=== PATIENT | female | born 1980 | race Caucasian/White ===

== ENCOUNTER 2022-12-21 20:11 | Outpatient (OUT) | payer MEDICARE, MEDICAID, SELFPAY | END 2022-12-21 20:12 | PROVIDERS: PCP Family Medicine; Visit Provider Family Medicine | DX: G47.33 Obstructive sleep apnea (adult) (pediatric) (principal) | CPT/HCPCS: 95811 ==

== ENCOUNTER 2023-02-13 12:20 | Observation (INO) | payer MEDICARE, MEDICAID, SELFPAY ==
[2023-02-13] VITALS (10 sets, daily range): BP systolic 102–148; BP diastolic 69–93; PULSE 79–93; RESP 12–24; TEMP 36.5–36.7; O2SAT 94–98; BMI 48.0; BMI 55.3
--- NOTE | 2023-02-13 12:49 | ED_ITS ---
HPI - Extremity Problem General Chief complaint: Extremity Problem, Nontraumatic Stated complaint: BOTH LEGS SWOLLEN/SOMETIMES SEEPING Time Seen by Provider: 02/13/23 12:49 Source: patient Source comment: patient Mode of arrival: Wheelchair Limitations: no limitations History of Present Illness HPI Narrative: Patient persist emergency department complaining of bilateral lower extremity edema. She states she has a history of congestive heart failure since being on the vent from Covid-19 in August of this year. She has been hospitalized in different location the last 2 months with lower extremity edema. She is taking [id number] , metolazone 2.5 mg 3 times a week and [id number]. She states in the last week he doesn't feel like this medication is working that edema has worsened is in her a lot of tightness, burning when she walks and inability for her to wear her compression stockings. He denies any chest pain, or shortness of breath. Denies any fever, chills, or cough. She denies any nausea, vomiting, diarrhea. denies trauma. Related Data Home Medications Medication Instructions Recorded Confirmed amitriptyline 150 mg tablet 300 mg PO BEDTIME 02/13/23 02/13/23 atorvastatin 40 mg tablet mg 02/13/23 dicyclomine 20 mg tablet mg 02/13/23 fluticasone 250 mcg-salmeterol 50 inhalation 02/13/23 mcg/dose blistr powdr for inhalation furosemide 40 mg tablet (Lasix) 40 mg PO DAILY 02/13/23 02/13/23 insulin regular hum U-500 conc 500 unit 02/13/23 unit/mL subcutaneous soln (Humulin R U-500 (Concentrated) Insulin) ondansetron 8 mg disintegrating mg 02/13/23 tablet oxycodone-acetaminophen 5 mg-325 tab 02/13/23 mg tablet pioglitazone 45 mg tablet mg 02/13/23 propranolol 80 mg capsule,24 mg PO 02/13/23 hr,extended release sertraline 50 mg tablet 50 mg PO DAILY 02/13/23 02/13/23 sertraline 50 mg tablet mg 02/13/23 Allergies Allergy/AdvReac Type Severity Reaction Status Date / Time hydromorphone [From Dilaudid] Allergy Intermediate Verified 02/13/23 13:18 Sulfa (Sulfonamide Allergy Intermediate Verified 02/13/23 13:18 Antibiotics) Review of Systems ROS Status of ROS 10 or more systems reviewed and unremarkable except as noted in history and below [facility] Social History Smoking status: Never smoker Exam Narrative Exam Narrative: Nurses notes and vital signs reviewed and patient is not hypoxic. General: Nontoxic, Well-appearing and in no apparent distress. Skin: Warm, dry, no pallor noted. No Rash Head: Normocephalic, atraumatic. Neck: Supple, non-tender. Eye: Pupils are equal, round and EOMI. No scleral icterus. Ears, Nose, Mouth, and Throat: TM clear, no posterior oropharynx erythema or nasal mucosal hypertrophy, uvula is mid-line Oral mucosa is moist Cardiovascular: Regular Rate and Rhythm without murmur, gallop or rub. Respiratory: No accessory muscle use or respiratory distress. Lungs are clear to auscultation, no wheezing, rales or rhonchi Chest Wall: no tenderness Back: No midline thoracic or lumbar vertebral tenderness. No CVA tenderness Musculoskeletal: normal ROM, no calf or popliteal tenderness, bilateral lower extremity lymphedema with+4 lower extremity edema/swelling, No asymmetry, negative Homans sign, no Erythema, or ecchymosis. DP pulse +2. GI: Obese,Abdomen is soft, non-distended. Normal bowel sounds. No masses appreciated. No tenderness to palpation. No rebound, guarding, or rigidity noted. Neurological: A&O x4. No cranial nerve dysfunction observed. No truncal ataxia. Moves all extremities. Sensation intact. Psychiatric: Cooperative and interactive. Normal mood and affect. Constitutional Vital Signs, click to edit/add: Last Vital Signs Temp 98.1 F 02/13/23 12:30 Pulse 90 02/13/23 15:50 Resp 13 02/13/23 15:50 BP 122/73 02/13/23 15:40 Pulse Ox 98 02/13/23 14:38 O2 Del Method Room Air 02/13/23 12:30 Course Vital Signs Vital signs: Vital Signs Temperature 98.1 F 02/13/23 12:30 Pulse Rate 79 02/13/23 12:30 Respiratory Rate 24 02/13/23 12:30 Blood Pressure 124/93 H 02/13/23 12:30 Pulse Oximetry 97 02/13/23 12:30 Oxygen Delivery Method Room Air 02/13/23 12:30 Temperature 98.1 F 02/13/23 12:30 Pulse Rate 90 02/13/23 15:50 Respiratory Rate 13 02/13/23 15:50 Blood Pressure 122/73 02/13/23 15:40 Pulse Oximetry 98 02/13/23 14:38 Oxygen Delivery Method Room Air 02/13/23 12:30 MDM - Extremity (Nontraumatic) MDM Narrative Medical decision making narrative: Patient had an IV established laboratory studies were done. Patient was given 1 mg of Bumex IV. Lab studies and chest x-rays results discussed with patient. Patient was discussed with Dr. Bonilla for observation for IV diuresis. Medical Records Attestation: I reviewed the patient's medical records. Lab Data Attestation: I reviewed the patient's lab results. Labs: Lab Results 02/13/23 Range/Units 13:05 WBC 3.8 L (4.0-11.0) 10^3/uL RBC 4.40 (4.20-5.40) 10^6/uL Hgb 13.7 (12.0-16.0) g/dL Hct 40.8 (36.0-48.0) % MCV 92.7 (81.0-99.0) fL MCH 31.1 (26.7-34.0) pg MCHC 33.6 (29.9-35.2) g/dL RDW 14.8 (11.0-15.0) % Plt Count 88 L (150-450) 10^3/uL MPV 10.9 (9.5-13.5) fL Neut % (Auto) 56.9 (43.0-75.0) % Lymph % (Auto) 32.1 (20.5-60.0) % [place] % (Auto) 7.2 (1.7-12.0) % Eos % (Auto) 2.4 (0.9-7.0) % Baso % (Auto) 1.1 (0.2-2.0) % Neut # (Auto) 2.2 (1.4-6.5) 10^3/uL Lymph # (Auto) 1.2 (1.2-3.8) 10^3/uL [place] # (Auto) 0.3 (0.3-0.8) 10^3/uL Eos # (Auto) 0.1 (0.0-0.7) 10^3/uL Baso # (Auto) 0.0 (0.0-0.1) 10^3/uL Abs Immat Gran (auto) 0.01 (0.00-0.03) 10^3/uL Imm/Tot Granulo (auto) 0.3 (0.0-0.5) % Sodium 137 (136-145) mmol/L Potassium 3.8 (3.5-5.1) mmol/L Chloride 102 (98-107) mmol/L Carbon Dioxide 28.9 (21.0-32.0) mmol/L Anion Gap 9.9 BUN 7.0 (7.0-18.0) mg/dL Creatinine 0.57 (0.55-1.02) mg/dL Est GFR ( Amer) >60 (>=60) Est GFR (Non-Af Amer) >60 (>=60) BUN/Creatinine Ratio 12.3 Glucose 292 H (74-106) mg/dL Calcium 8.5 (8.5-10.1) mg/dL Total Bilirubin 0.9 (0.2-1.0) mg/dL AST 70 H (15-37) U/L ALT 51 (14-59) U/L Alkaline Phosphatase 215 H (46-116) U/L Troponin I High Sens 4.2 (4.0-51.3) pg/mL NT-Pro-B Natriuret Pep 5.0 (<=450.0) pg/mL Total Protein 7.1 (6.4-8.2) g/dL Albumin 2.9 L (3.4-5.0) g/dL Globulin 4.2 g/dL Albumin/Globulin Ratio 0.7 ECG Data Attestation ECG: I personally reviewed and interpreted this ECG as follows: Discharge Plan Discharge Chief Complaint: Extremity Problem, Nontraumatic Clinical Impression: Congestive heart failure, Lower extremity edema Patient Disposition: Admitted as Observation Time of Disposition Decision: 15:00 Condition: Good Prescriptions / Home Meds: No Action amitriptyline 150 mg tablet 300 mg PO BEDTIME sertraline 50 mg tablet 50 mg PO DAILY furosemide [Lasix] 40 mg tablet 40 mg PO DAILY atorvastatin 40 mg tablet fluticasone propion-salmeterol 250-50 mcg/dose blister with device INHALATION pioglitazone 45 mg tablet Humulin R U-500 (Conc) Insulin 500 unit/mL solution ondansetron 8 mg tablet,disintegrating oxycodone-acetaminophen 5-325 mg tablet dicyclomine 20 mg tablet propranolol 80 mg capsule,extended release 24 hr PO sertraline 50 mg tablet
--- NOTE | 2023-02-13 12:56 | XR_ITS ---
The [address] [address] Patient Name: BOBBY BRINK MRN: [id number] date: 1980 Sex: F Assigned Patient Location: ER Current Patient Location: ER Accession/Order Number: [id number] Exam Date: 02/13/2023 13:12 Report Date: 02/13/2023 13:36 At the request of: KAITLIN RAMOS Procedure: XR chest 1V PROCEDURE: XR chest 1V DATE: 02/13/2023 12:12 PM CDT COMPARISONS: None. CLINICAL INDICATION: 42 years Female le edema FINDINGS: This appears to be a less than optimal inspiratory radiograph. Its also portable radiograph. Even taking this into account, the heart appears somewhat prominent. The pulmonary vasculature may be slightly congested based on this exam. No evidence of consolidating infiltrates of the lungs. There is no evidence of pleural effusion or pneumothorax. XR/XR chest 1V IMPRESSION: Somewhat limited exam as discussed above. Probable cardiomegaly. Probable slight interstitial fluid due to congestion or volume overload. Electronically authenticated by: RONNIE PIKE Date: 02/13/2023 13:36
[2023-02-13 13:15] LABS: Basophils Percent Auto 1.1 % (0.2-2.0); Eosinophils Absolute Auto 0.1 10^3/uL (0.0-0.7); Eosinophils Percent Auto 2.4 % (0.9-7.0); Hematocrit 40.8 % (36.0-48.0); Hemoglobin 13.7 g/dL (12.0-16.0); Immature Granulocytes Abs Auto 0.01 10^3/uL (0.00-0.03); Immature Granulocytes Pct Auto 0.3 % (0.0-0.5); Lymphocytes Absolute Auto 1.2 10^3/uL (1.2-3.8); Lymphocytes Percent Auto 32.1 % (20.5-60.0); Mean Corpuscular HGB Conc 33.6 g/dL (29.9-35.2); Mean Corpuscular Hemoglobin 31.1 pg (26.7-34.0); Mean Corpuscular Volume 92.7 fL (81.0-99.0); Mean Platelet Volume 10.9 fL (9.5-13.5); Monocytes Absolute Auto 0.3 10^3/uL (0.3-0.8); Monocytes Percent Auto 7.2 % (1.7-12.0); Neutrophils Absolute Auto 2.2 10^3/uL (1.4-6.5); Neutrophils Percent Auto 56.9 % (43.0-75.0); Platelet Count 88 10^3/uL (150-450); Red Cell Distribution Width 14.8 % (11.0-15.0); White Blood Count 3.8 10^3/uL (4.0-11.0)
[2023-02-13] MEDS: BUMETANIDE 1 MG/4 ML VIAL IVP (13:18)
[2023-02-13 13:24] LABS: Alanine Aminotransferase 51 U/L (14-59); Albumin Globulin Ratio 0.7; Albumin Level 2.9 g/dL (3.4-5.0); Alkaline Phosphatase 215 U/L (46-116); Anion Gap 9.9; Aspartate Amino Transferase 70 U/L (15-37); BUN Creatinine Ratio 12.3; Bilirubin Total 0.9 mg/dL (0.2-1.0); Calcium 8.5 mg/dL (8.5-10.1); Carbon Dioxide 28.9 mmol/L (21.0-32.0); Chloride 102 mmol/L (98-107); Estimated GFR (African America >60 (>=60); Estimated GFR (Non-African Ame >60 (>=60); Globulin 4.2 g/dL; Glucose 292 mg/dL (74-106); Potassium 3.8 mmol/L (3.5-5.1); Sodium 137 mmol/L (136-145); Total Protein 7.1 g/dL (6.4-8.2)
[2023-02-13 14:59] LABS: Troponin I High Sensitivity 4.2 pg/mL (4.0-51.3)
[2023-02-13] MEDS: BUMETANIDE 10 MG in 0.9 % SODIUM CHLORIDE 160 ML 20 MG IV (18:27)
[2023-02-13] MEDS: OMEPRAZOLE 40 MG CAPSULE.DR PO (20:24)
[2023-02-13] MEDS: METFORMIN HCL 500 MG TABLET 1000 MG PO (20:24)
[2023-02-13] MEDS: ENOXAPARIN SODIUM 40 MG/0.4 ML SYRINGE SUBQ (20:30)
[2023-02-13] MEDS: DICYCLOMINE HCL 10 MG CAPSULE 20 MG PO (21:35)
[2023-02-13] MEDS: AMITRIPTYLINE HCL 50 MG TABLET 300 MG PO (21:35)
[2023-02-13] MEDS: BUDESONIDE 0.5 MG/2 ML AMPULE NEB IH (21:54)
[2023-02-13] MEDS: ALBUTEROL SULFATE 2.5 MG/3 ML VIAL NEB IH (21:54)
[2023-02-13] MEDS: ATORVASTATIN CALCIUM 40 MG TABLET PO (23:31)
[2023-02-14 04:53] VITALS: PULSE 107; RESP 20; O2SAT 93
[2023-02-14] MEDS: ALBUTEROL SULFATE 2.5 MG/3 ML VIAL NEB IH ×2 (04:53→11:22)
[2023-02-14 04:55] VITALS: O2SAT 93
[2023-02-14 05:07] LABS: Anion Gap 11.8; BUN Creatinine Ratio 9.6; Calcium 8.2 mg/dL (8.5-10.1); Chloride 96 mmol/L (98-107); Estimated GFR (African America >60 (>=60); Estimated GFR (Non-African Ame >60 (>=60); Glucose 287 mg/dL (74-106); Sodium 138 mmol/L (136-145)
[2023-02-14 05:10] VITALS: BP 117/73; PULSE 111; RESP 18; TEMP 36.7; O2SAT 90
[2023-02-14] MEDS: DICYCLOMINE HCL 10 MG CAPSULE 20 MG PO ×2 (05:11→11:11)
[2023-02-14 05:12] LABS: Potassium 2.8 mmol/L (3.5-5.1)
--- NOTE | 2023-02-14 05:37 | ECG_ITS ---
The [facility] Test Date: 2023-02-13 Pat Name: BOBBY BRINK Department: Room: [facility] Gender: Female [employer]: : 1980 Requested By: [id number] Order Number: [id number] Reading MD: PEDRO FROST Measurements Intervals [place] Rate: 88 P: 55 RI: 192 QRS: 56 QRSD: 86 T: 49 QT: 372 QTc: 417 Interpretive Statements 1100 Sinus rhythm 3433 Septal myocardial infarction, probably old 8102 Low QRS voltage in chest leads 9150 abnormal ECG No previous ECG available for comparison Electronically Signed On 02-14-2023 18:23:45 EDT by PEDRO FROST
--- NOTE | 2023-02-14 06:00 | XR_ITS ---
[address] [address] Patient Name: BOBBY BRINK MRN: [id number] date: 1980 Sex: F Assigned Patient Location: [place] Current Patient Location: [place] Accession/Order Number: [id number] Exam Date: 02/14/2023 05:45 Report Date: 02/14/2023 07:58 At the request of: EDIL OGLESBY Procedure: XR chest 1V Exam: Radiographs: XR chest 1V Reason for exam: CHF Comparison: Chest x-ray dated 07/28/2021 XR/XR chest 1V IMPRESSION: Pulmonary venous hypertension. Chest is otherwise unremarkable. Electronically authenticated by: ROCHELLE PARKER Date: 02/14/2023 07:58
[2023-02-14] MEDS: POTASSIUM CHLORIDE 10 MEQ ER TABLET 40 MEQ PO ×2 (06:15→08:50)
[2023-02-14] MEDS: PIOGLITAZONE 15 MG TABLET 45 MG PO (08:44)
[2023-02-14] MEDS: OMEPRAZOLE 40 MG CAPSULE.DR PO (08:45)
[2023-02-14] MEDS: SPIRONOLACTONE 25 MG TABLET 50 MG PO (08:45)
[2023-02-14] MEDS: SERTRALINE HCL 50 MG TABLET PO (08:46)
[2023-02-14] MEDS: PROPRANOLOL HCL 80 MG CAP.24H PO (08:46)
[2023-02-14] MEDS: FUROSEMIDE 40 MG TABLET PO (08:46)
[2023-02-14] MEDS: METFORMIN HCL 500 MG TABLET 1000 MG PO (08:46)
[2023-02-14] MEDS: ACETAMINOPHEN 500 MG TABLET 1000 MG PO (08:50)
[2023-02-14] MEDS: INSULIN ASPART 300 UNIT/3 ML PEN SUBQ (11:05)
[2023-02-14] MEDS: BUDESONIDE 0.5 MG/2 ML AMPULE NEB IH (11:21)
[2023-02-14 11:22] VITALS: PULSE 101; O2SAT 96
[2023-02-14 11:24] VITALS: PULSE 101; O2SAT 96
--- NOTE | 2023-02-14 12:29 | P.HP_ITS ---
H&P: HPI History of Present Illness Chief complaint: Leg edema Narrative: 42 y/o female to ER with worsening LE edema. History of CHF with normal EF. C/o increased edema over the past few weeks. Swelling in bilateral legs and feet. Increased pain in feet and legs tight. Not able to wear compression due to swelling. Difficulty ambulating due to edema and pain. Taking lasix and metolazone but not helping. To ER and labs normal including CBC and renal function. BNP normal. Chest x-ray suggestive fluid overload and admitted. Given IV bumex in ER and started bumex drip. Resumed home medication. Improved this am and less edema but legs remain swollen. Ambulating well and no SOB. Review of Systems ROS Constitutional Denies: fever, chills or night sweats Cardiovascular Reports: edema; Denies: chest pain, palpitations or lightheadedness Respiratory Denies: shortness of breath, cough or wheezing Gastrointestinal Denies: abdominal pain, nausea, vomiting or diarrhea Genitourinary Denies: painful urination [facility] Medical History (Updated 02/14/23 @ 12:35 by Juan Bonilla MD) Surgical History (Updated 02/13/23 @ 16:54 by Elana Dumont) Social History Smoking status: Never smoker Meds Home Medications and Allergies Home Medications Medication Instructions Recorded Confirmed Type amitriptyline 150 mg tablet 300 mg PO BEDTIME 02/13/23 02/13/23 History atorvastatin 40 mg tablet 40 mg PO BEDTIME 02/13/23 02/13/23 History dicyclomine 20 mg tablet 20 mg PO QID 02/13/23 02/13/23 History fluticasone 250 mcg-salmeterol 50 1 inh inhalation Q12H 02/13/23 02/13/23 History mcg/dose blistr powdr for inhalation furosemide 40 mg tablet (Lasix) 40 mg PO DAILY 02/13/23 02/13/23 History insulin regular hum U-500 conc 500 500 unit subcut ACHS 02/13/23 02/13/23 Histor y unit/mL subcutaneous soln (Humulin R U-500 (Concentrated) Insulin) metformin 500 mg tablet 500 mg PO BID 02/13/23 02/13/23 History omeprazole 40 mg capsule,delayed 40 mg PO BID 02/13/23 02/13/23 History release ondansetron 8 mg disintegrating 8 mg PO Q8H PRN nausea 02/13/23 02/13/23 History tablet oxycodone-acetaminophen 5 mg-325 1 tab PO QID PRN pain 02/13/23 02/13/23 History mg tablet pioglitazone 45 mg tablet 45 mg PO QDAY 02/13/23 02/13/23 History propranolol 80 mg capsule,24 80 mg PO Q24H 02/13/23 02/13/23 History hr,extended release sertraline 50 mg tablet 50 mg PO DAILY 02/13/23 02/13/23 History spironolactone 50 mg tablet 50 mg PO QDAY 02/13/23 02/13/23 History Allergies Allergy/AdvReac Type Severity Reaction Status Date / Time hydromorphone [From Dilaudid] Allergy Intermediate Verified 02/13/23 13:18 Sulfa (Sulfonamide Allergy Intermediate Verified 02/13/23 13:18 Antibiotics) Exam Constitutional Vital Signs, click to edit/add: Last Vital Signs Temp 98.1 F 02/14/23 05:10 Pulse 101 H 02/14/23 11:24 Resp 18 02/14/23 05:10 BP 117/73 02/14/23 05:10 Pulse Ox 96 02/14/23 11:24 O2 Del Method Room Air 02/14/23 11:24 Documenting provider has reviewed patient's vital signs: yes Common normals: no apparent distress, oriented x3 and alert HENMT Common normals: normocephalic Eye Common normals: PERRL and EOMs intact bilaterally Respiratory Common normals: normal respiratory effort and clear to auscultation bilaterally Cardio Common normals: regular rate, regular rhythm, no gallops, no murmurs and no rub GI Common normals: Normal to inspection, nondistended, normoactive bowel sounds present and non-tender Extremity General: edema (2+ nonpitting bilateral edema) Results Labs Labs: Short CBC 02/13/23 Range/Units 13:05 WBC 3.8 L (4.0-11.0) 10^3/uL Hgb 13.7 (12.0-16.0) g/dL Hct 40.8 (36.0-48.0) % Plt Count 88 L (150-450) 10^3/uL BMP 02/13/23 02/14/23 13:05 04:25 Sodium 137 138 Potassium 3.8 2.8 L* Chloride 102 96 L Carbon Dioxide 28.9 33.0 H BUN 7.0 7.0 Creatinine 0.57 0.73 Glucose 292 H 287 H Calcium 8.5 8.2 L Liver Function 02/13/23 Range/Units 13:05 Total Bilirubin 0.9 (0.2-1.0) mg/dL AST 70 H (15-37) U/L ALT 51 (14-59) U/L Alkaline Phosphatase 215 H (46-116) U/L Albumin 2.9 L (3.4-5.0) g/dL Imaging Chest x-ray: Attestation: I have reviewed the pertinent imaging results. Assessment and Plan Assessment and Plan (1) Acute on chronic heart failure with preserved ejection fraction: (2) Lymph edema: (3) Type 2 diabetes mellitus with hyperglycemia: (4) Benign essential hypertension: (5) Diabetic gastroparesis associated with type 2 diabetes mellitus: (6) Morbid obesity: Plan Treated with bumex drip and edema improved but still present. Patient appears to have chronic lymphedema and likely will not respond well to diuretics. Discharge home. Will refer to lymphedema clinic as outpatient. Stop lasix and start bumex. Resume other home medication as directed. F/u in office in 2-4 weeks.
--- NOTE | 2023-02-16 12:18 | CM.DCFOLLOWU ---
Person spoke with: Fela How are you feeling? recent loss of family member--awaiting details. How is your ok pain? Did you understand your discharge instructions? yes Do you have any questions about your discharge instructions? no Were you given any prescriptions at discharge? Yes, medications were adjusted. Were you able to get your prescriptions filled? yes Do you understand how to take your medications as ordered? yes Do you have any questions about your follow up appointment and do you plan to keep your follow up appointment? Not yet, awaiting to hear arrangements regarding family loss Is there anything else that you would like to discuss? no Questions/Comments/Concerns/Other: Encouraged her to make the follow up appointment with Dr. Bonilla
== END 2023-02-14 13:55 | disposition home health service (06) ==
LOC: ER 15:27 → MS 16:08
PROVIDERS: Admitting Provider Family Medicine; Emergency Provider Emergency Medicine; PCP Family Medicine
DX: I11.0 Hypertensive heart disease with heart failure (principal); I50.33 Acute on chronic diastolic (congestive) heart failure; E11.65 Type 2 diabetes mellitus with hyperglycemia; E11.43 Type 2 diabetes mellitus with diabetic autonomic (poly)neuropathy; K31.84 Gastroparesis; E66.01 Morbid (severe) obesity due to excess calories; Z68.43 Body mass index [BMI] 50.0-59.9, adult; I89.0 Lymphedema, not elsewhere classified; Z79.899 Other long term (current) drug therapy; Z79.4 Long term (current) use of insulin
CPT/HCPCS: 36415; 71045; 80048; 80053; 82948; 83880; 84484; 85025; 93005; 94640; 96365; 96366; 96372; 96375; 96376; 99285; G0378

== ENCOUNTER 2023-07-09 18:32 | Emergency (ER) | payer MEDICARE, MEDICAID, SELFPAY ==
[2023-07-09 18:38] VITALS: BP 103/68; PULSE 99; RESP 18; TEMP 36.7; O2SAT 96; BMI 53.9
--- NOTE | 2023-07-09 19:11 | US_ITS ---
The [address] [address] Patient Name: BOBBY BRINK MRN: [id number] date: 1980 Sex: F Assigned Patient Location: ER Current Patient Location: ER Accession/Order Number: [id number] Exam Date: 07/09/2023 20:18 Report Date: 07/09/2023 21:23 At the request of: SILVIA STEPHENSON Procedure: US venous doppler LE LT EXAMINATION: US venous doppler LE LT HISTORY: pain and swelling COMPARISON: No relevant comparison available. FINDINGS: REGION: Left lower extremity THROMBI: None. COMPRESSIBILITY: Normal compressibility. FLOW: Normal waveform and antegrade flow between 5 and 20 cm/s. OTHER: Subcutaneous edema. US/US venous doppler LE LT IMPRESSION: 1. No deep vein thrombus within the left lower extremity. 2. Slightly limited evaluation of the calf veins due to patient body habitus and subcutaneous edema. Electronically authenticated by: WILL ZACARIAS Date: 07/09/2023 21:23
--- NOTE | 2023-07-09 19:13 | ED.GENADUL1 ---
HPI - General Adult General Chief complaint: Skin/Abscess/Foreign Body Stated complaint: SWOLLEN, HARD, HOT LEG Time Seen by Provider: 07/09/23 18:45 Source: patient Mode of arrival: walk-in Limitations: no limitations History of Present Illness HPI narrative: 42-year-old female presents for pain and redness and swelling to her left lower calf area. It started four days ago and she was seen at another hospital emergency department yesterday. She states they did blood tests and they told her she has shingles and they gave her medicine for it. At home care nurse said that she needs to go back to the Emergency Room and get this checked out for the concern of a blood clot. The patient has never had one previously. She does have chronic lymphedema in both legs. No chest pain fever or complaints of shortness of breath. Related Data Home Medications Medication Instructions Recorded Confirmed amitriptyline 150 mg tablet 300 mg PO BEDTIME 02/13/23 02/13/23 atorvastatin 40 mg tablet 40 mg PO BEDTIME 02/13/23 02/13/23 dicyclomine 20 mg tablet 20 mg PO QID 02/13/23 02/13/23 fluticasone 250 mcg-salmeterol 50 1 inh inhalation Q12H 02/13/23 02/13/23 mcg/dose blistr powdr for inhalation insulin regular hum U-500 conc 500 500 unit subcut ACHS 02/13/23 02/13/23 unit/mL subcutaneous soln (Humulin R U-500 (Concentrated) Insulin) metformin 500 mg tablet 500 mg PO BID 02/13/23 02/13/23 omeprazole 40 mg capsule,delayed 40 mg PO BID 02/13/23 02/13/23 release ondansetron 8 mg disintegrating 8 mg PO Q8H PRN nausea 02/13/23 02/13/23 tablet oxycodone-acetaminophen 5 mg-325 1 tab PO QID PRN pain 02/13/23 02/13/23 mg tablet pioglitazone 45 mg tablet 45 mg PO QDAY 02/13/23 02/13/23 propranolol 80 mg capsule,24 80 mg PO Q24H 02/13/23 02/13/23 hr,extended release sertraline 50 mg tablet 50 mg PO DAILY 02/13/23 02/13/23 spironolactone 50 mg tablet 50 mg PO QDAY 02/13/23 02/13/23 Previous Rx's Medication Instructions Recorded bumetanide 2 mg tablet 2 mg PO DAILY #30 tabs 02/14/23 amoxicillin 875 mg-potassium 1 tab PO BID #20 tabs 07/09/23 clavulanate 125 mg tablet Allergies Allergy/AdvReac Type Severity Reaction Status Date / Time hydromorphone [From Dilaudid] Allergy Intermediate Verified 07/09/23 18:38 Sulfa (Sulfonamide Allergy Intermediate Verified 07/09/23 18:38 Antibiotics) Review of Systems ROS Narrative A ten point review of systems is negative except as noted above. [facility] Medical History (Updated 07/09/23 @ 21:58 by Wing Santiago MD) Nonalcoholic fatty liver disease ?K76.0 - Fatty (change of) liver, not elsewhere classified (ICD-10) Morbid obesity ?E66.01 - Morbid (severe) obesity due to excess calories (ICD-10) Diabetic gastroparesis associated with type 2 diabetes mellitus ?E11.43 - Type 2 diabetes mellitus with diabetic autonomic (poly)neuropathy (ICD-10) ?K31.84 - Gastroparesis (ICD-10) Type 2 diabetes mellitus with hyperglycemia ?E11.65 - Type 2 diabetes mellitus with hyperglycemia (ICD-10) Chronic heart failure with preserved ejection fraction (HFpEF) ?I50.32 - Chronic diastolic (congestive) heart failure (ICD-10) Acute on chronic heart failure with preserved ejection fraction ?I50.33 - Acute on chronic diastolic (congestive) heart failure (ICD-10) Cervical spondylosis ?M47.812 - Spondylosis without myelopathy or radiculopathy, cervical region (ICD-10) Benign essential hypertension ?I10 - Essential (primary) hypertension (ICD-10) Gastroparesis ?K31.84 - Gastroparesis (ICD-10) Oral yeast infection ?B37.0 - Candidal stomatitis (ICD-10) Lymph edema ?I89.0 - Lymphedema, not elsewhere classified (ICD-10) Asthma ?J45.909 - Unspecified asthma, uncomplicated (ICD-10) TIA (transient ischemic attack) ?G45.9 - Transient cerebral ischemic attack, unspecified (ICD-10) COVID ?U07.1 - COVID-19 (ICD-10) Lower extremity edema ?R60.0 - Localized edema (ICD-10) Surgical History (Updated 02/13/23 @ 16:54 by Elana Dumont) History of back surgery ?Z98.890 - Other specified postprocedural states (ICD-10) Hx of cholecystectomy ?Z90.49 - Acquired absence of other specified parts of digestive tract (ICD-10) History of hysterectomy ?Z90.710 - Acquired absence of both cervix and uterus (ICD-10) Social History Smoking status: Never smoker Exam Narrative Exam Narrative: Nurses note and vital signs reviewed and patient is not hypoxic. General: The patient appears well and in no apparent distress. Patient is resting comfortably on cart. Skin: Warm, dry, no pallor noted. There is no rash noted. Head: Normocephalic, atraumatic Eye: Normal conjunctiva, no drainage Ears, Nose, Mouth, and Throat: oral mucosa is moist. Nares patent. Cardiovascular: Regular Rate and Rhythm Respiratory: Patient is in no distress, no accessory muscle use, lungs are clear to auscultation, no wheezing, rales or rhonchi Back: non-tender GI: obese and nontender Musculoskeletal: the left lower leg is examined. There is erythema in the calf area along with numerous erythematous round skin lesions. They're not in a dermatomal distribution. Right calf is not swollen or erythematous. Neurological: A&O, normal speech Psychiatric: Cooperative Constitutional Vital Signs, click to edit/add: Last Vital Signs Temp 98.1 F 07/09/23 18:38 Pulse 99 H 07/09/23 18:38 Resp 18 07/09/23 18:38 BP 103/68 07/09/23 18:38 Pulse Ox 96 07/09/23 18:38 O2 Del Method Room Air 07/09/23 18:38 Course Vital Signs Vital signs: Vital Signs Temperature 98.1 F 07/09/23 18:38 Pulse Rate 99 H 07/09/23 18:38 Respiratory Rate 18 07/09/23 18:38 Blood Pressure 103/68 07/09/23 18:38 Pulse Oximetry 96 07/09/23 18:38 Oxygen Delivery Method Room Air 07/09/23 18:38 Temperature 98.1 F 07/09/23 18:38 Pulse Rate 99 H 07/09/23 18:38 Respiratory Rate 18 07/09/23 18:38 Blood Pressure 103/68 07/09/23 18:38 Pulse Oximetry 96 07/09/23 18:38 Oxygen Delivery Method Room Air 07/09/23 18:38 Medical Decision Making MDM Narrative Medical decision making narrative: Doppler is negative. WBC is normal. She was given IV Ancef and prescribed Augmentin and she'll follow-up with her family doctor, returning here if symptoms worsen. Treatment diagnosis and follow-up were discussed with the patient. Differential Diagnosis Differential Diagnosis: cellulitis, deep vein thrombosis Lab Data Lab results reviewed: Yes I reviewed the patient's lab results Labs: Lab Results 07/09/23 Range/Units 19:22 WBC 6.0 (4.0-11.0) 10^3/uL RBC 4.03 L (4.20-5.40) 10^6/uL Hgb 12.4 (12.0-16.0) g/dL Hct 38.7 (36.0-48.0) % MCV 96.0 (81.0-99.0) fL MCH 30.8 (26.7-34.0) pg MCHC 32.0 (29.9-35.2) g/dL RDW 15.4 H (11.0-15.0) % Plt Count 120 L (150-450) 10^3/uL MPV 10.4 (9.5-13.5) fL Neut % (Auto) 64.4 (43.0-75.0) % Lymph % (Auto) 24.0 (20.5-60.0) % [place] % (Auto) 8.4 (1.7-12.0) % Eos % (Auto) 2.2 (0.9-7.0) % Baso % (Auto) 0.7 (0.2-2.0) % Neut # (Auto) 3.8 (1.4-6.5) 10^3/uL Lymph # (Auto) 1.4 (1.2-3.8) 10^3/uL [place] # (Auto) 0.5 (0.3-0.8) 10^3/uL Eos # (Auto) 0.1 (0.0-0.7) 10^3/uL Baso # (Auto) 0.0 (0.0-0.1) 10^3/uL Abs Immat Gran (auto) 0.02 (0.00-0.03) 10^3/uL Imm/Tot Granulo (auto) 0.3 (0.0-0.5) % Sodium 143 (136-145) mmol/L Potassium 3.7 (3.5-5.1) mmol/L Chloride 106 (98-107) mmol/L Carbon Dioxide 30.1 (21.0-32.0) mmol/L Anion Gap 10.6 BUN 6.0 L (7.0-18.0) mg/dL Creatinine 0.55 (0.55-1.02) mg/dL Est GFR ( Amer) >60 (>=60) Est GFR (Non-Af Amer) >60 (>=60) BUN/Creatinine Ratio 10.9 Glucose 146 H (74-106) mg/dL Calcium 9.2 (8.5-10.1) mg/dL Imaging Data venous Doppler: Radiologist's impression: Procedure: US venous doppler LE LT EXAMINATION: US venous doppler LE LT HISTORY: pain and swelling COMPARISON: No relevant comparison available. FINDINGS: REGION: Left lower extremity THROMBI: None. COMPRESSIBILITY: Normal compressibility. FLOW: Normal waveform and antegrade flow between 5 and 20 cm/s. OTHER: Subcutaneous edema. IMPRESSION: 1. No deep vein thrombus within the left lower extremity. 2. Slightly limited evaluation of the calf veins due to patient body habitus and subcutaneous edema. Electronically authenticated by: WILL ZACARIAS Date: 07/09/2023 21:23 Discharge Plan Discharge Chief Complaint: Skin/Abscess/Foreign Body Clinical Impression: Cellulitis Patient Disposition: Home, Self-Care Time of Disposition Decision: 21:58 Condition: Good Mode of Transportation: Private Vehicle Prescriptions / Home Meds: New amoxicillin-pot clavulanate 875-125 mg tablet 1 tab PO BID Qty: 20 0RF No Action amitriptyline 150 mg tablet 300 mg PO BEDTIME sertraline 50 mg tablet 50 mg PO DAILY atorvastatin 40 mg tablet 40 mg PO BEDTIME fluticasone propion-salmeterol 250-50 mcg/dose blister with device 1 inh INHALATION Q12H pioglitazone 45 mg tablet 45 mg PO QDAY Humulin R U-500 (Conc) Insulin 500 unit/mL solution 500 unit subcut ACHS ondansetron 8 mg tablet,disintegrating 8 mg PO Q8H PRN (Reason: nausea) oxycodone-acetaminophen 5-325 mg tablet 1 tab PO QID PRN (Reason: pain) dicyclomine 20 mg tablet 20 mg PO QID propranolol 80 mg capsule,extended release 24 hr 80 mg PO Q24H omeprazole 40 mg capsule,delayed release(DR/EC) 40 mg PO BID spironolactone 50 mg tablet 50 mg PO QDAY metformin 500 mg tablet 500 mg PO BID bumetanide 2 mg tablet 2 mg PO DAILY Qty: 30 3RF Instructions: Cellulitis (ED) Additional Instructions: see your doctor in one week. Return for worsening symptoms. Stand Alone Forms: Portal Instructions Referrals: Juan Bonilla MD [Primary Care Provider] - 1 week
[2023-07-09 19:31] LABS: Basophils Percent Auto 0.7 % (0.2-2.0); Eosinophils Absolute Auto 0.1 10^3/uL (0.0-0.7); Eosinophils Percent Auto 2.2 % (0.9-7.0); Hematocrit 38.7 % (36.0-48.0); Hemoglobin 12.4 g/dL (12.0-16.0); Immature Granulocytes Abs Auto 0.02 10^3/uL (0.00-0.03); Immature Granulocytes Pct Auto 0.3 % (0.0-0.5); Lymphocytes Absolute Auto 1.4 10^3/uL (1.2-3.8); Mean Corpuscular Hemoglobin 30.8 pg (26.7-34.0); Mean Platelet Volume 10.4 fL (9.5-13.5); Monocytes Absolute Auto 0.5 10^3/uL (0.3-0.8); Monocytes Percent Auto 8.4 % (1.7-12.0); Neutrophils Absolute Auto 3.8 10^3/uL (1.4-6.5); Neutrophils Percent Auto 64.4 % (43.0-75.0); Platelet Count 120 10^3/uL (150-450); Red Blood Count 4.03 10^6/uL (4.20-5.40); Red Cell Distribution Width 15.4 % (11.0-15.0)
[2023-07-09 19:42] LABS: Anion Gap 10.6; BUN Creatinine Ratio 10.9; Calcium 9.2 mg/dL (8.5-10.1); Carbon Dioxide 30.1 mmol/L (21.0-32.0); Chloride 106 mmol/L (98-107); Estimated GFR (African America >60 (>=60); Estimated GFR (Non-African Ame >60 (>=60); Glucose 146 mg/dL (74-106); Potassium 3.7 mmol/L (3.5-5.1); Sodium 143 mmol/L (136-145)
[2023-07-09] MEDS: CEFAZOLIN SODIUM/DEXTROSE,ISO 1 GM/50 ML IV.SOLN IV (21:58)
[2023-07-09 22:02] VITALS: BP 104/81
== END 2023-07-09 22:40 | disposition home or self-care (01) ==
PROVIDERS: Emergency Provider Emergency Medicine; PCP Family Medicine
DX: L03.116 Cellulitis of left lower limb (principal); I89.0 Lymphedema, not elsewhere classified; Z79.899 Other long term (current) drug therapy; Z79.84 Long term (current) use of oral hypoglycemic drugs; Z79.4 Long term (current) use of insulin; K76.0 Fatty (change of) liver, not elsewhere classified; E66.01 Morbid (severe) obesity due to excess calories; E11.43 Type 2 diabetes mellitus with diabetic autonomic (poly)neuropathy; I50.32 Chronic diastolic (congestive) heart failure; M47.812 Spondylosis without myelopathy or radiculopathy, cervical region; I11.0 Hypertensive heart disease with heart failure; J45.909 Unspecified asthma, uncomplicated; Z86.73 Personal history of transient ischemic attack (TIA), and cerebral infarction without residual deficits; Z86.16 Personal history of COVID-19; Z90.49 Acquired absence of other specified parts of digestive tract; Z90.710 Acquired absence of both cervix and uterus; Z68.43 Body mass index [BMI] 50.0-59.9, adult
CPT/HCPCS: 36415; 80048; 85025; 93971; 96365; 99285

== ENCOUNTER 2024-07-18 13:54 | Day surgery (SDC) | payer MEDICARE, MEDICAID, SELFPAY ==
--- NOTE | 2024-07-18 14:10 | US_ITS ---
[address] [address] Patient Name: BOBBY BRIKN MRN: [id number] date: 1980 Sex: F Assigned Patient Location: US Current Patient Location: US Accession/Order Number: [id number] Exam Date: 07/18/2024 14:40 Report Date: 07/18/2024 16:49 At the request of: PAGE BOBO Procedure: US biopsy FNA EXAMINATION: US biopsy FNA HISTORY: NECK LUMP COMPARISON: CT neck soft tissue 07/17/2024 TECHNIQUE: After obtaining informed consent, an ultrasound-guided biopsy was performed in the usual sterile manner. FINDINGS: IMAGING: Ultrasound guidance BIOPSY NEEDLE: 25-gauge, 4 separate passes. 19-gauge one pass. SPECIMEN TYPE, #, LOCATION: Fine-needle aspiration. Posterior upper left neck hypoechoic mass versus lymph node, 1.1 x 0.7 x 0.5 cm MEDICATION: 1% buffered lidocaine for local anesthesia COMPLICATIONS: None. LABORATORY: Pending OTHER: Negative. US/US biopsy FNA IMPRESSION: Uneventful ultrasound guided biopsy. The patient was instructed to obtain follow up care and biopsy results from the referring physician. Electronically authenticated by: WILL ZACARIAS Date: 07/18/2024 16:49
[2024-07-18 14:15] VITALS: BP 109/62; PULSE 82; O2SAT 96
[2024-07-18 14:50] VITALS: BMI 53.2
[2024-07-18] MEDS: LIDOCAINE HCL 10 ML, SODIUM BICARBONATE 1 MEQ INJ (15:10)
[2024-07-18 15:25] VITALS: BP 125/71; PULSE 73; O2SAT 98
--- NOTE | 2024-07-18 15:36 | PC.NURSE ---
Pt tolerated procedure well, denies any complaints. Ambulated to lobby, gait steady
== END 2024-07-18 15:36 ==
LOC: US 13:56
PROVIDERS: Radiology Diagnostic Radiology; PCP Family Medicine; Visit Provider Otolaryngology
DX: R22.1 Localized swelling, mass and lump, neck (principal)
CPT/HCPCS: 10005

== ENCOUNTER 2024-08-07 11:31 | Emergency (ER) | payer MEDICARE, MEDICAID, SELFPAY ==
[2024-08-07 11:38] VITALS: BP 136/87; PULSE 85; TEMP 36.9; O2SAT 99; BMI 51.7
--- NOTE | 2024-08-07 11:43 | XR_ITS ---
The [address] [address] Patient Name: BOBBY BRINK MRN: [id number] date: 1980 Sex: F Assigned Patient Location: ER Current Patient Location: ER Accession/Order Number: [id number] Exam Date: 08/07/2024 11:49 Report Date: 08/07/2024 12:08 At the request of: SILVIA STEPHENSON Procedure: XR chest 2V EXAMINATION: XR chest 2V HISTORY: chest congestion COMPARISON: XR chest 02/14/2023 FINDINGS: LUNGS: Underexpanded lungs without appreciable infiltrates. Slight wall thickening of a few central bronchi. VASCULATURE: No increased pulmonary vasculature. PLEURA: No pneumothorax, effusion, or pleural thickening. CARDIAC: No cardiomegaly or cardiac silhouette abnormality. MEDIASTINUM: No visible mass or adenopathy. BONES: No fracture or visible bone lesion. OTHER: Negative. XR/XR chest 2V IMPRESSION: 1. Possible mild bronchiolitis. 2. No peripheral infiltrates to suggest pneumonia. Electronically authenticated by: WILL ZACARIAS Date: 08/07/2024 12:08
--- OUTSIDE RECORDS SUMMARY | 2024-08-07 11:59 | XMS_ITS | CCD ---
Author Organization [facility] CliniSyid Care Team Providers Care Bag Printer Name Role Phone Lizzeth Jackson Unavailable Unava ilable Lizzeth Jackson Unavailable Unava ilable *SELF, REFERRED Unavailable Unavailable Juan Oglesby Unavailable UnavailJUAN Menchaca Primary Care Unavailable SELF, REFERRED Referring Unavailable MICHA CANAS Attending Unavailable MICHA CANAS Admitting Unavailable Brenda Kent Unavailable MD Juan Oglesby Primary Care Provider MD Festus Matamoros Attending Provider [phone] Festus Matamoros Unavailable MARCIAL DE ANDA Attending Unavailable Juan Oglesby Primary Care Provider [phone] CAMILLA GALLARDO Attending Unavailable JUAN OGLESBY Primary Care Unavailable TY, DR PJ Knott Admitting Unavailable RENY, DR JUAN Gil Primary Care Unavailable TY, DR PJ Knott Consulting Unavailable TY, DR PJ Knott Attending Unavailable TY, DR PJ Knott Consulting Unavailable RENY, DR JUAN Gil Primary Care Unavailable TY, DR PJ Knott Attending Unavailable TY, DR PJ Knott Admitting Unavailable DEANN, DR WILL Boyce Consulting Unavailable TY, DR PJ Knott Consulting Unavailable RENY, DR JUAN Gil Primary Care Unavailable TY, DR PJ Knott Admitting Unavailable TY, DR PJ Knott Attending Unavailable DEANN, DR WILL Boyce Consulting Unavailable TY, DR PJ Knott Consulting Unavailable RENY, DR JUAN Gil Primary Care Unavailable TY, DR PJ Knott Admitting Unavailable TY, DR PJ Knott Attending Unavailable SILVIA STEPHENSON Admitting Unavailable RENY, DR JUAN Gil Primary Care Unavailable SILVIA STEPHENSON Attending Unavailable ELIZABETH ., MR CHILDRESS Consulting Unavailable VIKI VICTOR Consulting Unavailable NADERER, DR JUAN Gil Admitting Unavailable NADERER, DR JUAN Gil Attending Unavailable NADERER, DR JUAN Gil Primary Care Unavailable WEST, DR PJ Knott Consulting Unavailable WEST, DR PJ Knott Attending Unavailable NADERER, DR JUAN Gil Primary Care Unavailable WEST, DR PJ Knott Admitting Unavailable WEST, DR PJ Knott Admitting Unavailable NADERER, DR JUAN Gil Primary Care Unavailable WEST, DR PJ Knott Attending Unavailable WEST, DR PJ Knott Consulting Unavailable WEST, DR PJ Knott Attending Unavailable WEST, DR PJ Knott Admitting Unavailable NADERER, DR JUAN Gil Primary Care Unavailable ZIEBER, DR WILL Boyce Consulting Unavailable WEST, DR PJ Knott Consulting Unavailable WEST, DR PJ Knott Admitting Unavailable NADERER, DR JUAN Gil Primary Care Unavailable WEST, DR PJ Knott Attending Unavailable ZIEBER, DR WILL Boyce Consulting Unavailable NADERER, DR JUAN Gil Admitting Unavailable NADERER, DR JUAN Gil Attending Unavailable NADERER, DR JUAN Gil Primary Care Unavailable NADERER, DR JUAN Gil Consulting Unavailable WEST, DR PJ Knott Consulting Unavailable WEST, DR PJ Knott Admitting Unavailable NADERER, DR JUAN Gil Primary Care Unavailable WEST, DR PJ Knott Attending Unavailable WEST, DR PJ Knott Consulting Unavailable NADERER, DR JUAN Gil Primary Care Unavailable WEST, DR PJ Knott Admphillip Unavailable WEST, DR PJ Knott Attending Unavailable NADERER, DR JUAN Gil Primary Care Unavailable WEST, DR PJ Knott Consulting Unavailable WEST, DR PJ Knott Admphillip Unavailable WEST, DR PJ Knott Attending Unavailable ZIEBER, DR WILL Boyce Consulting Unavailable NADERER, DR JUAN Gil Primary Care Unavailable WEST, DR PJ Knott Admphillip Unavailable WEST, DR PJ Knott Consulting Unavailable WEST, DR PJ Knott Attending Unavailable ZIEBER, DR WILL Boyce Consulting Unavailable WEST, DR PJ Knott Consulting Unavailable WEST, DR PJ Knott Attending Unavailable NADERER, DR JUAN Gil Primary Care Unavailable WEST, DR PJ Knott Admitting Unavailable RACHEL ., KAITLIN Attending Unavailable RACHEL ., KAITLIN Admitting Unavailable NADERER, DR JUAN Gil Primary Care Unavailable RACHEL ., KAITLIN Consulting Unavailable WEST, DR PJ Knott Consulting Unavailable NADERER, DR JUAN Gil Primary Care Unavailable WEST, DR PJ Knott Admitting Unavailable WEST, DR PJ Knott Attending Unavailable ZIEBER, DR WILL Boyce Consulting Unavailable Rod, Elizabeth Unavailable Reny LAWSON, Juan Primary Care Provider Reny LAWSON, Juan Primary Care Provider MD Juan Oglesby Primary Care Provider HARRISON Kent Attending Provider Reny LAWSON, Juan Primary Care Provider Reny LAWSON, Juan Primary Care Provider [phone] MD Juan Oglesby Primary Care Provider DO Estefania Solorzano Attending Provider NADERER, JUAN Primary Care Unavailable MADISON, AHMAD Attending Unavailable ASHLYN LOPEZ Attending Unavailabl e JESSICAASHLYN RIVERA Referring Unavailabl e NADERER, JUAN Primary Care Unavailable NADERER, JUAN Primary Care Unavailable COLTEN MYERS Attending Unavailable LEXI SAN Attending Unavailable LEXI SAN Referring Unavailable NADERER, JUAN Primary Care Unavailable LIZY SABA Attending Unavailable NADERER, JUAN Referring Unavailable NADERER, JUAN Primary Care Unavailable COOK, MAXI E Attending Unavailable COOK, MAXI E Referring Unavailable NADERER, JUAN Primary Care Unavailable COOK, MAXI E Admitting Unavailable COOK, MAXI E Attending Unavailable NADERER, JUAN Referring Unavailable NADERER, JUAN Primary Care Unavailable ELIZABETH RICKS Attending Unavailable NADERER, JUAN Primary Care Unavailable NADERER, JUAN Primary Care Unavailable MADISON, NUBIAD Attending Unavailable MADISONMAIRA Attending Unavailable MADISON, AHMAD Referring Unavailable NADERER, JUAN Primary Care Unavailable LATASHA CARRANZA Attending Unavailable NADERER, JUAN Referring Unavailable NADERER, JUAN Primary Care Unavailable GILES, MELECIO L Referring Unavailable NADERER, UJAN Primary Care Unavailable GILES, MELECIO L Referring Unavailable NADERER, JUAN Primary Care Unavailable NADERER, JUAN Primary Care Unavailable PJ MCKINNEY Attending Unavailable ASHLYN LOPEZ Attending Unavailabl e JESSICAASHLYN RIVERA Referring Unavailabl e NADERER, JUAN Primary Care Unavailable ASHLYN LOPEZ Attending Unavailabl e JESSICA, ASHLYN MAREK Referring Unavailabl e NADERER, JUAN Primary Care Unavailable NADERER, JUAN Primary Care Unavailable ROCHELLE KAYE Attending Unavailable LAURA BRITO Admitting Unavailable ROCHELLE KAYE Attending Unavailable ROCHELLE KAYE Referring Unavailable NADERER, JUAN Primary Care Unavailable BRITO, LAURA U Attending Unavailable DARYL, LAURA U Referring Unavailable NADERER, JUAN Primary Care Unavailable MAXI COOK E Admitting Unavailable COOK, MAXI E Attending Unavailable NADERER, JUAN Referring Unavailable NADERER, JUAN Primary Care Unavailable COOK, MAXI E Attending Unavailable COOK, MAXI E Referring Unavailable NADERER, JUAN Primary Care Unavailable ROOTELIZABETH E Attending Unavailable NADERER, JUAN Primary Care Unavailable NADERER, JUAN Primary Care Unavailable NEVERAUSKAS, CHI P Attending Unavailab ashley BRITO, LAURA U Admitting Unavailable NEVERAUSKAS, CHI P Attending Unavailab le NEVERAUSKAS, CHI P Referring Unavailab le NADERER, JUAN Primary Care Unavailable NADERER, JUAN Primary Care Unavailable NADERER, JUAN Referring Unavailable NADERER, JUAN Primary Care Unavailable NADERER, JUAN Primary Care Unavailable RYAN PURVIS Attending Unavailable Page Bobo MD Attending Provider UnavailEstefania Weston Admitting Unavailable Naderer, Juan Primary Care Unavailable Ly, Estefania L Attending Unavailable Timmis Jr, Page H Attending Unavailable Timmis Jr, Page H Admitting Unavailable Naderer, Juan Primary Care Unavailable Yoli, Brenda Attending Unavailable Yoli, Brenda Admitting Unavailable TIMMIS, PAGE H Attending Unavailable NADERER, JUAN Referring Unavailable NADERER, JUAN Attending Unavailable NADERER, JUAN Attending Unavailable FAWWADSHAIKH Attending Unavailable NADERER, JUAN Attending Unavailable NADERER, JUAN Attending Unavailable PETZNLANETTE JEREZ Attending Unavailable NADERER, JUAN Referring Unavailable NADERER, JUAN Attending Unavailable NADERER, JUAN Attending Unavailable NADERER, JUAN Attending Unavailable PETZNICK, LANETTE Rodas Attending Unavailable TIMMIS, PAGE H Attending Unavailable NADERER, JUAN Referring Unavailable TIMMIS, PAGE H Attending Unavailable TIMMIS, PAGE H Referring Unavailable Allergies Allergy Classification Reported Allergen(s) Allergy Type Date of Onset Reaction(s) Facility Opioid Agonists (1 source) HYDROmorphone Drug Allergy 12-26-[address] [facility] Repository Sulfonamides (antibiotic) (1 source) Sulfonamides (Antibiotic) Drug Allergy 12-26-[address] [facility] Rep[facility] (20 sources) HYDROmorphone; Translations: [HYDROMORPHONE] Drug Allergy 12-18-19 17 Rash, Unknown [facility] (12 sources) Sulfacetamide Drug Allergy 10-03-19 24 hives [facility] (8 sources) Sulfonamides (Antibiotic); Translations: [Sulfa (Sulfonamide Antibiotics)] Allergy to substance 09-02-19 23 Rash [facility] (20 sources) Phenytoin; Translations: [PHENYTOIN SODIUM EXTENDED] Drug Allergy 04-19-20 19 Other (See Comments) [facility] (20 sources) Sulfamethoxazole; Translations: [SULFAMETHOXAZOLE] Drug Allergy 05-18-20 19 Other (See Comments) [facility] (20 sources) Sulfamethoxazole / Trimethoprim; Translations: [SULFAMETHOXAZOLE-TR IMETHOPRIM] Drug Allergy 05-06-[address] [facility] Repository (1 source) HYDROmorphone Drug Allergy 02-29-20 16 [facility] Repository (1 source) Sulfonamides (Antibiotic) Drug allergy (disorder) 10-20-19 21 [facility] Repository (20 sources) Sulfonamides (Antibiotic) Drug Allergy 07-11-20 23 Unknown [facility] (1 source) HYDROmorphone Drug Allergy 01-03-20 24 [facility] Repository (1 source) Sulfacetamide Drug Allergy 01-03-20 24 [facility] Repository Medications Current Medications Medication Drug Class(es) Dates Sig (Normalized) Sig (Original) acetaminophen 325 mg / oxyCODONE hydrochloride 5 mg oral tablet (20 sources) Opioid Agonist Start: 08-01-2024 End: 08-16-2024 take 1 tablet by mouth four times daily as needed for pain oxyCODONE-acetamin ophen (Percocet) 5-325 MG tablet Indications: Cervical spondylosis without myelopathy Take 1 tablet by mouth 4 (four) times a day as needed for moderate pain or severe pain for up to 15 days 60 tablet 08/01/2024 08/16/2024 Active Start: 06-13-2024 End: 06-28-2024 take 1 tablet by mouth four times daily as needed for pain oxyCODONE-acetaminophen (Percocet) 5-325 MG tablet Indications: Cervical spondylosis without myelopathy Take 1 tablet by mouth 4 (four) times a day as needed for moderate pain or severe pain for up to 15 days 60 tablet 06/13/2024 06/28/2024 Active Start: 04-18-2024 End: 05-03-2024 take 1 tablet by mouth four times daily as needed for pain oxyCODONE-acetaminophen (Percocet) 5-325 MG tablet Indications: Cervical spondylosis without myelopathy Take 1 tablet by mouth 4 (four) times a day as needed for moderate pain or severe pain for up to 15 days 60 tablet 04/18/2024 05/03/2024 Active Start: 01-03-2024 take 1 tablet by clay th every eight hours as needed for pain Oxycodone-Acetaminophen 5-325 mg tablet Active 1 TAB PO Every 8 hours as needed for pain January 02, 2024 11:00pm Start: 07-25-2019 End: 01-25-2024 Oxycodone-Acetaminophen 5-32 5 mg tablet Discontinued 1 TAB PO As Directed as needed for Pain July 25, 2019 12:00am January 25, 2024 10:11am Start: 03-15-2019 take 1 tablet by clay th every six hours as needed for pain oxyCODONE-acetaminophen (PERCOCET) 5-325 mg per tablet Take 1 tablet by mouth every 6 (six) hours as needed for pain (for gastroparesis and lymphodema in legs). 0 03/15/2019 Active Start: 03-15-2019 End: 08-26-2023 take 1 tablet by mouth four times daily as needed oxyCODONE-acetaminophen (PERCOCET) 5-325 mg per tablet TAKE 1 TABLET BY MOUTH 4 TIMES A DAY NEEDED 0 03/15/2019 Active oxyCODONE-Acetam inophen Active acyclovir 400 mg oral tablet (3 sources) Herpesvirus Nucleoside Analog DNA Polymerase Inhibitor, Herpes Simplex Virus Nucleoside Analog DNA Polymerase Inhibitor, Herpes Zoster Virus Nucleoside Analog DNA Polymerase Inhibitor Start: 07-08-2023 acyclovir (ZOVIRAX) 400 mg tablet Take 1 tablet (400 mg total) by mouth in the morning and 1 tablet (400 mg total) at noon and 1 tablet (400 mg total) in the evening and 1 tablet (400 mg total) before bedtime. 50 tablet 0 07/08/2023 Active albuterol 0.83 mg/ml inhalation solution (20 sources) beta2-Adrenergic Agonist Start: 03-14-2024 albuterol (2.5 MG/3M L) 0.083% nebulizer solution Indications: Mild intermittent asthma without complication (CMS/HCC) Take 3 mL (2.5 mg) by nebulization every 4 (four) hours if needed for shortness of breath or wheezing 75 mL 2 03/14/2024 Active Start: 03-03-2023 albuterol (PRO VENTIL,VENTOLIN) nebulizer solution 2.5 mg Start: 12-10-2022 End: 03-14-2024 take 2 puff(s) by inhalation in the morning, then take 2 puff(s) by inhalation in the evening, then take 2 puff(s) by inhalation at bedtime albuterol HFA 90 mcg/act inhaler Indications: Mild intermittent asthma without complication (CMS/HCC) Inhale 2 puffs in the morning and 2 puffs in the evening and 2 puffs before bedtime. 18 g 3 03/14/2024 Active Start: 12-10-2022 take 2 puff(s) by in halation every six hours as needed for wheezing albuterol (PROVENTIL HFA;VENTOLIN HFA) 90 mcg/actuation inhaler Indications: Asthma, unspecified asthma severity, unspecified whether complicated, unspecified whether persistent Inhale 2 puffs every 6 (six) hours as needed for wheezing. 18 g 11 12/10/2022 Active Start: 09-05-2019 End: 03-14-2024 albuterol (2.5 MG/3ML) 0.083 % nebulizer solution Take 2.5 mg by nebulization every 6 (six) hours if needed 10/01/2022 03/14/2024 Discontinued (Reorder) amitriptyline hydrochloride 150 mg oral tablet (20 sources) Tricyclic Antidepressant Start: 07-25-2019 amitriptyline (Elavil) 150 MG tablet Indications: MIROSLAVA (generalized anxiety disorder) (CMS/HCC) TAKE 2 TABLETS AT BEDTIME 180 tablet 3 11/04/2023 Active Start: 07-25-2019 take 300 mg by mouth once daily at bedtime Amitriptyline Active 300 MG PO Daily at bedtime July 25, 2019 1:00am Start: 10-03-2013 take 1 tablet by clay th at bedtime amitriptyline (Elavil) 150 MG tablet Take 150 mg by mouth at bedtime 0 07/28/2022 Active amoxicillin 875 mg / clavulanate 125 mg oral tablet (12 sources) Penicillin-class Antibacterial Start: 06-06-2024 End: 07-06-2024 take 1 tablet by mouth in the morning amoxicillin-clavulanate (Augmentin) 875-125 MG tablet Indications: Cervical lymphadenopathy Take 1 tablet (875 mg) by mouth in the morning and 1 tablet (875 mg) before bedtime. 60 tablet 06/06/2024 07/06/2024 Active Start: 01-17-2020 take 1 tablet by clay th every twelve hours Amoxicillin-Pot Clavulanate 875-125 MG 1 tablet Orally every 12 hrs for 10 day(s) Jan, Not-Taking atorvastatin 40 mg oral tablet (20 sources) HMG-CoA Reductase Inhibitor Start: 06-12-2024 atorvastatin (Lipito r) 40 MG tablet Indications: Other hyperlipidemia (CMS/HCC) TAKE 1 TABLET AT BEDTIME 90 tablet 3 06/12/2024 Active Start: 07-25-2019 End: 08-23-2023 atorvastatin (Lipitor) 40 MG tablet Indications: Other hyperlipidemia (CMS/HCC) TAKE 1 TABLET AT BEDTIME 90 tablet 3 06/12/2024 Active Atorvastatin Tamika cium Active Atorvastatin Tamika cium Not-Taking cholecalciferol 0.125 mg oral capsule (20 sources) Vitamin D Start: 01-03-2024 take 1 capsule by mouth once daily Cholecalciferol (Vitamin D3) 125 mcg (5,000 unit) capsule Active 125 MCG PO Daily January 02, 2024 11:00pm Start: 12-23-2023 take 1 tablet by clay th once daily cholecalciferol (Vitamin D-3) 50 MCG (2000 UT) tablet Indications: Vitamin D deficiency Take 1 tablet (50 mcg) by mouth Daily 30 tablet 5 12/23/2023 Active Start: 07-25-2019 End: 09-02-2022 take 1 tablet by mouth once daily Cholecalciferol (Vitamin D3) 125 mcg (5,000 unit) tablet Discontinued 5000 UNIT PO Daily July 25, 2019 12:00am September 02, 2022 10:46am clindamycin 300 mg oral capsule (7 sources) Lincosamide Antibacterial Start: 08-01-2024 End: 08-22-2024 clindamycin (Cleocin) 300 MG capsule Indications: LAD (lymphadenopathy) of left cervical region Take 1 capsule (300 mg) by mouth in the morning and 1 capsule (300 mg) at noon and 1 capsule (300 mg) in the evening and 1 capsule (300 mg) before bedtime. Do all this for 21 days. 84 capsule 08/01/2024 08/22/2024 Active Start: 07-08-2023 clindamycin (C LINDAGEL) 1 % gel Apply 1 Application topically in the morning and 1 Application before bedtime. 60 g 0 07/08/2023 Active Continuous Glucose Sensor (Dexcom G7 Sensor) misc (20 sources) Continuous Gluco se Sensor (Dexcom G7 Sensor) misc Active dextromethorphan hydrobromide 1.5 mg/ml / pyrilamine maleate 1.5 mg/ml oral solution (1 source) Uncompetitive E-qphyuh-S-aspartate Receptor Antagonist, Sigma-1 Agonist Start: 023 take 10 mL by mouth every eight hours Weldon DM 7.5-7.5 MG/5ML 10 mL Orally every 8 hours for 5 days Apr, Active dicyclomine hydrochloride 20 mg oral tablet (16 sources) Anticholinergic Start: 023 take 1 tablet by mouth four times daily Dicyclomine 20 mg tablet Active 20 MG PO Four times daily September 02, 2022 12:00am Start: 07-18-2019 take 1 tablet by clay th every twelve hours Dicyclomine HCl 20 MG 1 tablet Orally bid for 30 days Jul, Not-Taking take 1 tablet by clay th every six hours dicyclomine (BENTYL) 20 mg tablet Take 1 tablet (20 mg total) by mouth every 6 (six) hours. Active doxycycline hyclate 100 mg oral tablet (5 sources) Tetracycline-class Drug Start: 05-29-2024 End: 06-12-2024 doxycycline (Vibra-Tabs) 100 MG tablet Indications: Cellulitis of left lower extremity Take 1 tablet (100 mg) by mouth in the morning and 1 tablet (100 mg) before bedtime. Do all this for 14 days. Take with a full glass of water and do not lie down for at least 30 minutes after.. 28 tablet 05/29/2024 06/12/2024 Active Start: 04-16-2024 End: 04-26-2024 take 1 capsule by mouth in the morning doxycycline (Vibramycin) 100 MG capsule Take 100 mg by mouth in the morning and 100 mg in the evening. 04/16/2024 04/26/2024 Active escitalopram 20 mg oral tablet (20 sources) Serotonin Reuptake Inhibitor Start: 03-14-2024 End: 03-14-2024 take 1 tablet by mouth once daily escitalopram (Lexapro) 20 MG tablet Indications: Moderate recurrent major depression (CMS/HCC) Take 1 tablet (20 mg) by mouth Daily 30 tablet 5 03/14/2024 Active Start: 07-25-2019 End: 09-02-2022 Escitalopram Oxalate 20 mg t ablet Discontinued 50 MG PO Daily July 25, 2019 12:00am September 02, 2022 10:46am Start: 07-25-2019 End: 09-02-2022 take 50 mg by mouth once daily Escitalopram Oxalate Di scontinued 50 MG PO Daily July 25, 2019 1:00am September 02, 2022 11:46am Escitalopram Oxa late Not-Taking fluticasone propionate 0.05 mg/actuat metered dose nasal spray (9 sources) Corticosteroid Start: 01-03-2024 take 1 spray(s) nasal route once daily Fluticasone Propionate 50 mcg/actuation spray,suspension Active 1 SPRAY INTRANASAL Daily January 02, 2024 11:00pm [employer] spray in each nostril Nasally Once a day; Note: Source Status: Not-TakingundefinedPRN ; Qty: 1 Bottle; Provider: Aaron Sprague Start: 01-17-2020 take 1 spray(s) nasa l route once daily Fluticasone Propionate 50 MCG/ACT 1 spray in each nostril Nasally Once a day for 30 day(s) Jan, Not-Taking 60 actuat fluticasone propionate 0.25 mg/actuat / salmeterol 0.05 mg/actuat dry powder inhaler (20 sources) Corticosteroid, beta2-Adrenergic Agonist Start: 03-31-2024 End: 03-31-2025 take 1 puff(s) by inhalation in the morning Fluticasone-Salmeterol 250-50 MCG/ACT aerosol powder Indications: Mild intermittent asthma without complication (CMS/HCC) Inhale 1 puff in the morning and 1 puff before bedtime. 60 each 3 03/31/2024 03/31/2025 Active Start: 01-17-2024 End: 01-16-2025 take 1 puff(s) by inhalation twice daily Fluticasone-Salmeterol 250-50 MCG/ACT aerosol powder Indications: Mild intermittent asthma without complication (CMS/HCC) INHALE 1 PUFF TWICE DAILY 60 each 3 01/17/2024 01/16/2025 Active Start: 08-23-2023 take 1 puff(s) by in halation twice daily Fluticasone-Salmeterol 250-50 MCG/ACT aerosol powder Indications: Mild intermittent asthma without complication (CMS/HCC) INHALE 1 PUFF TWICE DAILY 1 each 3 08/23/2023 Active take 1 puff(s) by in halation in the morning fluticasone propion-salmeteroL (ADVAIR) 250-50 mcg/dose DISKUS Inhale 1 puff in the morning and 1 puff before bedtime. Active End: 08-23-2023 take 1 puff(s) by inhalation in the morning Fluticasone-Salmeterol 250-50 MCG/ACT aerosol powder Inhale 1 puff in the morning and 1 puff in the evening. 0 08/23/2023 Discontinued take 1 puff(s) by in halation in the morning fluticasone propion-salmeteroL (ADVAIR) 250-50 mcg/dose DISKUS Inhale 1 puff in the morning and 1 puff before bedtime. 0 Active furosemide 40 mg oral tablet (20 sources) Loop Diuretic Start: 08-04-2022 furosemide (La six) 40 MG tablet Take 40 mg by mouth 08/04/2022 Active Furosemide Activ e gabapentin 300 mg oral capsule (20 sources) Anti-epileptic Agent Start: 01-03-2024 take 1 capsule by mouth three times daily Gabapentin 300 mg capsule Active 300 MG PO Three times daily January 02, 2024 11:00pm Start: 12-23-2023 take 1 capsule by [facility] once at bedtime gabapentin (Neurontin) 300 MG capsule Indications: Diabetic polyneuropathy associated with type 2 diabetes mellitus (CMS/HCC) 1 PO at bedtime on day #1, then 1 PO BID on day #2, then 1 PO TID 90 capsule 2 12/23/2023 Active Start: 07-08-2023 End: 07-11-2023 take 1 capsule by mouth three times daily gabapentin (NEURONTIN) 300 mg capsule Indications: Herpes zoster without complication Take 1 capsule (300 mg total) by mouth 3 (three) times a day for 3 days. 9 capsule 0 07/08/2023 07/11/2023 Active Start: 07-25-2019 End: 09-02-2022 take 1 capsule by mouth three times daily Gabapentin 300 mg capsule Discontinued 300 MG PO Three times daily July 25, 2019 12:00am September 02, 2022 10:46am Gabapentin Not-T aking sodium hypochlorite 2.5 mg/m l topical solution (3 sources) Start: 05-21-2023 sodium hypochl orite (DAKIN'S SOLUTION) 0.25 % external solution Indications: Non-healing surgical wound, subsequent encounter , Wound infection Apply to affected area daily 473 mL 0 05/21/2023 Active Insulin Infusion Pump (T:sli m X2 Control-IQ Pump) device (20 sources) Start: 05-23-2024 Insulin Infusi on Pump (T:slim X2 Control-IQ Pump) device 1 Device See administration instructions Basal: 12A 1.6, ICR: 12A 2, ISF: 50, Target: 150 1 each 05/23/2024 Active Start: 02-25-2024 End: 05-23-2024 Insulin Infusion Pump (T:sli m X2 Control-IQ Pump) device 1 Device See administration instructions Basal: 12A 1.2, 11A 1.4, ICR: 12A 3, ISF: 70, Target: 150 1 each 02/25/2024 05/23/2024 Discontinued (Dose adjustment) Start: 02-25-2024 Insulin Infusi on Pump (T:slim X2 Control-IQ Pump) device 1 Device See administration instructions Basal: 12A 1.2, 11A 1.4, ICR: 12A 3, ISF: 70, Target: 150 1 each 02/25/2024 Active insulin, regular, human 500 unt/ml injectable solution (20 sources) Insulin Start: 05-23-2024 insulin regula r (HumuLIN R U-500) 500 UNIT/ML CONCENTRATED injection Indications: Type 2 diabetes mellitus with hyperglycemia, with long-term current use of insulin (CMS/HCC) Per pump (max daily 600 units) 40 mL 3 05/23/2024 Active Start: 03-16-2024 insulin regula r human U-500 concentrated (HumuLIN R U-500, Conc, Insulin) 500 unit/mL injection PATIENT TO SELF-MANAGE PUMP ACCORDING TO THE FOLLOWING PARAMETERS: USES UP TO 250 UNITS PER DAY 20 mL 03/16/2024 Active Start: 02-24-2023 insulin regula r human U-500 concentrated (HumuLIN R U-500 concentrated ) 500 unit/mL injection Patient to self-manage pump according to the following parameters: uses up to 250 u per day 60 mL 3 02/24/2023 Active Start: 09-28-2022 End: 05-23-2024 insulin regular (HumuLIN R U -500) 500 UNIT/ML CONCENTRATED injection Inject under the skin Per pump setting 09/28/2022 05/23/2024 Discontinued (Reorder) Start: 09-02-2022 Insulin Regula r Hum U-500 Conc (Humulin R U-500 (Conc) Insulin) 500 unit/mL solution Active 0 UNIT CNTSUBQINF As Directed September 02, 2022 12:00am insulin pump Please contact the information source for Protocol details. lamoTRIgine 25 mg oral tablet (20 sources) Mood Stabilizer, Anti-epileptic Agent Start: 03-14-2024 take 1 tablet by mouth once daily at bedtime, then take 2 tablets by mouth once daily at bedtime lamoTRIgine (LaMICtal) 25 MG tablet Indications: Moderate recurrent major depression (CMS/HCC) 1 PO QHS x 2 weeks then 2 PO QHS 60 tablet 2 03/14/2024 Active 24 hr metFORMIN hydrochloride 500 mg extended release oral tablet (20 sources) Biguanide Start: 06-12-2024 metFORMIN XR (GLUCOPHAGE XR) 500 mg 24 hr tablet TAKE 2 TABLETS IN THE MORNING AND TAKE 2 TABLETS BEFORE BEDTIME. 360 tablet 3 06/12/2024 Active Start: 06-09-2023 metFORMIN XR ( GLUCOPHAGE XR) 500 mg 24 hr tablet TAKE 2 TABLETS IN THE MORNING AND TAKE 2 TABLETS BEFORE BEDTIME. 360 tablet 3 08/23/2023 Active Start: 11-03-2022 End: 06-12-2024 take 2 tablets by mouth every twenty-four hours at mealtime metFORMIN XR (Glucophage-XR) 500 MG 24 hr tablet Indications: Type 2 diabetes mellitus with hyperglycemia, with long-term current use of insulin (CMS/HCC) Take 2 tablets (1,000 mg) by mouth in the evening. Take with meals 180 tablet 3 02/25/2024 Active Start: 07-25-2019 Metformin 500 mg tablet extended release 24 hr Active 1000 MG PO Twice daily July 25, 2019 12:00am Start: 07-25-2019 take 1000 mg by mout h twice daily Metformin Active 1000 MG PO Twice daily July 25, 2019 1:00am metFORMIN HCl Ac tive metOLazone 2.5 mg oral tablet (1 source) Thiazide-like Diuretic Start: 11-20-2022 take 1 tablet by mouth in the morning metOLazone (Zaroxolyn) 2.5 MG tablet Take 2.5 mg by mouth in the morning. 0 11/20/2022 Active miconazole nitrate 0.02 mg/mg topical powder (3 sources) Azole Antifungal Start: 05-14-2023 miconazole (MICOTIN) 2 % powder Apply 1 Application topically in the morning and 1 Application before bedtime. 70 g 0 05/14/2023 Active Mounjaro 5 MG/0.5ML solution pen-injector (1 source) Start: 06-11-2023 Mounjaro 5 MG/0.5ML solution pen-injector nystatin 100 unt/mg topical powder (1 source) Polyene Antifungal Start: 11-10-2022 Nyamyc 1000 00 UNIT/GM powder omeprazole 40 mg delayed release oral capsule (20 sources) Proton Pump Inhibitor Start: 07-25-2019 take 1 capsule by mouth once daily Omeprazole 40 mg capsule,delayed release(DR/EC) Active 40 MG PO Daily July 25, 2019 12:00am Omeprazole Activ e ondansetron 8 mg disintegrating oral tablet (20 sources) Serotonin-3 Receptor Antagonist Start: 07-25-2019 End: 03-14-2024 take 1 tablet by mouth every six hours for nausea ondansetron ODT (Zofran-ODT) 8 MG disintegrating tablet Indications: GERD without esophagitis Take 1 tablet (8 mg) by mouth every 6 (six) hours if needed for nausea or vomiting 30 tablet 2 03/14/2024 Active take 1 tablet by clay th every eight hours as needed for nausea and vomiting ondansetron ODT (ZOFRAN ODT) 8 mg disintegrating tablet Dissolve 1 tablet (8 mg total) on tongue every 8 (eight) hours as needed for nausea or vomiting. Active Zofran ODT Activ e pioglitazone 45 mg oral tablet (18 sources) Peroxisome Proliferator Receptor alpha Agonist, Peroxisome Proliferator Receptor gamma Agonist, Thiazolidinedione Start: 07-25-2019 End: 08-23-2023 take 1 tablet by mouth once daily Pioglitazone 45 mg tablet Active 45 MG PO Daily July 25, 2019 12:00am Pioglitazone HCl Not-Taking Pioglitazone HCl Active Post-Op Shoe (4 sources) Start: 10-20-2023 Post-Op Shoe A ctive 0 .Route 1 October 20, 2023 12:00am As directed Post-Op Shoe unit (1 source) Start: 10-20-2023 Post-Op Shoe u nit Active 0 .Route 1 October 19, 2023 11:00pm As directed microencapsulated potassium chloride 20 meq extended release oral tablet (20 sources) Start: 09-29-2022 End: 05-29-2024 take 1 tablet by mouth twice daily potassium chloride CR (KLOR-CON) 20 MEQ ER tablet Indications: Cellulitis of left lower extremity TAKE 1 TABLET BY MOUTH TWICE A DAY 120 tablet 3 05/29/2024 Active Start: 09-29-2022 Potassium Chlo ride (Klor-Con M20) 20 mEq tablet,ER particles/crystals Active 20 MEQ PO Daily January 02, 2024 11:00pm 24 hr propranolol hydrochloride 80 mg extended release oral capsule (20 sources) beta-Adrenergic Zhao Start: 09-02-2022 propra nolol LA (Inderal LA) 80 MG 24 hr capsule Indications: Migraine without aura and without status migrainosus, not intractable (CMS/HCC) TAKE 1 CAPSULE EVERY DAY 90 capsule 3 06/12/2024 Active Start: 08-23-2022 End: 08-23-2023 take 1 capsule by mouth every twenty-four hours in the morning propranolol LA (Inderal LA) 80 MG 24 hr capsule Take 80 mg by mouth in the morning. 0 06/09/2023 08/23/2023 Discontinued sertraline 50 mg oral tablet (20 sources) Serotonin Reuptake Inhibitor Start: 09-02-2022 End: 03-14-2024 take 1 tablet by mouth once daily Sertraline 50 mg tablet Active 50 MG PO Daily September 02, 2022 12:00am Sertraline HCl N ot-Taking Sertraline HCl A ctive spironolactone 50 mg oral tablet (20 sources) Aldosterone Antagonist Start: 01-03-2024 take 1 tablet by mouth once daily Spironolactone 50 mg tablet Active 50 MG PO Daily January 02, 2024 11:00pm tirzepatide (MOUNJARO) 5 mg/0.5 mL pen injector (3 sources) Start: 05-17-2023 tirzepatide (MOUNJARO) 5 mg/0.5 mL pen injector Inject 5 mg under the skin every 7 days. 2 mL 5 05/17/2023 Active traMADol hydrochloride 50 mg oral tablet (2 sources) Opioid Agonist Start: 03-14-2024 End: 03-21-2024 take 1 tablet by mouth four times daily as needed for pain traMADol (Ultram) 50 MG tablet Indications: Cervical spondylosis without myelopathy Take 1 tablet (50 mg) by mouth 4 (four) times a day as needed for severe pain for up to 7 days 28 tablet 03/14/2024 03/21/2024 Active vitamin a 94615 unt oral tablet (20 sources) Vitamin A Start: 12-23-2023 take 1 tablet by mouth once daily Vitamin A (beta carotene) 3 MG (49460 UT) tablet Indications: Vitamin A deficiency Take 3 mg by mouth Daily 30 tablet 5 12/23/2023 Active Completed/Discontinued Medications Medication Drug Class(es) Dates Sig (Normalized) Sig (Original) busPIRone hydrochloride 5 mg oral tablet (7 sources) Start: 07-25-2019 End: 01-03-2024 take 1 tablet by mouth once daily Buspirone 5 mg Tablet Discontinued 1 TAB PO Daily July 25, 2019 12:00am January 03, 2024 12:07pm hydrocortisone acetate 25 mg rectal suppository (6 sources) Corticosteroid Start: 07-18-2019 Anusol-HC 25 MG 1 suppository Rectal AT BEDTIME for 14 day(s) Jul, Not-Taking hydrOXYzine hydrochloride 10 mg oral tablet (7 sources) Antihistamine Start: 07-25-2019 End: 09-02-2022 take 1 tablet by mouth once daily Hydroxyzine Hcl 10 mg Tablet Discontinued 10 MG PO Daily July 25, 2019 12:00am September 02, 2022 10:45am Insulin Aspart U-100 100 unit/mL (3 mL) insulin pen (1 source) Start: 07-25-2019 End: 09-02-2022 Insulin Aspart U-100 100 unit/mL (3 mL) insulin pen Discontinued SUBCUT Three times daily July 25, 2019 12:00am September 02, 2022 10:43am insulin aspart, human (6 sources) Insulin Analog Start: 07-25-2019 End: 09-02-2022 Insulin Aspart U-100 Discontinued SUBCUT Three times daily July 25, 2019 1:00am September 02, 2022 11:43am Start: 07-25-2019 End: 09-02-2022 Insulin Aspart U-100 Discont inued SUBCUT Three times daily July 25, 2019 12:00am September 02, 2022 10:43am 3 ml insulin glargine 100 unt/ml pen injector (13 sources) Insulin Analog Start: 07-25-2019 End: 09-02-2022 inject 60 [IU] by subcutaneous injection twice daily Insulin Glargine 100 unit/mL (3 mL) insulin pen Discontinued 60 UNITS SUBCUT Twice daily July 25, 2019 12:00am September 02, 2022 10:43am Lantus Not-Conner g Insulin Lispro (5 sources) Insulin Analog HumaLOG Not-Alexis ng HumaLOG Active Insulin Lispro (Humalog U-100 Insulin) 100 unit/mL solution (3 sources) Start: 01-03-2024 End: 01-25-2024 inject 5 [IU] by subcutaneous injection three times daily Insulin Lispro (Humalog U-100 Insulin) 100 unit/mL solution Discontinued 5 UNIT SUBCUT Three times daily January 02, 2024 11:00pm January 25, 2024 10:10am Start: 01-03-2024 End: 01-25-2024 inject 5 [IU] by subcutaneous injection three times daily Insulin Lispro (Humalog U-100 Insulin) 100 unit/mL solution Discontinued 5 UNIT SUBCUT Three times daily January 03, 2024 12:00am January 25, 2024 11:10am Start: 01-03-2024 inject 5 [IU] by sub cutaneous injection three times daily Insulin Lispro (Humalog U-100 Insulin) 100 unit/mL solution Active 5 UNIT SUBCUT Three times daily January 03, 2024 12:00am levoFLOXacin 750 mg oral tablet (6 sources) Quinolone Antimicrobial Start: 05-15-2024 End: 05-23-2024 take 1 tablet by mouth once daily levoFLOXacin (Levaquin) 750 MG tablet Indications: Acute bronchitis, unspecified organism Take 1 tablet (750 mg) by mouth Daily for 7 days 7 tablet 05/15/2024 05/23/2024 Discontinued Start: 03-14-2024 End: 03-21-2024 take 1 tablet by mouth once daily levoFLOXacin (Levaquin) 750 MG tablet Indications: Acute non-recurrent pansinusitis Take 1 tablet (750 mg) by mouth Daily for 7 days 7 tablet 03/14/2024 03/21/2024 Active lisinopril 20 mg oral tablet (13 sources) Angiotensin Converting Enzyme Inhibitor Start: 07-25-2019 End: 09-02-2022 take 1 tablet by mouth once daily Lisinopril 20 mg tablet Discontinued 20 MG PO Daily July 25, 2019 12:00am September 02, 2022 10:45am Lisinopril Not-T aking NovoLOG FlexPen (6 sources) NovoLOG FlexPen Not-Taking polyethylene glycol 3350 600041 mg / potassium chloride 2970 mg / sodium bicarbonate 6740 mg / sodium chloride 5860 mg / sodium sulfate 74550 mg powder for oral solution (2 sources) Osmotic Laxative Start: 4 End: 4 Peg 3350-Electrolytes (Golytely) 236-22.74-6.74 -5.86 gram recon soln Discontinued 240 ML PO Q10M 4000 1 January 02, 2024 11:00pm January 25, 2024 10:11am until fecal effluent is clear prazosin 1 mg oral capsule (7 sources) alpha-Adrenergic Zhao Start: 0 End: 3 take 1 capsule by mouth once daily Prazosin 1 mg Capsule Discontinued 1 TAB PO Daily July 25, 2019 12:00am September 02, 2022 10:46am predniSONE 50 mg oral tablet (5 sources) Start: 4 End: 4 take 1 tablet by mouth once daily predniSONE (Deltasone) 50 MG tablet Indications: Acute bronchitis, unspecified organism Take 1 tablet (50 mg) by mouth Daily for 6 days 6 tablet 05/15/2024 05/23/2024 Discontinued Start: 04-27-2023 take 1 tablet by clay th every twelve hours prednisone 20 MG 1 tablet Orally BID for 5 17 Apr, 2023 Active terbinafine (5 sources) Allylamine Antifungal Terbinafin e HCl 1 % 1 application Externally Once a day for 7 day(s) Not-Taking Terbinafine HCl 1 % 1 application Externally Once a day for 7 day(s) Not-Taking topiramate (6 sources) Topamax Not-Taki ng Vitamin D3 (6 sources) Vitamin D3 Not-T aking Problems Active Problems Problem Classification Problem Date Documented Da te Episodic/Chronic Abdominal pain (15 sources) Left sided abdominal pain; Translations: [Unspecified abdominal pain] 07-25-2019 Episodic Acute bronchitis (20 sources) Acute bronchitis due to other specified organisms; Translations: [Acute bronchitis] Onset: 4 Episodic Anxiety disorders (20 sources) Generalized anxiety disorder; Translations: [Anxiety] Onset: 4 05-31-2023 Chronic Asthma (20 sources) Mild intermittent asthma; Translations: [Mild intermittent asthma, uncomplicated] Onset: 4 08-23-2023 Chronic Chronic ulcer of skin (2 sources) Chronic non-pressure ulcer of calf extending to fat level; Translations: [Non-pressure chronic ulcer of right calf with fat layer exposed] Onset: 4 01-07-2024 Chronic Coagulation and hemorrhagic disorders (6 sources) Thrombocytopenia, unspecified; Translations: [Thrombocytopenic disorder] Onset: 3 04-09-2023 Chronic Congestive heart failure; nonhypertensive (20 sources) Acute exacerbation of chronic congestive heart failure; Translations: [Heart failure, unspecified] Onset: 3 11-16-2022 Chronic Diabetes mellitus with complications (20 sources) Type 2 diabetes mellitus with diabetic autonomic (poly)neuropathy; Translations: [Type 2 diabetes mellitus with diabetic neuropathy, unspecified] Onset: 7 05-31-2023 Chronic Disorders of lipid metabolism (20 sources) Hyperlipidemia; Translations: [Other hyperlipidemia] Onset: 9 05-12-2023 Chronic Esophageal disorders (20 sources) Gastroesophageal reflux disease without esophagitis; Translations: [Gastro-esophageal reflux disease without esophagitis] Onset: 4 07-28-2023 Chronic Essential hypertension (20 sources) Essential hypertension; Translations: [Essential (primary) hypertension] Onset: 9 05-31-2023 Chronic Gastrointestinal hemorrhage (13 sources) Hematochezia; Translations: [Melena] 07-25-2019 Episodic Genitourinary symptoms and ill-defined conditions (3 sources) Dysuria; Translations: [Dysuria] 10-03-2023 Episodic Headache; including migraine (20 sources) Chronic migraine without aura, not intractable, without status migrainosus; Translations: [Migraine without aura, not refractory ] Onset: 3 08-23-2023 Chronic Headache; including migraine (3 sources) Headache; including migraine; Translations: [Headache, unspecified] Onset: 4 Heart valve disorders (2 sources) Heart murmur; Translations: [Cardiac murmur, unspecified] 06-06-2024 Episodic Hepatitis (1 source) Nonalcoholic steatohepatitis (KAMARA); Translations: [NONALCOHOLIC STEATOHEPATITIS] Onset: 3 Chronic Immunity disorders (4 sources) Secondary immune deficiency disorder; Translations: [Immunodeficiency due to conditions classified elsewhere (CMS/[facility])] 05-23-2024 Chronic Mood disorders (20 sources) Recurrent major depressive episodes, mild ; Translations: [Major depressive disorder, recurrent, mild] Onset: 4 07-28-2023 Chronic Nausea and vomiting (20 sources) Nausea; Translations: [Nausea] Onset: 3 05-31-2023 Episodic Nutritional deficiencies (20 sources) Vitamin D deficiency; Translations: [Vitamin D deficiency, unspecified] Onset: 4 12-23-2023 Chronic Other and unspecified benign neoplasm (4 sources) History of polyp of colon; Translations: [Personal history of colonic polyps] Episodic Other diseases of veins and lymphatics (1 source) Lymphedema, not elsewhere classified; Translations: [LYMPHEDEMA NOT ELSEWHERE CLASSIFIED] Onset: 2 Chronic Other diseases of veins and lymphatics (20 sources) Lymphedema; Translations: [Lymphedema, not elsewhere classified] Onset: 4 07-28-2023 Chronic Other disorders of stomach and duodenum (10 sources) Gastroparesis syndrome; Translations: [Gastroparesis] Episodic Other endocrine disorders (2 sources) Disorder of parathyroid gland; Translations: [Disorder of parathyroid gland, unspecified] 08-01-2024 Chronic Other gastrointestinal disorders (6 sources) Irritable bowel syndrome with diarrhea; Translations: [Irritable bowel syndrome with diarrhea] Chronic Other gastrointestinal disorders (6 sources) Dysphagia; Translations: [Dysphagia, unspecified] Episodic Other gastrointestinal disorders (6 sources) Constipation; Translations: [Constipation, unspecified] Episodic Other liver diseases (4 sources) Cirrhosis of liver; Translations: [Other cirrhosis of liver] Onset: 3 05-12-2023 Chronic Other liver diseases (20 sources) Non-alcoholic fatty liver; Translations: [Fatty (change of) liver, not elsewhere classified] Onset: 4 07-28-2023 Chronic Other liver diseases (1 source) Other cirrhosis of liver; Translations: [Other cirrhosis of liver] Onset: 3 Chronic Other nutritional; endocrine; and metabolic disorders (6 sources) Body mass index 40+ - severely obese; Translations: [Body mass index (BMI) 50.0-59.9, adult] Chronic Other nutritional; endocrine; and metabolic disorders (2 sources) Morbid (severe) obesity due to excess calories; Translations: [MORBID SEVERE OBES D/T EXCESS TAMIKA] Onset: 3 Chronic Other nutritional; endocrine; and metabolic disorders (2 sources) Body mass index (BMI) 50.0-59.9, adult; Translations: [BODY MASS INDEX BMI 50.0-59.9 ADULT] Onset: 3 Chronic Other nutritional; endocrine; and metabolic disorders (2 sources) Obesity, unspecified; Translations: [OBESITY UNSPECIFIED] Onset: 2 Chronic Other nutritional; endocrine; and metabolic disorders (9 sources) Morbid obesity; Translations: [Morbid (severe) obesity due to excess calories] Onset: 4 Resolved: 3 05-31-2023 Chronic Other nutritional; endocrine; and metabolic disorders (4 sources) Hypomagnesemia; Translations: [Hypomagnesemia] Onset: 3 05-31-2023 Chronic Other nutritional; endocrine; and metabolic disorders (20 sources) Severe obesity; Translations: [Class 3 severe obesity due to excess calories with serious comorbidity and body mass index (BMI) of 50.0 to 59.9 in adult] Onset: 4 02-25-2024 Chronic Other upper respiratory disease (20 sources) Allergic rhinitis due to pollen; Translations: [Allergic rhinitis due to pollen] Onset: 4 07-28-2023 Chronic Pneumonia (except that caused by tuberculosis or sexually transmitted disease) (2 sources) Pneumonia (except that caused by tuberculosis or sexually transmitted disease); Translations: [Pneumonia due to coronavirus disease 2018] Onset: 3 Residual codes; unclassified (20 sources) Obstructive sleep apnea syndrome; Translations: [Obstructive sleep apnea (adult) (pediatric)] Onset: 3 05-12-2023 Chronic Respiratory failure; insufficiency; arrest (adult) (2 sources) Ventilator finding; Translations: [Dependence on respirator [ventilator] status] Onset: 4 01-07-2024 Chronic Spondylosis; intervertebral disc disorders; other back problems (20 sources) Spondylosis without myelopathy or radiculopathy, cervical region; Translations: [Cervical spondylosis without myelopathy] Onset: 9 12-18-2020 Chronic Sprains and strains (1 source) Unspecified sprain of right foot, initial encounter Episodic Superficial injury; contusion (3 sources) Contusion of right foot, initial encounter; Translations: [Contusion of foot] 10-20-2023 Episodic Thyroid disorders (2 sources) Non-toxic multinodular goiter; Translations: [Nontoxic multinodular goiter] 08-01-2024 Chronic Unclassified (1 source) Other specified abnormal findings of blood chemistry / R79.89(ICD-10) Onset: 7 Unclassified (1 source) Gastroparesis / K31.84(ICD-10) Onset: 7 Unclassified (1 source) Unspecified abdominal pain / R10.9(ICD-10) Onset: 7 Unclassified (1 source) Vomiting, unspecified / R11.10(ICD-10) Onset: 7 Unclassified (1 source) High Blood Sugar - No Symptoms Onset: 4 Unclassified (1 source) Elevation of levels of liver transaminase levels; Translations: [Elevation of levels of liver transaminase levels] Onset: 3 Viral infection (2 sources) COVID-19; Translations: [COVID-19] Onset: 3 Past or Other Problems Problem Classification Problem Date Documented Da te Episodic/Chronic Bacterial infection; unspecified site (20 sources) Bacteremia; Translations: [Methicillin resistant Staphylococcus aureus infection as the cause of diseases classified elsewhere] Onset: 3 Resolved: 4 Episodic Complications of surgical procedures or medical care (4 sources) Non-healing surgical wound; Translations: [Other complications of procedures, not elsewhere classified, initial encounter] Onset: 3 05-21-2023 Episodic Diabetes mellitus without complication (1 source) Hyperglycemia, unspecified; Translations: [Hyperglycemia, unspecified] Onset: 4 Episodic Fluid and electrolyte disorders (20 sources) Hypokalemia; Translations: [Hypokalemia] Onset: 3 Resolved: 4 05-31-2023 Episodic Headache; including migraine (1 source) Headache Onset: 4 Episodic Influenza (20 sources) Influenza due to Influenza A virus; Translations: [Influenza due to other identified influenza virus with other respiratory manifestations] Onset: 4 Resolved: 4 07-28-2023 Episodic Intestinal infection (8 sources) Clostridium difficile colitis; Translations: [Enterocolitis due to Clostridium difficile, not specified as recurrent] Onset: 3 06-02-2023 Episodic Lymphadenitis (20 sources) Cervical lymphadenopathy; Translations: [Localized enlarged lymph nodes] Onset: 4 04-18-2024 Episodic Mood disorders (4 sources) Mood disorders Onset: 3 10-24-2022 Mycoses (1 source) Dermatophytosis, unspecified Onset: 2 Resolved: 2 Episodic Nonspecific chest pain (20 sources) Chest pain; Translations: [Chest pain, unspecified] Onset: 7 Resolved: 4 04-23-2017 Episodic Nutritional deficiencies (20 sources) Vitamin A deficiency; Translations: [Vitamin A deficiency, unspecified] Onset: 4 12-23-2023 Episodic Other aftercare (4 sources) Encounter for surgical aftercare following surgery on the circulatory system; Translations: [ENC SURG [facility] FLW SURG CIRC SYS] Onset: 3 Episodic Other aftercare (1 source) Other [facility] (current) drug therapy; Translations: [OTH [facility] CURRENT DRUG THERAPY] Onset: 3 Episodic Other aftercare (1 source) exterminator (current) use of oral hypoglycemic drugs; Translations: [[facility]I USE ORAL HYPOGLYCEMIC DX] Onset: 3 Episodic Other aftercare (1 source) skilled nursing (current) use of insulin; Translations: [ENVIRONMENTAL SUSTAINABILITY MANAGER CURRENT USE OF INSULIN] Onset: 3 Episodic Other connective tissue disease (4 sources) Other specified soft tissue disorders; Translations: [OTHER SPEC SOFT TISSUE DISORDERS] Onset: 3 Episodic Other connective tissue disease (2 sources) Pain in right foot; Translations: [Pain in right foot] Onset: 4 Episodic Other connective tissue disease (20 sources) Other symptoms and signs involving the musculoskeletal system; Translations: [Other musculoskeletal symptoms referable to limbs] Onset: 4 12-23-2023 Episodic Other connective tissue disease (1 source) Leg swelling symptom Onset: 4 Episodic Other disorders of stomach and duodenum (2 sources) Gastroparesis; Translations: [Gastroparesis] 01-03-2024 Episodic Other liver diseases (4 sources) Enzyme level - finding; Translations: [Transaminitis] Onset: 3 05-31-2023 Episodic Other liver diseases (1 source) Abnormal levels of other serum enzymes; Translations: [Abnormal levels of other serum enzymes] Onset: 4 Episodic Other lower respiratory disease (4 sources) H/O: respiratory disease; Translations: [Personal history of other diseases of the respiratory system] Onset: 3 12-10-2022 Episodic Other lower respiratory disease (20 sources) Dyspnea; Translations: [Shortness of breath] Onset: 3 Resolved: 4 12-10-2022 Episodic Other lower respiratory disease (1 source) Shortness of breath; Translations: [Shortness of breath] Onset: 4 Episodic Other lower respiratory disease (1 source) Shortness of breath Onset: 4 Episodic Other screening for suspected conditions (not mental disorders or infectious disease) (20 sources) Electrocardiogram abnormal; Translations: [Abnormal electrocardiogram [ECG] [EKG]] Onset: 3 Resolved: 4 04-21-2017 Episodic Other upper respiratory infections (20 sources) Acute upper respiratory infection, unspecified; Translations: [Acute pansinusitis] Onset: 2 Resolved: 4 Episodic Phlebitis; thrombophlebitis and thromboembolism (9 sources) Phlebitis and thrombophlebitis of superficial vessels of left lower extremity; Translations: [Phlebitis and thrombophlebitis of superficial vessels of right lower extremity] Onset: 2 Episodic Pneumonia (except that caused by tuberculosis or sexually transmitted disease) (20 sources) Infective pneumonia; Translations: [Pneumonia, unspecified organism] Onset: 4 Resolved: 4 07-24-2023 Episodic Regional enteritis and ulcerative colitis (20 sources) Acute ulcerative gastroenteritis complicating pneumonia; Translations: [Ulcerative colitis, unspecified with unspecified complications] Onset: 3 Resolved: 4 09-26-2022 Chronic Residual codes; unclassified (4 sources) Localized edema; Translations: [LOCALIZED EDEMA] Onset: 2 Episodic Respiratory failure; insufficiency; arrest (adult) (20 sources) Acute respiratory failure with hypoxia; Translations: [Acute hypoxemic respiratory failure] Onset: 3 Resolved: 4 Episodic Screening and history of mental health and substance abuse codes (1 source) Personal history of nicotine dependence; Translations: [PERSONAL HISTORY OF NICOTINE DEPEND] Onset: 2 Episodic Skin and subcutaneous tissue infections (20 sources) Cellulitis; Translations: [Cellulitis, unspecified] Onset: 3 Resolved: 4 05-08-2023 Episodic Spondylosis; intervertebral disc disorders; other back problems (1 source) Neck pain Onset: 4 Episodic Unclassified (1 source) Exposure to COVID-19 virus Z20.822 Onset: 2 Resolved: 2 Urinary tract infections (1 source) Urinary tract infection, site not specified; Translations: [UTI SITE NOT SPECIFIED] Onset: 3 Episodic Varicose veins of lower extremity (5 sources) Varicose veins of bilateral lower extremities with pain; Translations: [VARICOSE VNS JORGE LOW EXTREM W/PAIN] Onset: 3 Episodic Viral infection (20 sources) COVID-19; Translations: [Pneumonia due to other virus not elsewhere classified] Onset: 3 Resolved: 4 12-10-2022 Episodic Results Test Name Value Interpretation Reference Range Facility [facility] 07-18-2024 L - -------- Specimen: [id number] Received: 07/19/24 Status: REESE Lazar Num: [id number] Spec Type: Cytology Subm Dr: PAGE BOBO MD Tissues: A FNA SLIDES NOPATH (LT POST NECK FNA) Procedures: HE/2, Cyto Int and Re, PAPSTN/7 -------- Age/ Patient Sex Location Account Attending Physician -------- [place]Bobby J 43/F LABELL [id number] PAGE BOBO MD -------- SPEC NUM: [id number] RECD: 07/19/24115 STATUS: REESE LAZAR NUM: [id number] ARIN: 07/18/24-4322 [facility] DR: PAGE BOBO MD ENTERED: 07/19/24-[address]: Vero,[facility] Will Zacarias MD SPEC TYPE: Cytology DEPT: NICOLE VALDOVINOS ENTERED BY: [id number] RECV BY: [id number] ORDERED: HE/2, Cyto Int and Re, PAPSTN/7 ORDERED: HE/2, Cyto Int and Re, PAPSTN/7 Supplemental Report Addendum 1 Entered: 07/25/241222 Supplemental for findings of flow cytometry report from [facility]: -Test cancellation report -Cancellation reason - The test is canceled due to insufficient cells for analysis per Dr. Sherman Addendum Signed (signature on file) Jose Alejandro-Huseyin Gonzalez MD 07/25/24 228 -------- Pathological Diagnosis Left posterior neck mass, FNA cytology: -No obvious atypical cell or malignant cell -Consistent with sampling of the degenerated cystic lesion of unclear nature, including possibility of degenerated seroma, displaying patchy degenerated amorphous or degenerated cellular debris, scattered small clusters of heme like pigments or degenerated red blood cells, occasional histiocytes, rare tiny stromal clusters, occasional tiny clusters of pale polyclonal cells of possibly histiocytes or some kind of stromal cell, and occasional small -------- Specimen: [id number] Received: 07/19/24 Status: REESE Lazar Num: [id number] Spec Type: Cytology Subm Dr: PAGE BOBO MD Tissues: A FNA SLIDES NOPATH (LT POST NECK FNA) Procedures: HE/2, Cyto Int and Martha PAPJEFFREY/Ynes -------- Patient: Bobby Brink [id number] (Continued) -------- Specimen: [id number]- Received: 07/19/24 (Continued) Pathological Diagnosis (Continued) Signed (signature on file) Katherin Gonzalez MD 07/20/24 1645 -------- Specimen: [id number] Received: 07/19/24 Status: REESE Lazar Num: [id number] Spec Type: Cytology Subm Dr: PAGE BOBO MD Tissues: A FNA SLIDES NOPATH (LT POST NECK FNA) Procedures: HE/2, Cyto Int and Re, PAPSTN/7 -------- Patient: Bobby Brink [id number] (Continued) -------- Specimen: [id number] Received: 07/19/24 (Continued) Pathological Diagnosis (Continued) degenerated lymphoid cells or leukocytes -The ThinPrep smear also showing similar finding -The cell block section showing only minimal material and is not contributory for any further study -Clinical correlations are suggested Clinical Information Left Neck Mass Gross Description Received fixed in Cytolyt is 30 ml colorless slightly hazy fixed fluid for cytology said to have been obtained as Left posterior neck. ThinPrep and cell block preparations are prepared for microscopic examination. Also received are 6 spray fixed smeared slides for microscopic examination. (CC/in) Microscopic Description Microscopic examinations are performed supporting the above interpretation CPT Codes 23494 73963 -------- -------- Specimen: [id number] Received: 07/19/24 Status: REESE Lazar Num: [id number] Spec Type: Cytology Subm Dr: PAGE BOBO MD Tissues: A FNA SLIDES NOPATH (LT POST NECK FNA) Procedures: HE/2, Cyto Int and Re, PAPSTN/7 -------- Patient: Bobby Brink [id number] (Continued) -------- Signed (signature o (more content not included)... Normal [facility] CT SOFT TISSUE NECK W IV CON TRASTon 07-17-2024 CT SOFT TISSUE NECK W IV CONTRAST ADDENDUM TO CT SOFT TISSUE NECK W IV CONTRAST: This is compared to the ultrasound study performed May 17, 2024. The hypoechoic lesion in the posterior left neck is seen on CT as a subcutaneous central fat density nodule of roughly the same size (image 47, series 2). This therefore likely represents an area of fat necrosis with inflammation. Dictated and transcribed 07/18/2023/roberto This report has been electronically signed and approved by the interpreting radiologist. CT SOFT TISSUE NECK W IV CONTRAST REASON FOR STUDY: Lymphadenopathy left side TECHNIQUE: The study consists of helical images obtained through the neck with the aid of 100 mL Isovue 300 nonionic contrast administered intravenously. Coronal and sagittal reformations were reconstructed. . COMPARISON: None FINDINGS: Mucosa/Submucosa (Pharyngeal mucosal space): The nasopharyngeal and oropharyngeal mucosa appears normal. There is some prominence of the lingual tonsils. Hypopharynx: piriform sinus, posterior pharyngeal wall, and post-cricoid region appear normal and intact. Larynx: Supraglottis- False cords, aryepiglottic folds, and epiglottis appear intact. Glottis- True cords appear symmetric Subglottis- clear Parapharyngeal Space: Symmetric and fat preserved. Donor Recruiter Space: No swelling or masses. Retropharyngeal Space: No soft tissue swelling. Lymph Nodes: There are a few mildly prominent submandibular space lymph nodes and several mildly prominent jugular chain lymph nodes. The largest is seen on the left at level 2A, measuring 2.4 cm in long axis. There is a mildly prominent right level 6 lymph node measuring 14 mm in diameter. Salivary Glands: The parotid glands are prominent in size bilaterally but there is no visible inflammation. The submandibular glands are symmetric in appearance. Thyroid: The thyroid gland is mildly bulky in appearance, especially caudally on the right extending into the isthmus. There is a round nodule that appears to be separate from the thyroid gland but lies immediately posterior to the gland measuring 11 mm. Neck Muscles.: Symmetric and normal Vessels: Carotid arteries and jugular veins appear patent and normal as seen. Cervical Spine: cervical vertebra are unremarkable as seen. Skull Base: Grossly intact as seen. Visible portions of the mastoids and paranasal sinuses are clear. There is very poor dentition noted with multiple cavities in several of the teeth and several broken off teeth as well as mild periodontal disease. Upper chest: Visible lung apices and superior mediastinum are not remarkable. IMPRESSION: 1. Mildly prominent lymph nodes, nonspecific but potentially reactive. 2. Poor dentition with cavities and periodontal disease, which could be a source of infection or inflammation. 3. Nodule posterior to the right thyroid lobe, possibly a parathyroid gland or parathyroid adenoma. There is also enlargement of the thyroid gland on the right inferiorly. Dedicated thyroid ultrasound recommended to further assess. Dictated on: 07/18/2024 8:13 AM This report has been electronically signed and approved by the interpreting Radiologist. Normal Not Available Comment on above: Order Comment: CT S/ T Neck W at [facility]. Please call patient to schedule. CT BRAIN WO CONTon CT BRAIN WO CONT CT BRAIN WO CONT HISTORY: A 43-year-old female with the history of the left-sided headaches and vomiting. EXAM/TECHNIQUE: Multidetector spiral CT scan of brain is performed. Multiplanar reconstruction images are reformatted. All CT scans at this facility use dose modulation, iterative reconstruction, and/or weight based dosing when appropriate to reduce radiation dose to as low as reasonably achievable. COMPARISON: Comparison is made with prior CT scan of the brain of 12/03/2023. FINDINGS: The ventricular system is normal in size and configuration. There is normal differentiation of talbot and white matters. There is no evidence of intracranial hemorrhage or acute pathology. The cerebellum and brainstem are unremarkable. No mass effect, midline shift of the structures or extra-axial fluid collections are noted. The calvarium is intact. The visualized paranasal sinuses and mastoid air cells are clear. IMPRESSION: * No evidence of intracranial hemorrhage or acute pathology. * Interval resolution of the paranasal sinusitis. Finalized by Scott Menendez MD on 07/07/2024 10:08 PM Normal [facility] SARS/FLU A+B/RSV by NAAT/Mol ecularon 07-07-2024 SARS/FLU A+B/RSV by NAAT/Molecular FLU A PCR Negative (qualifier value) FLU B PCR Negative (qualifier value) RSV by PCR Negative (qualifier value) SARS CoV 2 Not detected (qualifier value) NOTE The Xpert Xpress SARS-CoV-2/Flu/RSV Plus test is a rapid, multiplexed real-time RT-PCR test intended for the simultaneous qualitative detection and differentiation of SARS-CoV-2, influenza A, influenza B and respiratory syncytial virus (RSV) viral RNA from individuals suspected of respiratory viral infection consistent with COVID-19 by their healthcare provider. This test has not been validated in asymptomatic patients. The Xpert Xpress SARS-CoV-2 test is intended for use by qualified and trained operators who are performing tests using either [employer] or [employer] systems and is limited to laboratories that meet the CLIA requirements to perform high and moderate complexity tests. The Xpert Xpress SARS-CoV-2/Flu/RSV Plus is only for use under the Food and Drug Administration's Emergency Use Authorization. Results are for the simultaneous detection and differentiation of SARS-CoV-2, influenza A, influenza B and RSV nucleic acids in clinical specimens. SARS-CoV-2, influenza A, influenza B and RSV RNA identified by this test are generally detectable in upper respiratory samples during the acute phase of infection. Positive results are indicative of the presence of the identified virus, but do not rule out bacterial infection or co-infection with other pathogens not detected by this test. Clinical correlation with patient history and other diagnostic information is necessary to determine patient infection status. The agent detected may not be the definite cause of disease. Negative results do not preclude SARS-CoV-2, influenza A, influenza B and RSV infection and should not be used as the sole basis for treatment or other patient management decisions. Negative results must be combined with clinical observations, patient history and epidemiological information. An Invalid result may occur with specimen-associated inhibition unable to be resolved with specimen repeat. Fact Sheet for Healthcare Providers: https://www.fda.gov/m edia/834779/download Fact Sheet for Patients: https://www.fda.gov/m edia/958829/download Normal [facility] Comment on above: Performed By: #### C HARMONY, BENI, 25126-4, 86783-2, 28503-6 #### [facility] ([id number]) [address] [place] [address] HbA1c (Bld) [Mass fraction]o n 05-23-2024 Interpretation and review of laboratory results Abnormal [facility] - Hematology and Cell countson 05-23-2024 HbA1c (Bld) [Mass fraction] 9.7 % [facility] US SOFT TISS HEAD NECKon US SOFT TISS HEAD NECK US SOFT TISS HEAD NECK HISTORY: A 43-year-old female with the history of the left posterior neck mass for 2 months. Complaining of tenderness. TECHNIQUE: Targeted ultrasound examination of the soft tissue neck is performed. Multiple real-time images are obtained. Color Doppler study is performed. COMPARISON: No relevant prior studies are available for comparison. FINDINGS: Multiple real-time images reveal and hypoechoic abnormality in the region of the uterus. It measures 1.3 x 1.0 x 0.9 cm. There is no evidence of increased color Doppler flow. Appearance is nonspecific. No focal fluid collection is identified. IMPRESSION: * There is a 1.3 x 1.0 x 0.9 cm hypoechoic lesion in the superficial soft tissues of the left posterior neck. Appearance is nonspecific. This could be a lymph node, focal soft tissue mass or even scarring. A clinical correlation is suggested. Finalized by Scott Menendez MD on 05/18/2024 8:43 AM Normal [facility] CBC AND AUTO DIFFon 01-30-20 24 ABSOLUTE BASOPHIL 0.0 X10E9/L Normal 0.0-0.2 [facility] Comment on above: Performed By: #### C HARMONY CMP, 64660-0, 12438-9, 34406-6 #### [facility] ([id number]) [address] [place] [address] ABSOLUTE NEUTROPHIL 2.7 X10E9/L Normal 1.5-6.6 [facility] Comment on above: Performed By: #### C HARMONY CMP, 73520-6, 79610-3, 09249-0 #### [facility] ([id number]) [address] [place] [address] Basophils/100 WBC (Bld) 0.5 % Normal [facility] Comment on above: Performed By: #### C BCA, CMP, 28994-6, 03061-2, 03400-0 #### [facility] ([id number]) [address] [place] [address] Eosinophils (Bld) [#/Vol] 0.2 10*3/uL Normal 0.0-0.4 [facility] Comment on above: Performed By: #### C BCA, CMP, 70974-1, 86664-0, 19033-2 #### [facility] ([id number]) [address] [place], [place] [address] Eosinophils/100 WBC (Bld) 3.6 % Normal [facility] Comment on above: Performed By: #### C BCA, CMP, 27829-7, 50049-9, 99072-8 #### [facility] ([id number]) [address] [place] [address] 65666 Erythrocyte distribution width (RBC) [Ratio] 14.8 % Normal 11.5-15.0 [facility] Comment on above: Performed By: #### C BCA, CMP, 85932-5, 93001-4, 08662-9 #### [facility] ([id number]) [address] [place], [place] [address] Hematocrit (Bld) [Volume fraction] 37.3 % Normal 35-47 [facility] Comment on above: Performed By: #### C BCA, CMP, 28106-9, 95162-3, 05738-7 #### [facility] ([id number]) [address] [place], [place] [address] Hemoglobin (Bld) [Mass/Vol] 12.6 g/dL Normal 11.7-15.5 [facility] Comment on above: Performed By: #### C BCA, CMP, 23941-7, 21795-0, 14205-5 #### [facility] ([id number]) [address] [place] [address] 62050 Lymphocytes (Bld) [#/Vol] 1.4 10*3/uL Normal 1.0-3.5 [facility] Comment on above: Performed By: #### C BCA, CMP, 95648-9, 53199-4, 82782-7 #### [facility] ([id number]) [address] [place] [address] 59100 Lymphocytes/100 WBC (Bld) 29.0 % Normal [facility] Comment on above: Performed By: #### C BCA, CMP, 78344-3, 09593-4, 06193-7 #### [facility] ([id number]) [address] [place] [address] 54026 MCH (RBC) [Entitic mass] 31.5 pg Normal 27-34 [facility] Comment on above: Performed By: #### Christian BCA, CMP, 66830-6, 20779-9, 18770-3 #### [facility] ([id number]) [address] [place] [address] 61920 MCHC (RBC) [Mass/Vol] 33.8 g/dL Normal 32-36 [facility] Comment on above: Performed By: #### Christian BCA, CMP, 87955-8, 54173-3, 54005-0 #### [facility] ([id number]) [address] [place] [address] 13755 MCV (RBC) [Entitic vol] 93 fL Normal 80-100 [facility] Comment on above: Performed By: #### C BCA, CMP, 79267-7, 79948-4, 09930-2 #### [facility] ([id number]) [address] [place] [address] 76701 Monocytes (Bld) [#/Vol] 0.4 10*3/uL Normal 0-0.9 [facility] Comment on above: Performed By: #### C BCA, CMP, 80134-1, 04392-8, 84312-1 #### [facility] ([id number]) [address] [place] [address] 53994 Monocytes/100 WBC (Bld) 8.7 % Normal [facility] Comment on above: Performed By: #### C BCA, CMP, 78539-8, 97077-4, 45435-6 #### [facility] ([id number]) [address] [place] [address] 35381 Neutrophils/100 WBC (Bld) 58.2 % Normal [facility] Comment on above: Performed By: #### C BCA, CMP, 48288-0, 31093-2, 11879-9 #### [facility] ([id number]) [address] [place] [address] 49884 Platelet mean volume (Bld) [Entitic vol] 8.8 fL Normal 7-12 [facility] Comment on above: Performed By: #### C BCA, CMP, 76593-9, 29031-7, 72287-6 #### [facility] ([id number]) [address] [place] [address] 44907 Platelets (Bld) [#/Vol] 111 10*3/uL Low 150-450 [facility] Comment on above: Performed By: #### C BCA, CMP, 88151-5, 92565-9, 71477-1 #### [facility] ([id number]) [address] [place] [address] 12227 RBC COUNT 4.00 X10E12/L Normal 3.80-5.20 [facility] Comment on above: Performed By: #### C BCA, CMP, 88673-6, 04957-6, 37337-0 #### [facility] ([id number]) [address] [place] [address] 81609 WBC (Bld) [#/Vol] 4.7 10*3/uL Normal 4.0-11.0 [facility] Comment on above: Performed By: #### C BCA, CMP, 26367-8, 95814-3, 40818-1 #### [facility] ([id number]) [address] [place] [address] 11812 COMPREHENSIVE METABOLIC PANE Americo 01-30-2024 Albumin [Mass/Vol] 3.0 g/dL Low 3.2-5.3 [facility] Comment on above: Performed By: #### C BCA, CMP, 83561-8, 30017-3, 91102-9 #### [facility] ([id number]) [address] [place] [address] 79667 ALP [Catalytic activity/Vol] 163 U/L High 39-130 [facility] Comment on above: Performed By: #### C BCA, CMP, 89658-9, 98105-7, 92633-2 #### [facility] ([id number]) [address] [place] [address] 60052 ALT [Catalytic activity/Vol] 28 U/L Normal 0-31 [facility] Comment on above: Performed By: #### C BCA, CMP, 39099-2, 26950-1, 17666-9 #### [facility] ([id number]) [address] [place] [address] 41815 Anion gap [Moles/Vol] 7 mmol/L Normal 5-15 [facility] Comment on above: Performed By: #### C BCA, CMP, 43914-1, 47570-4, 27447-9 #### [facility] ([id number]) [address] [place] [address] 68486 AST [Catalytic activity/Vol] 36 U/L Normal 0-41 [facility] Comment on above: Performed By: #### C BCA, CMP, 12126-8, 09577-5, 30735-3 #### [facility] ([id number]) [address] [place] [address] 45645 Bilirubin [Mass/Vol] 0.9 mg/dL Normal 0.3-1.2 [facility] Comment on above: Performed By: #### C BCA, CMP, 27710-6, 51543-0, 12247-5 #### [facility] ([id number]) [address] [place] [address] 59286 Calcium [Mass/Vol] 8.4 mg/dL Low 8.5-10.5 [facility] Comment on above: Performed By: #### C BCA, CMP, 38765-1, 58105-9, 67734-2 #### [facility] ([id number]) [address] [place] [address] 92021 Chloride [Moles/Vol] 107 mmol/L Normal 98-109 [facility] Comment on above: Performed By: #### C BCA, CMP, 44996-4, 08727-3, 53682-8 #### [facility] ([id number]) [address] [place] [address] 11579 CO2 [Moles/Vol] 26 mmol/L Normal 22-32 [facility] Comment on above: Performed By: #### C BCA, CMP, 98460-3, 47853-0, 14666-1 #### [facility] ([id number]) [address] [place] [address] 10110 Creatinine [Mass/Vol] 0.40 mg/dL Normal 0.40-1.00 [facility] Comment on above: Result Comment: METH OD TRACEABLE TO IDMS STANDARD Performed By: #### C BCA, CMP, 41193-5, 42061-6, 50897-3 #### [facility] ([id number]) [address] [place] [address] 49988 eGFR (CKD-EPI) NON-RACE DEPENDENT >90 Normal >59 [facility] Comment on above: Result Comment: Reported eGFR is based on the CKD-EPI 2020 equation that does not use a race coefficient. Performed By: #### C BCA, CMP, 21178-3, 96541-7, 99728-7 #### [facility] ([id number]) [address] [place] [address] 06649 Glucose [Mass/Vol] 92 mg/dL Normal 65-99 [facility] Comment on above: Performed By: #### C BCA, CMP, 64889-6, 20973-0, 53388-7 #### [facility] ([id number]) [address] [place] [address] 54850 Potassium [Moles/Vol] 3.6 mmol/L Normal 3.5-5.0 [facility] Comment on above: Performed By: #### C BCA, CMP, 13780-3, 43708-7, 33851-0 #### [facility] ([id number]) [address] [place] [address] 71944 Protein [Mass/Vol] 6.7 g/dL Normal 6.0-8.0 [facility] Comment on above: Performed By: #### C BCA, CMP, 02736-0, 03249-3, 03560-3 #### [facility] ([id number]) [address] [place] [address] 40928 Sodium [Moles/Vol] 140 mmol/L Normal 134-146 [facility] Comment on above: Performed By: #### C BCA, CMP, 07853-3, 17794-3, 96012-2 #### [facility] ([id number]) [address] [place] [address] 73046 Urea nitrogen [Mass/Vol] 7 mg/dL Normal 5-23 [facility] Comment on above: Performed By: #### C BCA, CMP, 02949-2, 98583-8, 16902-4 #### [facility] ([id number]) [address] [place] [address] 81254 GLUCOSEon 01-30-2024 Glucose [Mass/Vol] 189 mg/dL High 65-99 [facility] Comment on above: Performed By: #### C HARMONY, BENI, 42759-6, 04828-5, 21318-6 #### [facility] ([id number]) [address] [place] [address] 54363 MAGNESIUMon 01-30-2024 Magnesium [Mass/Vol] 1.6 mg/dL Low 1.8-2.6 [facility] Comment on above: Performed By: #### C HARMONY [facility], 61131-4, 35900-0, 62608-6 #### [facility] ([id number]) [address] [place] [address] 97833 CBC AND AUTO DIFFon 01-29-20 24 ABSOLUTE BASOPHIL 0.0 X10E9/L Normal 0.0-0.2 [facility] Comment on above: Performed By: #### C OVFLR #### [facility] ([id number]) [address] [place] [address] 09539 ABSOLUTE NEUTROPHIL 3.3 X10E9/L Normal 1.5-6.6 [facility] Comment on above: Performed By: #### C OVFLR #### [facility] ([id number]) [address] [place] [address] 27783 Basophils/100 WBC (Bld) 0.7 % Normal [facility] Comment on above: Performed By: #### C OVFLR #### [facility] ([id number]) [address] [place] [address] 34590 Eosinophils (Bld) [#/Vol] 0.1 10*3/uL Normal 0.0-0.4 [facility] Comment on above: Performed By: #### C OVFLR #### [facility] ([id number]) [address] [place] [address] 48550 Eosinophils/100 WBC (Bld) 2.1 % Normal [facility] Comment on above: Performed By: #### C OVFLR #### [facility] ([id number]) [address] [place] [address] 81737 Erythrocyte distribution width (RBC) [Ratio] 14.8 % Normal 11.5-15.0 [facility] Comment on above: Performed By: #### C OVFLR #### [facility] ([id number]) [address] [place] [address] 41163 Hematocrit (Bld) [Volume fraction] 36.4 % Normal 35-47 [facility] Comment on above: Performed By: #### C OVFLR #### [facility] ([id number]) [address] [place] [address] 55307 Hemoglobin (Bld) [Mass/Vol] 12.4 g/dL Normal 11.7-15.5 [facility] Comment on above: Performed By: #### C OVFLR #### [facility] ([id number]) [address] [place] [address] 56217 Lymphocytes (Bld) [#/Vol] 1.0 10*3/uL Normal 1.0-3.5 [facility] Comment on above: Performed By: #### C OVFLR #### [facility] [facility] ([id number]) [address] [place] [address] 54994 Lymphocytes/100 WBC (Bld) 20.0 % Normal [facility] Comment on above: Performed By: #### C OVFLR #### [facility] ([id number]) [address] [place] [address] 50822 MCH (RBC) [Entitic mass] 31.4 pg Normal 27-34 [facility] Comment on above: Performed By: #### C OVFLR #### [facility] ([id number]) [address] [place] [address] [place] [address] MCHC (RBC) [Mass/Vol] 33.9 g/dL Normal 32-36 [facility] Comment on above: Performed By: #### C OVFLR #### [facility] ([id number]) [address] [place] [address] 94642 MCV (RBC) [Entitic vol] 93 fL Normal 80-100 [facility] Comment on above: Performed By: #### C OVFLR #### [facility] ([id number]) [address] [place] [address] 27187 Monocytes (Bld) [#/Vol] 0.5 10*3/uL Normal 0-0.9 [facility] Comment on above: Performed By: #### C OVFLR #### [facility] ([id number]) [address] [place] [address] 33810 Monocytes/100 WBC (Bld) 9.8 % Normal [facility] Comment on above: Performed By: #### C OVFLR #### [facility] ([id number]) [address] [place] [address] 95993 Neutrophils/100 WBC (Bld) 67.4 % Normal [facility] Comment on above: Performed By: #### C OVFLR #### [facility] ([id number]) [address] [place] [address] [place] [address] Platelet mean volume (Bld) [Entitic vol] 9.0 fL Normal 7-12 [facility] Comment on above: Performed By: #### C OVFLR #### [facility] ([id number]) [address] [place] [address] 07894 Platelets (Bld) [#/Vol] 95 10*3/uL Low 150-450 [facility] Comment on above: Performed By: #### C OVFLR #### [facility] ([id number]) [address] [place] [address] 93388 RBC COUNT 3.93 X10E12/L Normal 3.80-5.20 [facility] Comment on above: Performed By: #### C OVFLR #### [facility] ([id number]) [address] [place] [address] 88383 WBC (Bld) [#/Vol] 4.9 10*3/uL Normal 4.0-11.0 [facility] Comment on above: Performed By: #### C OVFLR #### [facility] ([id number]) [address] [place] [address] 25634 COMPREHENSIVE METABOLIC PANE Americo 01-29-2024 Albumin [Mass/Vol] 3.0 g/dL Low 3.2-5.3 [facility] Comment on above: Performed By: #### C OVFLR #### [facility] ([id number]) [address] [place] [address] 62259 ALP [Catalytic activity/Vol] 151 U/L High 39-130 [facility] Comment on above: Performed By: #### C OVFLR #### [facility] ([id number]) [address] [place] [address] 36003 ALT [Catalytic activity/Vol] 28 U/L Normal 0-31 [facility] Comment on above: Performed By: #### C OVFLR #### [facility] ([id number]) [address] [place] [address] 28644 Anion gap [Moles/Vol] 6 mmol/L Normal 5-15 [facility] Comment on above: Performed By: #### C OVFLR #### [facility] ([id number]) [address] [place] [address] 97365 AST [Catalytic activity/Vol] 35 U/L Normal 0-41 [facility] Comment on above: Performed By: #### C OVFLR #### [facility] ([id number]) [address] [place] [address] 75179 Bilirubin [Mass/Vol] 1.0 mg/dL Normal 0.3-1.2 [facility] Comment on above: Performed By: #### C OVFLR #### [facility] ([id number]) [address] [place] [address] 13422 Calcium [Mass/Vol] 8.1 mg/dL Low 8.5-10.5 [facility] Comment on above: Performed By: #### C OVFLR #### [facility] ([id number]) [address] [place] [address] 33131 Chloride [Moles/Vol] 106 mmol/L Normal 98-109 [facility] Comment on above: Performed By: #### C OVFLR #### [facility] ([id number]) [address] [place] [address] 01393 CO2 [Moles/Vol] 27 mmol/L Normal 22-32 [facility] Comment on above: Performed By: #### C OVFLR #### [facility] ([id number]) [address] [place] [address] 35374 Creatinine [Mass/Vol] 0.46 mg/dL Normal 0.40-1.00 [facility] Comment on above: Result Comment: METH OD TRACEABLE TO IDMS STANDARD Performed By: #### C OVFLR #### [facility] ([id number]) [address] [place] [address] 86133 eGFR (CKD-EPI) NON-RACE DEPENDENT >90 Normal >59 [facility] Comment on above: Result Comment: Reported eGFR is based on the CKD-EPI 2020 equation that does not use a race coefficient. Performed By: #### C OVFLR #### [facility] ([id number]) [address] [place] [address] 51702 Glucose [Mass/Vol] 116 mg/dL High 65-99 [facility] Comment on above: Performed By: #### C OVFLR #### [facility] ([id number]) [address] [place] [address] 58905 Potassium [Moles/Vol] 3.5 mmol/L Normal 3.5-5.0 [facility] Comment on above: Performed By: #### C OVFLR #### [facility] ([id number]) [address] [place] [address] 52763 Protein [Mass/Vol] 6.6 g/dL Normal 6.0-8.0 [facility] Comment on above: Performed By: #### C OVFLR #### [facility] ([id number]) [address] [place] [address] 97361 Sodium [Moles/Vol] 139 mmol/L Normal 134-146 [facility] Comment on above: Performed By: #### C OVFLR #### [facility] ([id number]) [address] [place] [address] 72447 Urea nitrogen [Mass/Vol] 6 mg/dL Normal 5-23 [facility] Comment on above: Performed By: #### C OVFLR #### [facility] ([id number]) [address] [place] [address] [place] [address] GLUCOSEon 01-29-2024 Glucose [Mass/Vol] 187 mg/dL High 65-99 [facility] Comment on above: Performed By: #### C BCA, CMP, 54486-0, 97424-0, 23629-4 #### [facility] ([id number]) [address] [place] [address] [place] [address] Glucose [Mass/Vol] 144 mg/dL High 65-99 [facility] Comment on above: Performed By: #### C OVFLR #### [facility] ([id number]) [address] [place] [address] 91785 Glucose [Mass/Vol] 154 mg/dL High 65-99 [facility] Comment on above: Performed By: #### C OVFLR #### [facility] ([id number]) [address] [place] [address] 60766 MAGNESIUMon 01-29-2024 Magnesium [Mass/Vol] 2.0 mg/dL Normal 1.8-2.6 [facility] Comment on above: Performed By: #### C BENI ANTUNEZ, 10551-9, 12221-1, 19687-0 #### [facility] ([id number]) [address] [place] [address] 18699 Magnesium [Mass/Vol] 1.5 mg/dL Low 1.8-2.6 [facility] Comment on above: Performed By: #### C OVFLR #### [facility] ([id number]) [address] [place] [address] 03406 POTASSIUMon 01-29-2024 Potassium [Moles/Vol] 3.7 mmol/L Normal 3.5-5.0 [facility] Comment on above: Performed By: #### C BENI ANTUNEZ, 57139-6, 77235-0, 32613-5 #### [facility] ([id number]) [address] [place] [address] 93224 COMPLETE BLOOD COUNTon 01-27 Erythrocyte distribution width (RBC) [Ratio] 15.0 % Normal 11.5-15.0 [facility] Comment on above: Performed By: #### C OVFLR #### [facility] ([id number]) [address] [place] [address] 25640 Hematocrit (Bld) [Volume fraction] 40.1 % Normal 35-47 [facility] Comment on above: Performed By: #### C OVFLR #### [facility] ([id number]) [address] [place] [address] 27922 Hemoglobin (Bld) [Mass/Vol] 13.5 g/dL Normal 11.7-15.5 [facility] Comment on above: Performed By: #### C OVFLR #### [facility] ([id number]) [address] [place] [address] 83801 MCH (RBC) [Entitic mass] 31.2 pg Normal 27-34 [facility] Comment on above: Performed By: #### C OVFLR #### [facility] ([id number]) [address] [place] [address] 49664 MCHC (RBC) [Mass/Vol] 33.8 g/dL Normal 32-36 [facility] Comment on above: Performed By: #### C OVFLR #### [facility] ([id number]) [address] [place] [address] 57421 MCV (RBC) [Entitic vol] 93 fL Normal 80-100 [facility] Comment on above: Performed By: #### C OVFLR #### [facility] ([id number]) [address] [place] [address] 39292 Platelet mean volume (Bld) [Entitic vol] 9.2 fL Normal 7-12 [facility] Comment on above: Performed By: #### C OVFLR #### [facility] ([id number]) [address] [place] [address] 30315 Platelets (Bld) [#/Vol] 94 10*3/uL Low 150-450 [facility] Comment on above: Performed By: #### C OVFLR #### [facility] ([id number]) [address] [place] [address] [place] [address] RBC COUNT 4.33 X10E12/L Normal 3.80-5.20 [facility] Comment on above: Performed By: #### C OVFLR #### [facility] ([id number]) [address] [place] [address] 11648 WBC (Bld) [#/Vol] 5.3 10*3/uL Normal 4.0-11.0 [facility] Comment on above: Performed By: #### C OVFLR #### [facility] ([id number]) [address] [place] [address] 45988 COMPREHENSIVE METABOLIC PANE Americo 01-28-2024 Albumin [Mass/Vol] 3.3 g/dL Normal 3.2-5.3 [facility] Comment on above: Performed By: #### C OVFLR #### [facility] ([id number]) [address] [place] [address] 67553 ALP [Catalytic activity/Vol] 179 U/L High 39-130 [facility] Comment on above: Performed By: #### C OVFLR #### [facility] ([id number]) [address] [place] [address] 52735 ALT [Catalytic activity/Vol] 35 U/L High 0-31 [facility] Comment on above: Performed By: #### C OVFLR #### [facility] ([id number]) [address] [place] [address] 36131 Anion gap [Moles/Vol] 10 mmol/L Normal 5-15 [facility] Comment on above: Performed By: #### C OVFLR #### [facility] ([id number]) [address] [place] [address] 12251 AST [Catalytic activity/Vol] 35 U/L Normal 0-41 [facility] Comment on above: Performed By: #### C OVFLR #### [facility] ([id number]) [address] [place] [address] 25348 Bilirubin [Mass/Vol] 1.3 mg/dL High 0.3-1.2 [facility] Comment on above: Performed By: #### C OVFLR #### [facility] ([id number]) [address] [place] [address] 37959 Calcium [Mass/Vol] 8.6 mg/dL Normal 8.5-10.5 [facility] Comment on above: Performed By: #### C OVFLR #### [facility] ([id number]) [address] [place] [address] 11494 Chloride [Moles/Vol] 100 mmol/L Normal 98-109 [facility] Comment on above: Performed By: #### C OVFLR #### [facility] ([id number]) [address] [place] [address] 45039 CO2 [Moles/Vol] 26 mmol/L Normal 22-32 [facility] Comment on above: Performed By: #### C OVFLR #### [facility] ([id number]) [address] [place] [address] 71678 Creatinine [Mass/Vol] 0.54 mg/dL Normal 0.40-1.00 [facility] Comment on above: Result Comment: METH OD TRACEABLE TO IDMS STANDARD Performed By: #### C OVFLR #### [facility] ([id number]) [address] [place] [address] 28213 eGFR (CKD-EPI) NON-RACE DEPENDENT >90 Normal >59 [facility] Comment on above: Result Comment: Reported eGFR is based on the CKD-EPI 2020 equation that does not use a race coefficient. Performed By: #### C OVFLR #### [facility] ([id number]) [address] [place] [address] Glucose [Mass/Vol] 283 mg/dL High 65-99 [facility] Comment on above: Performed By: #### C OVFLR #### [facility] ([id number]) [address] [place] [address] 96795 Potassium [Moles/Vol] 3.6 mmol/L Normal 3.5-5.0 [facility] Comment on above: Performed By: #### C OVFLR #### [facility] ([id number]) [address] [place] [address] [place] [address] Protein [Mass/Vol] 7.6 g/dL Normal 6.0-8.0 [facility] Comment on above: Performed By: #### C OVFLR #### [facility] ([id number]) [address] [place] [address] 43289 Sodium [Moles/Vol] 136 mmol/L Normal 134-146 [facility] Comment on above: Performed By: #### C OVFLR #### [facility] ([id number]) [address] [place] [address] 80317 Urea nitrogen [Mass/Vol] 7 mg/dL Normal 5-23 [facility] Comment on above: Performed By: #### C OVFLR #### [facility] ([id number]) [address] [place] [address] [place] [address] CRP [Mass/Vol]on 01-28-2024 C REACTIVE PROTEIN 9.0 mg/dL High 0.000-0.744 [facility] Comment on above: Performed By: #### C OVFLR #### [facility] ([id number]) [address] [place] [address] [place] [address] GLUCOSEon 01-28-2024 Glucose [Mass/Vol] 218 mg/dL High 65-99 [facility] Comment on above: Performed By: #### C OVFLR #### [facility] ([id number]) [address] [facility] [place] [address] POTASSIUMon 01-28-2024 Potassium [Moles/Vol] 3.2 mmol/L Low 3.5-5.0 [facility] Comment on above: Performed By: #### C OVFLR #### [facility] ([id number]) [address] [place] [address], [place] [address] Capillary blood glucose deann urement by glucometer (mass/volume)Ordered By: Estefania Solorzano on 01-25-2024 Glucose [Mass/Vol] 115 mg/dL Normal [facility] Comment on above: Random Glucose Refer ence Range is dependent on time and content of last meal. Glucose of more than 200 mg/dL in a nonstressed, ambulatory subject supports the diagnosis of Diabetes Mellitus. Result Comment: [place] Glucose Reference Range is dependent on time and content of last meal. Glucose of more than 200 mg/dL in a nonstressed, ambulatory subject supports the diagnosis of Diabetes Mellitus. Performed By: #### G LULS #### Point of Care testing , Glucose Poct Glucometerson 0 01-25-2024 Commemt1 Glu2: Cleaned Meter Normal [facility] Comment on above: Result Comment: PERF ORMED BY: [facility] [address] [place] [address] PATHOLOGIST HOME AND [employer] VISITOR ОЛЬГА BARRETT M.D. Performed By: #### G LULS #### Point of Care testing , No Panel InformationOrdered By: Estefania Solorzano on 01-25-2024 Bedside Glucose Comment Glu2: cleaned meter [facility] Glucose Glucometer (BldC) [M ass/Vol]on 01-07-2024 Glucose [Mass/Vol] 118 mg/dL High 65-99 [facility] DRUG SCREEN, URINEon 024 AMPHETAMINE/METHAMP Negative Normal NEG [facility] Comment on above: Result Comment: AMPH /METH screening cut off = 1000 ng/mL Performed By: #### D DAVALOS ####[facility] ([id number])[address], [address], [place] [address] BARBITURATES Negative Normal NEG [facility] Comment on above: Result Comment: Shavonne iturates screening cut off value = 200 ng/mL Performed By: #### D DAVALOS ####[facility] ([id number])[address], [address] [place] [address], [place] [address] BENZODIAZEPINES Negative Normal NEG [facility] Comment on above: Result Comment: Eric odiazepines screening cut off value = 200 ng/mL Performed By: #### D DAVALOS ####[facility] ([id number])[address], [address] [place] [address] 96757 CANNABINOIDS Negative Normal NEG [facility] Comment on above: Result Comment: Jackie abinoids/THC screening cut off value = 50 ng/mL Performed By: #### D DAVALOS ####[facility] ([id number])[address], [address] [place] [address] 52358 COCAINE METABOLITE Negative Normal NEG [facility] Comment on above: Result Comment: Coca ine screening cut off value = 300 ng/mL Performed By: #### D DAVALOS ####[facility] ([id number])[address] [address] [place] [address] 08477 ECSTASY Negative Normal NEG [facility] Comment on above: Result Comment: Ecst asy screening cut off value = 500 ng/mL This report is intended for use in clinical monitoring or management of patients. Performed By: #### D DAVALOS ####[facility] ([id number])[address], [address] [place] [address], [place] [address] METHADONE Negative Normal NEG [facility] Comment on above: Result Comment: Meth adone screening cut off value = 300 ng/mL. Performed By: #### D DAVALOS ####[facility] ([id number])[address], [address] [place] [address], [place] [address] OPIATES Negative Normal NEG [facility] Comment on above: Result Comment: Opia boby screening cut off value = 300 ng/mL NOTE: This test is used for the detection of codeine, hydrocodone (>1000 ng/mL), morphine and hydromorphone (>900 ng/mL) in urine. Performed By: #### D DAVALOS ####[facility] ([id number])[address], [address] [place] [address] 97512 OXYCODONE Positive Abnormal NEG [facility] Comment on above: Result Comment: Conf irmation available upon request. Oxycodone screening cut off value = 300 ng/mL NOTE: This test is used for the detection of oxycodone and oxymorphone in urine. Performed By: #### D DAVALOS ####[facility] ([id number])[address] [facility], [address] [place] [address] 21018 PHENCYCLIDINE Negative Normal NEG [facility] Comment on above: Result Comment: Phen cyclidine screening cut off value = 25 ng/mL Performed By: #### D DAVALOS ####[facility] ([id number])[address] [facility], [address] [place] [address] 81444 CBC AND AUTO DIFFon 12-14-19 24 ABSOLUTE BASOPHIL 0.0 X10E9/L Normal 0.0-0.2 [facility] Comment on above: Performed By: #### 4 8066-5, CMP, 87765-1, 58292-7, CBCA, 24268-0 #### [facility] ([id number]) [address] [place] [address] 67616 ABSOLUTE NEUTROPHIL 2.7 X10E9/L Normal 1.5-6.6 [facility] Comment on above: Performed By: #### 4 8066-5, CMP, 57335-4, 98760-5, CBCA, 26806-6 #### [facility] ([id number]) [address] [place] [address] 66805 Basophils/100 WBC (Bld) 0.9 % Normal [facility] Comment on above: Performed By: #### 4 8066-5, CMP, 80160-4, 37863-5, CBCA, 14930-4 #### [facility] ([id number]) [address] [place] [address] 72875 Eosinophils (Bld) [#/Vol] 0.1 10*3/uL Normal 0.0-0.4 [facility] Comment on above: Performed By: #### 4 8066-5, CMP, 43503-1, 91483-1, CBCA, 04601-9 #### [facility] ([id number]) [address] [place] [address] 05039 Eosinophils/100 WBC (Bld) 1.7 % Normal [facility] Comment on above: Performed By: #### 4 8066-5, CMP, 69507-4, 21602-8, CBCA, 97093-3 #### [facility] ([id number]) [address] [place] [address] 05866 Erythrocyte distribution width (RBC) [Ratio] 16.5 % High 11.5-15.0 [facility] Comment on above: Performed By: #### 4 8066-5, CMP, 02970-0, 63810-2, CBCA, 52697-7 #### [facility] ([id number]) [address] [place] [address] 47671 Hematocrit (Bld) [Volume fraction] 40.2 % Normal 35-47 [facility] Comment on above: Performed By: #### 4 8066-5, CMP, 77946-7, 80301-4, CBCA, 93390-8 #### [facility] ([id number]) [address] [place] [address] 50681 Hemoglobin (Bld) [Mass/Vol] 13.9 g/dL Normal 11.7-15.5 [facility] Comment on above: Performed By: #### 4 8066-5, CMP, 81721-7, 13572-5, CBCA, 43057-7 #### [facility] ([id number]) [address] [place] [address] 57822 Lymphocytes (Bld) [#/Vol] 1.0 10*3/uL Normal 1.0-3.5 [facility] Comment on above: Performed By: #### 4 8066-5, CMP, 39908-9, 89020-4, CBCA, 50060-0 #### [facility] ([id number]) [address] [place] [address] 57079 Lymphocytes/100 WBC (Bld) 25.3 % Normal [facility] Comment on above: Performed By: #### 4 8066-5, CMP, 62617-9, 22244-7, CBCA, 04539-7 #### [facility] ([id number]) [address] [place] [address] 95553 MCH (RBC) [Entitic mass] 31.2 pg Normal 27-34 [facility] Comment on above: Performed By: #### 4 8066-5, CMP, 88895-5, 20582-2, CBCA, 30477-2 #### [facility] ([id number]) [address] [place] [address] 26070 MCHC (RBC) [Mass/Vol] 34.6 g/dL Normal 32-36 [facility] Comment on above: Performed By: #### 4 8066-5, CMP, 02445-0, 98495-3, CBCA, 38381-7 #### [facility] ([id number]) [address] [place] [address] 46515 MCV (RBC) [Entitic vol] 90 fL Normal 80-100 [facility] Comment on above: Performed By: #### 4 8066-5, CMP, 87985-2, 90425-5, CBCA, 83070-7 #### [facility] ([id number]) [address] [place] [address] 15405 Monocytes (Bld) [#/Vol] 0.2 10*3/uL Normal 0-0.9 [facility] Comment on above: Performed By: #### 4 8066-5, CMP, 60147-9, 21896-1, CBCA, 60879-0 #### [facility] ([id number]) [address] [place] [address] 83356 Monocytes/100 WBC (Bld) 5.4 % Normal [facility] Comment on above: Performed By: #### 4 8066-5, CMP, 91564-1, 72077-3, CBCA, 46299-4 #### [facility] ([id number]) [address] [place] [address] 69303 Neutrophils/100 WBC (Bld) 66.7 % Normal [facility] Comment on above: Performed By: #### 4 8066-5, CMP, 96120-4, 32101-3, CBCA, 45860-4 #### [facility] ([id number]) [address] [place] [address] 26190 Platelet mean volume (Bld) [Entitic vol] 8.9 fL Normal 7-12 [facility] Comment on above: Performed By: #### 4 8066-5, CMP, 33844-5, 00334-9, CBCA, 67601-8 #### [facility] ([id number]) [address] [place] [address] 01092 Platelets (Bld) [#/Vol] 102 10*3/uL Low 150-450 [facility] Comment on above: Performed By: #### 4 8066-5, CMP, 22580-2, 37039-6, CBCA, 02874-6 #### [facility] ([id number]) [address] [place] [address] 44378 RBC COUNT 4.47 X10E12/L Normal 3.80-5.20 [facility] Comment on above: Performed By: #### 4 8066-5, CMP, 81826-8, 55407-0, CBCA, 47380-8 #### [facility] ([id number]) [address] [place] [address] 13463 WBC (Bld) [#/Vol] 4.1 10*3/uL Normal 4.0-11.0 [facility] Comment on above: Performed By: #### 4 8066-5, CMP, 32502-8, 52237-8, CBCA, 41772-1 #### [facility] ([id number]) [address] [place] [address] 45146 COMPREHENSIVE METABOLIC PANE [facility] 12-14-2023 Albumin [Mass/Vol] 3.6 g/dL Normal 3.2-5.3 [facility] Comment on above: Performed By: #### 4 8066-5, CMP, 36036-7, 10172-6, CBCA, 82255-6 #### [facility] ([id number]) [address] [place] [address] 51671 ALP [Catalytic activity/Vol] 201 U/L High 39-130 [facility] Comment on above: Performed By: #### 4 8066-5, CMP, 82440-0, 80632-2, CBCA, 70315-3 #### [facility] ([id number]) [address] [place] [address] 04881 ALT [Catalytic activity/Vol] 39 U/L High 0-31 [facility] Comment on above: Performed By: #### 4 8066-5, CMP, 95483-9, 64867-7, CBCA, 14586-5 #### [facility] ([id number]) [address] [place] [address] 45614 Anion gap [Moles/Vol] 10 mmol/L Normal 5-15 [facility] Comment on above: Performed By: #### 4 8066-5, CMP, 55826-1, 35527-2, CBCA, 34626-4 #### [facility] ([id number]) [address] [place] [address] 82501 AST [Catalytic activity/Vol] 50 U/L High 0-41 [facility] Comment on above: Performed By: #### 4 8066-5, CMP, 06961-7, 90304-0, CBCA, 89563-6 #### [facility] ([id number]) [address] [place] [address] 03997 Bilirubin [Mass/Vol] 0.9 mg/dL Normal 0.3-1.2 [facility] Comment on above: Performed By: #### 4 8066-5, CMP, 11611-2, 40950-9, CBCA, 33091-6 #### [facility] ([id number]) [address] [place] [address] 46757 Calcium [Mass/Vol] 9.4 mg/dL Normal 8.5-10.5 [facility] Comment on above: Performed By: #### 4 8066-5, CMP, 88474-1, 99170-2, CBCA, 00500-0 #### [facility] ([id number]) [address] [place] [address] 03100 Chloride [Moles/Vol] 103 mmol/L Normal 98-109 [facility] Comment on above: Performed By: #### 4 8066-5, CMP, 50581-7, 54392-0, CBCA, 12554-4 #### [facility] ([id number]) [address] [place] [address] 74177 CO2 [Moles/Vol] 29 mmol/L Normal 22-32 [facility] Comment on above: Performed By: #### 4 8066-5, CMP, 87390-9, 07348-0, CBCA, 04261-8 #### [facility] ([id number]) [address] [place] [address] 34611 Creatinine [Mass/Vol] 0.42 mg/dL Normal 0.40-1.00 [facility] Comment on above: Result Comment: METH OD TRACEABLE TO IDMS STANDARD Performed By: #### 4 8066-5, CMP, 83421-3, 16520-5, CBCA, 71308-0 #### [facility] ([id number]) [address] [place] [address] 58292 eGFR (CKD-EPI) NON-RACE DEPENDENT >90 Normal >59 [facility] Comment on above: Result Comment: Reported eGFR is based on the CKD-EPI 2020 equation that does not use a race coefficient. Performed By: #### 4 8066-5, CMP, 59776-3, 10297-8, CBCA, 21581-8 #### [facility] ([id number]) [address] [place] [address] 16153 Glucose [Mass/Vol] 92 mg/dL Normal 65-99 [facility] Comment on above: Performed By: #### 4 8066-5, CMP, 31621-0, 89848-2, CBCA, 92274-4 #### [facility] ([id number]) [address] [place] [address] 87846 Potassium [Moles/Vol] 3.5 mmol/L Normal 3.5-5.0 [facility] Comment on above: Performed By: #### 4 8066-5, CMP, 00264-4, 11269-9, CBCA, 21373-1 #### [facility] ([id number]) [address] [place] [address] 16826 Protein [Mass/Vol] 7.3 g/dL Normal 6.0-8.0 [facility] Comment on above: Performed By: #### 4 8066-5, CMP, 47091-3, 35036-7, CBCA, 06878-8 #### [facility] ([id number]) [address] [place] [address] 91875 Sodium [Moles/Vol] 142 mmol/L Normal 134-146 [facility] Comment on above: Performed By: #### 4 8066-5, CMP, 95721-3, 06711-0, CBCA, 55185-9 #### [facility] ([id number]) [address] [place] [address] 34192 Urea nitrogen [Mass/Vol] 8 mg/dL Normal 5-23 [facility] Comment on above: Performed By: #### 4 8066-5, CMP, 67382-1, 82864-7, CBCA, 93819-5 #### [facility] ([id number]) [address] [place] [address] 07577 FERRITINon 12-14-2023 Ferritin [Mass/Vol] 30 ng/mL Normal 11-307 [facility] Comment on above: Performed By: #### 4 8066-5, CMP, 84127-8, 47224-1, CBCA, 13141-1 #### [facility] ([id number]) [address] [place] [address] 20503 Folate [Mass/Vol]on 12-14-19 24 FOLIC ACID 12.9 ng/mL Normal >5.8 [facility] Comment on above: Result Comment: NEW REFERENCE RANGE Performed By: #### H A1C, CBCA, TSHR, 2276-4, 2731-8, CMP, FEPR, 94977-2, 50028-6, 2284-8, 2132-9 ####[facility] ([id number])[address] [place] [address], [address], [place] [address]#### NICTM, 2998-3, VITASP ####[facility] ([id number])[address] [place] [address] 08778 HGB A1C (GLYCO-HGB)on 2023 Glucose [Mass/Vol] 235 mg/dL Normal [facility] Comment on above: Performed By: #### 4 8066-5, CMP, 40762-9, 00842-1, CBCA, 88533-7 #### [facility] ([id number]) [address] [place] [address] 68547 HbA1c (Bld) [Mass fraction] 9.8 % High 4.4-5.6 [facility] Comment on above: Result Comment: NOTE ADA Guidelines Result HgbA1c Normal : less than 5.7 % Prediabetes : 5.7 % to 6.4 % Diabetes : > 6.4 % Use with caution in patients with abnormal hemoglobin variants as the half-life of red blood cells and in vivo glycation rates are affected. Performed By: #### 4 8066-5, CMP, 02627-5, 30986-5, CBCA, 31176-7 #### [facility] ([id number]) [address] [place] [address] 16504 IRON PROFILEon 12-14-2023 Iron [Mass/Vol] 62 ug/dL Normal 50-170 [facility] Comment on above: Performed By: #### H A1C, CBCA, TSHR, 2276-4, 2731-8, CMP, FEPR, 71454-8, 82469-9, 2284-8, 2131-9 ####[facility] ([id number])[address] [place] [address], [address] [place] [address] 64844#### NICTM, 2998-3, VITASP ####[facility] ([id number])[address] [place] [address] 31908 IRON BINDING 435 ug/dL High 250-425 [facility] Comment on above: Performed By: #### H A1C, CBCA, TSHR, 2276-4, 2731-8, CMP, FEPR, 16921-7, 13341-8, 2284-8, 2-9 ####[facility] ([id number])[address], [address] [place] [address] 25335#### FENG, 2998-3, VITASP ####[facility] ([id number])[address] [place] [address] 85481 IRON SATURATION 14 % SATURATION Low 15-50 [facility] Comment on above: Performed By: #### H A1C, CBCA, TSHR, 2276-4, 2731-8, CMP, FEPR, 70469-7, 66511-4, 2284-8, 2131-9 ####[facility] ([id number])[address], [address] [place] [address] 18970#### FENG, 2998-3, VITASP ####[facility] ([id number])[address] [place] [address] 54227 Lipid 1996 panelon 4 Cholesterol [Mass/Vol] 173 mg/dL Normal 150-200 [facility] Comment on above: Performed By: #### H A1C, CBCA, TSHR, 2276-4, 2731-8, CMP, FEPR, 08347-3, 83842-9, 2284-8, 2-9 ####[facility] ([id number])[address], [address] [place] [address] 87783#### FENG, 2998-3, VITASP ####[facility] ([id number])[address] [place] [address] 96800 Cholesterol in HDL [Mass/Vol] 56 mg/dL Normal >39 [facility] Comment on above: Result Comment: HDL <40 mg/dL - High Risk HDL > or = 40mg/dL- Desirable HDL >60 mg/dL - Negative Risk Performed By: #### H A1C, CBCA, TSHR, 2276-4, 2731-8, CMP, FEPR, 04879-8, 32718-8, 2284-8, 2132-9 ####[facility] ([id number])[address], [address] [place] [address] 13641#### FENG, 2998-3, VITASP ####[facility] ([id number])[address] [place] [address] 02850 Cholesterol in LDL [Mass/Vol] 98 mg/dL Normal <130 [facility] Comment on above: Result Comment: LDL <100 mg/dL - Desirable LDL >160 mg/dL - High Risk Performed By: #### H A1C, CBCA, TSHR, 2276-4, 2731-8, CMP, FEPR, 63611-4, 04840-6, 2284-8, 2132-9 ####[facility] ([id number])[address], [address] [place] [address] 76754#### FENG, 2998-3, VITASP ####[facility] ([id number])[address] [place] [address] 00349 Cholesterol in VLDL [Mass/Vol] 19 mg/dL Normal 0-30 [facility] Comment on above: Performed By: #### H A1C, CBCA, TSHR, 2276-4, 2731-8, CMP, FEPR, 87586-8, 98932-9, 2284-8, 2132-9 ####[facility] ([id number])[address], [address] [address]#### NICTM, 2998-3, VITASP ####[facility] ([id number])[address] [place] [address] 72688 CHOLESTEROL:HDL 3.1 Normal 1.0-5.0 [facility] Comment on above: Performed By: #### H A1C, CBCA, TSHR, 2276-4, 2731-8, CMP, FEPR, 48904-1, 75635-0, 2284-8, 2132-9 ####[facility] ([id number])[address] [place] [address], [address] [place] [address] 06637#### NICTM, 2998-3, VITASP ####[facility] ([id number])[address] [place] [address] 27246 Triglyceride [Mass/Vol] 97 mg/dL Normal 27-150 [facility] Comment on above: Performed By: #### H A1C, CBCA, TSHR, 2276-4, 2731-8, CMP, FEPR, 93095-6, 87011-6, 2284-8, 2132-9 ####[facility] ([id number])[address] [place] [address], [address] [place] [address] 40118#### NICTM, 2998-3, VITASP ####[facility] ([id number])[address] [place] [address] 80962 NICOTINE METABOLITESon 12-13 COTININE <3.0 Normal <3.0 [facility] Comment on above: Result Comment: NOTE ADDITIONAL INFORMATION This test was developed and its performance characteristics determined by [facility] in a manner consistent with CLIA requirements. This test has not been cleared or approved by the U.S. Food and Drug Administration. Test Performed by: [facility] - [address] [address] Workforce Staffing Advisor: Maxi Kingsley M.D. Ph.D.; CLIA# [id number] Performed By: #### H A1C, CBCA, TSHR, 2276-4, 2731-8, CMP, FEPR, 02419-2, 73804-8, 2284-8, 9 ####[facility] ([id number])[address], [address] [place] [address] 21306#### NICTM, 2998-3, VITASP ####[facility] ([id number])[address] [place] [address] 03144 NICOTINE <3.0 Normal <3.0 [facility] Comment on above: Performed By: #### H A1C, CBCA, TSHR, 2276-4, 2731-8, CMP, FEPR, 32050-1, 19274-6, 4-8, 2132-03 ####[facility] ([id number])[address], [address] [place] [address] 32274#### NICTM, 2998-3, VITASP ####[facility] ([id number])[address] [place] [address] 91383 Parathyrin.intact [Mass/Vol] on 12-14-2023 PTH INTACT 28 pg/mL Normal 12-88 [facility] Comment on above: Performed By: #### 4 8066-5, CMP, 47515-5, 33746-6, CBCA, 61741-4 #### [facility] ([id number]) [address] [place] [address] 92451 TSH WITH REFLEXon 12-14-2023 TSH 0.91 uIU/mL Normal 0.49-4.67 [facility] Comment on above: Performed By: #### 4 8066-5, CMP, 73534-9, 13607-9, CBCA, 72064-9 #### [facility] ([id number]) [address] [place] [address] 04877 Thiamine (Bld) [Mass/Vol]on 12-14-2023 THIAMIN VITAMIN B1 See Below [facility] Comment on above: Result Comment: NOTE TEST RESULT FLAG UNIT REF.RANGE ------- Vitamin B1 (TDP), Whole Blood 167.6 nmol/L 84.3-213.3 This assay measures the concentration of thiamine diphosphate (TDP), the primary active form of vitamin B1. Approximately 90 percent of vitamin B1 present in whole blood is TDP. Thiamine and thiamine monophosphate, which comprise the remaining 10 percent, are not measured. This test was developed and its performance characteristics determined by [facility] [place] ([facility]). It has not been cleared or approved by the FDA. [facility] is regulated under CLIA as qualified to perform high-complexity testing. This test is used for clinical purposes. It should not be regarded as investigational or for research. Test Performed By: [facility] [address] [place] [address] Home Office Claim Specialist: Phillip Jaramillo III, M.D. CLIA #[id number] Performed By: #### H A1C, CBCA, TSHR, 2276-4, 2731-8, CMP, FEPR, 73106-2, 31531-8, 2284-8, 2132-9 ####[facility] ([id number])[address] [place] [address], [address] [place] [address] 23998#### NICTM, 2998-3, VITASP ####[facility] ([id number])[address] [place] [address] VITAMIN A(RETINOL)on 024 RETINYL PALMITATE 0.02 mg/L Normal 0.00-0.10 [facility] Comment on above: Performed By: #### H A1C, CBCA, TSHR, 2276-4, 2731-8, CMP, FEPR, 25647-7, 06263-1, 2284-8, 2132-9 ####[facility] ([id number])[address], [address] [place] [address] 62[address]#### NICTM, 2998-3, VITASP ####[facility] ([id number])[address] [place] [address] VIT A,SER/PL INTERP SEE NOTE Normal [facility] Comment on above: Result Comment: NOTE Retinol greater than 0.3 mg/L is typically associated with adequate liver stores in adults, and is within normal limits for children. Retinol less than 0.10 mg/L may indicate depleted liver stores and severe deficiency. This test was developed and its performance characteristics determined by [facility]. It has not been cleared or approved by the US Food and Drug Administration. This test was performed in a CLIA certified laboratory and is intended for clinical purposes. Performed By: [facility] [address] [place] [address] Home Office Claim Specialist: Cy Byrne MD, PhD CLIA Number: [id number] Performed By: #### H A1C, CBCA, TSHR, 2276-4, 2731-8, CMP, FEPR, 91694-5, 07618-9, 2284-8, 9 ####[facility] ([id number])[address], [address] [place] [address] 75247#### NICTM, 2998-3, VITASP ####[facility] ([id number])[address] [place] [address] VITAMIN A(RETINOL) 0.19 mg/L Low 0.30-1.20 [facility] Comment on above: Performed By: #### H A1C, CBCA, TSHR, 2276-4, 2731-8, CMP, FEPR, 79226-2, 01905-8, 2284-8, 2-9 ####[facility] ([id number])[address], [address] [place] [address] 35782#### NICTM, 2998-3, VITASP ####[facility] ([id number])[address] [place] [address] 75758 VITAMIN B12on 12-14-2023 Cobalamin (Vitamin B12) [Mass/Vol] 376 pg/mL Normal 180-914 [facility] Comment on above: Performed By: #### H A1C, CBCA, TSHR, 2276-4, 2731-8, CMP, FEPR, 86267-1, 93091-1, 2284-8, 2131-9 ####[facility] ([id number])[address], [address] [place] [address] 39264#### NICTM, 2998-3, VITASP ####[facility] ([id number])[address] [place] [address] 12771 Vitamin D+Metabolites [Mass/ Vol]on 12-14-2023 VITAMIN D 25 HYD TOT 17.1 ng/mL Low 30-100 [facility] Comment on above: Result Comment: Vitamin D status 25 [place] Vitamin D Deficiency <20 ng/mL Insufficiency 20-29 ng/mL Sufficiency 30-100 ng/mL Toxicity >100 ng/mL NOTE: A pediatric reference range has not been established by the order packer or packager of this kit. The [place] [employer] recommends a Vitamin D level of = or >20ng/mL in infants and children. Performed By: #### H A1C, CBCA, TSHR, 2276-4, 2731-8, CMP, FEPR, 83822-2, 60412-5, 2284-8, 2131-9 ####[facility] ([id number])[address], [address] [place] [address], [place] [address]#### NICTM, 2998-3, VITASP ####[facility] ([id number])[address] [place] [address] [address]RAIN WO CONT[address] BRAIN WO CONT CT BRAIN WO CONT Exam: CT brain without contrast. CLINICAL HISTORY: Headache TECHNIQUE: CT brain without intravenous contrast. COMPARISON: CT 09/26/2023 FINDINGS: There is no evidence of acute intracranial bleeding, mass effect, or CT evidence of acute ischemia/infarct. The midline structures are intact, no midline shift. The ventricles and basal cisterns are within normal limits. The brainstem and cerebellum are unremarkable. The visualized intraorbital contents are unremarkable. Mucosal thickening of bilateral maxillary sinuses, ethmoid air cells and frontal sinuses. No acute osseous abnormality in the visualized skull base and calvarium. IMPRESSION: No acute intracranial pathology. Findings suggestive of acute sinusitis. All CT scans at this facility use dose modulation, iterative reconstruction, and/or weight based dosing when appropriate to reduce radiation dose to as low as reasonably achievable. Finalized by Michael Del Cid on 12/03/2023 12:38 PM Normal [facility] Glucose Glucometer (BldC) [M ass/Vol]on 10-29-2023 Glucose [Mass/Vol] 174 mg/dL High 65-99 [facility] XR foot RT min 3V*on 024 XR foot RT min 3V* [facility] Main [place] [address] [place] [address]29 XRay Report Signed Patient: Bobby Brink MR#: [id number] : 1980 Acct:[id number] Age/Sex: 42 / F ADM Date: 10/20/23 Loc: XDUCLY Room: Type: [facility] Attending Dr: Brenda TERRY Copies to: HARRISON Tirado Ordering Provider: HARRISON Tirado Date of Service: 10/20/23 XR/XR foot RT min 3V*: RIGHT FOOT INJURY XR foot RT min 3V* 10/20/2023 12:38 PM SIGNS AND SYMPTOMS: Pain, bruising, and swelling to lateral aspect of right foot PROTOCOL: Frontal, lateral, and oblique radiographs of the right foot COMPARISON: 04/11/2023 FINDINGS: There is narrowing of the distal interphalangeal joint of the second digit similar to the prior exam. The joint spaces are otherwise preserved. There is no fracture or dislocation. There is plantar and Achilles surface calcaneal spurring. There is diffuse soft tissue swelling, greatest over the dorsum of the foot. This is similar to the prior study. XR/XR foot RT min 3V* IMPRESSION: No fracture or dislocation. Diffuse soft tissue swelling is redemonstrated, greatest along the dorsum of the foot. Impression dictated by: El Ruggiero M.D.10/20/2023 12:40 PM Dictation Location: [place] [address] Transcribed By: CAROLA 10/20/23 1240 Dictated By: El Ruggiero II, MD 10/20/23 1237 Signed By: 10/20/23 1240 Normal [facility] Beta hydroxybutyrate [Moles/ Vol]on 10-03-2023 BetaHydroxybutyrate 0.10 mmol/L Normal 0.02-0.27 [facility] Comment on above: Performed By: #### 4 8066-5, CMP, 39544-3, 48702-1, CBCA, 39157-5 #### [facility] ([id number]) [address] [place] [address] 01520 CBC AND AUTO DIFFon 10-03-19 ABSOLUTE BASOPHIL 0.0 X10E9/L Normal 0.0-0.2 [facility] Comment on above: Performed By: #### 4 8066-5, CMP, 21961-3, 41423-0, CBCA, 29753-2 #### [facility] ([id number]) [address] [place] [address] 89336 ABSOLUTE NEUTROPHIL 2.5 X10E9/L Normal 1.5-6.6 [facility] Comment on above: Performed By: #### 4 8066-5, CMP, 79599-5, 01481-6, CBCA, 47040-2 #### [facility] ([id number]) [address] [place] [address] 79776 Basophils/100 WBC (Bld) 0.6 % Normal [facility] Comment on above: Performed By: #### 4 8066-5, CMP, 49704-7, 40357-3, CBCA, 18048-2 #### [facility] ([id number]) [address] [place] [address] 13194 Eosinophils (Bld) [#/Vol] 0.1 10*3/uL Normal 0.0-0.4 [facility] Comment on above: Performed By: #### 4 8066-5, CMP, 81210-2, 55745-9, CBCA, 00737-9 #### [facility] ([id number]) [address] [place] [address] 89239 Eosinophils/100 WBC (Bld) 2.4 % Normal [facility] Comment on above: Performed By: #### 4 8066-5, CMP, 54927-3, 10092-4, CBCA, 05431-9 #### [facility] ([id number]) [address] [place] [address] 89631 Erythrocyte distribution width (RBC) [Ratio] 15.5 % High 11.5-15.0 [facility] Comment on above: Performed By: #### 4 8066-5, CMP, 83612-3, 93156-1, CBCA, 07662-0 #### [facility] ([id number]) [address] [place] [address] 97868 Hematocrit (Bld) [Volume fraction] 38.3 % Normal 35-47 [facility] Comment on above: Performed By: #### 4 8066-5, CMP, 49932-2, 56503-2, CBCA, 62009-5 #### [facility] ([id number]) [address] [place] [address] 39160 Hemoglobin (Bld) [Mass/Vol] 12.8 g/dL Normal 11.7-15.5 [facility] Comment on above: Performed By: #### 4 8066-5, CMP, 59470-4, 23846-7, CBCA, 48134-8 #### [facility] ([id number]) [address] [place] [address] 10644 Lymphocytes (Bld) [#/Vol] 1.3 10*3/uL Normal 1.0-3.5 [facility] Comment on above: Performed By: #### 4 8066-5, CMP, 63557-6, 78449-4, CBCA, 02209-8 #### [facility] ([id number]) [address] [place] [address] 60737 Lymphocytes/100 WBC (Bld) 30.4 % Normal [facility] Comment on above: Performed By: #### 4 8066-5, CMP, 80227-2, 46617-6, CBCA, 81864-6 #### [facility] ([id number]) [address] [place] [address] 49913 MCH (RBC) [Entitic mass] 30.4 pg Normal 27-34 [facility] Comment on above: Performed By: #### 4 8066-5, CMP, 58984-3, 02476-8, CBCA, 81134-0 #### [facility] ([id number]) [address] [place] [address] 39845 MCHC (RBC) [Mass/Vol] 33.3 g/dL Normal 32-36 [facility] Comment on above: Performed By: #### 4 8066-5, CMP, 65508-1, 27550-2, CBCA, 27320-6 #### [facility] ([id number]) [address] [place] [address] 04533 MCV (RBC) [Entitic vol] 91 fL Normal 80-100 [facility] Comment on above: Performed By: #### 4 8066-5, CMP, 45866-9, 66462-7, CBCA, 79951-8 #### [facility] ([id number]) [address] [place] [address] 44447 Monocytes (Bld) [#/Vol] 0.3 10*3/uL Normal 0-0.9 [facility] Comment on above: Performed By: #### 4 8066-5, CMP, 86428-5, 69261-5, CBCA, 79304-8 #### [facility] ([id number]) [address] [place] [address] 84795 Monocytes/100 WBC (Bld) 7.3 % Normal [facility] Comment on above: Performed By: #### 4 8066-5, CMP, 04967-8, 17924-7, CBCA, 60834-5 #### [facility] [facility] ([id number]) [address] [place] [address] 66190 Neutrophils/100 WBC (Bld) 59.3 % Normal [facility] Comment on above: Performed By: #### 4 8066-5, CMP, 83612-1, 94062-4, CBCA, 31089-7 #### [facility] ([id number]) [address] [place] [address] 51535 Platelet mean volume (Bld) [Entitic vol] 9.2 fL Normal 7-12 [facility] Comment on above: Performed By: #### 4 8066-5, CMP, 98337-7, 78045-2, CBCA, 52011-9 #### [facility] ([id number]) [address] [place] [address] 01314 Platelets (Bld) [#/Vol] 108 10*3/uL Low 150-450 [facility] Comment on above: Performed By: #### 4 8066-5, CMP, 38683-5, 40061-0, CBCA, 68898-1 #### [facility] ([id number]) [address] [place] [address] 26164 RBC COUNT 4.21 X10E12/L Normal 3.80-5.20 [facility] Comment on above: Performed By: #### 4 8066-5, CMP, 58851-1, 96885-7, CBCA, 18281-3 #### [facility] ([id number]) [address] [place] [address] 22324 WBC (Bld) [#/Vol] 4.1 10*3/uL Normal 4.0-11.0 [facility] Comment on above: Performed By: #### 4 8066-5, CMP, 98094-5, 25281-3, CBCA, 71303-0 #### [facility] ([id number]) [address] [place] [address] 36188 COMPREHENSIVE METABOLIC PANE Americo 10-03-2023 Albumin [Mass/Vol] 3.1 g/dL Low 3.2-5.3 [facility] Comment on above: Performed By: #### 4 8066-5, CMP, 64153-5, 32346-8, CBCA, 15839-2 #### [facility] ([id number]) [address] [place] [address] 04803 ALP [Catalytic activity/Vol] 194 U/L High 39-130 [facility] Comment on above: Performed By: #### 4 8066-5, CMP, 42326-1, 62511-2, CBCA, 31083-7 #### [facility] ([id number]) [address] [place] [address] 84259 ALT [Catalytic activity/Vol] 42 U/L High 0-31 [facility] Comment on above: Performed By: #### 4 8066-5, CMP, 41969-5, 05016-4, CBCA, 36379-3 #### [facility] ([id number]) [address] [place] [address] [place] [address] Anion gap [Moles/Vol] 4 mmol/L Low 5-15 [facility] Comment on above: Performed By: #### 4 8066-5, CMP, 55207-2, 71647-6, CBCA, 03072-2 #### [facility] ([id number]) [address] [place] [address] 29824 AST [Catalytic activity/Vol] 81 U/L High 0-41 [facility] Comment on above: Performed By: #### 4 8066-5, CMP, 12397-6, 92861-8, CBCA, 17002-1 #### [facility] ([id number]) [address] [place] [address] 92091 Bilirubin [Mass/Vol] 1.1 mg/dL Normal 0.3-1.2 [facility] Comment on above: Performed By: #### 4 8066-5, CMP, 78859-3, 25218-1, CBCA, 01025-1 #### [facility] ([id number]) [address] [place] [address] 10024 Calcium [Mass/Vol] 8.6 mg/dL Normal 8.5-10.5 [facility] Comment on above: Performed By: #### 4 8066-5, CMP, 24812-1, 31489-8, CBCA, 24136-1 #### [facility] ([id number]) [address] [place] [address] 48528 Chloride [Moles/Vol] 102 mmol/L Normal 98-109 [facility] Comment on above: Performed By: #### 4 8066-5, CMP, 71522-1, 11715-0, CBCA, 44679-9 #### [facility] ([id number]) [address] [place] [address] 39784 CO2 [Moles/Vol] 26 mmol/L Normal 22-32 [facility] Comment on above: Performed By: #### 4 8066-5, CMP, 35870-0, 07976-2, CBCA, 23151-5 #### [facility] ([id number]) [address] [place] [address] 53573 Creatinine [Mass/Vol] 0.54 mg/dL Normal 0.40-1.00 [facility] Comment on above: Result Comment: METH OD TRACEABLE TO IDMS STANDARD Performed By: #### 4 8066-5, CMP, 17116-1, 92646-0, CBCA, 24576-6 #### [facility] ([id number]) [address] [place] [address] 10958 eGFR (CKD-EPI) NON-RACE DEPENDENT >90 Normal >59 [facility] Comment on above: Result Comment: Reported eGFR is based on the CKD-EPI 2020 equation that does not use a race coefficient. Performed By: #### 4 8066-5, CMP, 51090-9, 42052-5, CBCA, 47696-5 #### [facility] ([id number]) [address] [place] [address] 26099 Glucose [Mass/Vol] 380 mg/dL High 65-99 [facility] Comment on above: Performed By: #### 4 8066-5, CMP, 25106-6, 55619-2, CBCA, 06367-2 #### [facility] ([id number]) [address] [place] [address] 60174 Potassium [Moles/Vol] 3.3 mmol/L Low 3.5-5.0 [facility] Comment on above: Performed By: #### 4 8066-5, CMP, 41672-2, 17720-5, CBCA, 23771-3 #### [facility] ([id number]) [address] [place] [address] 19329 Protein [Mass/Vol] 7.0 g/dL Normal 6.0-8.0 [facility] Comment on above: Performed By: #### 4 8066-5, CMP, 90401-4, 81424-5, CBCA, 16003-4 #### [facility] ([id number]) [address] [place] [address] 44534 Sodium [Moles/Vol] 132 mmol/L Low 134-146 [facility] Comment on above: Performed By: #### 4 8066-5, CMP, 05736-1, 64603-1, CBCA, 76131-4 #### [facility] ([id number]) [address] [place] [address] 65089 Urea nitrogen [Mass/Vol] 7 mg/dL Normal 5-23 [facility] Comment on above: Performed By: #### 4 8066-5, CMP, 74658-9, 05798-6, CBCA, 91462-6 #### [facility] ([id number]) [address] [place] [address] ABDOMEN AND PELVIS WO CON Ton 10-03-2023 CT ABDOMEN AND PELVIS WO CONT CT ABDOMEN AND PELVIS WO CONT CLINICAL INFORMATION: Acute left flank pain, dysuria COMPARISON: CT abdomen pelvis 05/30/2023 TECHNIQUE: CT of the abdomen and pelvis without intravenous contrast. All CT scans at this facility use dose modulation, iterative reconstruction, and/or weight based dosing when appropriate to reduce radiation dose to as low as reasonably achievable. FINDINGS: LOWER CHEST: Visualized lung bases are clear. LIVER AND BILIARY: Hepatomegaly with nodular contour. Cholecystectomy. PANCREAS: Unremarkable. SPLEEN: Enlarged measuring 20 cm. ADRENALS: Symmetric. KIDNEYS, URETERS, AND BLADDER: No renal collecting system dilatation or obstructing renal calculi. The urinary bladder appears unremarkable. GI TRACT AND PERITONEUM: The bowel is nondistended. Appendix and terminal ileum appear unremarkable. VASCULATURE: Atherosclerotic calcifications of the abdominal aorta. Dilated vessel collateral vessel in the left abdomen extending from the splenic vein to the anterior abdominal wall, likely portosystemic shunt. LYMPH NODES: No lymphadenopathy in the abdomen or pelvis by size or morphologic criteria. REPRODUCTIVE ORGANS: Hysterectomy. MUSCULOSKELETAL: Diffuse idiopathic skeletal hyperostosis. Chronic appearing scarring and nodularity in the midline of the abdomen. Anterior fusion at L5-S1. No aggressive or suspicious appearing osseous lesions. IMPRESSION: * No acute abnormality in the abdomen or pelvis. No nephrolithiasis or collecting system dilatation. 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 Approved by Resident: Manuel Osborne DO on 10/03/2023 3:54 PM I, Salomon Peñaloza MD have personally reviewed the image(s) and agree with and/or edited the report Finalized by Salomon Peñaloza MD on 10/03/2023 4:35 PM Normal [facility] Glucose Glucometer (BldC) [M ass/Vol]on 10-03-2023 Glucose [Mass/Vol] 198 mg/dL High 65-99 [facility] Glucose [Mass/Vol] 390 mg/dL High 65-99 [facility] HCG ( test) Ql (U)o n 10-03-2023 Beta HCG ( test) Ql (U) Negative Normal NEG [facility] Comment on above: Performed By: #### 4 8066-5, CMP, 29849-9, 95302-1, CBCA, 98617-7 #### [facility] ([id number]) [address] [place] [address] [place] [address] Laboratory - Chemistry and C hemistry - challengeon 10-03-2023 Bilirubin Ql (U) Negative [facility] Glucose (U) [Mass/Vol] 500 mg[facility] Ketones Ql (U) Negative [facility] pH (U) 5.5 [pH] [facility] Specific gravity (U) [Rel density] 1.025 [facility] Urobilinogen (U) [Mass/Vol] 0.2 mg/dL [facility] Laboratory - Specimen inform ationon 10-03-2023 Appearance (U) clear [facility] Color (U) darkyellow [facility] Laboratory - Urinalysison Leukocyte esterase Test strip Ql (U) Negative [facility] Nitrite Ql (U) Negative [facility] Protein Ql (U) Negative [facility] No Panel Informationon 10-02 Bedside Glucose 375 [facility] Urine Occult Blood Negative [facility] URINE CULTUREon 10-03-2023 Bacteria identified Cx Nom (U) CULTURE RESULTS 10-50,000 ORGANISMS/mL NORMAL UROGENITAL CRISTHIAN Normal [facility] Comment on above: Performed By: #### 4 8066-5, CMP, 93220-3, 02242-9, CBCA, 71372-0 #### [facility] ([id number]) [address] [place] [address] 15831 URN MACROSCOPIC NURon 2023 BILIRUBIN JONNATHAN Negative Normal NEG [facility] Comment on above: Performed By: #### 4 8066-5, CMP, 03870-8, 53871-7, CBCA, 15073-9 #### [facility] ([id number]) [address] [place] [address] 40113 BLOOD/HGB JONNATHAN Negative Normal NEG [facility] Comment on above: Performed By: #### 4 8066-5, CMP, 64938-7, 03733-8, CBCA, 86584-2 #### [facility] ([id number]) [address] [place] [address] 37979 GLUCOSE JONNATHAN >=1000 Abnormal NEG [facility] Comment on above: Performed By: #### 4 8066-5, CMP, 36265-2, 25013-6, CBCA, 34425-0 #### [facility] ([id number]) [address] [place] [address] 53929 KETONES JONNATHAN Negative Normal NEG [facility] Comment on above: Performed By: #### 4 8066-5, CMP, 85106-9, 54845-7, CBCA, 41367-4 #### [facility] ([id number]) [address] [place] [address] 09541 LEUKOCYTE ESTERASE JONNATHAN Negative Normal NEG [facility] Comment on above: Performed By: #### 4 8066-5, CMP, 65718-5, 65093-5, CBCA, 93004-3 #### [facility] ([id number]) [address] [place] [address] 34647 NITRITE JONNATHAN Negative Normal NEG [facility] Comment on above: Performed By: #### 4 8066-5, CMP, 98047-5, 49526-0, CBCA, 92512-1 #### [facility] ([id number]) [address] [place] [address] 71603 PH JONNATHAN 5.5 Normal 5.0-8.5 [facility] Comment on above: Performed By: #### 4 8066-5, CMP, 87642-4, 18485-4, CBCA, 29299-3 #### [facility] ([id number]) [address] [place] [address] 66565 PROTEIN JONNATHAN Negative Normal NEG [facility] Comment on above: Performed By: #### 4 8066-5, CMP, 99709-3, 07652-4, CBCA, 64874-1 #### [facility] ([id number]) [address] [place] [address] 93704 SPECIFIC GRAVITY JONNATHAN 1.020 Normal 1.003-1.035 [facility] Comment on above: Performed By: #### 4 8066-5, CMP, 52067-4, 98685-4, CBCA, 15978-3 #### [facility] ([id number]) [address] [place] [address] 60535 UROBILINOGEN JONNATHAN 0.2 eu/dL Normal <1.1 [facility] Comment on above: Performed By: #### 4 8066-5, CMP, 95825-2, 44889-2, CBCA, 69439-5 #### [facility] ([id number]) [address] [place] [address] 38840 VENOUS BLOOD GASon 4 STEPHANE'S TEST Normal [facility] Comment on above: Performed By: #### 4 8066-5, CMP, 66885-9, 22654-3, CBCA, 56688-5 #### [facility] ([id number]) [address] [place] [address] 41447 Base excess Calc (Bld) [Moles/Vol] 1.0 mmol/L Normal 0.0-2.0 [facility] Comment on above: Performed By: #### 4 8066-5, CMP, 73183-7, 85849-8, CBCA, 05423-9 #### [facility] ([id number]) [address] [place] [address] 92772 Body temperature 98.6 [degF] Normal 37.0 [facility] Comment on above: Performed By: #### 4 8066-5, CMP, 53725-8, 71720-3, CBCA, 69485-8 #### [facility] ([id number]) [address] [place] [address] 33934 HCO3 (Bld) [Moles/Vol] 25.8 mmol/L High 20.0-24.0 [facility] Comment on above: Performed By: #### 4 8066-5, CMP, 21859-8, 92454-2, CBCA, 69768-8 #### [facility] ([id number]) [address] [place] [address] 77484 Oxygen saturation in Blood 86.0 % Normal >80.0 [facility] Comment on above: Performed By: #### 4 8066-5, CMP, 90804-9, 74663-9, CBCA, 79324-8 #### [facility] ([id number]) [address] [place] [address] 04849 OXYGEN SOURCE RoomAir Normal [facility] Comment on above: Performed By: #### 4 8066-5, CMP, 63960-0, 35436-5, CBCA, 45957-8 #### [facility] ([id number]) [address] [place] [address] 57536 PCO2, VENOUS 41.9 MMHG Normal 35-50 [facility] Comment on above: Performed By: #### 4 8066-5, CMP, 45842-4, 94511-4, CBCA, 76118-7 #### [facility] ([id number]) [address] [place] [address] 85766 PH, VENOUS 7.396 Normal 7.320-7.420 [facility] Comment on above: Performed By: #### 4 8066-5, CMP, 26284-1, 24026-4, CBCA, 74711-9 #### [facility] ([id number]) [address] [place] [address] 42035 PO2, VENOUS 52 MMHG High 30-50 [facility] Comment on above: Performed By: #### 4 8066-5, CMP, 58697-3, 62102-9, CBCA, 39486-1 #### [facility] ([id number]) [address] [place] [address] 87337 SAMPLE SITE N/A Normal [facility] Comment on above: Performed By: #### 4 8066-5, CMP, 33547-8, 33190-0, CBCA, 52163-4 #### [facility] ([id number]) [address] [place] [address] 74616 SAMPLE TYPE VENOUS Normal [facility] Comment on above: Performed By: #### 4 8066-5, CMP, 75457-5, 61978-8, CBCA, 68141-2 #### [facility] ([id number]) [address] [place] [address] 66635 CBC AND AUTO DIFFon 09-26-19 24 ABSOLUTE BASOPHIL 0.0 X10E9/L Normal 0.0-0.2 [facility] Comment on above: Performed By: #### 4 8066-5, CMP, 41461-1, 36926-5, CBCA, 74237-6 #### [facility] ([id number]) [address] [place] [address] 19317 ABSOLUTE NEUTROPHIL 2.1 X10E9/L Normal 1.5-6.6 [facility] Comment on above: Performed By: #### 4 8066-5, CMP, 23737-7, 58411-2, CBCA, 03007-2 #### [facility] ([id number]) [address] [place] [address] 53893 Basophils/100 WBC (Bld) 0.7 % Normal [facility] Comment on above: Performed By: #### 4 8066-5, CMP, 94498-7, 43195-1, CBCA, 66543-6 #### [facility] ([id number]) [address] [place] [address] 08227 Eosinophils (Bld) [#/Vol] 0.1 10*3/uL Normal 0.0-0.4 [facility] Comment on above: Performed By: #### 4 8066-5, CMP, 31063-0, 38511-7, CBCA, 45210-6 #### [facility] ([id number]) [address] [place] [address] 57774 Eosinophils/100 WBC (Bld) 3.3 % Normal [facility] Comment on above: Performed By: #### 4 8066-5, CMP, 82875-4, 82578-9, CBCA, 81976-8 #### [facility] ([id number]) [address] [place] [address] 84833 Erythrocyte distribution width (RBC) [Ratio] 15.3 % High 11.5-15.0 [facility] Comment on above: Performed By: #### 4 8066-5, CMP, 92180-6, 11778-5, CBCA, 41889-3 #### [facility] ([id number]) [address] [place] [address] 47531 Hematocrit (Bld) [Volume fraction] 36.5 % Normal 35-47 [facility] Comment on above: Performed By: #### 4 8066-5, CMP, 80149-9, 79952-7, CBCA, 29772-2 #### [facility] ([id number]) [address] [place] [address] 06353 Hemoglobin (Bld) [Mass/Vol] 12.3 g/dL Normal 11.7-15.5 [facility] Comment on above: Performed By: #### 4 8066-5, CMP, 36850-2, 55086-5, CBCA, 16636-7 #### [facility] ([id number]) [address] [place] [address] 32463 Lymphocytes (Bld) [#/Vol] 1.3 10*3/uL Normal 1.0-3.5 [facility] Comment on above: Performed By: #### 4 8066-5, CMP, 86288-9, 48445-9, CBCA, 47263-7 #### [facility] ([id number]) [address] [place] [address] 38948 Lymphocytes/100 WBC (Bld) 33.2 % Normal [facility] Comment on above: Performed By: #### 4 8066-5, CMP, 08234-3, 42635-4, CBCA, 10606-3 #### [facility] ([id number]) [address] [place] [address] 57714 MCH (RBC) [Entitic mass] 30.4 pg Normal 27-34 [facility] Comment on above: Performed By: #### 4 8066-5, CMP, 73649-0, 61902-6, CBCA, 22495-4 #### [facility] ([id number]) [address] [place] [address] 90232 MCHC (RBC) [Mass/Vol] 33.7 g/dL Normal 32-36 [facility] Comment on above: Performed By: #### 4 8066-5, CMP, 93690-5, 22710-5, CBCA, 17583-3 #### [facility] ([id number]) [address] [place] [address] 18884 MCV (RBC) [Entitic vol] 90 fL Normal 80-100 [facility] Comment on above: Performed By: #### 4 8066-5, CMP, 28261-3, 37206-0, CBCA, 51946-1 #### [facility] ([id number]) [address] [place] [address] 16719 Monocytes (Bld) [#/Vol] 0.3 10*3/uL Normal 0-0.9 [facility] Comment on above: Performed By: #### 4 8066-5, CMP, 42667-4, 02225-8, CBCA, 03176-2 #### [facility] ([id number]) [address] [place] [address] 91218 Monocytes/100 WBC (Bld) 8.9 % Normal [facility] Comment on above: Performed By: #### 4 8066-5, CMP, 06355-3, 10460-6, CBCA, 52619-2 #### [facility] ([id number]) [address] [place] [address] 19650 Neutrophils/100 WBC (Bld) 53.9 % Normal [facility] Comment on above: Performed By: #### 4 8066-5, CMP, 98636-6, 80188-3, CBCA, 65341-2 #### [facility] ([id number]) [address] [place] [address] 39592 Platelet mean volume (Bld) [Entitic vol] 8.8 fL Normal 7-12 [facility] Comment on above: Performed By: #### 4 8066-5, CMP, 08957-7, 98137-1, CBCA, 28338-8 #### [facility] ([id number]) [address] [place] [address] 89993 Platelets (Bld) [#/Vol] 95 10*3/uL Low 150-450 [facility] Comment on above: Performed By: #### 4 8066-5, CMP, 62430-6, 64432-6, CBCA, 18634-9 #### [facility] ([id number]) [address] [place] [address] 28007 RBC COUNT 4.03 X10E12/L Normal 3.80-5.20 [facility] Comment on above: Performed By: #### 4 8066-5, CMP, 33255-9, 79516-2, CBCA, 81960-1 #### [facility] ([id number]) [address] [place] [address] 04034 WBC (Bld) [#/Vol] 3.9 10*3/uL Low 4.0-11.0 [facility] Comment on above: Performed By: #### 4 8066-5, CMP, 52092-2, 00894-3, CBCA, 72230-7 #### [facility] ([id number]) [address] [place] [address] 78913 COMPREHENSIVE METABOLIC PANE Americo 09-26-2023 Albumin [Mass/Vol] 2.8 g/dL Low 3.2-5.3 [facility] Comment on above: Performed By: #### 4 8066-5, CMP, 34339-5, 75899-2, CBCA, 63879-7 #### [facility] ([id number]) [address] [place] [address] 70088 ALP [Catalytic activity/Vol] 224 U/L High 39-130 [facility] Comment on above: Performed By: #### 4 8066-5, CMP, 31992-8, 68860-9, CBCA, 01684-4 #### [facility] ([id number]) [address] [place] [address] 44443 ALT [Catalytic activity/Vol] 40 U/L High 0-31 [facility] Comment on above: Performed By: #### 4 8066-5, CMP, 95007-3, 23600-6, CBCA, 63098-1 #### [facility] ([id number]) [address] [place] [address] 15733 Anion gap [Moles/Vol] 4 mmol/L Low 5-15 [facility] Comment on above: Performed By: #### 4 8066-5, CMP, 90014-4, 55471-2, CBCA, 62735-1 #### [facility] ([id number]) [address] [place] [address] 79251 AST [Catalytic activity/Vol] 61 U/L High 0-41 [facility] Comment on above: Performed By: #### 4 8066-5, CMP, 69459-4, 57378-1, CBCA, 52384-5 #### [facility] ([id number]) [address] [place] [address] 22143 Bilirubin [Mass/Vol] 0.9 mg/dL Normal 0.3-1.2 [facility] Comment on above: Performed By: #### 4 8066-5, CMP, 98452-7, 30700-4, CBCA, 69362-0 #### [facility] ([id number]) [address] [place] [address] 25885 Calcium [Mass/Vol] 7.9 mg/dL Low 8.5-10.5 [facility] Comment on above: Performed By: #### 4 8066-5, CMP, 41246-1, 67484-5, CBCA, 20499-7 #### [facility] ([id number]) [address] [place] [address] 96356 Chloride [Moles/Vol] 102 mmol/L Normal 98-109 [facility] Comment on above: Performed By: #### 4 8066-5, CMP, 72327-7, 23336-6, CBCA, 91291-6 #### [facility] ([id number]) [address] [place] [address] 88618 CO2 [Moles/Vol] 25 mmol/L Normal 22-32 [facility] Comment on above: Performed By: #### 4 8066-5, CMP, 48225-7, 94484-0, CBCA, 50705-6 #### [facility] ([id number]) [address] [place] [address] 92542 Creatinine [Mass/Vol] 0.45 mg/dL Normal 0.40-1.00 [facility] Comment on above: Result Comment: METH OD TRACEABLE TO IDMS STANDARD Performed By: #### 4 8066-5, CMP, 37794-9, 51303-7, CBCA, 20066-2 #### [facility] ([id number]) [address] [place] [address] 95666 eGFR (CKD-EPI) NON-RACE DEPENDENT >90 Normal >59 [facility] Comment on above: Result Comment: Reported eGFR is based on the CKD-EPI 2021 equation that does not use a race coefficient. Performed By: #### 4 8066-5, CMP, 51086-9, 87150-5, CBCA, 54135-4 #### [facility] ([id number]) [address] [place] [address] 27375 Glucose [Mass/Vol] 270 mg/dL High 65-99 [facility] Comment on above: Performed By: #### 4 8066-5, CMP, 64326-1, 18300-1, CBCA, 96753-3 #### [facility] ([id number]) [address] [place] [address] 10293 Potassium [Moles/Vol] 3.5 mmol/L Normal 3.5-5.0 [facility] Comment on above: Performed By: #### 4 8066-5, CMP, 17637-1, 41508-4, CBCA, 62149-8 #### [facility] ([id number]) [address] [place] [address] 08067 Protein [Mass/Vol] 6.7 g/dL Normal 6.0-8.0 [facility] Comment on above: Performed By: #### 4 8066-5, CMP, 07819-8, 75294-5, CBCA, 65487-5 #### [facility] ([id number]) [address] [place] [address] 88911 Sodium [Moles/Vol] 131 mmol/L Low 134-146 [facility] Comment on above: Performed By: #### 4 8066-5, CMP, 90073-2, 26162-5, CBCA, 81611-6 #### [facility] ([id number]) [address] [place] [address] 51955 Urea nitrogen [Mass/Vol] 8 mg/dL Normal 5-23 [facility] Comment on above: Performed By: #### 4 8066-5, CMP, 29581-3, 13474-0, CBCA, 06710-2 #### [facility] ([id number]) [address] [place] [address] BRAIN WO CONTon CT BRAIN WO CONT CT BRAIN WO CONT CT HEAD WITHOUT CONTRAST HISTORY: Headache COMPARISON: 10/30/2021 TECHNIQUE: Routine noncontrast CT head. All CT scans at this facility use dose modulation, iterative reconstruction, and/or weight based dosing when appropriate to reduce radiation dose to as low as reasonably achievable. FINDINGS: There is no acute intracranial hemorrhage, mass, mass-effect, or shift of midline structures. There are no abnormal extra-axial fluid collections. Normal talbot matter-white matter differentiation. The brain volume and ventricular size are appropriate for the patient's age and there is no evidence of ventricular outflow obstruction. The basal cisterns are patent. No depressed calvarial fractures. The visualized paranasal sinuses and temporal bone structures are clear. IMPRESSION: No acute intracranial process. Finalized by Bandar Donald MD on 09/26/2023 3:34 PM Normal [facility] MAGNESIUMon 09-26-2023 Magnesium [Mass/Vol] 1.5 mg/dL Low 1.8-2.6 [facility] Comment on above: Performed By: #### 4 8066-5, CMP, 93361-3, 31894-5, CBCA, 88164-6 #### [facility] ([id number]) [address] [place] [address] 45129 TROPONIN Ion 09-26-2023 Troponin I.cardiac [Mass/Vol] ng/mL Normal 0.00-0.04 [facility] Comment on above: Performed By: #### 4 8066-5, CMP, 63997-2, 70800-2, CBCA, 61213-2 #### [facility] ([id number]) [address] [place] [address] 70944 CBC AND AUTO DIFFon 07-24-19 24 ABSOLUTE BASOPHIL 0.0 X10E9/L Normal 0.0-0.2 [facility] Comment on above: Performed By: #### 4 8066-5, CMP, 32384-7, 11453-3, CBCA, 93158-8 #### [facility] ([id number]) [address] [place] [address] 95826 ABSOLUTE NEUTROPHIL 4.0 X10E9/L Normal 1.5-6.6 [facility] Comment on above: Performed By: #### 4 8066-5, CMP, 50532-0, 46935-3, CBCA, 85016-0 #### [facility] ([id number]) [address] [place] [address] 16112 Basophils/100 WBC (Bld) 0.1 % Normal [facility] Comment on above: Performed By: #### 4 8066-5, CMP, 72524-1, 32213-4, CBCA, 74957-9 #### [facility] ([id number]) [address] [place] [address] 16939 Eosinophils (Bld) [#/Vol] 0.0 10*3/uL Normal 0.0-0.4 [facility] Comment on above: Performed By: #### 4 8066-5, CMP, 45850-0, 87756-3, CBCA, 33440-1 #### [facility] ([id number]) [address] [place] [address] 93105 Eosinophils/100 WBC (Bld) 0.0 % Normal [facility] Comment on above: Performed By: #### 4 8066-5, CMP, 74911-0, 01374-3, CBCA, 62460-6 #### [facility] ([id number]) [address] [place] [address] 37433 Erythrocyte distribution width (RBC) [Ratio] 16.3 % High 11.5-15.0 [facility] Comment on above: Performed By: #### 4 8066-5, CMP, 89599-7, 26018-2, CBCA, 48842-9 #### [facility] ([id number]) [address] [place] [address] 73307 Hematocrit (Bld) [Volume fraction] 33.6 % Low 35-47 [facility] Comment on above: Performed By: #### 4 8066-5, CMP, 29509-0, 66461-3, CBCA, 70726-1 #### [facility] ([id number]) [address] [place] [address] 50260 Hemoglobin (Bld) [Mass/Vol] 11.5 g/dL Low 11.7-15.5 [facility] Comment on above: Performed By: #### 4 8066-5, CMP, 74999-0, 92470-7, CBCA, 59881-5 #### [facility] ([id number]) [address] [place] [address] 89980 Lymphocytes (Bld) [#/Vol] 1.0 10*3/uL Normal 1.0-3.5 [facility] Comment on above: Performed By: #### 4 8066-5, CMP, 35188-4, 42474-1, CBCA, 96512-7 #### [facility] ([id number]) [address] [place] [address] 17600 Lymphocytes/100 WBC (Bld) 19.0 % Normal [facility] Comment on above: Performed By: #### 4 8066-5, CMP, 85894-1, 20449-7, CBCA, 44137-7 #### [facility] ([id number]) [address] [place] [address] 86837 MCH (RBC) [Entitic mass] 31.1 pg Normal 27-34 [facility] Comment on above: Performed By: #### 4 8066-5, CMP, 06685-9, 04611-9, CBCA, 05401-4 #### [facility] ([id number]) [address] [place] [address] 28036 MCHC (RBC) [Mass/Vol] 34.1 g/dL Normal 32-36 [facility] Comment on above: Performed By: #### 4 8066-5, CMP, 39006-1, 39697-8, CBCA, 14999-1 #### [facility] ([id number]) [address] [place] [address] 89485 MCV (RBC) [Entitic vol] 91 fL Normal 80-100 [facility] Comment on above: Performed By: #### 4 8066-5, CMP, 51485-1, 49830-9, CBCA, 86664-0 #### [facility] ([id number]) [address] [place] [address] 62791 Monocytes (Bld) [#/Vol] 0.3 10*3/uL Normal 0-0.9 [facility] Comment on above: Performed By: #### 4 8066-5, CMP, 96590-0, 36806-6, CBCA, 05403-1 #### [facility] ([id number]) [address] [place] [address] 60108 Monocytes/100 WBC (Bld) 4.9 % Normal [facility] Comment on above: Performed By: #### 4 8066-5, CMP, 62850-8, 43475-7, CBCA, 34690-6 #### [facility] ([id number]) [address] [place] [address] 12685 Neutrophils/100 WBC (Bld) 76.0 % Normal [facility] Comment on above: Performed By: #### 4 8066-5, CMP, 44042-1, 07653-4, CBCA, 75656-7 #### [facility] ([id number]) [address] [place] [address] 08439 Platelet mean volume (Bld) [Entitic vol] 8.3 fL Normal 7-12 [facility] Comment on above: Performed By: #### 4 8066-5, CMP, 70154-4, 35581-1, CBCA, 95069-8 #### [facility] ([id number]) [address] [place] [address] 41690 Platelets (Bld) [#/Vol] 113 10*3/uL Low 150-450 [facility] Comment on above: Performed By: #### 4 8066-5, CMP, 92727-4, 89312-8, CBCA, 30521-4 #### [facility] ([id number]) [address] [place] [address] 28024 RBC COUNT 3.68 X10E12/L Low 3.80-5.20 [facility] Comment on above: Performed By: #### 4 8066-5, CMP, 16041-3, 09090-4, CBCA, 78527-9 #### [facility] ([id number]) [address] [place] [address] 23891 WBC (Bld) [#/Vol] 5.3 10*3/uL Normal 4.0-11.0 [facility] Comment on above: Performed By: #### 4 8066-5, CMP, 75874-2, 01580-4, CBCA, 69624-4 #### [facility] ([id number]) [address] [place] [address] 79297 COMPREHENSIVE METABOLIC PANE Americo 07-24-2023 Albumin [Mass/Vol] 2.7 g/dL Low 3.2-5.3 [facility] Comment on above: Performed By: #### 4 8066-5, CMP, 22960-5, 34783-9, CBCA, 14831-1 #### [facility] ([id number]) [address] [place] [address] 76953 ALP [Catalytic activity/Vol] 126 U/L Normal 39-130 [facility] Comment on above: Performed By: #### 4 8066-5, CMP, 30079-3, 04640-4, CBCA, 68167-1 #### [facility] ([id number]) [address] [place] [address] 09308 ALT [Catalytic activity/Vol] 29 U/L Normal 0-31 [facility] Comment on above: Performed By: #### 4 8066-5, CMP, 09059-1, 49592-7, CBCA, 62852-6 #### [facility] ([id number]) [address] [place] [address] 85964 Anion gap [Moles/Vol] 8 mmol/L Normal 5-15 [facility] Comment on above: Performed By: #### 4 8066-5, CMP, 79345-5, 31855-3, CBCA, 50556-5 #### [facility] ([id number]) [address] [place] [address] 98638 AST [Catalytic activity/Vol] 22 U/L Normal 0-41 [facility] Comment on above: Performed By: #### 4 8066-5, CMP, 45668-1, 35403-4, CBCA, 84267-7 #### [facility] ([id number]) [address] [place] [address] 51934 Bilirubin [Mass/Vol] 0.9 mg/dL Normal 0.3-1.2 [facility] Comment on above: Performed By: #### 4 8066-5, CMP, 15786-2, 71680-4, CBCA, 82091-9 #### [facility] ([id number]) [address] [place] [address] 56771 Calcium [Mass/Vol] 8.4 mg/dL Low 8.5-10.5 [facility] Comment on above: Performed By: #### 4 8066-5, CMP, 56922-9, 45092-9, CBCA, 17342-5 #### [facility] ([id number]) [address] [place] [address] 04754 Chloride [Moles/Vol] 97 mmol/L Low 98-109 [facility] Comment on above: Performed By: #### 4 8066-5, CMP, 00958-6, 07480-5, CBCA, 02041-8 #### [facility] ([id number]) [address] [place] [address] 86610 CO2 [Moles/Vol] 29 mmol/L Normal 22-32 [facility] Comment on above: Performed By: #### 4 8066-5, CMP, 28785-4, 25866-6, CBCA, 22391-8 #### [facility] ([id number]) [address] [place] [address] 75036 Creatinine [Mass/Vol] 0.57 mg/dL Normal 0.40-1.00 [facility] Comment on above: Result Comment: METH OD TRACEABLE TO IDMS STANDARD Performed By: #### 4 8066-5, CMP, 09791-4, 75833-3, CBCA, 25042-7 #### [facility] ([id number]) [address] [place] [address] 88078 eGFR (CKD-EPI) NON-RACE DEPENDENT >90 Normal >59 [facility] Comment on above: Result Comment: Reported eGFR is based on the CKD-EPI 2020 equation that does not use a race coefficient. Performed By: #### 4 8066-5, CMP, 67660-0, 40496-1, CBCA, 85768-4 #### [facility] ([id number]) [address] [place] [address] 90508 Glucose [Mass/Vol] 322 mg/dL High 65-99 [facility] Comment on above: Performed By: #### 4 8066-5, CMP, 15600-6, 11323-3, CBCA, 01430-4 #### [facility] ([id number]) [address] [place] [address] 26817 Potassium [Moles/Vol] 3.9 mmol/L Normal 3.5-5.0 [facility] Comment on above: Performed By: #### 4 8066-5, CMP, 65588-6, 03611-5, CBCA, 43705-7 #### [facility] ([id number]) [address] [place] [address] 08508 Protein [Mass/Vol] 7.0 g/dL Normal 6.0-8.0 [facility] Comment on above: Performed By: #### 4 8066-5, CMP, 16877-1, 74271-3, CBCA, 83963-2 #### [facility] ([id number]) [address] [place] [address] 39085 Sodium [Moles/Vol] 134 mmol/L Normal 134-146 [facility] Comment on above: Performed By: #### 4 8066-5, CMP, 01369-8, 61057-1, CBCA, 00105-7 #### [facility] ([id number]) [address] [place] [address] 95332 Urea nitrogen [Mass/Vol] 18 mg/dL Normal 5-23 [facility] Comment on above: Performed By: #### 4 8066-5, CMP, 34289-8, 63233-2, CBCA, 37565-8 #### [facility] ([id number]) [address] [place] [address] 83496 Glucose Glucometer (dC) [M ass/Vol]on 07-24-2023 Glucose [Mass/Vol] 255 mg/dL High 65-99 [facility] MAGNESIUMon 07-24-2023 Magnesium [Mass/Vol] 1.6 mg/dL Low 1.8-2.6 [facility] Comment on above: Performed By: #### 4 8066-5, CMP, 77104-9, 11151-4, CBCA, 34339-9 #### [facility] ([id number]) [address] [place] [address] 52315 CBC AND AUTO DIFFon 07-23-19 24 ABSOLUTE BASOPHIL 0.0 X10E9/L Normal 0.0-0.2 [facility] Comment on above: Performed By: #### 4 8066-5, CMP, 76065-3, 15159-3, CBCA, 38983-8 #### [facility] ([id number]) [address] [place] [address] 21223 ABSOLUTE NEUTROPHIL 5.7 X10E9/L Normal 1.5-6.6 [facility] Comment on above: Performed By: #### 4 8066-5, CMP, 03509-9, 07923-9, CBCA, 31093-9 #### [facility] ([id number]) [address] [place] [address] 69487 Basophils/100 WBC (Bld) 0.1 % Normal [facility] Comment on above: Performed By: #### 4 8066-5, CMP, 75310-9, 94283-9, CBCA, 36228-5 #### [facility] ([id number]) [address] [place] [address] 04123 Eosinophils (Bld) [#/Vol] 0.0 10*3/uL Normal 0.0-0.4 [facility] Comment on above: Performed By: #### 4 8066-5, CMP, 42597-2, 00489-4, CBCA, 06619-4 #### [facility] ([id number]) [address] [place] [address] 17819 Eosinophils/100 WBC (Bld) 0.0 % Normal [facility] Comment on above: Performed By: #### 4 8066-5, CMP, 52135-8, 19820-6, CBCA, 46245-5 #### [facility] ([id number]) [address] [place] [address] 43762 Erythrocyte distribution width (RBC) [Ratio] 16.8 % High 11.5-15.0 [facility] Comment on above: Performed By: #### 4 8066-5, CMP, 84302-3, 01676-0, CBCA, 70680-1 #### [facility] ([id number]) [address] [place] [address] 60268 Hematocrit (Bld) [Volume fraction] 34.0 % Low 35-47 [facility] Comment on above: Performed By: #### 4 8066-5, CMP, 80318-8, 13192-5, CBCA, 44033-4 #### [facility] ([id number]) [address] [place] [address] 15394 Hemoglobin (Bld) [Mass/Vol] 11.7 g/dL Normal 11.7-15.5 [facility] Comment on above: Performed By: #### 4 8066-5, CMP, 74574-4, 51454-5, CBCA, 22451-0 #### [facility] ([id number]) [address] [place] [address] 34954 Lymphocytes (Bld) [#/Vol] 0.9 10*3/uL Low 1.0-3.5 [facility] Comment on above: Performed By: #### 4 8066-5, CMP, 02765-6, 01090-4, CBCA, 82515-9 #### [facility] ([id number]) [address] [place] [address] 21179 Lymphocytes/100 WBC (Bld) 12.4 % Normal [facility] Comment on above: Performed By: #### 4 8066-5, CMP, 57847-2, 25961-6, CBCA, 87717-1 #### [facility] ([id number]) [address] [place] [address] 39313 MCH (RBC) [Entitic mass] 31.4 pg Normal 27-34 [facility] Comment on above: Performed By: #### 4 8066-5, CMP, 41419-5, 28263-1, CBCA, 49698-7 #### [facility] ([id number]) [address] [place] [address] 91535 MCHC (RBC) [Mass/Vol] 34.2 g/dL Normal 32-36 [facility] Comment on above: Performed By: #### 4 8066-5, CMP, 97830-5, 47517-9, CBCA, 20216-6 #### [facility] ([id number]) [address] [place] [address] 36239 MCV (RBC) [Entitic vol] 92 fL Normal 80-100 [facility] Comment on above: Performed By: #### 4 8066-5, CMP, 98985-2, 17603-8, CBCA, 88805-4 #### [facility] ([id number]) [address] [place] [address] 74809 Monocytes (Bld) [#/Vol] 0.3 10*3/uL Normal 0-0.9 [facility] Comment on above: Performed By: #### 4 8066-5, CMP, 22260-9, 24461-2, CBCA, 11332-7 #### [facility] ([id number]) [address] [place] [address] 46423 Monocytes/100 WBC (Bld) 4.4 % Normal [facility] Comment on above: Performed By: #### 4 8066-5, CMP, 77318-8, 13628-4, CBCA, 59835-5 #### [facility] ([id number]) [address] [place] [address] 41852 Neutrophils/100 WBC (Bld) 83.1 % Normal [facility] Comment on above: Performed By: #### 4 8066-5, CMP, 71798-8, 18979-1, CBCA, 39690-7 #### [facility] ([id number]) [address] [place] [address] 40240 Platelet mean volume (Bld) [Entitic vol] 8.8 fL Normal 7-12 [facility] Comment on above: Performed By: #### 4 8066-5, CMP, 64372-6, 67680-8, CBCA, 38529-9 #### [facility] ([id number]) [address] [place] [address] 63857 Platelets (Bld) [#/Vol] 115 10*3/uL Low 150-450 [facility] Comment on above: Performed By: #### 4 8066-5, CMP, 20149-8, 11891-6, CBCA, 55753-1 #### [facility] ([id number]) [address] [place] [address] 96028 RBC COUNT 3.71 X10E12/L Low 3.80-5.20 [facility] Comment on above: Performed By: #### 4 8066-5, CMP, 20092-4, 86130-1, CBCA, 35780-8 #### [facility] ([id number]) [address] [place] [address] 80987 WBC (Bld) [#/Vol] 6.9 10*3/uL Normal 4.0-11.0 [facility] Comment on above: Performed By: #### 4 8066-5, CMP, 96550-5, 90323-7, CBCA, 01061-4 #### [facility] ([id number]) [address] [place] [address] 29592 COMPREHENSIVE METABOLIC PANE Americo 07-23-2023 Albumin [Mass/Vol] 2.8 g/dL Low 3.2-5.3 [facility] Comment on above: Performed By: #### 4 8066-5, CMP, 16187-1, 90591-2, CBCA, 59518-6 #### [facility] ([id number]) [address] [place] [address] 20258 ALP [Catalytic activity/Vol] 131 U/L High 39-130 [facility] Comment on above: Performed By: #### 4 8066-5, CMP, 30157-6, 93611-5, CBCA, 04145-8 #### [facility] ([id number]) [address] [place] [address] 51026 ALT [Catalytic activity/Vol] 34 U/L High 0-31 [facility] Comment on above: Performed By: #### 4 8066-5, CMP, 22487-5, 78580-3, CBCA, 98394-7 #### [facility] ([id number]) [address] [place] [address] 07773 Anion gap [Moles/Vol] 8 mmol/L Normal 5-15 [facility] Comment on above: Performed By: #### 4 8066-5, CMP, 12602-5, 40036-3, CBCA, 39023-1 #### [facility] ([id number]) [address] [place] [address] 07242 AST [Catalytic activity/Vol] 29 U/L Normal 0-41 [facility] Comment on above: Performed By: #### 4 8066-5, CMP, 42996-4, 71026-7, CBCA, 28254-8 #### [facility] ([id number]) [address] [place] [address] 08101 Bilirubin [Mass/Vol] 0.9 mg/dL Normal 0.3-1.2 [facility] Comment on above: Performed By: #### 4 8066-5, CMP, 84053-1, 34708-9, CBCA, 80433-6 #### [facility] ([id number]) [address] [place] [address] 91750 Calcium [Mass/Vol] 8.5 mg/dL Normal 8.5-10.5 [facility] Comment on above: Performed By: #### 4 8066-5, CMP, 06153-0, 44644-2, CBCA, 96955-1 #### [facility] ([id number]) [address] [place] [address] 69978 Chloride [Moles/Vol] 99 mmol/L Normal 98-109 [facility] Comment on above: Performed By: #### 4 8066-5, CMP, 76564-5, 22263-2, CBCA, 76936-0 #### [facility] ([id number]) [address] [place] [address] 88087 CO2 [Moles/Vol] 27 mmol/L Normal 22-32 [facility] Comment on above: Performed By: #### 4 8066-5, CMP, 01565-4, 73746-2, CBCA, 89402-0 #### [facility] ([id number]) [address] [place] [address] 77755 Creatinine [Mass/Vol] 0.58 mg/dL Normal 0.40-1.00 [facility] Comment on above: Result Comment: METH OD TRACEABLE TO IDMS STANDARD Performed By: #### 4 8066-5, CMP, 77656-7, 21155-9, CBCA, 25393-4 #### [facility] ([id number]) [address] [place] [address] 50539 eGFR (CKD-EPI) NON-RACE DEPENDENT >90 Normal >59 [facility] Comment on above: Result Comment: Reported eGFR is based on the CKD-EPI 1 equation that does not use a race coefficient. Performed By: #### 4 8066-5, CMP, 87919-5, 56408-9, CBCA, 89913-2 #### [facility] ([id number]) [address] [place] [address] 16826 Glucose [Mass/Vol] 328 mg/dL High 65-99 [facility] Comment on above: Performed By: #### 4 8066-5, CMP, 15490-3, 73874-6, CBCA, 64391-9 #### [facility] ([id number]) [address] [place] [address] 40382 Potassium [Moles/Vol] 4.1 mmol/L Normal 3.5-5.0 [facility] Comment on above: Performed By: #### 4 8066-5, CMP, 02691-8, 28296-7, CBCA, 90589-6 #### [facility] ([id number]) [address] [place] [address] 97073 Protein [Mass/Vol] 7.0 g/dL Normal 6.0-8.0 [facility] Comment on above: Performed By: #### 4 8066-5, CMP, 81494-1, 46582-5, CBCA, 97967-4 #### [facility] ([id number]) [address] [place] [address] 47578 Sodium [Moles/Vol] 134 mmol/L Normal 134-146 [facility] Comment on above: Performed By: #### 4 8066-5, CMP, 22226-3, 94549-6, CBCA, 04989-5 #### [facility] ([id number]) [address] [place] [address] 75778 Urea nitrogen [Mass/Vol] 18 mg/dL Normal 5-23 [facility] Comment on above: Performed By: #### 4 8066-5, CMP, 59883-0, 40760-0, CBCA, 91661-3 #### [facility] ([id number]) [address] [place] [address] 53276 Glucose Glucometer (BldC) [M ass/Vol]on 07-23-2023 Glucose [Mass/Vol] 352 mg/dL High 65-99 [facility] Glucose [Mass/Vol] 399 mg/dL High 65-99 [facility] Glucose [Mass/Vol] 422 mg/dL Critically high 65-99 [facility] Glucose [Mass/Vol] 321 mg/dL High 65-99 [facility] Lactate (P manisha) [Moles/Vol]o n 07-23-2023 LACTATE W/REFLEX 1.7 mmol/L Normal 0.4-2.0 [facility] Comment on above: Result Comment: Result did not trigger repeat Lactate, re-order if needed. Performed By: #### 4 8066-5, CMP, 44708-3, 19941-5, CBCA, 73040-2 #### [facility] ([id number]) [address] [place] [address] 49571 MAGNESIUMon 07-23-2023 Magnesium [Mass/Vol] 1.7 mg/dL Low 1.8-2.6 [facility] Comment on above: Performed By: #### 4 8066-5, CMP, 36716-0, 33886-0, CBCA, 78123-7 #### [facility] ([id number]) [address] [place] [address] 78662 BLOOD CULTUREon 07-22-2023 Bacteria identified Aer cx Nom (Bld) SPECIMEN NOTES LEFT HAND 16ML CULTURE RESULTS NO GROWTH 5 DAYS Normal [facility] Comment on above: Performed By: #### 4 8066-5, CMP, 79298-8, 77336-5, CBCA, 22611-8 #### [facility] ([id number]) [address] [place] [address] 74394 Bacteria identified Aer cx Nom (Bld) SPECIMEN NOTES RIGHT ANTECUBITAL 20ML CULTURE RESULTS NO GROWTH 5 DAYS Normal [facility] Comment on above: Performed By: #### 4 8066-5, CMP, 65593-9, 46052-3, CBCA, 96415-5 #### [facility] ([id number]) [address] [place] [address] 54378 CBC AND AUTO DIFFon 07-22-19 24 ABSOLUTE BASOPHIL 0.0 X10E9/L Normal 0.0-0.2 [facility] Comment on above: Performed By: #### 4 8066-5, CMP, 34850-1, 78750-5, CBCA, 03632-0 #### [facility] ([id number]) [address] [place] [address] 23416 ABSOLUTE NEUTROPHIL 7.3 X10E9/L High 1.5-6.6 [facility] Comment on above: Performed By: #### 4 8066-5, CMP, 29117-5, 47614-9, CBCA, 67778-3 #### [facility] ([id number]) [address] [place] [address] 68643 Basophils/100 WBC (Bld) 0.0 % Normal [facility] Comment on above: Performed By: #### 4 8066-5, CMP, 86305-2, 37158-0, CBCA, 40278-5 #### [facility] ([id number]) [address] [place] [address] 65772 Eosinophils (Bld) [#/Vol] 0.0 10*3/uL Normal 0.0-0.4 [facility] Comment on above: Performed By: #### 4 8066-5, CMP, 99019-0, 05825-3, CBCA, 58007-1 #### [facility] ([id number]) [address] [place] [address] 78033 Eosinophils/100 WBC (Bld) 0.0 % Normal [facility] Comment on above: Performed By: #### 4 8066-5, CMP, 01546-8, 28948-9, CBCA, 56575-9 #### [facility] ([id number]) [address] [place] [address] 85644 Erythrocyte distribution width (RBC) [Ratio] 16.5 % High 11.5-15.0 [facility] Comment on above: Performed By: #### 4 8066-5, CMP, 80583-1, 40965-1, CBCA, 22846-0 #### [facility] ([id number]) [address] [place] [address] 54813 Hematocrit (Bld) [Volume fraction] 33.2 % Low 35-47 [facility] Comment on above: Performed By: #### 4 8066-5, CMP, 18362-0, 74864-5, CBCA, 67566-0 #### [facility] ([id number]) [address] [place] [address] 79076 Hemoglobin (Bld) [Mass/Vol] 11.2 g/dL Low 11.7-15.5 [facility] Comment on above: Performed By: #### 4 8066-5, CMP, 00204-6, 06315-6, CBCA, 41052-9 #### [facility] ([id number]) [address] [place] [address] 34786 Lymphocytes (Bld) [#/Vol] 0.7 10*3/uL Low 1.0-3.5 [facility] Comment on above: Performed By: #### 4 8066-5, CMP, 13276-2, 25980-8, CBCA, 45004-7 #### [facility] ([id number]) [address] [place] [address] 88525 Lymphocytes/100 WBC (Bld) 8.8 % Normal [facility] Comment on above: Performed By: #### 4 8066-5, CMP, 38896-2, 82165-4, CBCA, 14144-6 #### [facility] ([id number]) [address] [place] [address] 09829 MCH (RBC) [Entitic mass] 31.2 pg Normal 27-34 [facility] Comment on above: Performed By: #### 4 8066-5, CMP, 04358-9, 75029-4, CBCA, 92899-8 #### [facility] ([id number]) [address] [place] [address] 43769 MCHC (RBC) [Mass/Vol] 33.8 g/dL Normal 32-36 [facility] Comment on above: Performed By: #### 4 8066-5, CMP, 69853-9, 21623-9, CBCA, 06694-0 #### [facility] ([id number]) [address] [place] [address] 54816 MCV (RBC) [Entitic vol] 92 fL Normal 80-100 [facility] Comment on above: Performed By: #### 4 8066-5, CMP, 53818-5, 29376-7, CBCA, 22714-2 #### [facility] ([id number]) [address] [place] [address] 96330 Monocytes (Bld) [#/Vol] 0.2 10*3/uL Normal 0-0.9 [facility] Comment on above: Performed By: #### 4 8066-5, CMP, 48132-8, 85676-9, CBCA, 68297-5 #### [facility] ([id number]) [address] [place] [address] 53121 Monocytes/100 WBC (Bld) 2.9 % Normal [facility] Comment on above: Performed By: #### 4 8066-5, CMP, 90769-4, 84484-1, CBCA, 20527-0 #### [facility] ([id number]) [address] [place] [address] 64292 Neutrophils/100 WBC (Bld) 88.3 % Normal [facility] Comment on above: Performed By: #### 4 8066-5, CMP, 70495-1, 95384-2, CBCA, 59245-3 #### [facility] ([id number]) [address] [place] [address] 02409 Platelet mean volume (Bld) [Entitic vol] 8.5 fL Normal 7-12 [facility] Comment on above: Performed By: #### 4 8066-5, CMP, 37242-8, 32444-0, CBCA, 31217-6 #### [facility] ([id number]) [address] [place] [address] 91393 Platelets (Bld) [#/Vol] 102 10*3/uL Low 150-450 [facility] Comment on above: Performed By: #### 4 8066-5, CMP, 08767-3, 24683-2, CBCA, 00551-0 #### [facility] ([id number]) [address] [place] [address] 01847 RBC COUNT 3.60 X10E12/L Low 3.80-5.20 [facility] Comment on above: Performed By: #### 4 8066-5, CMP, 96408-5, 86740-6, CBCA, 98586-8 #### [facility] ([id number]) [address] [place] [address] 54352 WBC (Bld) [#/Vol] 8.2 10*3/uL Normal 4.0-11.0 [facility] Comment on above: Performed By: #### 4 8066-5, CMP, 54287-6, 85080-4, CBCA, 36145-7 #### [facility] ([id number]) [address] [place] [address] 61231 COMPREHENSIVE METABOLIC PANE Americo 07-22-2023 Albumin [Mass/Vol] 2.9 g/dL Low 3.2-5.3 [facility] Comment on above: Performed By: #### 4 8066-5, CMP, 55310-1, 24798-3, CBCA, 72876-6 #### [facility] ([id number]) [address] [place] [address] 94190 ALP [Catalytic activity/Vol] 138 U/L High 39-130 [facility] Comment on above: Performed By: #### 4 8066-5, CMP, 66540-0, 34571-0, CBCA, 17695-7 #### [facility] ([id number]) [address] [place] [address] 15317 ALT [Catalytic activity/Vol] 44 U/L High 0-31 [facility] Comment on above: Performed By: #### 4 8066-5, CMP, 80535-4, 72841-2, CBCA, 70138-6 #### [facility] ([id number]) [address] [place] [address] 58187 Anion gap [Moles/Vol] 7 mmol/L Normal 5-15 [facility] Comment on above: Performed By: #### 4 8066-5, CMP, 87746-3, 85354-8, CBCA, 23821-0 #### [facility] ([id number]) [address] [place] [address] 44737 AST [Catalytic activity/Vol] 55 U/L High 0-41 [facility] Comment on above: Performed By: #### 4 8066-5, CMP, 49292-7, 17248-4, CBCA, 70562-1 #### [facility] ([id number]) [address] [place] [address] 08559 Bilirubin [Mass/Vol] 1.0 mg/dL Normal 0.3-1.2 [facility] Comment on above: Performed By: #### 4 8066-5, CMP, 99046-8, 92690-9, CBCA, 35011-4 #### [facility] ([id number]) [address] [place] [address] 32894 Calcium [Mass/Vol] 8.4 mg/dL Low 8.5-10.5 [facility] Comment on above: Performed By: #### 4 8066-5, CMP, 05728-9, 35927-5, CBCA, 27898-6 #### [facility] ([id number]) [address] [place] [address] 57475 Chloride [Moles/Vol] 99 mmol/L Normal 98-109 [facility] Comment on above: Performed By: #### 4 8066-5, CMP, 49637-9, 88772-1, CBCA, 23662-0 #### [facility] ([id number]) [address] [place] [address] 66417 CO2 [Moles/Vol] 27 mmol/L Normal 22-32 [facility] Comment on above: Performed By: #### 4 8066-5, CMP, 45309-5, 43015-7, CBCA, 33620-4 #### [facility] ([id number]) [address] [place] [address] 36265 Creatinine [Mass/Vol] 0.56 mg/dL Normal 0.40-1.00 [facility] Comment on above: Result Comment: METH OD TRACEABLE TO IDMS STANDARD Performed By: #### 4 8066-5, CMP, 05087-6, 10567-9, CBCA, 50786-1 #### [facility] ([id number]) [address] [place] [address] 27675 eGFR (CKD-EPI) NON-RACE DEPENDENT >90 Normal >59 [facility] Comment on above: Result Comment: Reported eGFR is based on the CKD-EPI 2020 equation that does not use a race coefficient. Performed By: #### 4 8066-5, CMP, 90619-3, 81436-6, CBCA, 04982-5 #### [facility] ([id number]) [address] [place] [address] 70374 Glucose [Mass/Vol] 377 mg/dL High 65-99 [facility] Comment on above: Performed By: #### 4 8066-5, CMP, 68642-1, 75793-3, CBCA, 25255-7 #### [facility] ([id number]) [address] [place] [address] 22987 Potassium [Moles/Vol] 4.1 mmol/L Normal 3.5-5.0 [facility] Comment on above: Performed By: #### 4 8066-5, CMP, 14241-2, 10264-9, CBCA, 85251-6 #### [facility] ([id number]) [address] [place] [address] 38224 Protein [Mass/Vol] 7.0 g/dL Normal 6.0-8.0 [facility] Comment on above: Performed By: #### 4 8066-5, CMP, 78630-0, 54829-3, CBCA, 24666-9 #### [facility] ([id number]) [address] [place] [address] 17726 Sodium [Moles/Vol] 133 mmol/L Low 134-146 [facility] Comment on above: Performed By: #### 4 8066-5, CMP, 21277-5, 18576-6, CBCA, 58009-1 #### [facility] ([id number]) [address] [place] [address] 72888 Urea nitrogen [Mass/Vol] 16 mg/dL Normal 5-23 [facility] Comment on above: Performed By: #### 4 8066-5, CMP, 96370-2, 41956-9, CBCA, 48837-6 #### [facility] ([id number]) [address] [place] [address] 70681 Glucose Glucometer ([facility]) [M ass/Vol]on 07-22-2023 Glucose [Mass/Vol] 434 mg/dL Critically high 65-99 [facility] Glucose [Mass/Vol] 445 mg/dL Critically high 65-99 [facility] Glucose [Mass/Vol] 393 mg/dL High 65-99 [facility] Glucose [Mass/Vol] 353 mg/dL High 65-99 [facility] Glucose [Mass/Vol] 347 mg/dL High 65-99 [facility] Glucose [Mass/Vol] 374 mg/dL High 65-99 [facility] LOWER RESPIRATORY CULTUREon 07-22-2023 Bacteria identified Respiratory culture Nom (Sput) GRAM STAIN 1 to 9 WHITE BLOOD CELLS/LPF 0 to 1 SQUAMOUS EPITHELIAL CELLS/LPF 0 CILIATED EPITHELIAL CELLS/LPF RARE GRAM POSITIVE COCCI IN CHAINS CULTURE RESULTS MANY STENOTROPHOMONAS MALTOPHILIA ALONG WITH FEW NORMAL ORAL CRISTHIAN Organism: STENOTROPHOMONAS MALTOPHILIA Antibiotic Interpretation WARD Status LEVOFLOXACIN S <=1 F TRIMETH/SULFAMETHOXAZ OLE S <=0.5 F Susceptible [facility] Comment on above: Performed By: #### 4 8066-5, CMP, 07434-5, 71713-4, CBCA, 46610-6 #### [facility] ([id number]) [address] [place] [address] 45902 MAGNESIUMon 07-22-2023 Magnesium [Mass/Vol] 2.0 mg/dL Normal 1.8-2.6 [facility] Comment on above: Performed By: #### 4 8066-5, [facility], 03686-4, 59983-3, CBCA, 79992-9 #### [facility] ([id number]) [address] [place] [address] 86768 BLOOD CULTUREon 07-21-2023 Bacteria identified Aer cx Nom (Bld) SPECIMEN NOTES RT AC CULTURE RESULTS STREPTOCOCCUS AGALACTIAE (GROUP B) FOR SUSCEPTIBILITY, SEE PREVIOUS REPORT. Normal [facility] Comment on above: Performed By: #### 4 8066-5, CMP, 67145-3, 02220-4, CBCA, 46594-1 #### [facility] ([id number]) [address] [place] [address] 86919 Bacteria identified Aer cx Nom (Bld) SPECIMEN NOTES RT AC CULTURE RESULTS STREPTOCOCCUS AGALACTIAE (GROUP B) Streptococcus agalactiae detected by PCR. Organism: STREPTOCOCCUS AGALACTIAE (GROUP B) Antibiotic Interpretation WARD Status AMPICILLIN S <=0.25 F LEVOFLOXACIN S 1 F ERYTHROMYCIN R >=8 F CLINDAMYCIN R >=1 F VANCOMYCIN S 0.5 F Susceptible [facility] Comment on above: Performed By: #### 4 8066-5, CMP, 07076-3, 95724-8, CBCA, 26506-2 #### [facility] ([id number]) [address] [place] [address] 60621 CBC AND AUTO DIFFon 07-21-19 24 ABSOLUTE BASOPHIL 0.0 X10E9/L Normal 0.0-0.2 [facility] Comment on above: Performed By: #### C BCA, CMP, 39703-2, 74548-5, 44998-3 #### [facility] ([id number]) [address] [place] [address] 20728 ABSOLUTE NEUTROPHIL 4.3 X10E9/L Normal 1.5-6.6 [facility] Comment on above: Performed By: #### C BCA, CMP, 81297-5, 26803-7, 53562-8 #### [facility] ([id number]) [address] [place] [address] 84297 Basophils/100 WBC (Bld) 0.9 % Normal [facility] Comment on above: Performed By: #### C BCA, CMP, 62540-4, 37201-0, 42561-6 #### [facility] ([id number]) [address] [place] [address] 53036 Eosinophils (Bld) [#/Vol] 0.0 10*3/uL Normal 0.0-0.4 [facility] Comment on above: Performed By: #### C BCA, CMP, 67694-0, 73274-6, 69687-2 #### [facility] ([id number]) [address] [place] [address] 91711 Eosinophils/100 WBC (Bld) 0.2 % Normal [facility] Comment on above: Performed By: #### C BCA, CMP, 53920-8, 24327-9, 16826-2 #### [facility] ([id number]) [address] [place] [address] 51297 Erythrocyte distribution width (RBC) [Ratio] 16.1 % High 11.5-15.0 [facility] Comment on above: Performed By: #### C BENI ANTUNEZ, 57059-1, 20597-3, 05011-5 #### [facility] ([id number]) [address] [place] [address] 77599 Hematocrit (Bld) [Volume fraction] 37.3 % Normal 35-47 [facility] Comment on above: Performed By: #### C BENI ANTUNEZ, 60602-4, 87365-1, 15600-4 #### [facility] ([id number]) [address] [place] [address] 18350 Hemoglobin (Bld) [Mass/Vol] 12.8 g/dL Normal 11.7-15.5 [facility] Comment on above: Performed By: #### Christian ANTUNEZ CMP, 58323-9, 30521-7, 21298-8 #### [facility] ([id number]) [address] [place] [address] 85928 Lymphocytes (Bld) [#/Vol] 0.5 10*3/uL Low 1.0-3.5 [facility] Comment on above: Performed By: #### Christian ANTUNEZ CMP, 25487-6, 07797-9, 10954-9 #### [facility] ([id number]) [address] [place] [address] 01003 Lymphocytes/100 WBC (Bld) 10.7 % Normal [facility] Comment on above: Performed By: #### Christian ANTUNEZ CMP, 33508-1, 11515-5, 88841-6 #### [facility] ([id number]) [address] [place] [address] 21131 MCH (RBC) [Entitic mass] 31.1 pg Normal 27-34 [facility] Comment on above: Performed By: #### C BENI ANTUNEZ, 19536-4, 97572-9, 36913-0 #### [facility] ([id number]) [address] [place] [address] 37398 MCHC (RBC) [Mass/Vol] 34.2 g/dL Normal 32-36 [facility] Comment on above: Performed By: #### C BCA, CMP, 98689-0, 81245-8, 33576-7 #### [facility] ([id number]) [address] [place] [address] 16824 MCV (RBC) [Entitic vol] 91 fL Normal 80-100 [facility] Comment on above: Performed By: #### C BCA, CMP, 84830-6, 70945-8, 95630-8 #### [facility] ([id number]) [address] [place] [address] 90967 Monocytes (Bld) [#/Vol] 0.1 10*3/uL Normal 0-0.9 [facility] Comment on above: Performed By: #### C BCA, CMP, 04514-3, 16190-3, 20953-1 #### [facility] ([id number]) [address] [place] [address] 95894 Monocytes/100 WBC (Bld) 1.4 % Normal [facility] Comment on above: Performed By: #### C BCA, CMP, 02729-1, 85429-1, 63184-1 #### [facility] ([id number]) [address] [place] [address] 69659 Neutrophils/100 WBC (Bld) 86.8 % Normal [facility] Comment on above: Performed By: #### C BCA, CMP, 05265-4, 75799-8, 72988-6 #### [facility] ([id number]) [address] [place] [address] 54850 Platelet mean volume (Bld) [Entitic vol] 8.1 fL Normal 7-12 [facility] Comment on above: Performed By: #### C BCA, CMP, 74640-4, 79431-8, 43172-6 #### [facility] ([id number]) [address] [place] [address] 67710 Platelets (Bld) [#/Vol] 119 10*3/uL Low 150-450 [facility] Comment on above: Performed By: #### C BCA, CMP, 08779-5, 90494-8, 27442-4 #### [facility] ([id number]) [address] [place] [address] 36632 RBC COUNT 4.11 X10E12/L Normal 3.80-5.20 [facility] Comment on above: Performed By: #### C BCA, CMP, 89909-2, 11813-4, 62906-2 #### [facility] ([id number]) [address] [place] [address] 68291 WBC (Bld) [#/Vol] 5.0 10*3/uL Normal 4.0-11.0 [facility] Comment on above: Performed By: #### C BCA, CMP, 63743-8, 06544-2, 57056-2 #### [facility] ([id number]) [address] [place] [address] 56070 COMPREHENSIVE METABOLIC PANE Americo 07-21-2023 Albumin [Mass/Vol] 3.2 g/dL Normal 3.2-5.3 [facility] Comment on above: Performed By: #### 4 8066-5, CMP, 62494-1, 49712-0, CBCA, 89780-0 #### [facility] ([id number]) [address] [place] [address] 59395 ALP [Catalytic activity/Vol] 191 U/L High 39-130 [facility] Comment on above: Performed By: #### 4 8066-5, CMP, 13408-6, 26523-5, CBCA, 33578-7 #### [facility] ([id number]) [address] [place] [address] 83164 ALT [Catalytic activity/Vol] 41 U/L High 0-31 [facility] Comment on above: Performed By: #### 4 8066-5, CMP, 98433-3, 37706-8, CBCA, 11706-2 #### [facility] ([id number]) [address] [place] [address] 45264 Anion gap [Moles/Vol] 9 mmol/L Normal 5-15 [facility] Comment on above: Performed By: #### 4 8066-5, CMP, 83854-2, 35709-7, CBCA, 62914-7 #### [facility] ([id number]) [address] [place] [address] 83803 AST [Catalytic activity/Vol] 60 U/L High 0-41 [facility] Comment on above: Performed By: #### 4 8066-5, CMP, 84527-1, 92163-7, CBCA, 58877-7 #### [facility] ([id number]) [address] [place] [address] 84079 Bilirubin [Mass/Vol] 0.7 mg/dL Normal 0.3-1.2 [facility] Comment on above: Performed By: #### 4 8066-5, CMP, 59150-4, 22585-8, CBCA, 93404-4 #### [facility] ([id number]) [address] [place] [address] 00928 Calcium [Mass/Vol] 8.6 mg/dL Normal 8.5-10.5 [facility] Comment on above: Performed By: #### 4 8066-5, CMP, 52334-4, 77989-9, CBCA, 92295-9 #### [facility] ([id number]) [address] [place] [address] 30679 Chloride [Moles/Vol] 101 mmol/L Normal 98-109 [facility] Comment on above: Performed By: #### 4 8066-5, CMP, 75094-9, 34087-3, CBCA, 62357-9 #### [facility] ([id number]) [address] [place] [address] 93263 CO2 [Moles/Vol] 26 mmol/L Normal 22-32 [facility] Comment on above: Performed By: #### 4 8066-5, CMP, 95584-4, 35637-0, CBCA, 26510-3 #### [facility] ([id number]) [address] [place] [address] 46772 Creatinine [Mass/Vol] 0.57 mg/dL Normal 0.40-1.00 [facility] Comment on above: Result Comment: METH OD TRACEABLE TO IDMS STANDARD Performed By: #### 4 8066-5, CMP, 93544-6, 80924-9, CBCA, 16570-9 #### [facility] ([id number]) [address] [place] [address] 62709 eGFR (CKD-EPI) NON-RACE DEPENDENT >90 Normal >59 [facility] Comment on above: Result Comment: Reported eGFR is based on the CKD-EPI 2020 equation that does not use a race coefficient. Performed By: #### 4 8066-5, CMP, 48519-9, 99088-1, CBCA, 98828-2 #### [facility] ([id number]) [address] [place] [address] 36769 Glucose [Mass/Vol] 192 mg/dL High 65-99 [facility] Comment on above: Performed By: #### 4 8066-5, CMP, 36261-4, 10809-4, CBCA, 19319-7 #### [facility] ([id number]) [address] [place] [address] 06713 Potassium [Moles/Vol] 3.0 mmol/L Low 3.5-5.0 [facility] Comment on above: Performed By: #### 4 8066-5, CMP, 91876-7, 63773-0, CBCA, 73622-9 #### [facility] ([id number]) [address] [place] [address] 89363 Protein [Mass/Vol] 7.9 g/dL Normal 6.0-8.0 [facility] Comment on above: Performed By: #### 4 8066-5, CMP, 00392-0, 66225-1, CBCA, 09564-7 #### [facility] ([id number]) [address] [place] [address] 74112 Sodium [Moles/Vol] 136 mmol/L Normal 134-146 [facility] Comment on above: Performed By: #### 4 8066-5, CMP, 97718-9, 87919-7, CBCA, 26011-7 #### [facility] ([id number]) [address] [place] [address] 46461 Urea nitrogen [Mass/Vol] 12 mg/dL Normal 5-23 [facility] Comment on above: Performed By: #### 4 8066-5, CMP, 19280-4, 40174-0, CBCA, 99326-0 #### [facility] ([id number]) [address] [place] [address] 56196 Glucose Glucometer (BldC) [M ass/Vol]on 07-21-2023 Glucose [Mass/Vol] 366 mg/dL High 65-99 [facility] Glucose [Mass/Vol] 339 mg/dL High 65-99 [facility] Glucose [Mass/Vol] 265 mg/dL High 65-99 [facility] Glucose [Mass/Vol] 140 mg/dL High 65-99 [facility] Lactate (P manisha) [Moles/Vol]o n 07-21-2023 Lactate [Moles/Vol] 2.7 mmol/L High 0.4-2.0 [facility] Comment on above: Performed By: #### 4 8066-5, CMP, 97628-3, 08541-1, CBCA, 05432-3 #### [facility] ([id number]) [address] [place] [address] 95210 LACTATE W/REFLEX 2.4 mmol/L High 0.4-2.0 [facility] Comment on above: Performed By: #### 4 8066-5, CMP, 35226-0, 85017-5, CBCA, 36813-5 #### [facility] ([id number]) [address] [place] [address] 73452 Natriuretic peptide B [Mass/ Vol]on 07-21-2023 Natriuretic peptide B (Bld) [Mass/Vol] 49 pg/mL Normal <100.0 [facility] Comment on above: Performed By: #### 4 8066-5, CMP, 22166-6, 54063-3, CBCA, 26604-4 #### [facility] ([id number]) [address] [place] [address] 42424 POTASSIUMon 07-21-2023 Potassium [Moles/Vol] 4.1 mmol/L Normal 3.5-5.0 [facility] Comment on above: Performed By: #### 4 8066-5, CMP, 31056-4, 50862-7, CBCA, 21694-7 #### [facility] ([id number]) [address] [place] [address] 16989 TROPONIN Ion 07-21-2023 Troponin I.cardiac [Mass/Vol] 0.01 ng/mL Normal 0.00-0.04 [facility] Comment on above: Performed By: #### 4 8066-5, CMP, 95715-9, 49058-6, CBCA, 11785-7 #### [facility] ([id number]) [address] [place] [address] 18281 XR CHEST 1 VWon 07-21-2023 XR CHEST 1 VW XR CHEST 1 VW HISTORY: Shortness of breath COMPARISON: Chest x-ray 07/18/2023 FINDINGS: Portable AP upright view of the chest was performed. Increased vascular congestion and pulmonary edema. Left basilar airspace disease. No significant pleural effusion or pneumothorax. Cardiac silhouette is stable. IMPRESSION: * Interval increase of congestion and edema with left basilar airspace disease likely relating atelectasis although pneumonia cannot be excluded. Finalized by Glenn Easley MD on 07/21/2023 1:09 AM Normal [facility] CBC AND AUTO DIFFon 07-18-19 24 Eosinophils (Bld) [#/Vol] 0.0 10*3/uL Normal 0.0-0.4 [facility] Comment on above: Performed By: #### 4 8066-5, CMP, 35966-5, 55341-2, CBCA, 55863-2 #### [facility] ([id number]) [address] [place] [address] 13095 Eosinophils/100 WBC (Bld) 1.0 % Normal [facility] Comment on above: Performed By: #### 4 8066-5, CMP, 29293-1, 36980-9, CBCA, 38482-5 #### [facility] ([id number]) [address] [place] [address] 14713 Erythrocyte distribution width (RBC) [Ratio] 16.4 % High 11.5-15.0 [facility] [facility] Comment on above: Performed By: #### 4 8066-5, CMP, 46511-4, 42187-9, CBCA, 71798-7 #### [facility] ([id number]) [address] [place] [address] 95959 Hematocrit (Bld) [Volume fraction] 34.6 % Low 35-47 [facility] Comment on above: Performed By: #### 4 8066-5, CMP, 49622-4, 85787-8, CBCA, 89825-8 #### [facility] ([id number]) [address] [place] [address] 49286 Hemoglobin (Bld) [Mass/Vol] 11.7 g/dL Normal 11.7-15.5 [facility] Comment on above: Performed By: #### 4 8066-5, CMP, 19270-3, 64805-5, CBCA, 60705-9 #### [facility] ([id number]) [address] [place] [address] 42777 Lymphocytes (Bld) [#/Vol] 0.9 10*3/uL Low 1.0-3.5 [facility] Comment on above: Performed By: #### 4 8066-5, CMP, 67057-4, 13571-5, CBCA, 21239-8 #### [facility] ([id number]) [address] [place] [address] 41008 Lymphocytes/100 WBC (Bld) 37.5 % Normal [facility] Comment on above: Performed By: #### 4 8066-5, CMP, 91518-8, 91432-2, CBCA, 34734-2 #### [facility] ([id number]) [address] [place] [address] 30829 MCH (RBC) [Entitic mass] 31.0 pg Normal 27-34 [facility] Comment on above: Performed By: #### 4 8066-5, CMP, 67587-9, 29326-0, CBCA, 71023-7 #### [facility] ([id number]) [address] [place] [address] 64139 MCHC (RBC) [Mass/Vol] 33.8 g/dL Normal 32-36 [facility] Comment on above: Performed By: #### 4 8066-5, CMP, 33874-9, 71771-3, CBCA, 75422-3 #### [facility] ([id number]) [address] [place] [address] 01263 MCV (RBC) [Entitic vol] 92 fL Normal 80-100 [facility] Comment on above: Performed By: #### 4 8066-5, CMP, 99932-8, 80656-4, CBCA, 15814-4 #### [facility] ([id number]) [address] [place] [address] 19566 Monocytes (Bld) [#/Vol] 0.1 10*3/uL Normal 0-0.9 [facility] Comment on above: Performed By: #### 4 8066-5, CMP, 86655-3, 42109-4, CBCA, 09126-5 #### [facility] ([id number]) [address] [place] [address] 65191 Monocytes/100 WBC (Bld) 4.8 % Normal [facility] Comment on above: Performed By: #### 4 8066-5, CMP, 82789-2, 00371-1, CBCA, 80000-5 #### [facility] ([id number]) [address] [place] [address] 77836 Neutrophils (Bld) [#/Vol] 1.4 10*3/uL Low 1.5-6.6 [facility] Comment on above: Performed By: #### 4 8066-5, CMP, 39272-3, 52289-5, CBCA, 87300-9 #### [facility] ([id number]) [address] [place] [address] 39851 Platelet mean volume (Bld) [Entitic vol] 8.3 fL Normal 7-12 [facility] Comment on above: Performed By: #### 4 8066-5, CMP, 56911-3, 18100-2, CBCA, 01403-9 #### [facility] ([id number]) [address] [place] [address], [place] [address] Platelets (Bld) [#/Vol] 123 10*3/uL Low 150-450 [facility] Comment on above: Performed By: #### 4 8066-5, CMP, 87058-6, 97662-0, CBCA, 82480-7 #### [facility] ([id number]) [address] [place] [address] 24463 RBC COUNT 3.78 X10E12/L Low 3.80-5.20 [facility] Comment on above: Performed By: #### 4 8066-5, CMP, 76049-3, 92992-8, CBCA, 99163-6 #### [facility] ([id number]) [address] [place] [address] 04422 SEG NEUTROPHIL 56.7 % Normal [facility] Comment on above: Performed By: #### 4 8066-5, CMP, 21680-1, 67595-5, CBCA, 67712-5 #### [facility] ([id number]) [address] [place] [address] 78597 WBC (Bld) [#/Vol] 2.4 10*3/uL Low 4.0-11.0 [facility] Comment on above: Performed By: #### 4 8066-5, CMP, 35723-1, 63682-1, CBCA, 04560-9 #### [facility] ([id number]) [address] [place] [address] 33399 COMPREHENSIVE METABOLIC PANE Americo 07-18-2023 Albumin [Mass/Vol] 2.8 g/dL Low 3.2-5.3 [facility] Comment on above: Performed By: #### 4 8066-5, CMP, 78461-2, 49367-8, CBCA, 14966-9 #### [facility] ([id number]) [address] [place] [address] 50560 ALP [Catalytic activity/Vol] 205 U/L High 39-130 [facility] Comment on above: Performed By: #### 4 8066-5, CMP, 84257-3, 30692-5, CBCA, 41344-3 #### [facility] ([id number]) [address] [place] [address] 52210 ALT [Catalytic activity/Vol] 48 U/L High 0-31 [facility] Comment on above: Performed By: #### 4 8066-5, CMP, 00493-9, 67492-6, CBCA, 09180-7 #### [facility] ([id number]) [address] [place] [address] 01160 Anion gap [Moles/Vol] 7 mmol/L Normal 5-15 [facility] Comment on above: Performed By: #### 4 8066-5, CMP, 51150-0, 70956-7, CBCA, 96943-4 #### [facility] ([id number]) [address] [place] [address] 71179 AST [Catalytic activity/Vol] 108 U/L High 0-41 [facility] Comment on above: Performed By: #### 4 8066-5, CMP, 04537-8, 23937-4, CBCA, 55778-9 #### [facility] ([id number]) [address] [place] [address] 94227 Bilirubin [Mass/Vol] 0.6 mg/dL Normal 0.3-1.2 [facility] Comment on above: Performed By: #### 4 8066-5, CMP, 72723-8, 00347-5, CBCA, 75673-1 #### [facility] ([id number]) [address] [place] [address] 39305 Calcium [Mass/Vol] 8.3 mg/dL Low 8.5-10.5 [facility] Comment on above: Performed By: #### 4 8066-5, CMP, 42761-2, 70276-7, CBCA, 60349-8 #### [facility] ([id number]) [address] [place] [address] 49768 Chloride [Moles/Vol] 104 mmol/L Normal 98-109 [facility] Comment on above: Performed By: #### 4 8066-5, CMP, 50316-8, 01669-4, CBCA, 22366-2 #### [facility] ([id number]) [address] [place] [address] 89406 CO2 [Moles/Vol] 27 mmol/L Normal 22-32 [facility] Comment on above: Performed By: #### 4 8066-5, CMP, 36600-5, 93647-0, CBCA, 19706-0 #### [facility] ([id number]) [address] [place] [address] 40218 Creatinine [Mass/Vol] 0.44 mg/dL Normal 0.40-1.00 [facility] Comment on above: Result Comment: METH OD TRACEABLE TO IDMS STANDARD Performed By: #### 4 8066-5, CMP, 69118-1, 04790-7, CBCA, 24951-0 #### [facility] ([id number]) [address] [place] [address] 62463 eGFR (CKD-EPI) NON-RACE DEPENDENT >90 Normal >59 [facility] Comment on above: Result Comment: Reported eGFR is based on the CKD-EPI 2021 equation that does not use a race coefficient. Performed By: #### 4 8066-5, CMP, 28476-0, 35899-4, CBCA, 91026-3 #### [facility] ([id number]) [address] [place] [address] 41044 Glucose [Mass/Vol] 287 mg/dL High 65-99 [facility] Comment on above: Performed By: #### 4 8066-5, CMP, 69101-0, 90834-0, CBCA, 91596-8 #### [facility] ([id number]) [address] [place] [address] 90910 Potassium [Moles/Vol] 3.7 mmol/L Normal 3.5-5.0 [facility] Comment on above: Performed By: #### 4 8066-5, CMP, 31805-7, 67224-1, CBCA, 37527-3 #### [facility] ([id number]) [address] [place] [address] 76196 Protein [Mass/Vol] 7.1 g/dL Normal 6.0-8.0 [facility] Comment on above: Performed By: #### 4 8066-5, CMP, 34995-2, 80441-7, CBCA, 42376-8 #### [facility] ([id number]) [address] [place] [address] 04633 Sodium [Moles/Vol] 138 mmol/L Normal 134-146 [facility] Comment on above: Performed By: #### 4 8066-5, CMP, 94916-7, 27737-3, CBCA, 21494-4 #### [facility] ([id number]) [address] [place] [address] 06362 Urea nitrogen [Mass/Vol] 5 mg/dL Normal 5-23 [facility] Comment on above: Performed By: #### 4 8066-5, CMP, 63937-5, 07924-3, CBCA, 48138-6 #### [facility] ([id number]) [address] [place] [address] 38856 Fibrin D-dimer DDU (PPP) [Ma ss/Vol]on 07-18-2023 D DIMER 380 ng/mL DDU High <255 [facility] Comment on above: Result Comment: Results >=255ng/mL DDU: Results may be indicative of the presence of VTE. The use of the Wells score and further diagnostic tests should be considered. Elevated D-Dimer levels can also be associated with DIC, neoplasm, , trauma and liver disease. Elevated levels of rheumatoid factor may lead to an overestimation of the D-Dimer level. Performed By: #### 4 8066-5, CMP, 35014-1, 97942-7, CBCA, 01882-6 #### [facility] ([id number]) [address] [place] [address] 68988 MAGNESIUMon 07-18-2023 Magnesium [Mass/Vol] 1.5 mg/dL Low 1.8-2.6 [facility] Comment on above: Performed By: #### 4 8066-5, CMP, 03418-7, 32125-2, CBCA, 49164-5 #### [facility] ([id number]) [address] [place] [address] 80181 Natriuretic peptide B [Mass/ Vol]on 07-18-2023 Natriuretic peptide B (Bld) [Mass/Vol] 13 pg/mL Normal <100.0 [facility] Comment on above: Performed By: #### 4 8066-5, CMP, 28067-1, 20888-4, CBCA, 92506-7 #### [facility] ([id number]) [address] [place] [address] 35461 SARS/FLU A+B/RSV by NAAT/Mol ecularon 07-18-2023 SARS/FLU A+B/RSV by NAAT/Molecular FLU A PCR Positive (qualifier value) FLU B PCR Negative (qualifier value) RSV by PCR Negative (qualifier value) SARS CoV 2 Not detected (qualifier value) NOTE The Xpert Xpress SARS-CoV-2/Flu/RSV Plus test is a rapid, multiplexed real-time RT-PCR test intended for the simultaneous qualitative detection and differentiation of SARS-CoV-2, influenza A, influenza B and respiratory syncytial virus (RSV) viral RNA from individuals suspected of respiratory viral infection consistent with COVID-19 by their healthcare provider. This test has not been validated in asymptomatic patients. The Xpert Xpress SARS-CoV-2 test is intended for use by qualified and trained operators who are performing tests using either [employer] or [employer] systems and is limited to laboratories that meet the CLIA requirements to perform high and moderate complexity tests. The Xpert Xpress SARS-CoV-2/Flu/RSV Plus is only for use under the Food and Drug Administration's Emergency Use Authorization. Results are for the simultaneous detection and differentiation of SARS-CoV-2, influenza A, influenza B and RSV nucleic acids in clinical specimens. SARS-CoV-2, influenza A, influenza B and RSV RNA identified by this test are generally detectable in upper respiratory samples during the acute phase of infection. Positive results are indicative of the presence of the identified virus, but do not rule out bacterial infection or co-infection with other pathogens not detected by this test. Clinical correlation with patient history and other diagnostic information is necessary to determine patient infection status. The agent detected may not be the definite cause of disease. Negative results do not preclude SARS-CoV-2, influenza A, influenza B and RSV infection and should not be used as the sole basis for treatment or other patient management decisions. Negative results must be combined with clinical observations, patient history and epidemiological information. An Invalid result may occur with specimen-associated inhibition unable to be resolved with specimen repeat. Fact Sheet for Healthcare Providers: https://www.fda.gov/m edia/779160/download Fact Sheet for Patients: https://www.fda.gov/m edia/122331/download Normal [facility] Comment on above: Performed By: #### C OVFLR #### [facility] ([id number]) [address] [place] [address] 01269 TROPONIN Ion 07-18-2023 Troponin I.cardiac [Mass/Vol] 0.01 ng/mL Normal 0.00-0.04 [facility] Comment on above: Performed By: #### 4 8066-5, CMP, 74303-6, 92498-0, CBCA, 81349-4 #### [facility] ([id number]) [address] [place] [address] 89470 XR CHEST 1 VWon 07-18-2023 XR CHEST 1 VW XR CHEST 1 VW XR CHEST 1 VW 07/18/2023 3:52 PM INDICATION: Chest pain, shortness a breath, cough COMPARISON: Priors dating back to 11/16/2022 TECHNIQUE: AP portable upright view the chest was obtained. FINDINGS: Bibasilar patchy/strandy opacities.There is no pneumothorax. There is no pleural effusion. The cardiomediastinal silhouette is unremarkable. No acute osseous abnormalities. IMPRESSION: Bibasilar patchy/strandy opacities, right greater than left. Nonspecific possibly related to infectious process in the appropriate clinical setting. Finalized by Chi Mojica on 07/18/2023 4:00 PM Normal [facility] XR foot RT min 3V*on 023 XR foot RT min 3V* [facility] [employer] Other XR foot RT min 3V* [facility] [place] [employer] Other XR foot RT min 3V* [address] [place] [address] [employer] Other XR foot RT min 3V* [place] [address] [employer] Other XR foot RT min 3V* XRay Report [employer] Other XR foot RT min 3V* Signed [employer] Other XR foot RT min 3V* Patient: Bobby Brink MR#: [id number] [employer] Other XR foot RT min 3V* 3258 [employer] Other XR foot RT min 3V* : 1980 Acct:[id number] [employer] Other XR foot RT min 3V* Age/Sex: 42 / F ADM Date: 04/11/23 [employer] Other XR foot RT min 3V* Loc: [facility]CLY Room: Type: [facility] [employer] Other XR foot RT min 3V* Attending Dr: Brenda Kent PROJECT ARCHITECT-C [employer] Other XR foot RT min 3V* Copies to: HARRISON Tirado [employer] Other XR foot RT min 3V* Ordering Provider: HARRISON Tirado [employer] Other XR foot RT min 3V* Date of Service: 04/11/23 [employer] Other XR foot RT min 3V* XR/XR foot RT min 3V*: Right foot pain [employer] Other XR foot RT min 3V* RIGHT FOOT - 3 views [employer] Other XR foot RT min 3V* CLINICAL HISTORY: Fell yesterday injuring right foot. Bruising. [employer] Other XR foot RT min 3V* COMPARISON: None [employer] Other XR foot RT min 3V* FINDINGS: [employer] Other XR foot RT min 3V* Severe soft tissue swelling is seen. No acute bony process is noted. Scattered degenerative [employer] Other XR foot RT min 3V* changes with plantar spurring. No bony erosions. [employer] Other XR foot RT min 3V* XR/XR foot RT min 3V* [employer] Other XR foot RT min 3V* IMPRESSION: [employer] Other XR foot RT min 3V* SEVERE SOFT TISSUE SWELLING. NO ACUTE BONY PROCESS. SCATTERED DEGENERATIVE CHANGE. [employer] Other XR foot RT min 3V* Impression dictated by: Oneal Cash Jr., D.OColt04/11/2023 2:18 PM [employer] Other XR foot RT min 3V* Dictation Location: RADIO-PC-15 [employer] Other XR foot RT min 3V* Transcribed By: PWS 04/11/23 1418 [facility] [employer] Other XR foot RT min 3V* Dictated By: Oneal Cash Jr DO 04/11/23 1415 [facility] [employer] Other XR foot RT min 3V* Signed By: [facility] [employer] Other XR foot RT min 3V* 04/11/23 1418 [facility] [employer] Other Follow-Upon 10-19-2022 Follow-Up [id number] Bobby Brink 1980 F Date Provider Department Center 10/19/2022 [facility] INF Nikos Heal Family History Family history unknown: Yes Level of Service:95073 CT OFFICE/OUTPATIENT ESTABLISHED LOW MDM 20-29 MIN Reason for Visit and Comments: Pneumonia [164] Normal [facility] Glucose Glucometer (BldC) [M ass/Vol]Ordered By: Festus Matamoros on 09-02-2022 Glucose [Mass/Vol] 171 mg/dL [facility] Comment on above: Random Glucose Refer ence Range is dependent on time and content of last meal. Glucose of more than 200 mg/dL in a nonstressed, ambulatory subject supports the diagnosis of Diabetes Mellitus. Brenden 08-26-2022 [place] Telephone ([facility]ST[facility]) BOBBY BRINK ([id number]) 1980 F Date Time Provider Department 08/26/22 [facility] During your visit today, we recorded the following information about you: Shirley [facility] 08/26/2022 12:18 PM Signed Pre- Appointment Assessment GI DX: Abdominal Pain, Gastroparesis, Rectal Bleeding Referring Physician: Records are in: Care everywhere x Epic Scanned Documents x Information received Yes No Percentage Retained Not done or unknown 2 hr GES 4 hr GES x 41% T1/2 90 minute *Notes: Information Received Yes No Date Unknown Insurance Cards x Referral Letter x U/S of Abdomen x CT of Abdomen x EGD/ EGD with Botox x Colonoscopy x Labs x History and Physical Notes x Other Reports x *Notes: Has the patient had ? Yes No Unknown Smart Pill x Lillie/Fundoplication x Gastric By Pass x Gastric Sleeve x Hiatal Hernia Repair x POP/Pyloroplasty x Gastric Pacer x TPN x GJ Tube x *Notes: Janki Yoon 08/28/2022 3:16 PM Signed Review and advise Chi Castro DO 08/31/2022 7:29 AM Signed Have pt see me, egg is in Janki Yoon 09/02/2022 11:04 AM Signed Left VM for patient to call office to update registration and schedule EGG and New GP consult with Dr. Gloria Yoon 09/11/2022 11:45 AM Signed Left VM for patient to call office to scheduled EGG and apt with Dr. Gloria Branch 09/17/2022 1:50 PM Signed Received a fax from the referring asking if we had scheduled the patient. I informed them we have tried multiple times to call. Phone number was give for them to call and schedule if they still wanted the appointment. Janki Yoon 09/22/2022 1:46 PM Signed 2nd attempt to contact patient to schedule. Sent a SpinNote message Janki Yoon 10/09/2022 10:40 AM Signed Patient will call office back at a later date to schedule. Allergies As of Date: 08/26/2022 (Not on File) Date Reviewed: Never Reviewed Reason for Visit: pre appointment assessment [Other] Primary Visit Diagnosis:Gastropares is [K31.84] Order(s):EGG (ELECTROGASTROGRAPHY) [86457SIN] Order #: [id number] Problem List As Of Date: 08/26/2022 (None) Encounter Status:Closed by SHIRLEY LOUIS on 11/03/22 Normal [facility] VC INJ FOAM SCLERO W US MLTI on 08-11-2022 VC INJ FOAM SCLERO W US MLTI Patient: BOBBY BRINK Exam Date: 08/11/2022 : 1980 Gender:F Ordering : DR PJ GUDINO M.D. Admission #: [id number] Family : Order #: [id number] CLICK HERE TO VIEW EXAM RADIOLOGY REPORT PROCEDURE: VEIN CENTER INJECTION FOAM SCLEROSING SOLUTION WITH ULTRASOUND MULTIPLE VEINS COMPARISON: VC INJ FOAM SCLERO W US MLTI, 07/14/2022. Pre-operative Diagnosis: CEAP class C for a venous insufficiency with pain, tenderness, edema and incompetent right great saphenous vein and varicose veins, chronic venous insufficiency right leg secondary to venous incompetence Post-operative Diagnosis: CEAP class C for a venous insufficiency with pain, tenderness, edema and incompetent right great saphenous vein and varicose veins, chronic venous insufficiency right leg secondary to venous incompetence Procedure Performed: 1. Ultrasound-guided microfoam chemical ablation with Varithena(r) 2. Intraoperative ultrasound guidance Physician: Pj Gudino M.D. Anesthesia: None Indications for Procedure: 41-year-old female presents with a long history lower extremity pain swelling and varicose veins: 80 in venous stasis ulcerations. The patient failed conservative medical therapy including medical compression stockings, exercise and analgesics. Prior procedures include intravenous laser ablation. Multiple incompetent varicosities of the right leg. Duplex scan showed reflux and enlarged diameters up to 5 mm. The patient underwent informed consent including management options where the complications of infection, bleeding, pain, and skin injury were discussed. Particular attention was spent discussing thrombus extension and deep vein thrombosis as well as the possibility of pulmonary embolus and treatment with oral or injectable blood thinners. Procedure: The patient walked to the procedure room. All applicable staff donned appropriate apparel. A procedure timeout was performed to confirm correct patient, correct extremity, correct procedure, and correct room set-up including presence of all applicable supplies, devices, and drugs. A duplex ultrasound, performed by myself confirmed the location and incompetence of varicose veins and their course marked on the skin together with the dilated tributaries. The extent of treatment of the vein and the associated varicosities was determined through ultrasound mapping. The patient was placed on the operating room table. The limb was prepped. The skin was punctured with a butterfly needle through the skin with the venous access needle and advanced under ultrasound guidance. The target limb was positioned at 45 degrees of elevation in relation to the torso utilizing a foam pad. The Varithena(r) canister was previously activated and the canister was primed and purged as required in the instructions for use. The following injections were made: 8 mL aliquot of Varithena(r) was drawn into a sterile syringe. Injection into a 5 mm varicose vein distal medial right lower leg 7 mL aliquot of Varithena(r) was drawn into a sterile syringe. Injection into a 4 mm varicose vein medial proximal right lower leg Varithena(r) was slowly administered at 0.5-1.0 cc/second with close observation by ultrasound of its course in the injected veins. A total volume of 15 mL of Varithena(r) was used. During administration of Varithena(r), the patient was asked to dorsiflex the ankle to limit flow of Varithena(r) into perforating veins. Once appropriate spasm had been confirmed in the treated veins, the vascular catheter was removed from the leg and light pressure was applied over the puncture site for hemostasis The common femoral and deep superficial veins were then evaluated for flow and compressibility prior to dressing placement. The lower extremity was kept elevated at 45 degrees above the horizontal and cording material was applied over the saphenous segments and tributaries to allow for eccentric compression over the target vessels including the targeted saphenous vein(s). A multilayer dressing was applied consisting of foam pads, coban and thigh-high 20-30 mm Hg compression elastic support hose were placed on the patient. The leg was lowered only after compression had been applied and the patient was immediately ambulatory. The patient ambulated 10 minutes under supervision and was without apparent concerns at time of release Post-care instructions include advising patient to keep post-treatment bandages in place and dry for 48 hours, avoid extended periods of inactivity, avoid heavy exercise for one week, wear compression stockings on the treated leg continuously for two weeks, to walk daily for 10 minutes over the next month. The patient was instructed to take an anti-inflammatory medicine as needed and to follow up for color duplex scan of the GSV, the treated superficial varices, the adjacent deep veins, and additional treatment within (more content not included)... Normal [facility] VC CONSULT FOLLOWUPon 2022 VC CONSULT FOLLOWUP Patient: BOBBY BRINK Exam Date: 07/21/2022 : 1980 Gender:F Ordering : DR PJ GUDINO M.D. Admission #: [id number] Family : Order #: [id number] CLICK HERE TO VIEW EXAM RADIOLOGY REPORT PROCEDURE: VEIN CENTER CONSULTATION FOLLOWUP VEIN CENTER - OFFICE VISIT FOLLOW UP COMPARISON: VC CONSULT FOLLOWUP, 07/07/2022. VC CONSULT FOLLOWUP, 06/29/2022. PROGRESS NOTES: The patient reports no significant discomfort following micro foam chemical ablation the left leg. The patient did wear her compression wraps. The patient did not require oral analgesics. The patient has had difficulty following our recommendations for exercise. Physical exam demonstrates no areas of erythema or warmth. Some mild subcutaneous edema, significantly improved from the initial presenting exam, the patient reports significant improvement in swelling with the previously noted toe pain resolved. Review of the ultrasound performed the same day demonstrates occlusive thrombus extending throughout the treated left leg varicose veins with residual incompetent varicose veins measuring up to 4 mm. The patient expressed a desire to proceed with treatment of incompetent right leg varicose veins with micro foam chemical ablation. IMPRESSION: 1. Successful ablation of varicose veins 2. Persistent bilateral incompetent varicose veins PLAN: Micro foam chemical ablation of the right leg Nurse notes, history and physical were reviewed and confirmed, see attached forms. The nurse was present throughout the physical exam and consultation Dictated by: Pj Gudino MD on 07/21/2022 at 11:48 Approved by: Pj Gudino MD on 07/21/2022 at 12:04 Normal [facility] VC EXT VENOUS LT LIMITEDon 0 07-21-2022 VC EXT VENOUS LT LIMITED Patient: BOBBY BRINK Exam Date: 07/21/2022 : 1980 Gender:F Ordering : DR PJ GUDINO M.D. Admission #: [id number] Family : Order #: [id number] CLICK HERE TO VIEW EXAM RADIOLOGY REPORT PROCEDURE: VEIN CENTER EXTREMITY VENOUS LEFT LIMITED COMPARISON: VC EXT VENOUS LT LIMITED, 06/29/2022. VC EXT VENOUS LT LIMITED, 05/15/2022. INDICATIONS: Phlebitis of superficial veins of lower extremity I80.02 TECHNIQUE: Lower extremity eugene scale and Duplex Doppler evaluation of the deep venous system from the inguinal ligament through the calf veins. FINDINGS: REGION: Left lower extremity. THROMBI: Negative for DVT. Varithena induced thrombus visualized at prox/med calf and ant/dist calf. COMPRESSIBILITY: Non-compressible segments corresponding to thrombus. FLOW: Absent flow corresponding to thrombus OTHER: Multiple patent incompetent varicose veins measuring up to 4 mm. *Exam performed in accordance with [facility] practice guidelines- Peripheral venous ultrasound, October 05, 2009. CONCLUSION: Post ablation occlusion treated left leg varicose veins with residual incompetent varicose veins measuring up to 4 mm Dictated by: Pj Gudino MD on 07/21/2022 at 11:36 Approved by: Pj Gudino MD on 07/21/2022 at 11:38 Normal [facility] [place] CULTURE URINEon 07-15-2022 CULTURE URINE Isolate 1 Escherichia coli >100,000 cfu/mL of ORGANISM 1 Escherichia coli ANTIBIOTIC M.I.C RX STATUS Ampicillin >=32 R F Ampicillin/Sulbactam 16 I F Piperacillin/Tazobact am <=4 S F Cefazolin >=64 R F Ceftazidime 16 R F Ceftriaxone >=64 R F Ertapenem <=0.5 S F Imipenem <=0.25 S F Amikacin <=2 S F Gentamicin <=1 S F Tobramycin <=1 S F Ciprofloxacin <=0.25 S F Levofloxacin 1 S F Nitrofurantoin <=16 S F Trimethoprim/Sulfamet hoxazole >=320 R F Normal [facility] [place] Comment on above: Performed By: #### U RCX ####[facility] [place] [id number] [place], [place] [address]Cn. Bird Gonzalez VC INJ FOAM SCLERO W US MLTI on 07-14-2022 VC INJ FOAM SCLERO W US MLTI Patient: BOBBY BRINK Exam Date: 07/14/2022 : 1980 Gender:F Ordering : DR PJ GUDINO M.D. Admission #: [id number] Family : Order #: [id number] CLICK HERE TO VIEW EXAM RADIOLOGY REPORT PROCEDURE: VEIN CENTER INJECTION FOAM SCLEROSING SOLUTION WITH ULTRASOUND MULTIPLE VEINS COMPARISON: None. Pre-operative Diagnosis: CEAP class C4a venous insufficiency with pain, tenderness, edema and incompetent branch saphenous vein, chronic venous insufficiency left leg secondary to venous incompetence Post-operative Diagnosis: CEAP class C4a venous insufficiency with pain, tenderness, edema and incompetent branch saphenous vein, chronic venous insufficiency left leg secondary to venous incompetence Procedure Performed: 1. Ultrasound-guided microfoam chemical ablation with Varithena(r) 2. Intraoperative ultrasound guidance Physician: Will Zacarias M.D. Anesthesia: None. Indications for Procedure: 41 year old female. Symptoms including bilateral lower extremity swelling, muscle cramping, leg heaviness, dilated veins for many years despite conservative medical therapy including medical compression stockings, exercise and analgesics. Prior procedures include: Endovenous laser ablation. Multiple incompetent varicosities of the left leg. Duplex scan showed reflux and enlarged diameters up to 8 mm. The patient has undergone informed consent including management options where the complications of infection, bleeding, pain, and skin injury were discussed. Particular attention was spent discussing thrombus extension and deep vein thrombosis as well as the possibility of pulmonary embolus and treatment with oral or injectable blood thinners. Procedure: The patient walked to the procedure room. All applicable staff donned appropriate apparel. A procedure timeout was performed to confirm correct patient, correct extremity, correct procedure, and correct room set-up including presence of all applicable supplies, devices, and drugs. A duplex ultrasound, performed by myself confirmed the location and incompetence of branch saphenous varicosities and their course was marked on the skin together with the dilated tributaries. The extent of treatment of the veins and the associated varicosities was determined through ultrasound mapping. The skin was prepped and then punctured with a butterfly needle and advanced under ultrasound guidance. The Varithena(r) canister was activated and the canister was primed and purged as required in the instructions for use. Varithena(r) was drawn into a sterile syringe. Varithena(r) was slowly administered at 0.5-1.0 cc/second with close observation by ultrasound of its course in the vessels. Total volume utilized was: 15 mL (8 mL within a 5 mm varicosity of the left anterior distal lower leg; 7 mL within an incompetent 8 mm varicosity of the left medial proximal lower leg). Following administration of Varithena(r), the leg was elevated and the patient was asked to repeatedly dorsiflex the ankle to limit flow of Varithena(r) into perforating veins. Once appropriate spasm had been confirmed in the treated veins, the vascular catheter was removed from the leg and light pressure was applied over the puncture site for hemostasis The common femoral and deep superficial veins were then evaluated for flow and compressibility prior to dressing placement. The lower extremity was kept elevated at 45 degrees above the horizontal and cording material was applied over the saphenous segments and tributaries to allow for eccentric compression over the target vessels including the targeted saphenous vein(s). A multilayer dressing was applied consisting of foam pads, coban and thigh-high 20-30 mm Hg compression elastic support hose were placed on the patient. The leg was lowered only after compression had been applied and the patient was immediately ambulatory. The patient ambulated 10 minutes under supervision and was without apparent concerns at time of release Post-care instructions include advising patient to keep post-treatment bandages in place and dry for 48 hours, avoid extended periods of inactivity, avoid heavy exercise for one week, wear compression stockings on the treated leg continuously for two weeks, to walk daily for 10 minutes over the next month. The patient was instructed to take an anti-inflammatory medicine as needed and to follow up for color duplex scan of the Saphenous veins, the treated branch saphenous varicosities, the adjacent deep veins, and additional treatment within 7 days. PERSONNEL: Chleo Huerta Dictated by: Will Zacarias M.D. on 07/14/2022 at 10:32 Approved by: Will Zacarias M.D. on 07/14/2022 at 10:43 Normal [facility] [place] CBC AUTO DIFFon 07-13-2022 BASO # 0.0 103/ul Normal 0.0-0.1 [facility] [place] Comment on above: Performed By: #### C BC #### [facility] [place] Laboratory [address] [place] [address] Dr. Bird Gonzalez Basophils/100 WBC (Bld) 0.6 % Normal 0.2-2.0 [facility] Comment on above: Performed By: #### C BC #### [facility] [place] Laboratory [address] [place] [address] Dr. Bird Gonzalez EO # 0.1 103/ul Normal 0.0-0.7 [facility] Comment on above: Performed By: #### C BC #### [facility] [place] Laboratory [address] [place] [address] Dr. Bird Gonzalez Eosinophils/100 WBC (Bld) 2.2 % Normal 0.9-7.0 [facility] Comment on above: Performed By: #### C BC #### [facility] [place] Laboratory [address] [place] [address] Dr. Bird Gonzalez Erythrocyte distribution width (RBC) [Ratio] 14.4 % Normal 11.0-15.0 [facility] Comment on above: Performed By: #### C BC #### [facility] [place] Laboratory [address] [place] [address] Dr. Bird Gonzalez Hematocrit (Bld) [Volume fraction] 40.3 % Normal 36.0-48.0 [facility] Comment on above: Performed By: #### C BC #### [facility] [place] Laboratory [address] [place] [address] Dr. Bird Gonzalez Hemoglobin (Bld) [Mass/Vol] 13.4 g/dL Normal 12.0-16.0 [facility] Comment on above: Performed By: #### C BC #### [facility] [place] Laboratory [address] [place] [address] Dr. Bird Gonzalez IG # 0.00 10e3/ul Normal 0.00-0.03 [facility] Comment on above: Performed By: #### C BC #### [facility] [place] Laboratory [address] [place] [address] Dr. Bird Gonzalez IG % 0.0 % Normal 0.0-0.5 [facility] [place] Comment on above: Performed By: #### C BC #### [facility] [place] Laboratory [address] [place] [address] Dr. Bird Gonzalez LYMPH # 1.2 103/ul Normal 1.2-3.8 [facility] [place] Comment on above: Performed By: #### C BC #### [facility] [place] Laboratory [address] [place] [address] Dr. Bird Gonzalez Lymphocytes/100 WBC (Bld) 36.2 % Normal 20.5-60.0 [facility] Comment on above: Performed By: #### C BC #### [facility] [place] Laboratory [address] [place] [address] Dr. Bird Gonzalez MANUAL DIFF REQ NO Normal [facility] Comment on above: Performed By: #### C BC #### [facility] [place] Laboratory [address] [place] [address] Dr. Bird Gonzalez MCH (RBC) [Entitic mass] 31.2 pg Normal 26.7-34.0 [facility] Comment on above: Performed By: #### C BC #### [facility] [place] Laboratory [address] [place] [address] Dr. Bird Gonzalez MCHC (RBC) [Mass/Vol] 33.3 g/dL Normal 29.9-35.2 [facility] Comment on above: Performed By: #### C BC #### [facility] [place] Laboratory [address] [place] [address] Dr. Bird Gonzalez MCV (RBC) [Entitic vol] 93.9 fL Normal 81.0-99.0 [facility] Comment on above: Performed By: #### C BC #### [facility] [place] Laboratory [address] [place] [address] Dr. Bird Gonzalez MONO # 0.2 103/ul Critically low 0.3-0.8 [facility] Comment on above: Performed By: #### C BC #### [facility] [place] Laboratory [address] [place] [address] Dr. Bird Gonzalez Monocytes/100 WBC (Bld) 6.2 % Normal 1.7-12.0 [facility] Comment on above: Performed By: #### C BC #### [facility] Laboratory [address] [place] [address] Dr. Bird Gonzalez NEUT # 1.8 103/ul Normal 1.4-6.5 [facility] [place] Comment on above: Performed By: #### C BC #### [facility] Laboratory [address] [place] [address] Dr. Bird Gonzalez Neutrophils/100 WBC (Bld) 54.8 % Normal 43.0-75.0 [facility] Comment on above: Performed By: #### C BC #### [facility] [place] Laboratory [address] [place] [address] Dr. Bird Gonzalez Platelet mean volume (Bld) [Entitic vol] 10.8 fL Normal 9.5-13.5 [facility] Comment on above: Performed By: #### C BC #### [facility] [place] Laboratory [address] [place] [address] Dr. Bird Gonzalez PLT 88 103/ul Critically low 150-450 [facility] Comment on above: Performed By: #### C BC #### [facility] [place] Laboratory [address] [place] [address] Dr. Bird Gonzalez RBC 4.29 106/ul Normal 4.20-5.40 [facility] Comment on above: Performed By: #### C BC #### [facility] [place] Laboratory [address] [place] [address] Dr. Bird Gonzalez WBC 3.2 103/ul Critically low 4.0-11.0 [facility] Comment on above: Performed By: #### C BC #### [facility] [place] Laboratory [address] [place] [address] Dr. Bird Gonzalez ER URINE PROFILEon 3 Bilirubin Ql (U) Negative Normal NEGATIVE [facility] Comment on above: Performed By: #### U MICRO, ERUR #### [facility] [place] Laboratory [address] [place] [address] Dr. Bird Gonzalez Clarity (U) CLEAR Normal CLEAR [facility] [place] Comment on above: Performed By: #### U MICRO, ERUR #### [facility] Laboratory [address] [place] [address] Dr. Bird Gonzalez Color (U) DK. ORANGE Abnormal YELLOW [facility] Comment on above: Performed By: #### U MICRO, ERUR #### [facility] [place] Laboratory [address] [place] [address] Dr. Bird Gonzalez ERUAHD A micrscopic examination will be performed if indicated. Normal [facility] [place] Comment on above: Performed By: #### U MICRO, ERUR #### [facility] [place] Laboratory [address] [address] [address] Bird Gonzalez Glucose Ql (U) >1000 Abnormal NEGATIVE [facility] Comment on above: Performed By: #### U MICRO, ERUR #### [facility] [place] Laboratory [address] [address] [address] Bird Gonzalez Hemoglobin Ql (U) LARGE Abnormal NEGATIVE [facility] Comment on above: Performed By: #### U MICRO, ERUR #### [facility] [place] Laboratory [address] [address] [address] Bird Gonzalez Ketones Ql (U) Negative Normal NEGATIVE [facility] Comment on above: Performed By: #### U MICRO, ERUR #### [facility] Laboratory [address] [place] [address] Dr. Bird Gonzalez LEUKOCYTES MODERATE Abnormal NEGATIVE [facility] Comment on above: Performed By: #### U MICRO, ERUR #### [facility] [place] Laboratory [address] [address] [address] Bird Gonzalez Nitrite Ql (U) Positive Abnormal NEGATIVE [facility] Comment on above: Performed By: #### U MICRO, ERUR #### [facility] [place] Laboratory [address] [address] [address] Bird Gonzalez pH (U) 5.5 [pH] Normal 5-9 [facility] Comment on above: Performed By: #### U MICRO, ERUR #### [facility] [place] Laboratory [address] [place] [address] Dr. Bird Gonzalez Protein (U) [Mass/Vol] 30 mg/dL Abnormal NEGAT MURRAY/ TRACE [facility] Comment on above: Performed By: #### U MICRO, ERUR #### [facility] Laboratory [address] [address] [address] Bird Gonzalez SPEC GRAVITY >=1.030 Abnormal 1.005-<=1.02 5 [facility] Comment on above: Performed By: #### U MICRO, ERUR #### [facility] [place] Laboratory [address] [place] [address] Dr. Bird Gonzalez UR MICRO IND INDICATED Normal [facility] Comment on above: Performed By: #### U MICRO, ERUR #### [facility] [place] Laboratory [address] [address] [address] Bird Gonzalez Urobilinogen Qn (U) 4 {Willow'U}/dL Abnormal 0.2 - 1.0 [facility] Comment on above: Performed By: #### U MICRO, ERUR #### [facility] [place] Laboratory [address] [address] [address] Bird Gonzalez PROF CHEM 8 (BAS METB)on Anion gap [Moles/Vol] 10.2 mmol/L Normal [facility] Comment on above: Performed By: #### B MP ####[facility] [place] [id number] [address]DrColt Gonzalez Calcium [Mass/Vol] 8.5 mg/dL Normal 8.5-10.1 [facility] Comment on above: Performed By: #### B MP ####[facility] [address] [address]DrColt Gonzalez Chloride [Moles/Vol] 103 mmol/L Normal 98-107 [facility] Comment on above: Performed By: #### B MP ####[facility] [address] [address]DrColt Gonzalez CO2 [Moles/Vol] 30.5 mmol/L Normal 21.0-32.0 [facility] Comment on above: Performed By: #### B MP ####[facility] [address] [address]DrColt Gonzalez Creatinine [Mass/Vol] 0.54 mg/dL Critically low 0.55-1.02 [facility] Comment on above: Performed By: #### B MP ####[facility] [address] [address]DrColt Gonzalez EGFR-AF BRAZILIAN >60 Normal >=60 [facility] Comment on above: Performed By: #### B MP ####[facility] [address] [address]Dr. Bird Gonzalez EGFR-NON AF BRAZILIAN >60 Normal >=60 [facility] Comment on above: Performed By: #### B MP ####[facility] [id number] [id number][address] Bird Gonzalez Glucose [Mass/Vol] 321 mg/dL Critically high 74-106 [facility] Comment on above: Performed By: #### B MP ####[facility] [address] [address]Dr. Bird Gonzalez Potassium [Moles/Vol] 3.7 mmol/L Normal 3.5-5.1 [facility] Comment on above: Performed By: #### B MP ####[facility] [address] [address]Dr. Bird Gonzalez Sodium [Moles/Vol] 140 mmol/L Normal 136-145 [facility] Comment on above: Performed By: #### B MP ####[facility] [address] [address]Dr. Bird Gonzalez Urea nitrogen [Mass/Vol] 6.0 mg/dL Critically low 7.0-18.0 [facility] Comment on above: Performed By: #### B MP ####[facility] [place] [address] [address]Dr. Bird Gonzalez Urea nitrogen/Creatinine [Mass ratio] 11.1 mg/mg Normal [facility] Comment on above: Performed By: #### B MP ####[facility] [address] [address]Dr. Bird Gonzalez URINE MICROSCOPIC ONLYon BACTERIA SMALL Abnormal NONE SEEN [facility] [place] Comment on above: Performed By: #### U MICRO, ERUR #### [facility] [place] Laboratory [address] [address] [address] Bird Gonzalez Bacteria identified Cx Nom (U) INDICATED Normal [facility] Comment on above: Performed By: #### U MICRO, ERUR #### [facility] [place] Laboratory [address] [address] [address] Bird Gonzalez CAST NONE SEEN Normal NONE SEEN [facility] Comment on above: Performed By: #### U MICRO, ERUR #### [facility] [place] Laboratory [address] [address] [address] Bird Gonzalez Crystals LM Nom (Urine sed) NONE SEEN Normal NONE SEEN [facility] [place] Comment on above: Performed By: #### U MICRO, ERUR #### [facility] Laboratory [address] [address] [address] Bird Gonzalez Epithelial cells LM Ql (Urine sed) FEW Abnormal NONE SEEN /RARE [facility] [place] Comment on above: Performed By: #### U MICRO, ERUR #### [facility] Laboratory [address] [address] [address] Bird Gonzalez MUCOUS TRACE Abnormal NONE SEEN [facility] [place] Comment on above: Performed By: #### U MICRO, ERUR #### [facility] Laboratory [address] [place] [address] Dr. Bird Gonzalez RBC 0-2 Normal 0-2 [facility] [place] Comment on above: Performed By: #### U MICRO, ERUR #### [facility] Laboratory [address] [place] [address] Dr. Bird Gonzalez WBC 2-5 Abnormal NONE SEEN [facility] Comment on above: Performed By: #### U MICRO, ERUR #### [facility] Laboratory [address] [place] [address] Dr. Bird Gonzalez US MANISHA DOP LEG LTon 07-13-19 23 US MANISHA DOP LEG LT EXAM: US MANISHA DOP LEG LT HISTORY: Pain of left lower leg . Recent EVLT on 07/01/2022. COMPARISON: 03/30/2022. 06/29/2022. TECHNIQUE: Grayscale, color and spectral Doppler ultrasound of the left lower extremity venous system. FINDINGS: No evidence of deep venous thrombosis within the left lower extremity venous system. There is appropriate venous flow, compressibility and augmentation with compression within the deep venous system. Superficial venous thrombosis is present consistent with recently performed EVLT. IMPRESSION: No evidence of deep venous thrombosis within the left lower extremity venous system. Superficial venous thrombosis is present consistent with recently performed EVLT. Electronically authenticated by: VIKI VICTOR Date: 2022-07-13 15:38 Normal [facility] VC CONSULT FOLLOWUPon 2021 VC CONSULT FOLLOWUP Patient: BOBBY BRINK Exam Date: 07/07/2022 : 1980 Gender:F Ordering : DR PJ GUDINO M.D. Admission #: [id number] Family : Order #: [id number] CLICK HERE TO VIEW EXAM RADIOLOGY REPORT PROCEDURE: VEIN CENTER CONSULTATION FOLLOWUP VEIN CENTER - OFFICE VISIT FOLLOW UP COMPARISON: VC CONSULT FOLLOWUP, 06/29/2022. VC CONSULT FOLLOWUP, 06/09/2022. PROGRESS NOTES: The patient reports no significant pain following intravenous laser ablation of right small saphenous vein. The patient did require analgesics. The patient did wear compression wraps. The patient has followed our recommendations to walk 20-30 minutes once or twice per day since the procedure. Physical exam demonstrates moderate subcutaneous edema, unchanged from initial presenting exam. The treated veins cannot be definitively be palpated due to obesity. No areas of erythema or warmth to suggest cellulitis or thrombophlebitis. No active ulceration. Review of the ultrasound performed the same day demonstrates occlusive thrombus extending throughout the treated left small saphenous vein with heat induced thrombus 2 cm from the saphenopopliteal junction. The patient expressed a desire to proceed with treatment of incompetent varicose veins with micro foam chemical ablation. IMPRESSION: 1. Successful ablation of the right small saphenous vein 2. Persistent bilateral incompetent varicose veins PLAN: Micro foam chemical ablation left leg Nurse notes, history and physical were reviewed and confirmed, see attached forms. The nurse was present throughout the physical exam and consultation Dictated by: Pj Gudino MD on 07/07/2022 at 14:09 Approved by: Pj Gudino MD on 07/07/2022 at 14:10 Normal [facility] VC EXT VENOUS RT LIMITEDon 1 09-07-2021 VC EXT VENOUS RT LIMITED Patient: BOBBY BRINK Exam Date: 07/07/2022 : 1980 Gender:F Ordering : DR PJ GUDINO M.D. Admission #: [id number] Family : Order #: [id number] CLICK HERE TO VIEW EXAM RADIOLOGY REPORT PROCEDURE: VEIN CENTER EXTREMITY VENOUS RIGHT LIMITED COMPARISON: VC EXT VENOUS RT LIMITED, 06/09/2022. VC EXT VENOUS RT LIMITED, 04/27/2022. INDICATIONS: Phlebitis of superficial veins of lower extremity I80.01 TECHNIQUE: Lower extremity eugene scale and Duplex Doppler evaluation of the deep venous system from the inguinal ligament through the calf veins. FINDINGS: REGION: Right lower extremity. THROMBI: Negative for DVT. Heat induced thrombus visualized 2.0 cm from the SPJ. The heat induced thrombus extends throughout the SSV. COMPRESSIBILITY: Non-compressible segments. FLOW: Areas of no flow. *Exam performed in accordance with [facility] practice guidelines- Peripheral venous ultrasound, October 05, 2009. CONCLUSION: Post ablation occlusion of the small saphenous vein with heat induced thrombus 2 cm from the saphenous popliteal junction. Dictated by: Pj Gudino MD on 07/07/2022 at 13:00 Approved by: Pj Gudino MD on 07/07/2022 at 13:02 Normal [facility] VC ENDOVENOUS ABL 1ST V RTon 07-01-2022 VC ENDOVENOUS ABL 1ST V RT Patient: BOBBY BRINK Exam Date: 07/01/2022 : 1980 Gender:F Ordering : DR PJ GUDINO M.D. Admission #: [id number] Family : Order #: [id number] CLICK HERE TO VIEW EXAM RADIOLOGY REPORT PROCEDURE: VEIN CENTER ENDOVENOUS ABLATION FIRST VEIN RIGHT COMPARISON: VC ENDOVENOUS ABL 1ST V RT, 06/02/2022. INDICATIONS: Pain co-occurrent and due to varicose veins of bilateral legs I83.813 OPERATIVE REPORT: The risks and benefits of the procedure had been previously discussed, and were rediscussed at length. Informed written consent was obtained by me and Pato Abarca assisted. Time out procedure was performed. The right lower extremity was prepared and draped in the usual sterile fashion to allow knee flexion in the sterile field. Duplex ultrasound probe was draped in a sterile cover, sterile transmission gel was used. Venous mapping was performed with the areas of dilation and large tributaries marked. The total length was 32 cm from the entry 2 cm above the medial malleolus to 3 cm below the saphenopopliteal junction. The diameter of the greater saphenous vein ranged from 7 mm. A 30 gauge needle and 1% buffered lidocaine was used to anesthetize the entry site. A 4 mm incision was made with a scalpel and the saphenous vein was entered percutaneously under direct ultrasound guidance with a micropuncture set, a single stick was successful in gaining access. A micro-guide wire was inserted and the needle removed. A micro-set including a dilator was inserted over the microwire and the needle and dilator were removed. A 0.018 guide wire was inserted through the micro-set and threaded through the saphenous vein to the saphenofemoral junction. The dilator was removed and an introducer sheath was inserted over the wire until the end of the sheath entered the saphenofemoral junction. The dilator and wire were removed and the 600 micron fiber was introduced and placed and positioned so that it extended beyond the sheath and was 3 cm peripheral to the saphenofemoral femoral junction. Final position of the fiber was determined by ultrasound guidance and duplex imaging. Tumescent anesthetic was delivered by ultrasound guidance. Two hundred cc of fluid was delivered along the entire course of the saphenous vein. The solution consisted of 500 cc of normal saline with 20mL of 1% lidocaine and 10 mL of sodium bicarbonate. A final positioning check was made. The energy source was turned on by means of the foot pedal and the fiber and sheath were withdrawn. The total number of Joules delivered was 1527. The laser was active for 191 seconds under continuous pulse, average laser use of 8 J. Laser start time 12:17 p.m. July 01, 2022. Laser stop time 12:21 p.m. July 01, 2022. A duplex ultrasound revealed compressibility and flow at the saphenofemoral junction immediately after the procedure. Hemostasis at the access site was achieved. The skin incision of the saphenous vein was closed with a 4 x 4. A compression stocking was applied. Postop instructions were given. A follow up appointment was recommended and scheduled. The patient tolerated the procedure well and was discharged in good condition. CONCLUSION: 1. Technically successful endovenous laser ablation of the right small saphenous vein. Dictated by: Will Zacarias M.D. on 07/01/2022 at 13:03 Approved by: Will Zacarias M.D. on 07/01/2022 at 13:13 [facility] VC CONSULT FOLLOWUPon 2021 VC CONSULT FOLLOWUP Patient: BOBBY BRINK Exam Date: 06/29/2022 : 1980 Gender:F Ordering : DR PJ GUDINO M.D. Admission #: [id number] Family : Order #: [id number] CLICK HERE TO VIEW EXAM RADIOLOGY REPORT PROCEDURE: VEIN CENTER CONSULTATION FOLLOWUP VEIN CENTER - OFFICE VISIT FOLLOW UP COMPARISON: VC CONSULT FOLLOWUP, 06/09/2022. PROGRESS NOTES: The patient reports that improvement in leg symptoms. There has been interval reduction in varicosities. The patient has followed our recommendations to walk 20-30 minutes once or twice per day since the procedure. Physical exam demonstrates decrease in varicosities of the left leg. Persistent varicosities are identified along the right. Review of the ultrasound performed the same day demonstrates occlusive thrombus extending throughout the treated vein, see separate report, consistent with a successful ablation. No thrombus extending into or beyond the saphenofemoral junction. The patient expressed a desire to proceed with treatment of right small saphenous vein and incompetent varicosities bilaterally. The patient was informed that treatment was a process and would require several procedures/sessions. IMPRESSION: 1. Successful ablation of the left anterior accessory saphenous vein 2. Persistent incompetent varicose veins and lower extremity symptoms PLAN: Endovenous laser ablation of right small saphenous vein followed by bilateral microfoam chemical ablation. Nurse notes, history and physical were reviewed and confirmed, see attached forms. The nurse was present throughout the physical exam and consultation Dictated by: Will Zacarias M.D. on 06/29/2022 at 11:51 Approved by: Will Zacarias M.D. on 06/29/2022 at 11:55 Normal [facility] VC EXT VENOUS LT LIMITEDon 1 08-30-2021 VC EXT VENOUS LT LIMITED Patient: BOBBY BRINK Exam Date: 06/29/2022 : 1980 Gender:F Ordering : DR PJ GUDINO M.D. Admission #: [id number] Family : Order #: [id number] CLICK HERE TO VIEW EXAM RADIOLOGY REPORT PROCEDURE: VEIN CENTER EXTREMITY VENOUS LEFT LIMITED COMPARISON: VC EXT VENOUS LT LIMITED, 05/15/2022. INDICATIONS: Phlebitis and thrombophlebitis of superficial veins of left lower extremity I80.02 TECHNIQUE: Lower extremity eugene scale and Duplex Doppler evaluation of the deep venous system from the inguinal ligament through the calf veins. FINDINGS: REGION: Left lower extremity. THROMBI: Negative for DVT. Heat induced thrombus in left AASV 2.0 cm from SFJ and extends to the mid thigh. COMPRESSIBILITY: Non-compressible segments. FLOW: Areas of no flow. OTHER: CONCLUSION: 1. Successful post ablation occlusion of treated left anterior accessory saphenous vein. Dictated by: Will Zacarias M.D. on 06/29/2022 at 11:50 Approved by: Will Zacarias M.D. on 06/29/2022 at 11:51 Normal [facility] [place] VC ENDOVENOUS ABL 1ST V LTon 06-23-2022 VC ENDOVENOUS ABL 1ST V LT Patient: BOBBY BRINK Exam Date: 06/23/2022 : 1980 Gender:F Ordering : DR PJ GUDINO M.D. Admission #: [id number] Family : Order #: [id number] CLICK HERE TO VIEW EXAM RADIOLOGY REPORT PROCEDURE: VEIN CENTER ENDOVENOUS ABLATION FIRST VEIN LEFT ANTERIOR ACCESSORY SAPHENOUS VEIN COMPARISON: VC VENOUS REFLUX JORGE LMT, 03/30/2022. VC ENDOVENOUS ABL 1ST V LT, 05/11/2022. INDICATIONS: Pain co-occurrent and due to varicose veins of bilateral legs I83.813 OPERATIVE REPORT: The risks and benefits of the procedure had been previously discussed, and were rediscussed at length. Informed written consent was obtained by and Gomez gutierrez. Time out procedure was performed. The left lower extremity was prepared and draped in the usual sterile fashion to allow knee flexion in the sterile field. Duplex ultrasound probe was draped in a sterile cover, sterile transmission gel was used. Venous mapping was performed with the areas of dilation and large tributaries marked. The total length was 17 cm from the entry mid thigh to 3 cm below the saphenofemoral junction. The diameter of the greater saphenous vein ranged from 6-8 mm. A 30 gauge needle and 1% buffered lidocaine was used to anesthetize the entry site. A 4 mm incision was made with a scalpel and the saphenous vein was entered percutaneously under direct ultrasound guidance with a micropuncture set, a single stick was successful in gaining access. A micro-guide wire was inserted and the needle removed. A micro-set including a dilator was inserted over the microwire and the needle and dilator were removed. A 0.018 guide wire was inserted through the micro-set and threaded through the saphenous vein to the saphenofemoral junction. The dilator was removed and an introducer sheath was inserted over the wire until the end of the sheath entered the saphenofemoral junction. The dilator and wire were removed and the 600 micron fiber was introduced and placed and positioned so that it extended beyond the sheath and was 3 cm peripheral to the saphenofemoral femoral junction. Final position of the fiber was determined by ultrasound guidance and duplex imaging. Tumescent anesthetic was delivered by ultrasound guidance. 100 cc of fluid was delivered along the entire course of the saphenous vein. The solution consisted of 500 cc of normal saline with 20mL of 1% lidocaine and 10 mL of sodium bicarbonate. A final positioning check was made. The energy source was turned on by means of the foot pedal and the fiber and sheath were withdrawn. The total number of Joules delivered was 1106. The laser was active for 138 seconds under continuous pulse, average laser use of 8 J. Laser start time 1035 a.m. June 23, 2022. Laser stop time 10:37 a.m. April 23, 2020. A duplex ultrasound revealed compressibility and flow at the saphenofemoral junction immediately after the procedure. Hemostasis at the access site was achieved. The skin incision of the saphenous vein was closed with a 4 x 4. A compression stocking was applied. Postop instructions were given. A follow up appointment was recommended and scheduled. The patient tolerated the procedure well and was discharged in good condition. CONCLUSION: 1. Technically successful endovenous laser ablation of the left anterior accessory saphenous vein. Dictated by: Pj Gudino MD on 06/23/2022 at 10:45 Approved by: Pj Gudino MD on 06/23/2022 at 10:46 [facility] VC CONSULT FOLLOWUPon 2021 VC CONSULT FOLLOWUP Patient: BOBBY BRINK Exam Date: 06/09/2022 : 1980 Gender:F Ordering : DR PJ GUDINO M.D. Admission #: [id number] Family : Order #: [id number] CLICK HERE TO VIEW EXAM RADIOLOGY REPORT PROCEDURE: VEIN CENTER CONSULTATION FOLLOWUP VEIN CENTER - OFFICE VISIT FOLLOW UP COMPARISON: VC CONSULT FOLLOWUP, 05/15/2022. PROGRESS NOTES: The patient reports improvement in right leg symptoms. There has been interval reduction in varicosities. The patient has followed our recommendations to walk 20-30 minutes once or twice per day since the procedure. Physical exam demonstrates decrease in varicosities of the right leg. Persistent superficial varicosities are identified along the legs bilaterally. Review of the ultrasound performed the same day demonstrates occlusive thrombus extending throughout the treated vein, see separate report, consistent with a successful ablation. No thrombus extending into or beyond the saphenofemoral junction. The patient expressed a desire to proceed with treatment of remaining incompetent superficial veins. The patient was informed that treatment was a process and would require several procedures/sessions. IMPRESSION: 1. Successful ablation of the right anterior accessory saphenous vein 2. Persistent dilated, incompetent veins and bilateral lower extremity symptoms PLAN: Endovenous laser ablation of left anterior accessory saphenous vein. Nurse notes, history and physical were reviewed and confirmed, see attached forms. The nurse was present throughout the physical exam and consultation Dictated by: Will Zacarias M.D. on 06/09/2022 at 11:02 Approved by: Will Zacarias M.D. on 06/09/2022 at 11:05 Normal [facility] VC EXT VENOUS RT LIMITEDon 1 08-09-2021 VC EXT VENOUS RT LIMITED Patient: BOBBY BRINK Exam Date: 06/09/2022 : 1980 Gender:F Ordering : DR PJ GUDINO M.D. Admission #: [id number] Family : Order #: [id number] CLICK HERE TO VIEW EXAM RADIOLOGY REPORT PROCEDURE: VEIN CENTER EXTREMITY VENOUS RIGHT LIMITED COMPARISON: VC EXT VENOUS RT LIMITED, 04/27/2022. INDICATIONS: Phlebitis of superficial veins of lower extremity I80.01 TECHNIQUE: Lower extremity eugene scale and Duplex Doppler evaluation of the deep venous system from the inguinal ligament through the calf veins. FINDINGS: REGION: Right lower extremity. THROMBI: Negative for DVT. Heat induced thrombus visualized 2.0cm from the SFJ. The heat induced thrombus extends through the AASV from groin to mid thigh. COMPRESSIBILITY: Non-compressible segments. FLOW: Areas of no flow. OTHER: CONCLUSION: 1. Successful post ablation occlusion of right anterior accessory saphenous vein. Dictated by: Will Zacarias M.D. on 06/09/2022 at 10:55 Approved by: Will Zacarias M.D. on 06/09/2022 at 11:02 Normal [facility] [place] VC ENDOVENOUS ABL 1ST V RTon 06-02-2022 VC ENDOVENOUS ABL 1ST V RT Patient: BOBBY BRINK Exam Date: 06/02/2022 : 1980 Gender:F Ordering : DR PJ GUDINO M.D. Admission #: [id number] Family : Order #: [id number] CLICK HERE TO VIEW EXAM RADIOLOGY REPORT PROCEDURE: VEIN CENTER ENDOVENOUS ABLATION FIRST VEIN RIGHT COMPARISON: VC ENDOVENOUS ABL 1ST V RT, 04/21/2022. INDICATIONS: Pain co-occurrent and due to varicose veins of bilateral legs OPERATIVE REPORT: The risks and benefits of the procedure had been previously discussed, and were rediscussed at length. Informed written consent was obtained by me and Gomez Glynn assisted. Time out procedure was performed. The right lower extremity was prepared and draped in the usual sterile fashion to allow knee flexion in the sterile field. Duplex ultrasound probe was draped in a sterile cover, sterile transmission gel was used. Venous mapping was performed with the areas of dilation and large tributaries marked. The total length was 23 cm from the entry midthigh to 3 cm below the saphenofemoral junction. The diameter of the greater saphenous vein ranged from 7 mm. A 30 gauge needle and 1% buffered lidocaine was used to anesthetize the entry site. A 4 mm incision was made with a scalpel and the saphenous vein was entered percutaneously under direct ultrasound guidance with a micropuncture set, a single stick was successful in gaining access. A micro-guide wire was inserted and the needle removed. A micro-set including a dilator was inserted over the microwire and the needle and dilator were removed. A 0.018 guide wire was inserted through the micro-set and threaded through the saphenous vein to the saphenofemoral junction. The dilator was removed and an introducer sheath was inserted over the wire until the end of the sheath entered the saphenofemoral junction. The dilator and wire were removed and the 600 micron fiber was introduced and placed and positioned so that it extended beyond the sheath and was 3 cm peripheral to the saphenofemoral femoral junction. Final position of the fiber was determined by ultrasound guidance and duplex imaging. Tumescent anesthetic was delivered by ultrasound guidance. Two hundred cc of fluid was delivered along the entire course of the saphenous vein. The solution consisted of 500 cc of normal saline with 20mL of 1% lidocaine and 10 mL of sodium bicarbonate. A final positioning check was made. The energy source was turned on by means of the foot pedal and the fiber and sheath were withdrawn. The total number of Joules delivered was 1230. The laser was active for 154 seconds under continuous pulse, average laser use of 8 J. Laser start time 2:32 p.m. June 02, 2022. Laser stop time 2:34 p.m. June 02, 2022. A duplex ultrasound revealed compressibility and flow at the saphenofemoral junction immediately after the procedure. Hemostasis at the access site was achieved. The skin incision of the saphenous vein was closed with a 4 x 4. A compression stocking was applied. Postop instructions were given. A follow up appointment was recommended and scheduled. The patient tolerated the procedure well and was discharged in good condition. CONCLUSION: 1. Technically successful endovenous laser ablation of the right anterior accessory saphenous vein. Dictated by: Will Zacarias M.D. on 06/02/2022 at 15:15 Approved by: Will Zacarias M.D. on 06/02/2022 at 15:16 Normal [facility] VC CONSULT FOLLOWUPon 2021 VC CONSULT FOLLOWUP Patient: BOBBY BRINK Exam Date: 05/15/2022 : 1980 Gender:F Ordering : DR PJ GUDINO M.D. Admission #: [id number] Family : Order #: [id number] CLICK HERE TO VIEW EXAM RADIOLOGY REPORT PROCEDURE: VEIN CENTER CONSULTATION FOLLOWUP VEIN CENTER - OFFICE VISIT FOLLOW UP COMPARISON: VC CONSULT FOLLOWUP, 04/27/2022. PROGRESS NOTES: The patient reports moderate pain of the left leg following intravenous laser ablation of the left small saphenous vein. The patient has taken over the counter ibuprofen for the pain. The patient has worn her compression stocking as directed. The patient has followed to the best of her ability our recommendations to walk 20-30 minutes once or twice per day since the procedure. Physical exam demonstrates no areas of bruising. No erythema or warmth to suggest cellulitis or thrombophlebitis. The small saphenous vein cannot be palpated. No areas of ulceration. Review of the ultrasound performed the same day demonstrates occlusive thrombus extending throughout the treated small saphenous vein with heat induced thrombus 3 cm from the saphenopopliteal junction. The patient expressed a desire to proceed with treatment of incompetent right anterior accessory saphenous vein. IMPRESSION: 1. Successful ablation of the left small saphenous vein 2. 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 The nurse was present throughout the physical exam and consultation Dictated by: Pj Gudino MD on 05/15/2022 at 09:45 Approved by: Pj Gudino MD on 05/15/2022 at 09:47 Normal [facility] VC EXT VENOUS LT LIMITEDon 1 07-15-2021 VC EXT VENOUS LT LIMITED Patient: CUBA BOBBY Luz MarinaColt Exam Date: 05/15/2022 : 1980 Gender:F Ordering : DR PJ GUDINO M.D. Admission #: [id number] Family : Order #: [id number] CLICK HERE TO VIEW EXAM RADIOLOGY REPORT PROCEDURE: VEIN CENTER EXTREMITY VENOUS LEFT LIMITED COMPARISON: None. INDICATIONS: Phlebitis and thrombophlebitis of superficial veins of left lower extremity I80.02 TECHNIQUE: Lower extremity eugene scale and Duplex Doppler evaluation of the deep venous system from the inguinal ligament through the calf veins. FINDINGS: REGION: Left lower extremity. THROMBI: Negative for DVT. Heat induced thrombus in left SSV 3.0 cm from SPJ and extends to distal calf in area of insert. COMPRESSIBILITY: Noncompressibility corresponding to thrombus FLOW: Absent flow corresponding to thrombus. *Exam performed in accordance with [facility] practice guidelines- Peripheral venous ultrasound, October 05, 2009. CONCLUSION: Post ablation occlusion of the left small saphenous vein with heat induced thrombus 3 cm from the saphenous popliteal junction Dictated by: Pj Gudino MD on 05/15/2022 at 09:33 Approved by: Pj Gudino MD on 05/15/2022 at 09:36 Normal [facility] VC ENDOVENOUS ABL 1ST V LTon 05-11-2022 VC ENDOVENOUS ABL 1ST V LT Patient: BOBBY BRINK Exam Date: 05/11/2022 : 1980 Gender:F Ordering : DR PJ GUDINO M.D. Admission #: [id number] Family : Order #: [id number] CLICK HERE TO VIEW EXAM RADIOLOGY REPORT PROCEDURE: VEIN CENTER ENDOVENOUS ABLATION FIRST VEIN LEFT SMALL SAPHENOUS VEIN COMPARISON: None. INDICATIONS: Pain co-occurrent and due to varicose veins of bilateral legs I83.813 OPERATIVE REPORT: The risks and benefits of the procedure had been previously discussed, and were rediscussed at length. Informed written consent was obtained by me and Gomez gutierrez. Time out procedure was performed. The left lower extremity was prepared and draped in the usual sterile fashion. Duplex ultrasound probe was draped in a sterile cover, sterile transmission gel was used. Venous mapping was performed with the areas of dilation and large tributaries marked. The total length was 32 cm from the entry 4 cm above the lateral malleolus to 3 cm from the saphenopopliteal junction. The diameter of the small saphenous vein ranged from 6-9 mm. A 30 gauge needle and 1% buffered lidocaine was used to anesthetize the entry site. A 4 mm incision was made with a scalpel and the saphenous vein was entered percutaneously under direct ultrasound guidance with a micropuncture set, a single stick was successful in gaining access. A micro-guide wire was inserted and the needle removed. A micro-set including a dilator was inserted over the microwire and the needle and dilator were removed. A 0.018 guide wire was inserted through the micro-set and threaded through the saphenous vein. The dilator was removed and an introducer sheath was inserted over the wire. The dilator and wire were removed and the 600 micron fiber was introduced and placed and positioned so that it extended beyond the sheath. Final position of the fiber was determined by ultrasound guidance and duplex imaging. Tumescent anesthetic was delivered by ultrasound guidance. 150 cc of fluid was delivered along the entire course of the saphenous vein. The solution consisted of 500 cc of normal saline with 20mL of 1% lidocaine and 10 mL of sodium bicarbonate. A final positioning check was made. The energy source was turned on by means of the foot pedal and the fiber and sheath were withdrawn. The total number of Joules delivered was 1531. The laser was active for 191 seconds under continuous pulse, average laser use of 8 J. Laser start time 9:08 a.m. May 11, 2022. Laser stop time 9:11 a.m. May 11, 2022. A duplex ultrasound revealed compressibility and flow at the saphenofemoral junction immediately after the procedure. Hemostasis at the access site was achieved. The skin incision of the saphenous vein was closed with a 4 x 4. A compression stocking was applied. Postop instructions were given. A follow up appointment was recommended and scheduled. The patient tolerated the procedure well and was discharged in good condition. CONCLUSION: 1. Technically successful endovenous laser ablation of the left small saphenous vein. Dictated by: Pj Gudino MD on 05/11/2022 at 09:14 Approved by: Pj Gudino MD on 05/11/2022 at 09:17 [facility] VC CONSULT FOLLOWUPon 2021 VC CONSULT FOLLOWUP Patient: BOBBY BRINK Exam Date: 04/27/2022 : 1980 Gender:F Ordering : DR PJ GUDINO M.D. Admission #: [id number] Family : Order #: [id number] CLICK HERE TO VIEW EXAM RADIOLOGY REPORT PROCEDURE: VEIN CENTER CONSULTATION FOLLOWUP VEIN CENTER - OFFICE VISIT FOLLOW UP COMPARISON: None. PROGRESS NOTES: The patient reports mild tenderness posterior to right knee. There has been slight interval reduction in varicosities. The patient has followed our recommendations to walk 20-30 minutes once or twice per day since the procedure. Physical exam demonstrates a few focal areas of mild bruising. No erythema or evidence of infection. No suspicious findings within the right popliteal fossa were patient describes tenderness. Review of the ultrasound performed the same day demonstrates occlusive thrombus extending throughout the treated vein, see separate report, consistent with a successful ablation. No thrombus extending into or beyond the saphenofemoral junction. The patient expressed a desire to proceed with treatment of left small saphenous vein and remaining incompetent varicosities. The patient was informed that treatment was a process and would require several procedures/sessions. IMPRESSION: 1. Successful ablation of the right great saphenous vein 2. Persistent bilateral incompetent veins and lower extremity symptoms PLAN: Endovenous laser ablation of left small saphenous vein will be performed next. Nurse notes, history and physical were reviewed and confirmed, see attached forms. The nurse was present throughout the physical exam and consultation Dictated by: Will Zacarias M.D. on 04/27/2022 at 10:54 Approved by: Will Zacarias M.D. on 04/27/2022 at 10:57 Normal [facility] VC EXT VENOUS RT LIMITEDon 1 VC EXT VENOUS RT LIMITED Patient: BOBBY BRINK Exam Date: 04/27/2022 : 1980 Gender:F Ordering : DR PJ GUDINO M.D. Admission #: [id number] Family : Order #: [id number] CLICK HERE TO VIEW EXAM RADIOLOGY REPORT PROCEDURE: VEIN CENTER EXTREMITY VENOUS RIGHT LIMITED COMPARISON: None. INDICATIONS: Phlebitis and thrombophlebitis of superficial veins of right lower extremity I80.01 TECHNIQUE: Lower extremity eugene scale and Duplex Doppler evaluation of the deep venous system from the inguinal ligament through the calf veins. FINDINGS: REGION: Right lower extremity. THROMBI: Negative for DVT. Heat-induced thrombus in right GSV 6.5 cm from SFJ and extends to the proximal calf in area of insert. COMPRESSIBILITY: Non-compressible segments. FLOW: Areas of no flow. OTHER: Mid/posterior thigh varicose vein measures 3.3 mm with 0.3s reflux. Proximal portion of this vein that leads to GSV is thrombosed. CONCLUSION: 1. Successful post ablation occlusion of treated right great saphenous vein. Dictated by: Will Zacarias M.D. on 04/27/2022 at 10:34 Approved by: Will Zacarias M.D. on 04/27/2022 at 10:48 Normal [facility] VC ENDOVENOUS ABL 1ST V RTon 04-21-2022 VC ENDOVENOUS ABL 1ST V RT Patient: BOBBY BRINK Exam Date: 04/21/2022 : 1980 Gender:F Ordering : DR PJ GUDINO M.D. Admission #: [id number] Family : Order #: [id number] CLICK HERE TO VIEW EXAM RADIOLOGY REPORT PROCEDURE: VEIN CENTER ENDOVENOUS ABLATION FIRST VEIN RIGHT GREAT SAPHENOUS VEIN COMPARISON: None. INDICATIONS: Pain co-occurrent and due to varicose veins of bilateral legs I83.813 OPERATIVE REPORT: The risks and benefits of the procedure had been previously discussed, and were rediscussed at length. Informed written consent was obtained by and Gomez gutierrez. Time out procedure was performed. The right lower extremity was prepared and draped in the usual sterile fashion to allow knee flexion in the sterile field. Duplex ultrasound probe was draped in a sterile cover, sterile transmission gel was used. Venous mapping was performed with the areas of dilation and large tributaries marked. The total length was 42 cm from the entry mid calf to 3 cm below the saphenofemoral junction. The diameter of the greater saphenous vein ranged from 6-8 mm. A 30 gauge needle and 1% buffered lidocaine was used to anesthetize the entry site. A 4 mm incision was made with a scalpel and the saphenous vein was entered percutaneously under direct ultrasound guidance with a micropuncture set, a single stick was successful in gaining access. A micro-guide wire was inserted and the needle removed. A micro-set including a dilator was inserted over the microwire and the needle and dilator were removed. A 0.018 guide wire was inserted through the micro-set and threaded through the saphenous vein to the saphenofemoral junction. The dilator was removed and an introducer sheath was inserted over the wire until the end of the sheath entered the saphenofemoral junction. The dilator and wire were removed and the 600 micron fiber was introduced and placed and positioned so that it extended beyond the sheath and was 3 cm peripheral to the saphenofemoral femoral junction. Final position of the fiber was determined by ultrasound guidance and duplex imaging. Tumescent anesthetic was delivered by ultrasound guidance. 250 cc of fluid was delivered along the entire course of the saphenous vein. The solution consisted of 500 cc of normal saline with 20mL of 1% lidocaine and 10 mL of sodium bicarbonate. A final positioning check was made. The energy source was turned on by means of the foot pedal and the fiber and sheath were withdrawn. The total number of Joules delivered was 2036. The laser was active for 255 seconds under continuous pulse, average laser use of 8 J. Laser start time 11:32 a.m. April 21, 2022. Laser stop time 11:37 o'clock April 21, 2022 p.m. A duplex ultrasound revealed compressibility and flow at the saphenofemoral junction immediately after the procedure. Hemostasis at the access site was achieved. The skin incision of the saphenous vein was closed with a 4 x 4. A compression stocking was applied. Postop instructions were given. A follow up appointment was recommended and scheduled. The patient tolerated the procedure well and was discharged in good condition. CONCLUSION: 1. Technically successful endovenous laser ablation of the right great saphenous vein. Dictated by: Pj Gudino MD on 04/21/2022 at 11:40 Approved by: Pj Gudino MD on 04/21/2022 at 11:48 Normal [facility] COMP CONSULTATIONon 03-30 VC COMP CONSULTATION Patient: BOBBY BRINK Exam Date: 03/30/2022 : 1980 Gender:F Ordering : DR JUAN OGLESBY . Admission #: [id number] Family : Order #: [id number] CLICK HERE TO VIEW EXAM This report includes an Addendum and supersedes previous reports for this exam. RADIOLOGY REPORT PROCEDURE: VC VEIN CENTER CONSULTATION VEIN CENTER - OFFICE VISIT INITIAL COMPARISON: None. PROGRESS NOTES: [age] year old female who presents with a six-month history of bilateral lower extremity swelling, pain, dilated veins, muscle cramping/throbbing, leg heaviness, stinging. The patient's leg symptoms are fairly symmetric bilaterally. There has been a progression of symptoms. This increases with prolonged leg dependency. The patient describes an improvement with rest and elevation. The patient denies any signs and symptoms to suggest arterial ischemia. The patient describes a family history diabetes, COPD, thyroid issues. The patient has drinking and smoking history of : None. Patient has a past medical history significant for diabetes, obesity, hypertension. The patient denies a history of deep venous thrombus or pulmonary embolus. See separate history and physical for medication list. No prior treatment for varicose or spider veins. Current use of 20-30 mmhg brown compression stockings. After review of nurse notes, history and physical exam I discussed at length the pathophysiology of venous hypertension and possible treatments, therapies and strategies available. We discussed at length the importance of elevating the lower extremities above the level of the heart, increased physical activity and compression stocking use. Ultrasound venous reflux study performed today was discussed at length with the patient. The report demonstrates right lower extremity dilated and incompetent great saphenous, small saphenous, and anterior accessory saphenous veins along with incompetent varicosities. Left lower extremity dilated and incompetent small saphenous, anterior accessory saphenous, and incompetent varicosities. PHYSICAL EXAM: The right leg demonstrates a few superficial varicosities, no significant spider veins, several small healed wounds, but no definite ulceration, marked edema, areas of skin discoloration. The left leg demonstrates a few superficial varicosities, no significant spider veins, several small healed wounds, but no definite ulceration, marked edema, areas of skin discoloration. Both thighs, legs and feet were symmetrically warm to the touch. Good posterior tibial and dorsalis pedis pulses were present bilaterally. IMPRESSION: 1. Bilateral lower extremity venous insufficiency 2. Bilateral lower extremity varicose veins 3. Marked bilateral lower extremity subcutaneous edema 4. No known flow significant arterial disease 5. CEAP: C4a, EP, AP, CT PLAN: 1. Continued use of compression stockings 2. Elevated legs and increased physical activity symptomatic relief 3. Right lower extremity endovenous laser ablation of great saphenous, anterior accessory saphenous, small saphenous veins. Microfoam chemical ablation of branch saphenous varicosities. 4. Left lower extremity be endovenous laser ablation of anterior accessory saphenous and small saphenous veins. Microfoam chemical ablation of branch saphenous varicosities. Nurse notes, history and physical were reviewed and confirmed, see attached forms. The nurse was present throughout the physical exam and consultation Dictated by: Will Zacarias M.D. on 03/30/2022 at 11:43 Approved by: Will Zacarias M.D. on 03/30/2022 at 11:51 ADDENDUM: Type of compression stockings worn by patient was added under progress note. Dictated by: Will Zacarias M.D. on 04/01/2022 at 09:23 Approved by: Will Zacarias M.D. on 04/01/2022 at 09:26 [facility] VC VENOUS REFLUX JORGE LMTon 0 03-30-2022 VC VENOUS REFLUX JORGE LMT Patient: BOBBY BRINK Exam Date: 03/30/2022 : 1980 Gender:F Ordering : DR JUAN OGLESBY . Admission #: [id number] Family : Order #: [id number] CLICK HERE TO VIEW EXAM RADIOLOGY REPORT PROCEDURE: VEIN CENTER ULTRASOUND VENOUS REFLUX BILATERAL LIMTED COMPARISON: None. INDICATIONS: Localized edema R60.0 TECHNIQUE: Duplex imaging of the lower extremity to assess the deep and superficial venous system for the presence of deep or superficial venous incompetence and to document the location and severity of disease. The study includes evaluation of the great saphenous vein (GSV), anterior accessory saphenous vein (AASV) and small saphenous vein (SSV). Patient scanned in reverse Trendelenburg and standing. FINDINGS: RIGHT LOWER EXTREMITY: Saphenofemoral Junction Reflux: Yes 7.6mm 1.5 sec GSV: Diam (mm) Reflux/ Time (sec) Proximal Thigh 8.5 Yes 1.3 Mid Thigh 7.7 Yes 1.1 Distal Thigh 7.8 Yes 0.8 Prox Calf 6.1 Yes 1.4 Mid Calf 5.2 Yes 1.3 Saphenopopliteal Junction Reflux: 7.8mm Yes 1.2 SSV: Proximal Calf 7.2 Yes 0.6 Mid Calf 6.6 Yes 1.9 AASV: Proximal Thigh 5.7 Yes 2.2 Mid Thigh 6.8 Yes 0.5 Distal Thigh Thrombi: No acute or chronic thrombus visualized. Compressibility: Normal Flow: Normal Preforator: Dist/med calf 5.7mm with 0.7s reflux. Mid/med calf 6.4mm with 0s reflux. Prox/med calf 4.5mm with 0s reflux. Tech Note: Incompetent SJF, GSV, AASV, SPJ,and SSV. Patent varicose vein mid/med calf 4.6mm with 0.9s reflux. Patent varicose vein prox/post calf 4.6mm with 0.5s reflux. Patent varicose vein dist/med calf with 1.0s reflux. LEFT LOWER EXTREMITY: Saphenofemoral Junction Reflux: Yes 8.8 mm 1.3 sec GSV: Diam (mm) Reflux/Time (sec) Proximal Thigh 9.0 Yes 1.4 Mid Thigh 5.0 Yes 0.8 Distal Thigh 6.1 No Prox Calf 4.6 No Mid Calf 4.9 Yes 0.4 Saphenopopliteal Junction Relux: 9.1 mm Yes 2.1 SSV: Proximal Calf 8.2 Yes 1.9 Mid Calf 6.0 No AASV: Proximal Thigh 6.7 Yes 0.6 Mid Thigh 7.3 Yes 0.8 Distal Thigh Thrombi: No acute or chronic thrombus visualized Compressibility: Normal Flow: Normal Vinyl Cutter: Dist/med calf 5.5mm with 0s reflux. Mid/med calf 5.0mm with 0s reflux. Tech Note: Incompetent SJF, GSV, AASV, SPJ, and SSV. GSV is extrafascial at mid GSV approximately 4 - 5 cm from the SFJ. Patent varicose vein mid/med calf 5.6m with 0.7s reflux. Patent varicose vein dist/med thigh 5.7mm with 0.7s reflux. CONCLUSION: 1. Dilated, incompetent right great saphenous, anterior accessory saphenous, and small saphenous veins with calf estate planner veins and multiple dilated, incompetent branch saphenous varicosities of the thigh and calf. 2. Dilated, incompetent left small saphenous vein and anterior accessory saphenous vein. The great saphenous vein becomes extra fascial approximately 4 cm distal to the saphenofemoral junction. Multiple dilated, incompetent branch saphenous varicosities of the thigh and calf. Dictated by: Will Zacarias M.D. on 03/30/2022 at 11:20 Approved by: Will Zacarias M.D. on 03/30/2022 at 11:43 Normal [facility] BNPon 03-20-2022 NT PRO BNP <5.0 Normal <=450.0 [facility] Comment on above: Performed By: #### B PROJECT ARCHITECT ####[facility] [address] [place], [place] [address]CtDr. Bird Gonzalez CBC AUTO DIFFon 03-20-2022 BASO # 0.0 103/ul Normal 0.0-0.1 [facility] Comment on above: Performed By: #### C BC #### [facility] Laboratory [address] [place], [place] [address] Dr. Bird Gonzalez Basophils/100 WBC (Bld) 0.5 % Normal 0.2-2.0 [facility] Comment on above: Performed By: #### C BC #### [facility] Laboratory [address] [place] [address] Dr. Bird Gonzalez EO # 0.1 103/ul Normal 0.0-0.7 [facility] Comment on above: Performed By: #### C BC #### [facility] Laboratory [address] [place] [address] Dr. Bird Gonzalez Eosinophils/100 WBC (Bld) 2.6 % Normal 0.9-7.0 [facility] Comment on above: Performed By: #### C BC #### [facility] Laboratory [address] [place] [address] Dr. Bird Gonzalez Erythrocyte distribution width (RBC) [Ratio] 14.3 % Normal 11.0-15.0 [facility] Comment on above: Performed By: #### C BC #### [facility] Laboratory [address] [place] [address] Dr. Bird Gonzalez Hematocrit (Bld) [Volume fraction] 43.3 % Normal 36.0-48.0 [facility] Comment on above: Performed By: #### C BC #### [facility] Laboratory [address] [place] [address] Dr. Bird Gonzalez Hemoglobin (Bld) [Mass/Vol] 14.0 g/dL Normal 12.0-16.0 [facility] Comment on above: Performed By: #### C BC #### [facility] Laboratory [address] [place] [address] Dr. Bird Gonzalez IG # 0.01 10e3/ul Normal 0.00-0.03 [facility] Comment on above: Performed By: #### C BC #### [facility] Laboratory [address] [place] [address] Dr. Bird Gonzalez IG % 0.3 % Normal 0.0-0.5 [facility] Comment on above: Performed By: #### C BC #### [facility] Laboratory [address] [place] [address] Dr. Bird Gonzalez LYMPH # 1.2 103/ul Normal 1.2-3.8 [facility] Comment on above: Performed By: #### C BC #### [facility] Laboratory [address] [place] [address] Dr. Bird Gonzalez Lymphocytes/100 WBC (Bld) 30.8 % Normal 20.5-60.0 [facility] Comment on above: Performed By: #### C BC #### [facility] Laboratory [address] [place] [address] Dr. Bird Gonzalez MANUAL DIFF REQ NO Normal [facility] Comment on above: Performed By: #### C BC #### [facility] Laboratory [address] [place] [address] Dr. Bird Gonzalez MCH (RBC) [Entitic mass] 31.5 pg Normal 26.7-34.0 [facility] Comment on above: Performed By: #### C BC #### [facility] Laboratory [address] [place] [address] Dr. Bird Gonzalez MCHC (RBC) [Mass/Vol] 32.3 g/dL Normal 29.9-35.2 [facility] Comment on above: Performed By: #### C BC #### [facility] Laboratory [address] [place] [address] Dr. Bird Gonzalez MCV (RBC) [Entitic vol] 97.5 fL Normal 81.0-99.0 [facility] Comment on above: Performed By: #### C BC #### [facility] Laboratory [address] [place] [address] Dr. Bird Gonzalez MONO # 0.3 103/ul Normal 0.3-0.8 [facility] Comment on above: Performed By: #### C BC #### [facility] Laboratory [address] [place] [address] Dr. Bird Gonzalez Monocytes/100 WBC (Bld) 6.7 % Normal 1.7-12.0 [facility] Comment on above: Performed By: #### C BC #### [facility] Laboratory [address] [place] [address] Dr. Bird Gonzalez NEUT # 2.3 103/ul Normal 1.4-6.5 [facility] Comment on above: Performed By: #### C BC #### [facility] Laboratory [address] [place] [address] Dr. Bird Gonzalez Neutrophils/100 WBC (Bld) 59.1 % Normal 43.0-75.0 [facility] Comment on above: Performed By: #### C BC #### [facility] Laboratory [address] [place] [address] [address] Bird Gonzalez Platelet mean volume (Bld) [Entitic vol] 10.1 fL Normal 9.5-13.5 [facility] Comment on above: Performed By: #### C BC #### [facility] Laboratory [address] [place] [address] [address] Bird Gonzalez PLT 83 103/ul Critically low 150-450 [facility] Comment on above: Performed By: #### C BC #### [facility] Laboratory [address] [place] [address] [address] Bird Gonzalez RBC 4.44 106/ul Normal 4.20-5.40 [facility] Comment on above: Performed By: #### C BC #### [facility] Laboratory [address] [place] [address] [address] Bird Gonzalez WBC 3.9 103/ul Critically low 4.0-11.0 [facility] Comment on above: Performed By: #### C BC #### [facility] Laboratory [address] [place] [address] [address] Bird Gonzalez PROF 14(COMP METB)on 022 Albumin [Mass/Vol] 3.0 g/dL Critically low 3.4-5.0 [facility] Comment on above: Performed By: #### C MP ####[facility] [address] [place] [address]Dr. Bird Gonzalez Albumin/Globulin [Mass ratio] 0.7 {ratio} Normal [facility] Comment on above: Performed By: #### C MP ####[facility] [id number] [place] [id number]. Bird Gonzalez ALP [Catalytic activity/Vol] 238 U/L Critically high 46-116 [facility] Comment on above: Performed By: #### C MP ####[facility] [address] [place] [address]Dr. Bird Gonzalez ALT [Catalytic activity/Vol] 51 U/L Normal 14-59 [facility] Comment on above: Performed By: #### C MP ####[facility] [address] [place] [address]Dr. Bird Carlos Anion gap [Moles/Vol] 12.8 mmol/L Normal Th e [facility] Comment on above: Performed By: #### C MP ####[facility] [address] [place], [place] [address]Dr. Bird Carlos AST [Catalytic activity/Vol] 64 U/L Critically high 15-37 [facility] Comment on above: Performed By: #### C MP ####[facility] [address] [place], [place] [address]Dr. Bird Gonzalez Bilirubin [Mass/Vol] 0.8 mg/dL Normal 0.2-1.0 [facility] Comment on above: Performed By: #### C MP ####[facility] [address] [place], [place] [address]Dr. Denissemeño Gonzalez Calcium [Mass/Vol] 8.7 mg/dL Normal 8.5-10.1 [facility] Comment on above: Performed By: #### C MP ####[facility] [address] [place], [place] [address]Dr. Bird Gonzalez Chloride [Moles/Vol] 103 mmol/L Normal 98-107 [facility] Comment on above: Performed By: #### C MP ####[facility] [address] [place], [place] [address]Dr. Bird Gonzalez CO2 [Moles/Vol] 30.2 mmol/L Normal 21.0-32.0 [facility] Comment on above: Performed By: #### C MP ####[facility] [address] [place], [place] [address]Dr. Bird Gonzalez Creatinine [Mass/Vol] 0.60 mg/dL Normal 0.55-1.02 [facility] Comment on above: Performed By: #### C MP ####[facility] [address] [place], [place] [address]Dr. Bird Gonzalez EGFR-AF BRAZILIAN >60 Normal >=60 [facility] Comment on above: Performed By: #### C MP ####[facility] [address] [place], [place] [address]Eq. Bird Gonzalez EGFR-NON AF BRAZILIAN >60 Normal >=60 [facility] Comment on above: Performed By: #### C MP ####[facility] [address] [place], [place] [address]Vn. Bird Gonzalez Globulin (S) [Mass/Vol] 4.3 g/dL Normal [facility] Comment on above: Performed By: #### C MP ####[facility] [id number] [place] [id number]. Bird Gonzalez Glucose [Mass/Vol] 287 mg/dL Critically high 74-106 [facility] Comment on above: Performed By: #### C MP ####[facility] [id number] [place] [id number]. Bird Carlos Potassium [Moles/Vol] 4.0 mmol/L Normal 3.5-5.1 [facility] Comment on above: Performed By: #### C MP ####[facility] [address] [place] [id number]. Bird Gonzalez Protein [Mass/Vol] 7.3 g/dL Normal 6.4-8.2 [facility] Comment on above: Performed By: #### C MP ####[facility] [address] [place] [id number]. Bird Gonzalez Sodium [Moles/Vol] 142 mmol/L Normal 136-145 [facility] Comment on above: Performed By: #### C MP ####[facility] [address]kt[address] [place] [id number]. Bird Carlos Urea nitrogen [Mass/Vol] 5.0 mg/dL Critically low 7.0-18.0 [facility] Comment on above: Performed By: #### C MP ####[facility] [place] [address] [place] [id number]. Bird Carlos Urea nitrogen/Creatinine [Mass ratio] 8.3 mg/mg Normal [facility] Comment on above: Performed By: #### C ####[facility] Undodbhmju[address] [place], [place] [address]JnColt Gonzalez SARS-CoV-2 (COVID-19) RNA NA A+probe Ql (Resp)on 01-21-2022 SARS-CoV-2 (COVID-19) RNA JOHNNY+probe Ql (Unsp spec) Negative [employer] Other Physician Referralon 021 Physician Referral [id number] Normal [facility] BASIC METABOLIC PANELon 12-10 Calcium [Mass/Vol] 8.9 mg/dL Normal 8.6-10.3 [facility] Comment on above: Performed By: #### 3 0, 33577 #### [facility] [address] [place] [address], [facility] Chloride [Moles/Vol] 103 mmol/L Normal 98-107 [facility] Comment on above: Performed By: #### 3 5199, 01113 #### [facility] [address] [place] [address], [facility] CO2 [Moles/Vol] 27 mmol/L Normal 21-31 [facility] Comment on above: Performed By: #### 3 5199, 18483 #### [facility] [address] [place] [address], [facility] Creatinine [Mass/Vol] 0.53 mg/dL Low 0.60-1.20 [facility] Comment on above: Performed By: #### 3 0, 07195 #### [facility] [address] [place] [address], [facility] GFR/1.73 sq M.predicted among blacks MDRD (S/P/Bld) [Vol rate/Area] mL/min/{1.73_m2} Normal >[address] [facility] Comment on above: Performed By: #### 3 5199, 10400 #### [facility] [address] [place] [address], [facility] GFR/1.73 sq M.predicted among non-blacks MDRD (S/P/Bld) [Vol rate/Area] mL/min/{1.73_m2} Normal >[address] [facility] Comment on above: Performed By: #### 3 5199, 72727 #### [facility] [address] [place] [address], [facility] Glucose [Mass/Vol] 205 mg/dL High 70-100 [facility] Comment on above: Performed By: #### 3 5199, 17812 #### [facility] [address] [place] [address], [facility] Potassium [Moles/Vol] 3.8 mmol/L Normal 3.5-5.[address] [facility] Comment on above: Performed By: #### 3 5199, 75534 #### [facility] [address] [place] [address], [facility] Sodium [Moles/Vol] 140 mmol/L Normal 136-145 [facility] Comment on above: Performed By: #### 3 5199, 90356 #### [facility] [address] [place] [address], [facility] Urea nitrogen [Mass/Vol] 9 mg/dL Normal 7-[address] [facility] Comment on above: Performed By: #### 3 5199, 85408 #### [facility] [address] [place] [address], [facility] CBC W/DIFFon 12-25-2020 ABS IMM GRANS 0.0 10*3/uL Normal 0.0-0.2 [facility] Comment on above: Performed By: #### 5 0103 #### [facility] [address] [place] [address], [facility] ABS NEUTROPHILS 4.3 10*3/uL Normal 1.6-7.6 The [facility] Comment on above: Performed By: #### 5 0103 #### [facility] [address] [place] [address], [facility] Basophils (Bld) [#/Vol] 0.1 10*3/uL Normal 0.0-0.[address] [facility] Comment on above: Performed By: #### 5 0103 #### [facility] [address] [place] [address], [facility] Basophils/100 WBC (Bld) 0.6 % Normal 0.0-1.[address] [facility] Comment on above: Performed By: #### 5 0103 #### [facility] [address] [facility] [place] [address], [facility] Eosinophils (Bld) [#/Vol] 0.1 10*3/uL Normal 0.0-0.[address] [facility] Comment on above: Performed By: #### 5 0103 #### [facility] [address] [facility] [place] [address], [facility] Eosinophils/100 WBC (Bld) 1.2 % Normal 0.0-6.[address] [facility] Comment on above: Performed By: #### 5 3 #### [facility] [address] [facility] [place] [address], [facility] Erythrocyte distribution width (RBC) [Ratio] 13.3 % Normal 11.5-15.[address] [facility] Comment on above: Performed By: #### 5 3 #### [facility] [address] [facility] [place] [address], [facility] Hematocrit (Bld) [Volume fraction] 43.5 % Normal 36.0-45.[address] [facility] Comment on above: Performed By: #### 5 3 #### [facility] [address] [place] [address], [facility] Hemoglobin (Bld) [Mass/Vol] 14.6 g/dL Normal 12.0-15.[address] [facility] Comment on above: Performed By: #### 5 0103 #### [facility] [address] [place] [address], [facility] IMM PLATELET FRAC 2.2 % Normal 0.8-6.3 The [facility] Comment on above: Performed By: #### 5 0103 #### [facility] [address] [facility] [place] [address], [facility] IMMATURE GRANS 0.2 % Normal 0.0-1.0 [facility] Comment on above: Performed By: #### 5 0103 #### [facility] [address] [facility] [place] [place] [address], [facility] Lymphocytes (Bld) [#/Vol] 3.3 10*3/uL Normal 1.2-4.[address] [facility] Comment on above: Performed By: #### 5 0103 #### [facility] [address] [facility] [place] [address], [facility] Lymphocytes/100 WBC (Bld) 39.9 % Normal 20.0-45.[address] [facility] Comment on above: Performed By: #### 5 0103 #### [facility] [address] [facility] [place] [place] [address], [facility] MCH (RBC) [Entitic mass] 32.3 pg Normal 27.0-33.[address] [facility] Comment on above: Performed By: #### 5 0103 #### [facility] [address] [facility] [place] [address], [facility] MCHC (RBC) [Mass/Vol] 33.6 g/dL Normal 32.0-35.[address] [facility] Comment on above: Performed By: #### 5 3 #### [facility] [address] [place] [address], [facility] MCV (RBC) [Entitic vol] 96.2 fL Normal 82.0-98.[address] [facility] Comment on above: Performed By: #### 5 0103 #### [facility] [address] [place] [address], [facility] Monocytes (Bld) [#/Vol] 0.5 10*3/uL Normal 0.1-1.[address] [facility] Comment on above: Performed By: #### 5 0103 #### [facility] [address] [facility] [place] [place] [address], [facility] MONOS 5.5 % Normal 5.0-12.[address] [facility] Comment on above: Performed By: #### 5 0103 #### [facility] [address] [facility] [place] [place] [address], [facility] Neutrophils/100 WBC (Bld) 52.6 % Normal 40.0-72.[address] [facility] Comment on above: Performed By: #### 5 3 #### [facility] [address] [facility] [place] [place] [address], [facility] Nucleated RBC/100 WBC (Bld) [Ratio] 0 % Normal 0-[address] [facility] Comment on above: Performed By: #### 5 3 #### [facility] [address] [place] [address], [facility] PLAT CNT 119 10*3/uL Low 150-400 The [facility] Comment on above: Performed By: #### 5 3 #### [facility] [address] [place] [address], [facility] RBC (Bld) [#/Vol] 4.52 10*6/uL Normal 3.80-5.00 The [facility] Comment on above: Performed By: #### 5 102 #### [facility] [address] [place] [address], [place] WBC (Bld) [#/Vol] 8.19 10*3/uL Normal 4.00-10.60 The [facility] Comment on above: Performed By: #### 5 0103 #### [facility] [address] [facility] [place] [address], [facility] TROPONIN-Ion 12-25-2020 Troponin I.cardiac [Mass/Vol] 0.00 ng/mL Normal 0.00-0.04 [facility] Comment on above: Result Comment: REFE RENCE RANGES: 0.00 - 0.14 ng/ml NEGATIVE 0.15 - 0.25 ng/ml INDETERMINATE > 0.25 ng/ml INDICATIVE OF AN M.I. Performed By: #### 3 5200, 92378 #### [facility] [address] [facility]. [address] COMPREHENSIVE METABOLIC PANE L WITH GFRon 07-31-2020 Albumin [Mass/Vol] 3.6 g/dL Normal 3.2-5.3 [facility] Comment on above: Result Comment: Test performed at [facility] [address] [place] [address] CLIA Number [id number] ------ [facility] [address] [place] [address] CLIA No. [id number] CAP Accreditation No. [id number] Home Office Claim Specialist: Yanick Galvez M.D. Performed By: #### 2 709, 905 #### [facility] Unless Otherwise Noted [address] [facility] [address] [place] [address] / [facility] #2851/CLIA # [id number] ALK PHOS 174 U/L High 39-130 [facility] Comment on above: Performed By: #### 2 634, 225 #### [facility] Unless Otherwise Noted [address] [address] / [facility] #4724/CLIA # [id number] ALT [Catalytic activity/Vol] 45 U/L High 0-31 [facility] Comment on above: Performed By: #### 2 , 225 #### [facility] Unless Otherwise Noted [address] [address] / [facility] #4724/CLIA # [id number] Anion gap [Moles/Vol] 7 mmol/L Normal 5-15 End [facility] Comment on above: Performed By: #### 2 , 225 #### [facility] Unless Otherwise Noted [address] [address] / [facility] #4724/CLIA # [id number] AST-SGOT 54 U/L High 0-41 [facility] Comment on above: Performed By: #### 2 , 225 #### [facility] Unless Otherwise Noted [address] [address] / [facility] #4724/CLIA # [id number] Bilirubin.direct [Mass/Vol] 0.4 mg/dL Normal 0.3-1.2 [facility] Comment on above: Performed By: #### 2 755, 225 #### [facility] Unless Otherwise Noted [address] [address] / [facility] #4724/CLIA # [id number] Calcium [Mass/Vol] 8.8 mg/dL Normal 8.5-10.5 [facility] Comment on above: Performed By: #### 2 , 225 #### [facility] Unless Otherwise Noted [address] [facility] [address] [place] [address] / [facility] #4724/CLIA # [id number] Chloride [Moles/Vol] 104 mmol/L Normal 98-109 [facility] Comment on above: Performed By: #### 2 , 225 #### [facility] Unless Otherwise Noted [address] [facility] [address] [place] [address] / [facility] #4724/CLIA # [id number] CO2 [Moles/Vol] 34 mmol/L High 22-32 [facility] Comment on above: Performed By: #### 2 , 225 #### [facility] Unless Otherwise Noted [address] [address] / [facility] #4724/CLIA # [id number] Creatinine [Mass/Vol] 0.65 mg/dL Normal 0.40-1.00 [facility] Comment on above: Result Comment: METH OD TRACEABLE TO IDMS STANDARD Performed By: #### 2 , 225 #### [facility] Unless Otherwise Noted [address] [address] / [facility] #4724/CLIA # [id number] GFR/1.73 sq M predicted among blacks MDRD (S/P/Bld) [Vol rate/Area] mL/min/{1.73_m2} Normal >59 [facility] Comment on above: Performed By: #### 2 , 225 #### [facility] Unless Otherwise Noted [address] [address] / [facility] #4724/CLIA # [id number] GFR/1.73 sq M predicted among non-blacks MDRD (S/P/Bld) [Vol rate/Area] mL/min/{1.73_m2} Normal >59 [facility] Comment on above: Performed By: #### 2 , 225 #### [facility] Unless Otherwise Noted [address] [address] / [facility] #4724/CLIA # [id number] Glucose [Mass/Vol] 310 mg/dL High 65-99 [facility] Comment on above: Performed By: #### 2 , 225 #### [facility] Unless Otherwise Noted [address] [address] / [facility] #4724/CLIA # [id number] Potassium [Moles/Vol] 3.9 mmol/L Normal 3.5-5.0 [facility] Comment on above: Performed By: #### 2 , 225 #### [facility] Unless Otherwise Noted [address] [address] / [facility] #4724/CLIA # [id number] Protein [Mass/Vol] 6.5 g/dL Normal 6.0-8.0 [facility] Comment on above: Performed By: #### 2 , 225 #### [facility] Unless Otherwise Noted [address] [address] / [facility] #4724/CLIA # [id number] Sodium [Moles/Vol] 145 mmol/L Normal 134-146 [facility] Comment on above: Performed By: #### 2 , 225 #### [facility] Unless Otherwise Noted [address] [facility] [address] [place] [address] / [facility] #4724/CLIA # [id number] Urea nitrogen [Mass/Vol] 7 mg/dL Normal 5-23 [facility] Comment on above: Performed By: #### 2 , 225 #### [facility] Unless Otherwise Noted [address] [address] / [facility] #4724/CLIA # [id number] LIPID PANEL WITH REFLEX TO D IRECT LDLon 07-31-2020 Cholesterol [Mass/Vol] 180 mg/dL Normal 150-200 En [facility] Comment on above: Performed By: #### 2 79, 225 #### [facility] Unless Otherwise Noted [address] [address] / [facility] #4724/CLIA # [id number] Cholesterol in LDL/Cholesterol in HDL [Mass ratio] 2.3 Normal <3.5 [facility] Comment on above: Performed By: #### 2 652, 225 #### [facility] Unless Otherwise Noted [address] [address] / [facility] #4724/CLIA # [id number] Cholesterol.total/Chol esterol in HDL [Mass ratio] 4.9 {ratio} Normal 1.0-5.0 [facility] Comment on above: Result Comment: Test performed at [facility] [address] [facility] [place] [address] CLIA Number [id number] ------ Performed By: #### 2 976, 225 #### [facility] Unless Otherwise Noted [address] [address] / [facility] #4724/CLIA # [id number] HDL-CHOL 37 mg/dL Low >39 [facility] Comment on above: Result Comment: HDL <40 mg/dL - High Risk HDL > or = 40mg/dL- Desirable HDL >60 mg/dL - Negative Risk Performed By: #### 2 682, 225 #### [facility] Unless Otherwise Noted [address] [address] / [facility] #6212/CLIA # [id number] LDL-CHOL, CALCULATED 86 mg/dL Normal <130 [facility] Comment on above: Result Comment: LDL <100 mg/dL - Desirable LDL >160 mg/dL - High Risk Performed By: #### 2 714, 737 #### [facility] Unless Otherwise Noted [address] [address] / [facility] #9220/CLIA # [id number] Triglyceride [Mass/Vol] 287 mg/dL High 27-150 [facility] Comment on above: Performed By: #### 2 , 270, 225 #### [facility] Unless Otherwise Noted [address] [address] / [facility] #4724/CLIA # [id number] VLDL-CHOL, CALCULATED 57 mg/dL High 0-30 [facility] Comment on above: Performed By: #### 2 , 225 #### [facility] Unless Otherwise Noted [address] [address] / [facility] #4724/CLIA # [id number] MICROALBUMIN, RANDOM SPECon 07-31-2020 Creatinine [Mass/Vol] SEE NOTE Normal 0.0-30.0 End [facility] Comment on above: Result Comment: NOT CALCULATED Result for Albumin/Creatinine Ratio cannot be reliably calculated because urine albumin and or urine creatinine is below the detection limit of the assay. Performed at [facility] [address] [facility] [address] Performed By: #### 2 , 225 #### [facility] Unless Otherwise Noted [address] [address] / [facility] #4724/CLIA # [id number] Creatinine [Mass/Vol] 62.68 mg/dL Normal En [facility] Comment on above: Performed By: #### 2 , 225 #### [facility] Unless Otherwise Noted [address] [address] / [facility] #4724/CLIA # [id number] MICROALBUMIN <0.7 Normal 0.0-1.9 [facility] Comment on above: Performed By: #### 2 , 225 #### [facility] Unless Otherwise Noted [address] [address] / [facility] #4724/CLIA # [id number] C PEPTIDEon 03-28-2020 C PEPTIDE 10.3 NG/ML High 1.1-4.4 [facility] Comment on above: Result Comment: This Method has been standardized against the WHO International Reference Reagent for C-peptide of human insulin for immunoassay, IRP code 84/510, established 1985, from the National [place] [employer] Standards and Control (NIBSC). Test performed at [facility] [address] [place] [address] CLIA Number [id number] CAP Accreditation Number [id number] ------- [facility] [address] [place] [address] CLIA No. [id number] CAP Accreditation No. [id number] Home Office Claim Specialist: aYnick Galvez M.D. Performed By: #### 3 6066, 12833 #### [facility] Unless Otherwise Noted [address] [place] [address] / [facility] #4724/CLIA # [id number] GLUCOSEon 03-28-2020 Glucose [Mass/Vol] 365 mg/dL High 65-99 [facility] Comment on above: Result Comment: Perf ormed at [facility] [address] [place] [address] Performed By: #### 3 6066, 408[address] #### [facility] Unless Otherwise Noted [address] [place] [address] / [facility] #4724/CLIA # [id number] Vital Signs Date Time Vital Sign Value Performing Clinician Facility 08-01-2024 08:47-0500 Body height 175.3 cm Page Bobo MD Work Phone: [facility] 08-01-2024 08:47-0500 Body mass index (BMI) [Ratio] 53.16 kg/m2 Page Bobo MD Work Phone: [facility] 08-01-2024 08:47-0500 Body weight 163.29 kg Page Bobo MD Work Phone: [facility] 08-01-2024 08:47-0500 Diastolic blood pressure 77 mm[Hg] Page Bobo MD Work Phone: [facility] 08-01-2024 08:47-0500 Heart rate 104 /min Page Bobo MD Work Phone: [facility] 08-01-2024 08:47-0500 Systolic blood pressure 132 mm[Hg] Page Bobo MD Work Phone: [facility] 07-04-2024 11:10-0500 Body height 175.3 cm Page Bobo MD Work Phone: [facility] 07-04-2024 11:10-0500 Body mass index (BMI) [Ratio] 53.16 kg/m2 Page Bobo MD Work Phone: [facility] 07-04-2024 11:10-0500 Body weight 163.29 kg Page Bobo MD Work Phone: [facility] 07-04-2024 11:10-0500 Diastolic blood pressure 64 mm[Hg] Page Bobo MD Work Phone: [facility] 07-04-2024 11:10-0500 Systolic blood pressure 111 mm[Hg] Page Bobo MD Work Phone: [facility] 06-06-2024 12:53-0500 Body height 175.3 cm Page Bobo MD Work Phone: [facility] 06-06-2024 12:53-0500 Body mass index (BMI) [Ratio] 53.16 kg/m2 Page Bobo MD Work Phone: [facility] 06-06-2024 12:53-0500 Body weight 163.29 kg Page Bobo MD Work Phone: [facility] 06-06-2024 12:53-0500 Diastolic blood pressure 68 mm[Hg] Page Bobo MD Work Phone: [facility] 06-06-2024 12:53-0500 Systolic blood pressure 127 mm[Hg] Page Bobo MD Work Phone: [facility] 05-23-2024 13:45-0500 Body height 175.3 cm Lanette Petznick DO Work Phone: [facility] 05-23-2024 13:45-0500 Body mass index (BMI) [Ratio] 52.54 kg/m2 Lanette Petznick DO Work Phone: [facility] 05-23-2024 13:45-0500 Body temperature 97 [degF] Lanette Petznick DO Work Phone: [facility] 05-23-2024 13:45-0500 Body weight 161.39 kg Lanette Petznick DO Work Phone: [facility] 05-23-2024 13:45-0500 Diastolic blood pressure 72 mm[Hg] Lanette Petznick DO Work Phone: [facility] 05-23-2024 13:45-0500 Heart rate 88 /min Lanette Petznick DO Work Phone: [facility] 05-23-2024 13:45-0500 SaO2% (BldA) [Mass fraction] 98 % Lanette Petznick DO Work Phone: [facility] 05-23-2024 13:45-0500 Systolic blood pressure 126 mm[Hg] Lanette Petznick DO Work Phone: [facility] 05-15-2024 11:10-0500 Body height 175.3 cm Juan Oglesby MD Work Phone: [facility] 05-15-2024 11:10-0500 Body mass index (BMI) [Ratio] 52.28 kg/m2 Juan Oglesby MD Work Phone: [facility] 05-15-2024 11:10-0500 Body temperature 97.5 [degF] Juan Oglesby MD Work Phone: [facility] 05-15-2024 11:10-0500 Body weight 160.57 kg Juan Oglesby MD Work Phone: [facility] 05-15-2024 11:10-0500 Diastolic blood pressure 64 mm[Hg] Juan Oglesby MD Work Phone: [facility] 05-15-2024 11:10-0500 Heart rate 95 /min Juan Oglesby MD Work Phone: [facility] 05-15-2024 11:10-0500 Respiratory rate 24 /min Juan Oglesby MD Work Phone: [facility] 05-15-2024 11:10-0500 SaO2% (BldA) [Mass fraction] 96 % Juan Oglesby MD Work Phone: [facility] 05-15-2024 11:10-0500 Systolic blood pressure 118 mm[Hg] Juan Oglesby MD Work Phone: [facility] 04-18-2024 09:36-0400 Body height 175.3 cm Juan Oglesby MD Work Phone: [facility] 04-18-2024 09:36-0400 Body mass index (BMI) [Ratio] 52.13 kg/m2 Juan Oglesby MD Work Phone: [facility] 04-18-2024 09:36-0400 Body temperature 97.3 [degF] Juan Oglesby MD Work Phone: [facility] 04-18-2024 09:36-0400 Body weight 160.12 kg Juan Oglesby MD Work Phone: [facility] 04-18-2024 09:36-0400 Diastolic blood pressure 74 mm[Hg] Juan Oglesby MD Work Phone: [facility] 04-18-2024 09:36-0400 Heart rate 86 /min Juan Oglesby MD Work Phone: [facility] 04-18-2024 09:36-0400 Respiratory rate 20 /min Juan Oglesby MD Work Phone: [facility] 04-18-2024 09:36-0400 SaO2% (BldA) [Mass fraction] 96 % Juan Oglesby MD Work Phone: [facility] 04-18-2024 09:36-0400 Systolic blood pressure 130 mm[Hg] Juan Oglesby MD Work Phone: [facility] 03-14-2024 10:23-0400 Body height 175.3 cm Juan Oglesby MD Work Phone: [facility] 03-14-2024 10:23-0400 Body mass index (BMI) [Ratio] 52.13 kg/m2 Juan Oglesby MD Work Phone: [facility] 03-14-2024 10:23-0400 Body temperature 97.5 [degF] Juan Oglesby MD Work Phone: [facility] 03-14-2024 10:23-0400 Body weight 160.12 kg Juan Oglesby MD Work Phone: [facility] 03-14-2024 10:23-0400 Diastolic blood pressure 66 mm[Hg] Juan Oglesby MD Work Phone: [facility] 03-14-2024 10:23-0400 Heart rate 88 /min Juan Oglesby MD Work Phone: [facility] 03-14-2024 10:23-0400 Respiratory rate 20 /min Juan Oglesby MD Work Phone: [facility] 03-14-2024 10:23-0400 SaO2% (BldA) [Mass fraction] 95 % Juan Oglesby MD Work Phone: [facility] 03-14-2024 10:23-0400 Systolic blood pressure 140 mm[Hg] Juan Oglesby MD Work Phone: [facility] 01-25-2024 13:15-0400 Diastolic blood pressure 86 mm[Hg] MD Juan Oglesby Work Phone: [facility] 01-25-2024 13:15-0400 Heart rate 96 /min MD Juan Oglesby Work Phone: [facility] 01-25-2024 13:15-0400 Respiratory rate 18 /min MD Juan Oglesby Work Phone: [facility] 01-25-2024 13:15-0400 SaO2% (BldA) [Mass fraction] 98 % MD Juan Oglesby Work Phone: [facility] 01-25-2024 13:15-0400 Systolic blood pressure 139 mm[Hg] MD Juan Oglesby Work Phone: [facility] 01-25-2024 11:05-0400 Body height 177.8 cm MD Juan Oglesby Work Phone: [facility] 01-25-2024 11:05-0400 Body weight 158.75 kg MD Juan Oglesby Work Phone: [facility] 01-03-2024 13:04-0400 Body height 175.26 cm MD Juan Oglesby Work Phone: [facility] 01-03-2024 13:04-0400 Body mass index (BMI) [Ratio] 53 kg/m2 MD Juan Oglesby Work Phone: [facility] 01-03-2024 13:04-0400 Body weight 163 kg MD Juan Oglesby Work Phone: [facility] 10-20-2023 12:09-0400 Body height 175.26 cm MD Juan Oglesby Work Phone: [facility] 10-20-2023 12:09-0400 Body mass index (BMI) [Ratio] 53.1 kg/m2 MD Juan Oglesby Work Phone: [facility] 10-20-2023 12:09-0400 Body temperature 100 [degF] MD Juan Oglesby Work Phone: [facility] 10-20-2023 12:09-0400 Body weight 163.29 kg MD Juan Oglesby Work Phone: [facility] 10-20-2023 12:09-0400 Heart rate 110 /min MD Juan Oglesby Work Phone: [facility] 10-20-2023 12:09-0400 Respiratory rate 20 /min MD Juan Oglesby Work Phone: [facility] 10-20-2023 12:09-0400 SaO2% (BldA) [Mass fraction] 95 % MD Juan Oglesby Work Phone: [facility] 10-13-2023 08:34-0400 Body mass index (BMI) [Ratio] 52.01 kg/m2 Lizy Verhoff PA-C Work Phone: [facility] 10-13-2023 08:34-0400 Body weight 159.76 kg Lizy Verhoff PA-C [facility] 10-13-2023 08:34-0400 Diastolic blood pressure 87 mm[Hg] Lizy Verhoff PA-C Work Phone: [facility] 10-13-2023 08:34-0400 Heart rate 98 /min Lizy Verhoff PA-C Work Phone[facility] 10-13-2023 08:34-0400 SaO2% (BldA) [Mass fraction] 98 % Lizy Verhoff PA-C Work Phone[facility] 10-13-2023 08:34-0400 Systolic blood pressure 156 mm[Hg] Lizy Verhoff PA-C Work Phone: [employer] [facility] 10-03-2023 13:41-0400 Body height 175.26 cm [facility] 10-03-2023 13:41-0400 Body mass index (BMI) [Ratio] 52.4 kg/m2 [facility] 10-03-2023 13:41-0400 Body temperature 98.8 [degF] [facility] 10-03-2023 13:41-0400 Body weight 161.25 kg [facility] 10-03-2023 13:41-0400 Heart rate 103 /min [facility] 10-03-2023 13:41-0400 Respiratory rate 18 /min [facility] 10-03-2023 13:41-0400 SaO2% (BldA) [Mass fraction] 96 % [facility] 04-27-2023 14:00-0400 Body height 175.26 cm Elizabeth Velasco Other [employer] [facility] [employer] Other 04-27-2023 14:00-0400 Body mass index (BMI) [Ratio] 57.06 kg/m2 Elizabeth Velasco Other [employer] Other 04-27-2023 14:00-0400 Body temperature 98.1 [degF] Elizabeth Velasco Other [employer] Other 04-27-2023 14:00-0400 Body weight 175.27 kg Elizabeth Velasco Other [employer] Other 04-27-2023 14:00-0400 Diastolic blood pressure 77 mm[Hg] Elizabeth Velasco Other [employer] Other 04-27-2023 14:00-0400 Respiratory rate 18 /min Elizabeth Rod Other [employer] Other 04-27-2023 14:00-0400 SaO2% (BldA) [Mass fraction] 96 % Elizabeth Velasco Other [employer] Other 04-27-2023 14:00-0400 Systolic blood pressure 129 mm[Hg] Elizabeth Velasco Other [employer] Other 04-11-2023 13:40-0400 Body height 175.26 cm Brenda Shettymond Other [employer] Other 04-11-2023 13:40-0400 Body mass index (BMI) [Ratio] 55.08 kg/m2 Brenda Yoli Other [employer] Other 04-11-2023 13:40-0400 Body temperature 98.8 [degF] Brenda Yoli Other [employer] Other 04-11-2023 13:40-0400 Body weight 169.19 kg Brenda Shettymond Other [employer] Other 04-11-2023 13:40-0400 Diastolic blood pressure 66 mm[Hg] Brenda Yoli Other [employer] Other 04-11-2023 13:40-0400 SaO2% (BldA) [Mass fraction] 96 % Brenda Yoli Other [employer] Other 04-11-2023 13:40-0400 Systolic blood pressure 131 mm[Hg] Brenda Yoli Other [employer] Other 09-02-2022 12:11-0500 Diastolic blood pressure 61 mm[Hg] MD Juan Oglesby Work Phone: [facility] 09-02-2022 12:11-0500 Heart rate 95 /min MD Juan Oglesby Work Phone: [facility] 09-02-2022 12:11-0500 Respiratory rate 20 /min MD Juan Oglesby Work Phone: [facility] 09-02-2022 12:11-0500 SaO2% (BldA) [Mass fraction] 97 % MD Juan Oglesby Work Phone: [facility] 09-02-2022 12:11-0500 Systolic blood pressure 112 mm[Hg] MD Juan Oglesby Work Phone: [facility] 09-02-2022 10:30-0500 Body height 175.26 cm MD Juan Oglesby Work Phone: [facility] 09-02-2022 10:30-0500 Body temperature 98.4 [degF] MD Juan Oglesby Work Phone: [facility] 09-02-2022 10:30-0500 Body weight 170.09 kg MD Juan Oglesyb Work Phone: [facility] 03-19-2022 17:15-0400 Body height 175.26 cm Brenda Kent Other [employer] Other 03-19-2022 17:15-0400 Body mass index (BMI) [Ratio] 55.81 kg/m2 Brenda Kent Other [employer] Other 03-19-2022 17:15-0400 Body temperature 99 [degF] Brenda Kent Other [employer] Other 03-19-2022 17:15-0400 Body weight 171.46 kg Brenda Kent Other [employer] Other 03-19-2022 17:15-0400 Diastolic blood pressure 75 mm[Hg] Brenda Yoli Other [employer] Other 03-19-2022 17:15-0400 Respiratory rate 24 /min Brenda Yoli Other [employer] Other 03-19-2022 17:15-0400 SaO2% (BldA) [Mass fraction] 95 % Brenda Yoli Other [employer] Other 03-19-2022 17:15-0400 Systolic blood pressure 136 mm[Hg] Brenda Yoli Other [employer] Other 01-21-2022 11:20-0400 Body height 175.26 cm Brenda Yoli Other [employer] Other 01-21-2022 11:20-0400 Body mass index (BMI) [Ratio] 55.37 kg/m2 Brenda Yoli Other [employer] Other 01-21-2022 11:20-0400 Body temperature 100.3 [degF] Brenda Yoli Other [employer] Other 01-21-2022 11:20-0400 Body weight 170.1 kg Brenda Yoli Other [employer] Other 01-21-2022 11:20-0400 Respiratory rate 18 /min Brenda Yoli Other [employer] Other 01-21-2022 11:20-0400 SaO2% (BldA) [Mass fraction] 94 % Brenda Yoli Other [employer] Other Encounters Encounter Date Encounter Type Care Provider Facility Start: 08-07-2024 End: 08-07-2024 Telephone encounter Page Bobo MD Work Phone: [facility] Start: 08-01-2024 End: 08-01-2024 Bamboo flowsheet Page Bobo MD Work Phone: [facility] Start: 08-01-2024 End: 08-01-2024 Bamboo flowsheet Page Bobo MD Work Phone: [facility] Start: 08-01-2024 End: 08-01-2024 Office outpatient visit 25 minutes Page Bobo MD Work Phone: [facility] Comment on above: LAD (lymphadenopathy ) of left cervical region (Primary Dx); Nontoxic multinodular goiter (CMS/HCC); Parathyroid abnormality (CMS/HCC) Start: 08-01-2024 End: 08-01-2024 Refill Juan Oglesby MD Work Phone: [facility] Comment on above: Cervical spondylosis without myelopathy Start: 07-21-2024 End: 07-25-2024 Telephone encounter Page Bobo MD Work Phone: [facility] [place] Start: 07-18-2024 End: 07-18-2024 ambulatory Page Bobo [facility] Work Phone: Start: 07-18-2024 End: 07-18-2024 Departed Referred Page Bobo MD [facility] Start: 07-17-2024 End: 07-17-2024 ambulatory PAGE BOBO Not Available Start: 07-07-2024 End: 07-07-2024 Emergency department patient visit JUAN OGLESBY [facility] Start: 07-04-2024 End: 07-04-2024 Bambozain Bobo MD Work Phone: [facility] Start: 07-04-2024 End: 07-04-2024 Bamboo flowsheet Page Bobo MD Work Phone: [facility] Start: 07-04-2024 End: 07-04-2024 Office outpatient visit 25 minutes Page Bobo MD Work Phone: [facility] Comment on above: LAD (lymphadenopathy ) of left cervical region (Primary Dx) Start: 07-04-2024 End: 07-04-2024 ambulatory PAGE BOBO Not Available Start: 06-13-2024 End: 06-13-2024 Refill Juan Oglesby MD Work Phone: [facility] Comment on above: Cervical spondylosis without myelopathy Start: 06-10-2024 End: 06-12-2024 Refill Portia Quintana [employer] Work Phone: [facility] Start: 06-06-2024 End: 06-06-2024 ambulatory PAGE BOBO Not Available Start: 06-06-2024 End: 06-06-2024 Office outpatient new 45 minutes Page Bobo MD Work Phone: [facility] Comment on above: Heart murmur (Primar y Dx); Cervical lymphadenopathy Start: 05-29-2024 End: 05-29-2024 Orders Only Juan Oglesby MD Work Phone: [facility] Comment on above: Cervical lymphadenop athy (Primary Dx) Start: 05-23-2024 End: 05-23-2024 Office outpatient visit 25 minutes Lanette Pyle DO Work Phone: [phone] Comment on above: Diabetic gastropares is associated with type 2 diabetes mellitus (CMS/HCC) (Primary Dx); Type 2 diabetes mellitus with hyperglycemia, with long-term current use of insulin (CMS/HCC); Diabetic polyneuropathy associated with type 2 diabetes mellitus (CMS/HCC); Class 3 severe obesity due to excess calories with serious comorbidity and body mass index (BMI) of 50.0 to 59.9 in adult (CMS/HCC); Immunodeficiency due to conditions classified elsewhere (CMS/HCC) Start: 05-23-2024 End: 05-23-2024 ambulatory LANETTE PYLE Not Available Start: 05-17-2024 End: 05-17-2024 ambulatory [facility] Start: 05-15-2024 End: 05-15-2024 Bamboo flowsheet Juan Oglesby MD Work Phone: [facility] Start: 05-15-2024 End: 05-15-2024 Bamboo flowsheet Juan Oglesby MD Work Phone: [facility] Start: 05-15-2024 End: 05-15-2024 Office outpatient visit 15 minutes Juan Oglesby MD Work Phone: [facility] Comment on above: Acute bronchitis, un specified organism (Primary Dx) Start: 05-15-2024 End: 05-15-2024 ambulatory JUAN OGLESBY Not Available Start: 04-18-2024 End: 04-18-2024 Bamboo flowsheet Juan Oglesby MD Work Phone: [facility] Start: 04-18-2024 End: 04-18-2024 Bamboo flowsheet Juan Oglesby MD Work Phone: [facility] Start: 04-18-2024 End: 04-18-2024 ambulatory JUAN OGLESBY Not Available Start: 04-18-2024 End: 04-18-2024 Office outpatient visit 25 minutes Juan Oglesby MD Work Phone: [facility] Comment on above: Moderate recurrent m ajor depression (CMS/HCC) (Primary Dx); MIROSLAVA (generalized anxiety disorder) (CMS/HCC); Benign essential hypertension (CMS/HCC); Type 2 diabetes mellitus with hyperglycemia, with long-term current use of insulin (CMS/HCC); Cervical spondylosis without myelopathy; Cervical lymphadenopathy; Cellulitis of left leg without foot Start: 04-16-2024 End: 04-16-2024 Emergency department patient visit [facility] Start: 03-14-2024 End: 03-14-2024 Bamboo flowssofia Oglesby MD Work Phone: [facility] Start: 03-14-2024 End: 03-14-2024 Cinthya Oglesby MD Work Phone: [facility] Start: 03-14-2024 End: 03-14-2024 Office outpatient visit 25 minutes Juan Oglesby MD Work Phone: [facility] Comment on above: Benign essential hyp ertension (CMS/HCC) (Primary Dx); Moderate recurrent major depression (HCC) (CMS/HCC); Chronic heart failure with preserved ejection fraction (HFpEF) (CMS/HCC); Lymphedema; GERD without esophagitis; Type 2 diabetes mellitus with hyperglycemia, with long-term current use of insulin (CMS/HCC); Acute non-recurrent pansinusitis; Class 3 severe obesity due to excess calories with serious comorbidity and body mass index (BMI) of 50.0 to 59.9 in adult (CMS/HCC); Cervical spondylosis without myelopathy; Mild intermittent asthma without complication (CMS/HCC); Immunodeficiency due to conditions classified elsewhere (CMS/HCC) Start: 03-14-2024 End: 03-14-2024 ambulatory JUAN OGLESBY Not Available Start: 02-25-2024 End: 02-25-2024 ambulatory LANETTE PYLE Not Available Start: 02-09-2024 End: 02-09-2024 ambulatory JUAN OGLESBY Not Available Start: 01-28-2024 End: 01-31-2024 Emergency department patient visit CHI ANDREWS [facility] Start: 01-28-2024 End: 01-30-2024 ambulatory JUAN OGLESBY [facility] Start: 01-25-2024 Non-patient / Non-visit MD Zina Oglesby Work Phone: [facility] Work Phone: Start: 01-25-2024 End: 01-25-2024 Admission to same day surgery center MD Juan Oglesby Work Phone: [facility] Work Phone: Start: 01-25-2024 End: 01-25-2024 ambulatory MD Juan Oglesby Work Phone: [facility] Work Phone: Start: 01-08-2024 End: 01-08-2024 ambulatory [facility] Start: 01-07-2024 End: 01-07-2024 ambulatory [facility] Start: 01-03-2024 End: 01-03-2024 ambulatory MD Juan Oglesby Work Phone: [facility] Work Phone: Start: 01-03-2024 End: 01-03-2024 Patient encounter procedure MD Juan Oglesby Work Phone: [facility] Work Phone: Start: 12-23-2023 End: 12-23-2023 ambulatory JUAN OGLESBY Not Available Start: 12-15-2023 End: 12-15-[address] [facility] Start: 12-14-2023 End: 12-14-[address] [facility] Start: 12-03-2023 End: 12-04-2023 [facility] Start: 12-03-2023 End: 12-03-2023 Emergency department patient visit JUAN [facility] Start: 11-15-2023 End: 11-15-2023 ambulatory SHAIKH MANA Not Available Start: 10-30-2023 End: 10-30-2023 ambulatory [facility] Start: 10-29-2023 End: 10-29-2023 ambulatory [facility] Start: 10-20-2023 End: 10-20-2023 ambulatory MD Juan Oglesby Work Phone: [facility] Work Phone: Start: 10-20-2023 End: 10-20-2023 Patient encounter procedure MD Juan Oglesby Work Phone: [facility] Juan Miguel Work Phone: Start: 10-14-2023 End: 10-14-2023 ambulatory JUAN OGLESBY Not Available Start: 10-13-2023 End: 10-13-2023 Office outpatient visit 25 minutes Lizy Saba PA-C Work Phone: [facility] Comment on above: Cervical spondylosis without myelopathy (Primary Dx) Start: 10-13-2023 End: 10-13-2023 ambulatory LIZY SABA [facility] Start: 10-03-2023 End: 10-04-2023 Emergency department patient visit LEXI SAN [facility] Start: 10-03-2023 End: 10-03-2023 ambulatory [facility] Work Phone: Start: 10-03-2023 End: 10-03-2023 Patient encounter procedure [facility] Juan Miguel Work Phone: Start: 09-26-2023 End: 09-27-2023 Emergency department patient visit ASHLYN LOPEZ [facility] Start: 09-13-2023 End: 09-13-2023 ambulatory JUAN OGLESBY Not Available Start: 08-21-2023 Refshay Quintana [employer] Work Phone: [facility] Comment on above: Type 2 diabetes deann itus with hyperglycemia, with long-term current use of insulin ([facility]) (Primary Dx); Migraine without aura and without status migrainosus, not intractable (CMS/[facility]); Other hyperlipidemia (CMS/[facility]); Mild intermittent asthma without complication ([facility]) Start: 07-22-2023 End: 07-25-2023 Evaluation and management of inpatient LAURA BRITO [facility] Start: 07-21-2023 End: 07-25-2023 Emergency department patient visit ROCHELLE KAYE [facility] Start: 07-20-2023 End: 07-24-2023 Evaluation and management of inpatient JUAN OGLESBY [facility] Start: 07-18-2023 End: 07-19-2023 Emergency department patient visit ASHLYN LOPEZ [facility] Start: 07-18-2023 End: 07-19-2023 Emergency department patient visit ASHLYN JARA [facility] Start: 07-09-2023 Documentation procedure Fredy alexis RN [facility] Start: 04-27-2023 End: 04-27-2023 ambulatory Elizabeth Rod Other [employer] Other Start: 04-27-2023 Office outpatient vi sit 25 minutes Elizabeth Velasco [facility] Start: 04-11-2023 End: 04-11-2023 ambulatory Brenda Yoli Other [employer] Other Start: 04-11-2023 Office outpatient vi sit 15 minutes Brenda Yoli [facility] Start: 12-21-[address] JUAN OGLESBY Facil ity:[facility] Start: 10-19-2022 End: 10-19-2022 ambulatory [facility] Start: 10-01-2022 End: 10-02-2022 ambulatory CAMILLA GALLARDO Facility:[facility] Start: 09-24-2022 End: 09-24-2022 ambulatory Imad Asaad Other [employer] Other Start: 09-24-2022 Telephone encounter Imad Asaad [facility] Start: 09-04-2022 End: 09-04-2022 ambulatory Imad Asaad Other [employer] Other Start: 09-04-2022 Telephone encounter Imad Asaad [facility] Start: 09-02-2022 End: 09-02-2022 Admission to same day surgery center MD Juan Oglesby Work Phone: [facility] Work Phone: Start: 09-02-2022 End: 09-02-2022 ambulatory MD Juan Oglesby Work Phone: [facility] Work Phone: Start: 08-26-2022 Telephone encounter Chi Castro DO Work Phone: Gastroenterology Comment on above: pre appointment asse ssment Start: 08-18-[address] PJ GUDINO Facilit y:[facility] Start: 08-11-2022 End: 08-12-[address] PJ GUDINO Facility:[facility] Start: 07-21-2022 End: 07-22-[address] PJ GUDINO Facility:[facility] Start: 07-14-2022 End: 07-15-[address] JUAN OGLESBY Facility:[facility] Start: 07-13-2022 End: 07-13-2022 ambulatory SILVIA STEPHENSON Facility:[facility] Start: 07-07-2022 End: 07-08-[address] PJ GUDINO Facility:[facility] Start: 07-01-2022 End: 07-02-[address] JUAN OGLESBY Facility:[facility] Start: 06-29-2022 End: 06-30-[address] PJ UGDINO Facility:[facility] Start: 06-23-2022 End: 06-24-[address] PJ GUDINO Facility:[facility] Start: 06-09-2022 End: 06-10-[address] PJ GUDINO Facility:[facility] Start: 06-02-2022 End: 06-03-[address] PJ GUDINO Facility:[facility] Start: 05-15-2022 End: 05-16-[address] PJ GUDINO Facility:[facility] Start: 05-11-2022 End: 05-12-[address] PJ GUDINO Facility:[facility] Start: 04-27-2022 End: 04-28-[address] PJ GUDINO Facility:[facility] Start: 04-21-2022 End: 04-22-[address] PJ GUDINO Facility:[facility] Start: 03-30-2022 End: 03-31-[address] WILL ZACARIAS Facility: Start: 03-20-2022 End: 03-20-2022 ambulatory KAITLIN RACHEL . Facility: Start: 03-19-2022 End: 03-19-2022 ambulatory Brenda Yoli Other [employer] Other Start: 03-19-2022 Office outpatient vi sit 15 minutes Brenda Yoli [facility] Start: 01-21-2022 End: 01-21-2022 ambulatory Brenda Yoli Other [employer] Other Start: 01-21-2022 Office outpatient vi sit 25 minutes Brenda Yoli [facility] Start: 12-25-2020 End: 12-25-2020 Emergency department patient visit JUAN OGLESBY Facility[facility] Start: 01-13-2017 Ambulatory Lizzeth FinchIrishkevin Jackson Facility:[facility] Procedures Date Procedure Procedure Detail Performing Clinician Start: 05-23-2024 Hemoglobin glycosyla quyen a1c Lanette Pyle DO Work Phone: Start: 01-25-2024 Screening colonoscopy Adrianna Oglesby Work Phone: Start: 01-25-2024 Colonoscopy Juan rajan MD Work Phone: Start: 10-20-2023 X-ray of right foot MD Juan Oglesby Work Phone: Start: 05-17-2023 Microalbumin [Mass/v olume] in Urine by Test strip Fredy Robles RN Start: 10-24-2022 Adult depression scr eening assessment Fredy Robles RN Start: 09-02-2022 Colonoscopy MD Juan hernández Work Phone: Start: 02-17-2022 Mammography Juan rajan MD Work Phone: Plan of Treatment Date Care Activity Detail Author Start: 01-27-2034 DTaP,Tdap and Td Vaccines (3 - Td or Tdap) DTaP,Tdap and Td Vaccines (3 - Td or Tdap) [facility] Start: 01-24-2034 Screening for malignant neoplasm of colon [facility] Start: 06-14-2025 Glaucoma screening Diabetes: Retinopathy Screening [facility] Start: 04-16-2025 Adult BMI Screening Adult BMI Screening [facility] Start: 04-16-2025 Tobacco Screening Tobacco Screening [facility] Start: 11-20-2024 Hemoglobin A1c measurement Diabetes: Hemoglobin A1C [facility] Start: 10-12-2024 Adult BMI Screening Adult BMI Screening [facility] Start: 10-12-2024 Tobacco Screening Tobacco Screening [facility] Start: 08-22-2024 End: 08-22-2024 Patient encounter procedure 08/22/2024 9:45 AM EST Office Visit [facility] [address] [place] [address] Lanette Pyle DO [address] [place] [address] [facility] Start: 08-10-2024 End: 08-10-2024 Professional / ancillary services management 08/10/2024 10:00 AM EST Ancillary Procedure [facility] [address] [place] [address] [facility] Start: 08-01-2024 End: 08-01-2024 Patient encounter procedure [facility] Comment on above: Arrived Start: 07-24-2024 Adult BMI Screening Adult BMI Screening [facility] Start: 07-22-2024 Tobacco Screening Tobacco Screening [facility] Start: 07-08-2024 Tobacco Screening Tobacco Screening [facility] Start: 07-04-2024 End: 07-04-2024 Patient encounter procedure [facility] Comment on above: Arrived Start: 06-28-2024 Adult BMI Screening Adult BMI Screening [facility] Start: 06-28-2024 End: 06-28-2024 Patient encounter procedure 06/28/2024 9:00 AM EST Office Visit [facility] [address] [place] [address] Juan Oglesby MD [address] [place] [address] [facility] Start: 06-14-2024 Hemoglobin A1c measurement Diabetes: Hemoglobin A1C [facility] Start: 06-06-2024 End: 06-06-2024 Patient encounter procedure 06/06/2024 10:30 AM EST Office Visit [facility] [address] [place] [address] Page Bobo MD [address] [place] [address] [facility] Start: 05-23-2024 End: 05-23-2024 Patient encounter procedure 05/23/2024 2:30 PM EST Office Visit [facility] [address] [facility] [address] [place] [phone] Lanette Pyle DO [address] [place] [address] [facility] 230 Start: 05-17-2024 Urine screening for protein [facility] Start: 05-15-2024 End: 05-15-2024 Patient encounter procedure 05/15/2024 11:00 AM EST Office Visit [facility] [address] [place] [address] Juan Oglesby MD [address] [place] [phone] Arrived [facility] Comment on above: Arrived Start: 04-18-2024 End: 04-18-2025 US Head and neck soft tissue US head neck soft tissue Imaging Routine Cervical lymphadenopathy Expected: 04/18/2024, Expires: 04/18/2025 [facility] Work Phone: Comment on above: Expected: 04/18/2024, Expires: Start: 04-18-2024 End: 04-18-2024 Patient encounter procedure 04/18/2024 9:30 AM EDT Office Visit [facility] [address] [place] [address] Juan Oglesby MD [address] [place] [address] [facility] Start: 03-30-2024 End: 03-30-2024 Patient encounter procedure 03/30/2024 10:00 AM EDT Office Visit [facility] [address] [place] [address] Lanette Pyle, [address] [place] [address] [facility] 230 Start: 03-15-2024 Hemoglobin A1c measurement Diabetes: Hemoglobin A1C [facility] Start: 03-14-2024 End: 03-14-2024 Patient encounter procedure 03/14/2024 10:15 AM EDT Office Visit [facility] [address] [place] [address] Juan Oglesby MD [address] [place] [address] Arrived [facility] Comment on above: Arrived Start: 03-12-2024 COVID-19 Vaccine ( season) COVID-19 Vaccine ( season) [facility] Start: 03-12-2024 Influenza vaccination [facility] Start: 01-25-2024 [facility] Start: 12-03-2023 End: 12-03-2023 Patient encounter procedure 12/03/2023 9:45 AM EDT Office Visit [facility] [address] [place] [phone] Portia Quintana, AQUATICS SPECIALIST-[employer]SEL [employer] MEMBER [address] [place] [address] [facility] Start: 11-17-2023 End: 11-17-2023 Patient encounter procedure 11/17/2023 9:15 AM EDT Office Visit [facility] [address] [place] [address] Lizy Saba PA-C [address] [place] [address] [facility] Start: 10-29-2023 End: 10-29-2023 Admission to same day surgery center 10/29/2023 9:12 AM EDT - 10/29/2023 9:18 AM EDT Surgery [facility] [address] [place] [phone] Maxi Cook MD [address] [facility] [place] [address] INJECTION BLOCK NERVE MEDIAL BRANCH right C 2/3, 3/4 [98325 (CPT )] [facility] Comment on above: INJECTION BLOCK NERVE MEDIAL BRANCH righ t C 2/3, 3/4 [27364 (CPT )] Start: 10-29-2023 End: 10-29-2023 Njx dx/ther agt pvrt facet jt crv/thrc 1 level INJECTION BLOCK NERVE MEDIAL BRANCH Cervical spondylosis without myelopathy 10/29/2023 9:12 AM EDT [facility] Start: 10-29-2023 Subsequent hospital visit by physician 10/29/2023 9:12 AM EDT Hospital Encounter [facility] [address] [place] [phone] Maxi Cook MD [address] [place] [address] [facility] Start: 10-25-2023 Depression Screening Depression Screening [facility] Start: 10-24-2023 DTaP,Tdap and Td Vaccines (2 - Td or Tdap) DTaP,Tdap and Td Vaccines (2 - Td or Tdap) [facility] Start: 09-13-2023 End: 09-13-2023 Patient encounter procedure 09/13/2023 10:30 AM EST Office Visit [facility] [address] [place] [address] Juan Oglesby MD [address] [place] [address] [facility] Start: 08-31-2023 End: 08-31-2023 Patient encounter procedure 08/31/2023 2:30 PM EST Office Visit [facility] [address] [place] [address] Deepak Stevens MD [address] [place] [address] [facility] Start: 08-11-2023 Hemoglobin A1c measurement Diabetes: Hemoglobin A1C [facility] Start: 03-12-2023 COVID-19 Vaccine ( season) COVID-19 Vaccine ( season) [facility] Start: 03-12-2023 Influenza vaccination Influenza Vaccine [facility] Start: 02-17-2023 Screening for malignant neoplasm of breast Mammogram [facility] Start: 09-02-2022 [facility] Start: 07-12-2022 DEPRESSION ASSESSMENT DEPRESSION ASSESSMENT [facility] Start: 08-06-2021 COVID-19 VACCINE (4 - Booster for Moderna series) COVID-19 VACCINE (4 - Booster for Moderna series) [facility] Start: 2018 Mammography MAMMOGRAM [facility] Start: 2008 HPV TESTING HPV TESTING [facility] Start: 2008 Screening for malignant neoplasm of cervix [facility] Start: 11-03-1999 PAP TESTING PAP TESTING [facility] Start: 11-03-1999 Screening for malignant neoplasm of cervix Pap Smear [facility] Start: 1997 Urine microalbumin profile DTAP,TDAP,TD (1 - Tdap) [facility] Start: 1996 Adult BMI Follow Up Plan Adult BMI Follow Up Plan [facility] Start: 1996 Diabetic foot examination Diabetic Foot Exam [facility] Start: 1996 HEPATITIS C SCREENING HEPATITIS C SCREENING [facility] Start: 1996 HIV SCREENING HIV SCREENING [facility] Start: 1988 Glaucoma screening Diabetes: Retinopathy Screening [facility] Start: 1978 Glaucoma screening Diabetic Ophthalmology Exam [facility] Start: 1978 HEPATITIS B (1 of 3 - 3-dose series) HEPATITIS B (1 of 3 - 3-dose series) [facility] Start: 1978 Medicare Annual Wellness (AWV) Medicare Annual Wellness (AWV) [facility] Start: 1978 Screening for malignant neoplasm of colon [facility] Electrogastrography dx transcutaneous EGG (ELECTROGASTROGRAPHY) Procedures Routine Gastroparesis Ordered: 08/31/2022 [facility] Work Phone: Comment on above: Ordered: 08/31/2022 Patient Education Know your Meds [facility] Work Phone: Radionuclide gastric emptying study [facility] XR Foot - right GE 3 Views F [facility] Immunizations Immunization Date Immunization Notes Care Provider Fa junior 01-28-2024 tetanus toxoid, redu negro diphtheria toxoid, and acellular pertussis vaccine, adsorbed Portia Quintana APRN-[employer]ESSEL [employer] MEMBER Work Phone: [facility] 07-23-2023 influenza, injectabl e, quadrivalent, preservative free Portia Quintana AQUATICS SPECIALIST-[employer]SEL [employer] MEMBER Work Phone: [facility] 07-23-2023 influenza virus vacc ine, unspecified formulation Lizy Saba PA-C Work Phone: [facility] 07-22-2023 pneumococcal polysaccharide vaccine, 23 valent Portia Quintana AQUATICS SPECIALIST-[employer] MEMBER Work Phone: [facility] 05-27-2022 Influenza, injectabl e, Madin [place] Canine Kidney, preservative free, quadrivalent Fredy Robles RN [facility] 05-27-2022 influenza virus vacc ine, unspecified formulation Fredy Robles RN [facility] 05-08-2021 influenza, injectabl e, quadrivalent, preservative free Fredy Robles RN [facility] 03-06-2020 influenza, high dose seasonal, preservative-free Fredy Robles RN [facility] 04-19-2019 seasonal influenza, intradermal, preservative free Fredy Robles RN [facility] 04-22-2018 influenza, injectabl e, quadrivalent, preservative free Fredy Robles RN [facility] 10-23-2013 tetanus toxoid, redu negro diphtheria toxoid, and acellular pertussis vaccine, adsorbed Fredy Robles RN [facility] Payers Date Payer Category Payer Self-pay [id number] 2022 Medicare (Managed Care) [facility] [id number] 2019 Medicaid [id number] [id number]. [id number] 2019 Medicare [id number]. 1.13.159.2. [id number] 2019 Medicare HMO [employer] MED[employer]ARE Member Subscriber Plan / Payer (Effective 2019-Present) Name: Bobby Brink Relation to Subscriber: Self Name: Bobby Brink Payer ID: [id number] (NAIC) Type: Not on file Address: [place] [id number]. [id number] 1978 Unknown [id number] 2.16.840.1.752409.3.579.2. 647 1978 Unknown [id number] 2.16.840.1.785258.3.579.2. 593 1978 Unknown [id number] 2.16.840.1.862574.3.579.2. 593 1978 Unknown [id number] 2.16.840.1.228567.3.579.2. 593 1978 Unknown [id number] 2.16.840.1.841564.3.579.2. 593 1978 Unknown [id number] 2.16.840.1.804727.3.579.2. 593 1978 Unknown [id number] 2.16.840.1.624255.3.579.2. 593 1978 Unknown [id number] 2.16.840.1.517335.3.579.2. 593 1978 Unknown [id number] 2.16.840.1.785153.3.579.2. 593 1978 Unknown [id number] 2.16.840.1.954795.3.579.2. 593 1978 Unknown [id number] 2.16.840.1.907926.3.579.2. 593 1978 Unknown [id number] 2.16.840.1.786326.3.579.2. 59 1978 Unknown [id number] 2.16840.1.382819.3.579.2. 59 1978 Unknown [id number] 2.16840.1.270499.3.579.2. 1978 Unknown [id number] 2.16840.1.210615.3.579.2. 1978 Unknown [id number] 2.840.1.330256.3.579.2. 1978 Unknown [id number] 2.840.1.749684.3.579.2. 1978 Unknown [id number] 2.840.1.500158.3.579.2 1978 Unknown [id number] 2.840.1.293388.3.579.2. 1978 Unknown [id number] 2.0.1.183005.3.579.2. 1285 1978 Unknown [id number] 2.0.1.054467.3.579.2. 1285 1978 Unknown [id number] 2.840.1.913180.3.579.2. 1285 1978 Unknown [id number] 2.840.1.000034.3.579.2. 1285 1978 Unknown [id number] 2.840.1.839383.3.579.2. 1285 1978 Unknown [id number] 2.840.1.951727.3.579.2. 1285 1978 Unknown [id number] 2.840.1.895459.3.579.2. 1285 1978 Unknown [id number] 2.840.1.246542.3.579.2. 1285 1978 Unknown [id number] 2.840.1.840588.3.579.2. 1285 1978 Unknown [id number] 2.16.840.1.493779.3.579.2. 1285 1978 Unknown [id number] 2.16.840.1.186755.3.579.2. 1285 1978 Unknown [id number] 2.16840.1.976146.3.579.2. 1285 1978 Unknown [id number] 2.16.840.1.456255.3.579.2. 1285 1978 Unknown [id number] 2.840.1.378758.3.579.2. 1285 1978 Unknown [id number] 2.840.1.766261.3.579.2. 1285 1978 Unknown [id number] 2.840.1.937042.3.579.2. 1285 1978 Unknown [id number] 2.840.1.599584.3.579.2. 1285 1978 Unknown [id number] 2.840.1.990941.3.579.2. 1285 1978 Unknown [id number] 2.840.1.448130.3.579.2. 1285 1978 Unknown [id number] 2.840.1.262180.3.579.2. 1285 1978 Unknown [id number] 2.840.1.633482.3.579.2. 1285 1978 Unknown [id number] 2.840.1.265098.3.579.2. 1285 1978 Unknown [id number] 2.16840.1.318253.3.579.2. 1285 1978 Unknown [id number] 2.840.1.848295.3.579.2. 1285 1978 Unknown [id number] 2.16.840.1.201884.3.579.2. 1285 1978 Unknown [id number] 2.16.840.1.519058.3.579.2. 1285 1978 Unknown [id number] 2.16.840.1.812697.3.579.2. 1285 1978 Unknown [id number] 2.16840.1.715102.3.579.2. 1285 1978 Unknown [id number] 2.16.840.1.552856.3.579.2. 1285 1978 Unknown [id number] 2.840.1.919113.3.579.2. 1258 1978 Unknown [id number] 2.840.1.839643.3.579.2. 1258 1978 Unknown [id number] 2.840.1.876048.3.579.2. 1258 1978 Unknown [id number] 2.840.1.980657.3.579.2. 1258 1978 Unknown [id number] 2.840.1.898696.3.579.2. 1258 1978 Unknown [id number] 2.840.1.819681.3.579.2. 1258 1978 Unknown [id number] 2.840.1.634269.3.579.2. 1258 1978 Unknown [id number] 2.840.1.270567.3.579.2. 1258 1978 Unknown [id number] 2.16840.1.840359.3.579.2. 1258 1978 Unknown [id number] 2.16840.1.394436.3.579.2. 1258 1978 Unknown [id number] 2.840.1.391466.3.579.2. 1258 1978 Unknown [id number] 2.16840.1.155936.3.579.2. 1259 1978 Unknown [id number] 2.16.840.1.934437.3.579.2. 1259 1978 Unknown [id number] 2.16.840.1.500132.3.579.2. 1259 1959 Medicaid [id number] 1959 Private Health Insurance [id number] Medicaid [place] Advantage [id number] Medicare Medicare [id number] Unknown [id number] Unknown [id number] 2.16.840.1.834888.3.579.2. 531 Unknown [id number] 2.16.840.1.287611.3.579.2. 531 Unknown [id number] 2.16.840.1.310032.3.579.2. 531 Social History Date Type Detail Facility Unknown if ever smoked [employer] Other Start: 10-24-2022 End: 03-13-2024 Sex Assigned At [employer] Start: 09-02-2022 End: 06-06-2024 Tobacco smoking status PAIS Ex-smoker (finding) [facility] Start: 1978 Sex Assigned At Female [facility] Tobacco smoking stat us [facility] Tobacco smoking consumption unknown [facility] Work Phone: Start: 1978 Sex Assigned At Not on file [facility] Start: 1996 End: 03-13-2017 History of tobacco use Current smoker [employer] Start: 1996 End: 03-13-2017 History of tobacco use Cigarette Smoker [employer] Start: 09-17-2022 End: 03-13-2024 Cigarettes smoked current (pack per day) - Reported 0.3 [employer] Start: 09-17-2022 End: 07-28-2023 Tobacco use and exposure Smokeless tobacco non-user [facility] Start: 07-08-2023 End: 04-16-2024 Alcohol intake Current non-drinker of alcohol (finding) [facility] Do you belong to any clubs or organizations such as denominational groups, unions, fraternal or athletic groups, or school groups? No [facility] Are you now , , , , never or living with a partner? Never [facility] How often to you hav e a drink containing alcohol? Never [facility] How many standard dr inks containing alcohol do you have on a typical day? Patient does not drink [facility] Do you feel stress - tense, restless, nervous, or anxious, or unable to sleep at night because your mind is troubled all the time - these days [OSQ] Not at all [facility] Start: 09-17-2022 Gender identity Identifies as female gender (finding) [facility] Start: 09-17-2022 Sexual orientation Heterosexual (finding) [facility] Start: 07-11-2023 Tobacco Comment Last smoked : 1-5 years [facility] Do you feel stress - tense, restless, nervous, or anxious, or unable to sleep at night because your mind is troubled all the time - these days [OSQ] Only a little [facility] (I/We) worried wheth er (my/our) food would run out before (I/we) got money to buy more. Never true [facility] Start: 06-06-2024 Tobacco use and exposure Former smokeless tobacco user [facility] Start: 06-06-2024 End: 08-01-2024 Alcoholic beverage intake Ex-drinker (finding) [facility] Start: 02-14-2015 End: 07-19-2024 Sex Female (finding) [facility] Medical Equipment Procedure Code Equipment Code Equipment Origin al Text Equipment Identifier Dates [id number] Start: 05-17-2023 BD Insulin Syrin ge U-500 31G X 6MM 0.5 ML misc [id number] Start: 05-17-2023 Goals Date Patient Goal Desired Activity /State Personal health goal Comment on above: Formatting of this n ote might be different from the original. Evaluation of progress towards goal: safe transition from hospital to home with parents and resumption of [place] Personal health goal Comment on above: Formatting of this n ote might be different from the original. Evaluation of progress towards goal: In progress: Return home with home care. Provided info on Advance Directives. Clinical Notes 01-02-2021 to 08-07-2024 Telephone Encounter - Noy Dewitt - 08/07/2024 9:35 AM ESTTelephone Encounter - Noy Dewitt - 08/07/2024 9:35 AM ESTTelephone Encounter - Page Bobo MD - 08/07/2024 9:26 AM EST Note Date & Type Note Facility 08-07-2024 Telephone encounter Note Called pt back and let her know Dr Bobo said if she is very weak to go to ER [facility] 08-07-2024 Miscellaneous Notes Called pt back and let her know Dr Bobo said if she is very weak to go to ER If she is feeling very weak she should go to the ER Pt cld and said she saw you last week and you gave her an abx and pt feels worse/and very weak. Should she stop it or what else can she do? documented in this encounter [facility] 08-07-2024 Telephone encounter Note If she is feeling very weak she should go to the ER [facility] 08-07-2024 Telephone encounter Note Pt cld and said she saw you last week and you gave her an abx and pt feels worse/and very weak. Should she stop it or what else can she do? [facility] 08-01-2024 History of Present illness Narrative Subjective Patient ID: Bobby Brink is a 43 y.o. female who presents for Swollen Glands (Follow up CT [facility] 07/17/24. [facility]NA [facility] 07/18/24) FNA and CT both c/w degenerated tissue after infection. Pt states still uncomfortable. Incidental note made of thyroid enlargement and a possible parathyroid adenoma. Family History Problem Relation Name Age of Onset Hypertension Mother Diabetes Mother COPD Mother Diabetes Father Diabetes Sister Diabetes Brother Active Ambulatory Problems Diagnosis Date Noted MIROSLAVA (generalized anxiety disorder) ([facility]) 05/16/2014 Benign essential hypertension ([facility]) 05/08/2019 Cervical spondylosis without myelopathy 08/29/2018 Hyperglycemia due to type 2 diabetes mellitus ([facility]) 10/16/2022 Class 3 severe obesity due to excess calories with serious comorbidity and body mass index (BMI) of 50.0 to 59.9 in adult ([facility]) 12/15/2013 Other hyperlipidemia ([facility]) 05/08/2019 Diabetic gastroparesis associated with type 2 diabetes mellitus ([facility]) 04/23/2017 Chronic heart failure with preserved ejection fraction (HFpEF) ([facility]) 07/28/2023 Migraine without aura and without status migrainosus, not intractable ([facility]) 07/28/2023 Seasonal allergic rhinitis due to pollen 07/28/2023 GERD without esophagitis 07/28/2023 Lymphedema 07/28/2023 Moderate recurrent major depression ([facility]) 07/28/2023 Nonalcoholic hepatosteatosis 07/28/2023 NOEMI (obstructive sleep apnea) 07/28/2023 DDD (degenerative disc disease), lumbar 12/23/2023 Leg weakness, bilateral 12/23/2023 Diabetic polyneuropathy associated with type 2 diabetes mellitus ([facility]) 12/23/2023 Vitamin A deficiency 12/23/2023 Vitamin D deficiency 12/23/2023 Cellulitis of left leg without foot 01/28/2024 Mild intermittent asthma without complication ([facility]) 03/14/2024 Cervical lymphadenopathy 04/18/2024 Acute bronchitis 05/15/2024 Resolved Ambulatory Problems Diagnosis Date Noted Abnormal electrocardiogram (ECG) (EKG) 10/16/2022 Acute hypoxemic respiratory failure ([facility]) 09/17/2022 Acute ulcerative gastroenteritis complicating pneumonia with complication ([facility]) 09/26/2022 Chest pain 04/23/2017 Hypokalemia 09/17/2022 MRSA bacteremia 10/19/2022 Pneumonia due to COVID-19 virus 09/17/2022 SOB (shortness of breath) 09/17/2022 Pneumonia due to infectious organism 07/28/2023 Influenza A 07/28/2023 URTI (acute upper respiratory infection) 11/15/2023 Acute non-recurrent pansinusitis 03/14/2024 Past Medical History: Diagnosis Date Cervical spondylosis with radiculopathy Chronic left shoulder pain Chronic migraine without aura without status migrainosus, not intractable ([facility]) Chronic seasonal allergic rhinitis due to pollen Diabetes ([facility]) Gastroesophageal reflux disease History of tobacco abuse Hoarseness, persistent Insomnia, persistent MDD (major depressive disorder), recurrent episode, moderate ([facility]) Mediastinal lymphadenopathy Obstructive sleep apnea Thrombocytopenia ([facility]) Type 2 diabetes mellitus with diabetic autonomic neuropathy, with long-term current use of insulin ([facility]) Type 2 diabetes mellitus with hyperglycemia, with long-term current use of insulin ([facility]) Past Surgical History: Procedure Laterality Date BACK SURGERY SECTION, LOW TRANSVERSE CHOLECYSTECTOMY CT ANGIOGRAM HEART CORONARY 07/18/2023 CT ANGIOGRAM TAVR 07/18/2023 CT ANGIOGRAM HEART CORONARY 10/24/2022 CT ANGIOGRAM TAVR 10/24/2022 CT ANGIOGRAM HEART CORONARY 09/17/2022 CT ANGIOGRAM TAVR 09/17/2022 CT ANGIOGRAM HEART CORONARY 06/11/2017 CT ANGIOGRAM HEART CORONARY 06/11/2017 FOOT SURGERY HYSTERECTOMY OOPHORECTOMY Bilateral SALPINGECTOMY Bilateral Allergies Allergen Reactions Phenytoin Sodium Extended Other reaction(s): Other (See Comments) Rash, edema Sulfa Antibiotics Unknown Sulfamethoxazole Other reaction(s): Other (See Comments) Hydromorphone Rash and Unknown Sulfamethoxazole-Trimethoprim Swelling Current Outpatient Medications on File Prior to Visit Medication Sig Dispense Refill albuterol (2.5 MG/3ML) 0.083% nebulizer solution Take 3 mL (2.5 mg) by nebulization every 4 (four) hours if needed for shortness of breath or wheezing 75 mL 2 albuterol HFA 90 mcg/act inhaler Inhale 2 puffs in the morning and 2 puffs in the evening and 2 puffs before bedtime. 18 g 3 amitriptyline (Elavil) 150 MG tablet TAKE 2 TABLETS AT BEDTIME 180 tablet 3 atorvastatin (Lipitor) 40 MG tablet TAKE 1 TABLET AT BEDTIME 90 tablet 3 BD Insulin Syringe U-500 31G X 6MM 0.5 ML misc cholecalciferol (Vitamin D-3) 50 MCG (2000 UT) tablet Take 1 tablet (50 mcg) by mouth Daily 30 tablet 5 Continuous Glucose Sensor ([employer] G7 Sensor) misc escitalopram (Lexapro) 20 MG tablet Take 1 tablet (20 mg) by mouth Daily 30 tablet 5 Fluticasone-Salmeterol 250-50 MCG/ACT aerosol powder Inhale 1 puff in the morning and 1 puff before bedtime. 60 each 3 furosemide (Lasix) 40 MG tablet Take 40 mg by mouth gabapentin (Neurontin) 300 MG capsule 1 PO at bedtime on day #1, then 1 PO BID on day #2, then 1 PO TID 90 capsule 2 Insulin Infusion Pump (T:slim X2 Control-IQ Pump) device 1 Device See administration instructions Basal: 12A 1.6, ICR: 12A 2, ISF: 50, Target: 150 1 each 0 insulin regular (HumuLIN R U-500) 500 UNIT/ML CONCENTRATED injection Per pump (max daily 600 units) 40 mL 3 lamoTRIgine (LaMICtal) 25 MG tablet 1 PO QHS x 2 weeks then 2 PO QHS 60 tablet 2 metFORMIN XR (Glucophage-XR) 500 MG 24 hr tablet Take 2 tablets (1,000 mg) by mouth in the evening. Take with meals 180 tablet 3 omeprazole (PriLOSEC) [address] capsule Take 40 mg by mouth in the morning and 40 mg in the evening. ondansetron ODT (Zofran-ODT) 8 MG disintegrating tablet Take 1 tablet (8 mg) by mouth every 6 (six) hours if needed for nausea or vomiting 30 tablet 2 potassium chloride CR (KLOR-CON) 20 MEQ ER tablet TAKE 1 TABLET BY MOUTH TWICE A DAY 120 tablet 3 propranolol LA (Inderal LA) 80 MG 24 hr capsule TAKE 1 CAPSULE EVERY DAY 90 capsule 3 spironolactone (Aldactone) 50 MG tablet Take 50 mg by mouth in the morning. Vitamin A (beta carotene) 3 MG (08692 UT) tablet Take 3 mg by mouth Daily 30 tablet 5 No current facility-administered medications on file prior to visit. Objective Last Recorded Vitals Vitals: 08/01/24 0847 BP: 132/77 Pulse: 104 ENT Physical Exam Constitutional Appearance: patient appears well-developed, well-nourished and well-groomed, Communication/Voice: communication appropriate for developmental age; vocal quality normal; Neck Neck comments: Left post triangle nodule C/W CT Assessment/Plan Diagnoses and all orders for this visit: LAD (lymphadenopathy) of left cervical region Nontoxic multinodular goiter (CMS/HCC) Parathyroid abnormality (CMS/HCC) Scan and FNA c/w chronic infection. Given h/o MRSA I will tx with prolonged course of clinda. Check thyroid US, TFTs, serum Ca, and PTH to evaluate other CT abnormalities. documented in this encounter [facility] 07-25-2024 Telephone encounter Note Pt is scheduled with Dr Bobo 08/01/24. [facility] 07-25-2024 Miscellaneous Notes Pt is scheduled with Dr Bobo 08/01/24. Called pt/left a message for pt to call Dr Bobo's office to schedule appt/2nd attempt. Called pt/left a message for the pt to call Dr Bobo's office to schedule an appt. Needs F/U documented in this encounter [facility] 07-24-2024 Telephone encounter Note Called pt/left a message for pt to call Dr Bobo's office to schedule appt/2nd attempt. [facility] 07-21-2024 Telephone encounter Note Called pt/left a message for the pt to call Dr Bobo's office to schedule an appt. [facility] 07-21-2024 Telephone encounter Note Needs F/U [facility] Work Phone: 07-04-2024 History of Present illness Narrative Subjective Patient ID: Bobby Brink is a 43 y.o. female who presents for Swollen Glands (Follow up) F/U left post triangle LAD. Pt states pain and mass persist Family History Problem Relation Name Age of Onset Hypertension Mother Diabetes Mother COPD Mother Diabetes Father Diabetes Sister Diabetes Brother Active Ambulatory Problems Diagnosis Date Noted MIROSLAVA (generalized anxiety disorder) ([facility]) 05/16/2014 Benign essential hypertension ([facility]) 05/08/2019 Cervical spondylosis without myelopathy 08/29/2018 Hyperglycemia due to type 2 diabetes mellitus ([facility]) 10/16/2022 Class 3 severe obesity due to excess calories with serious comorbidity and body mass index (BMI) of 50.0 to 59.9 in adult ([facility]) 12/15/2013 Other hyperlipidemia ([facility]) 05/08/2019 Diabetic gastroparesis associated with type 2 diabetes mellitus ([facility]) 04/23/2017 Chronic heart failure with preserved ejection fraction (HFpEF) ([facility]) 07/28/2023 Migraine without aura and without status migrainosus, not intractable ([facility]) 07/28/2023 Seasonal allergic rhinitis due to pollen 07/28/2023 GERD without esophagitis 07/28/2023 Lymphedema 07/28/2023 Moderate recurrent major depression ([facility]) 07/28/2023 Nonalcoholic hepatosteatosis 07/28/2023 NOEMI (obstructive sleep apnea) 07/28/2023 DDD (degenerative disc disease), lumbar 12/23/2023 Leg weakness, bilateral 12/23/2023 Diabetic polyneuropathy associated with type 2 diabetes mellitus ([facility]) 12/23/2023 Vitamin A deficiency 12/23/2023 Vitamin D deficiency 12/23/2023 Cellulitis of left leg without foot 01/28/2024 Mild intermittent asthma without complication ([facility]) 03/14/2024 Cervical lymphadenopathy 04/18/2024 Acute bronchitis 05/15/2024 Resolved Ambulatory Problems Diagnosis Date Noted Abnormal electrocardiogram (ECG) (EKG) 10/16/2022 Acute hypoxemic respiratory failure ([facility]) 09/17/2022 Acute ulcerative gastroenteritis complicating pneumonia with complication ([facility]) 09/26/2022 Chest pain 04/23/2017 Hypokalemia 09/17/2022 MRSA bacteremia 10/19/2022 Pneumonia due to COVID-19 virus 09/17/2022 SOB (shortness of breath) 09/17/2022 Pneumonia due to infectious organism 07/28/2023 Influenza A 07/28/2023 URTI (acute upper respiratory infection) 11/15/2023 Acute non-recurrent pansinusitis 03/14/2024 Past Medical History: Diagnosis Date Cervical spondylosis with radiculopathy Chronic left shoulder pain Chronic migraine without aura without status migrainosus, not intractable ([facility]) Chronic seasonal allergic rhinitis due to pollen Diabetes ([facility]) Gastroesophageal reflux disease History of tobacco abuse Hoarseness, persistent Insomnia, persistent MDD (major depressive disorder), recurrent episode, moderate ([facility]) Mediastinal lymphadenopathy Obstructive sleep apnea Thrombocytopenia ([facility]) Type 2 diabetes mellitus with diabetic autonomic neuropathy, with long-term current use of insulin ([facility]) Type 2 diabetes mellitus with hyperglycemia, with long-term current use of insulin ([facility]) Past Surgical History: Procedure Laterality Date BACK SURGERY SECTION, LOW TRANSVERSE CHOLECYSTECTOMY CT ANGIOGRAM HEART CORONARY 07/18/2023 CT ANGIOGRAM TAVR 07/18/2023 CT ANGIOGRAM HEART CORONARY 10/24/2022 CT ANGIOGRAM TAVR 10/24/2022 CT ANGIOGRAM HEART CORONARY 09/17/2022 CT ANGIOGRAM TAVR 09/17/2022 CT ANGIOGRAM HEART CORONARY 06/11/2017 CT ANGIOGRAM HEART CORONARY 06/11/2017 FOOT SURGERY HYSTERECTOMY OOPHORECTOMY Bilateral SALPINGECTOMY Bilateral Allergies Allergen Reactions Phenytoin Sodium Extended Other reaction(s): Other (See Comments) Rash, edema Sulfa Antibiotics Unknown Sulfamethoxazole Other reaction(s): Other (See Comments) Hydromorphone Rash and Unknown Sulfamethoxazole-Trimethoprim Swelling Current Outpatient Medications on File Prior to Visit Medication Sig Dispense Refill albuterol (2.5 MG/3ML) 0.083% nebulizer solution Take 3 mL (2.5 mg) by nebulization every 4 (four) hours if needed for shortness of breath or wheezing 75 mL 2 albuterol HFA 90 mcg/act inhaler Inhale 2 puffs in the morning and 2 puffs in the evening and 2 puffs before bedtime. 18 g 3 amitriptyline (Elavil) 150 MG tablet TAKE 2 TABLETS AT BEDTIME 180 tablet 3 amoxicillin-clavulanate (Augmentin) 875-125 MG tablet Take 1 tablet (875 mg) by mouth in the morning and 1 tablet (875 mg) before bedtime. 60 tablet 0 atorvastatin (Lipitor) 40 MG tablet TAKE 1 TABLET AT BEDTIME 90 tablet 3 BD Insulin Syringe U-500 31G X 6MM 0.5 ML misc cholecalciferol (Vitamin D-3) 50 MCG (2000 UT) tablet Take 1 tablet (50 mcg) by mouth Daily 30 tablet 5 Continuous Glucose Sensor (Tameccocom G7 Sensor) misc escitalopram (Lexapro) 20 MG tablet Take 1 tablet (20 mg) by mouth Daily 30 tablet 5 Fluticasone-Salmeterol 250-50 MCG/ACT aerosol powder Inhale 1 puff in the morning and 1 puff before bedtime. 60 each 3 furosemide (Lasix) 40 MG tablet Take 40 mg by mouth gabapentin (Neurontin) 300 MG capsule 1 PO at bedtime on day #1, then 1 PO BID on day #2, then 1 PO TID 90 capsule 2 Insulin Infusion Pump (T:slim X2 Control-IQ Pump) device 1 Device See administration instructions Basal: 12A 1.6, ICR: 12A 2, ISF: 50, Target: 150 1 each 0 insulin regular (HumuLIN R U-500) 500 UNIT/ML CONCENTRATED injection Per pump (max daily 600 units) 40 mL 3 lamoTRIgine (LaMICtal) 25 MG tablet 1 PO QHS x 2 weeks then 2 PO QHS 60 tablet 2 metFORMIN XR (Glucophage-XR) 500 MG 24 hr tablet Take 2 tablets (1,000 mg) by mouth in the evening. Take with meals 180 tablet 3 omeprazole (PriLOSEC) [address] capsule Take 40 mg by mouth in the morning and 40 mg in the evening. ondansetron ODT (Zofran-ODT) 8 MG disintegrating tablet Take 1 tablet (8 mg) by mouth every 6 (six) hours if needed for nausea or vomiting 30 tablet 2 potassium chloride CR (KLOR-CON) 20 MEQ ER tablet TAKE 1 TABLET BY MOUTH TWICE A DAY 120 tablet 3 propranolol LA (Inderal LA) 80 MG 24 hr capsule TAKE 1 CAPSULE EVERY DAY 90 capsule 3 spironolactone (Aldactone) 50 MG tablet Take 50 mg by mouth in the morning. Vitamin A (beta carotene) 3 MG (83605 UT) tablet Take 3 mg by mouth Daily 30 tablet 5 [] oxyCODONE-acetaminophen (Percocet) 5-325 MG tablet Take 1 tablet by mouth 4 (four) times a day as needed for moderate pain or severe pain for up to 15 days 60 tablet 0 No current facility-administered medications on file prior to visit. Objective Last Recorded Vitals Vitals: 07/04/24 1110 BP: 111/64 ENT Physical Exam Constitutional Appearance: patient appears well-developed, well-nourished and well-groomed, Communication/Voice: communication appropriate for developmental age; vocal quality normal; Assessment/Plan Diagnoses and all orders for this visit: LAD (lymphadenopathy) of left cervical region LAD persists in spite of aggressive tx. Proceed with FNA and CT neck with contrast documented in this encounter [facility] 06-06-2024 History of Present illness Narrative Subjective Patient ID: Bobby Brink is a 43 y.o. female who presents for Cervical lymphadenopathy Pt reports a 2-3 mo h/o left neck pain. Shortly after developed a hard post triangle nodule. Tx with levaquin and doxy. No change per pt. US showed a [id number] left post triangle nodule. Review of Systems All other systems reviewed and are negative. Family History Problem Relation Name Age of Onset Hypertension Mother Diabetes Mother COPD Mother Diabetes Father Diabetes Sister Diabetes Brother Active Ambulatory Problems Diagnosis Date Noted MIROSLAVA (generalized anxiety disorder) ([facility]) 05/16/2014 Benign essential hypertension ([facility]) 05/08/2019 Cervical spondylosis without myelopathy 08/29/2018 Hyperglycemia due to type 2 diabetes mellitus ([facility]) 10/16/2022 Class 3 severe obesity due to excess calories with serious comorbidity and body mass index (BMI) of 50.0 to 59.9 in adult ([facility]) 12/15/2013 Other hyperlipidemia ([facility]) 05/08/2019 Diabetic gastroparesis associated with type 2 diabetes mellitus ([facility]) 04/23/2017 Chronic heart failure with preserved ejection fraction (HFpEF) ([facility]) 07/28/2023 Migraine without aura and without status migrainosus, not intractable ([facility]) 07/28/2023 Seasonal allergic rhinitis due to pollen 07/28/2023 GERD without esophagitis 07/28/2023 Lymphedema 07/28/2023 Moderate recurrent major depression ([facility]) 07/28/2023 Nonalcoholic hepatosteatosis 07/28/2023 NOEMI (obstructive sleep apnea) 07/28/2023 DDD (degenerative disc disease), lumbar 12/23/2023 Leg weakness, bilateral 12/23/2023 Diabetic polyneuropathy associated with type 2 diabetes mellitus ([facility]) 12/23/2023 Vitamin A deficiency 12/23/2023 Vitamin D deficiency 12/23/2023 Cellulitis of left leg without foot 01/28/2024 Mild intermittent asthma without complication ([facility]) 03/14/2024 Cervical lymphadenopathy 04/18/2024 Acute bronchitis 05/15/2024 Resolved Ambulatory Problems Diagnosis Date Noted Abnormal electrocardiogram (ECG) (EKG) 10/16/2022 Acute hypoxemic respiratory failure ([facility]) 09/17/2022 Acute ulcerative gastroenteritis complicating pneumonia with complication ([facility]) 09/26/2022 Chest pain 04/23/2017 Hypokalemia 09/17/2022 MRSA bacteremia 10/19/2022 Pneumonia due to COVID-19 virus 09/17/2022 SOB (shortness of breath) 09/17/2022 Pneumonia due to infectious organism 07/28/2023 Influenza A 07/28/2023 URTI (acute upper respiratory infection) 11/15/2023 Acute non-recurrent pansinusitis 03/14/2024 Past Medical History: Diagnosis Date Cervical spondylosis with radiculopathy Chronic left shoulder pain Chronic migraine without aura without status migrainosus, not intractable ([facility]) Chronic seasonal allergic rhinitis due to pollen Diabetes ([facility]) Gastroesophageal reflux disease History of tobacco abuse Hoarseness, persistent Insomnia, persistent MDD (major depressive disorder), recurrent episode, moderate ([facility]) Mediastinal lymphadenopathy Obstructive sleep apnea Thrombocytopenia ([facility]) Type 2 diabetes mellitus with diabetic autonomic neuropathy, with long-term current use of insulin ([facility]) Type 2 diabetes mellitus with hyperglycemia, with long-term current use of insulin ([facility]) Past Surgical History: Procedure Laterality Date BACK SURGERY SECTION, LOW TRANSVERSE CHOLECYSTECTOMY CT ANGIOGRAM HEART CORONARY 07/18/2023 CT ANGIOGRAM TAVR 07/18/2023 CT ANGIOGRAM HEART CORONARY 10/24/2022 CT ANGIOGRAM TAVR 10/24/2022 CT ANGIOGRAM HEART CORONARY 09/17/2022 CT ANGIOGRAM TAVR 09/17/2022 CT ANGIOGRAM HEART CORONARY 06/11/2017 CT ANGIOGRAM HEART CORONARY 06/11/2017 FOOT SURGERY HYSTERECTOMY OOPHORECTOMY Bilateral SALPINGECTOMY Bilateral Allergies Allergen Reactions Phenytoin Sodium Extended Other reaction(s): Other (See Comments) Rash, edema Sulfa Antibiotics Unknown Sulfamethoxazole Other reaction(s): Other (See Comments) Hydromorphone Rash and Unknown Sulfamethoxazole-Trimethoprim Swelling Current Outpatient Medications on File Prior to Visit Medication Sig Dispense Refill albuterol (2.5 MG/3ML) 0.083% nebulizer solution Take 3 mL (2.5 mg) by nebulization every 4 (four) hours if needed for shortness of breath or wheezing 75 mL 2 albuterol HFA 90 mcg/act inhaler Inhale 2 puffs in the morning and 2 puffs in the evening and 2 puffs before bedtime. 18 g 3 amitriptyline (Elavil) 150 MG tablet TAKE 2 TABLETS AT BEDTIME 180 tablet 3 atorvastatin (Lipitor) 40 MG tablet TAKE 1 TABLET AT BEDTIME 90 tablet 3 BD Insulin Syringe U-500 31G X 6MM 0.5 ML misc cholecalciferol (Vitamin D-3) 50 MCG (2000 UT) tablet Take 1 tablet (50 mcg) by mouth Daily 30 tablet 5 Continuous Glucose Sensor (Tameccocom G7 Sensor) misc doxycycline (Vibra-Tabs) 100 MG tablet Take 1 tablet (100 mg) by mouth in the morning and 1 tablet (100 mg) before bedtime. Do all this for 14 days. Take with a full glass of water and do not lie down for at least 30 minutes after.. 28 tablet 0 escitalopram (Lexapro) 20 MG tablet Take 1 tablet (20 mg) by mouth Daily 30 tablet 5 Fluticasone-Salmeterol 250-50 MCG/ACT aerosol powder Inhale 1 puff in the morning and 1 puff before bedtime. 60 each 3 furosemide (Lasix) 40 MG tablet Take 40 mg by mouth gabapentin (Neurontin) 300 MG capsule 1 PO at bedtime on day #1, then 1 PO BID on day #2, then 1 PO TID 90 capsule 2 Insulin Infusion Pump (T:slim X2 Control-IQ Pump) device 1 Device See administration instructions Basal: 12A 1.6, ICR: 12A 2, ISF: 50, Target: 150 1 each 0 insulin regular (HumuLIN R U-500) 500 UNIT/ML CONCENTRATED injection Per pump (max daily 600 units) 40 mL 3 lamoTRIgine (LaMICtal) 25 MG tablet 1 PO QHS x 2 weeks then 2 PO QHS 60 tablet 2 metFORMIN XR (Glucophage-XR) 500 MG 24 hr tablet Take 2 tablets (1,000 mg) by mouth in the evening. Take with meals 180 tablet 3 omeprazole (PriLOSEC) [address] capsule Take 40 mg by mouth in the morning and 40 mg in the evening. ondansetron ODT (Zofran-ODT) 8 MG disintegrating tablet Take 1 tablet (8 mg) by mouth every 6 (six) hours if needed for nausea or vomiting 30 tablet 2 potassium chloride CR (KLOR-CON) 20 MEQ ER tablet TAKE 1 TABLET BY MOUTH TWICE A DAY 120 tablet 3 propranolol LA (Inderal LA) 80 MG 24 hr capsule TAKE 1 CAPSULE DAILY 90 capsule 3 spironolactone (Aldactone) 50 MG tablet Take 50 mg by mouth in the morning. Vitamin A (beta carotene) 3 MG (61528 UT) tablet Take 3 mg by mouth Daily 30 tablet 5 No current facility-administered medications on file prior to visit. Objective Last Recorded Vitals Vitals: 06/06/24 1253 BP: 127/68 ENT Physical Exam Constitutional Appearance: patient appears well-developed, well-nourished and well-groomed, Head and Face Appearance: head appears normal and face appears atraumatic; Ear Ear Canals: right ear canal normal; left ear canal normal; Tympanic Membranes: right tympanic membrane normal; left tympanic membrane normal; Nose External Nose: nares patent bilaterally; external nose normal; Internal Nose: septum normal; Oral Cavity/Oropharynx Tongue: normal; Oral mucosa: normal; Hard palate: normal; Soft palate: normal; Tonsils: normal; Neck Neck: neck normal; Thyroid: thyroid normal; Neck comments: Left post triangle nodule c/w US Respiratory Inspection: breathing unlabored; normal breathing rate; Auscultation: breath sounds are clear; Cardiovascular Inspection: extremities are warm and well perfused; no peripheral edema present; Auscultation: heart murmur present; Assessment/Plan Diagnoses and all orders for this visit: Cervical lymphadenopathy - Ambulatory referral to ENT Most c/w lympadenitis. Tx with augmentin. If no improvement then I will get an FNA and CT Pt states she has had a heart murmur since having COVID, but has not had an echo documented in this encounter [facility] 05-23-2024 History of Present illness Narrative Associated Problem(s): Diabetic gastroparesis associated with type 2 diabetes mellitus ([facility]) During the appointment today all pertinent labs, imaging, health maintenance, and glucose readings were reviewed. Encouraged to check blood glucose throughout the day with some fasting and some PP readings. They are to bring their glucose meter/cgm in to all appointments. All of the patients questions, treatment options, and current care plan and goals were discussed. A copy of this along with pertinent instructions were given to the patient at the end of the appointment. The patient voices understanding of all of this and is to call in between appointments if they have any problems or questions. Bobby Brink is struggling to gain control of their diabetes. I am very concerned for diabetes related complications. , The patient is wearing their cgm on a daily basis and making decisions in regards to adjusting insulin daily as well for at least the last 60 days , Discussed dietary changes at length. Encouraged to limit simple carbs and focus more on healthy protein/fat with all meals and snacks. They should also avoid any sugary drinks. , Instructed on the importance of taking insulin before eating. If it has been more than 30-45 min since eating they should not give the meal dose but should just give a correction insulin dose. , Instructions given today include: Pump instructions and Dietary education. Will increase her basal rate and tighten carb ratio to try and improve control. Images from the original note were not included. Bobby Brink is a 43 y.o. female presents with chief complaint of Diabetes HPI: Diabetes Mellitus Initial: Patient here for initial evaluation of diabetes mellitus. The initial diagnosis of diabetes was made around 2003 Complications include: Neuropathy She has been checking her blood glucose regularly with Tandem pump and Dexcom G7 CGM- on a daily basis. She continues to run high most of the day, will come down overnight but then rise all day while eating. She feels that she is counting her carbs correctly but does sometimes forget to take insulin when eating. Last A1c: 9.8 (12/14/23) Eye exam: Due Last office visit was on 02/25/2024 Current concerns include: Bg have been all over the place Prednisone was prescribed 05/15 for bronchitis- finished Wednesday. Diet: counting carbs, cutting back on portions. Was prepping to have gastric bypass, but was told that it was too much of a risk to perform surgery d/t recurrent infections and elevated readings. Snacks: trail mix, low sugar protein bars, on occasion crackers, PB- 1/2 sandwich Drinks: water with sugar free flavor packs, Coke/pepsi zero, cut out regular pop Exercise: Leg/arm stretches, exercises Hypoglycemia: if she does not eat a snack, she will drop below 70 (night) SUBJECTIVE: PROBLEM LIST SOCIAL ALLERGIES: Patient Active Problem List Diagnosis MIROSLAVA (generalized anxiety disorder) ([facility]) Benign essential hypertension ([facility]) Cervical spondylosis without myelopathy Hyperglycemia due to type 2 diabetes mellitus ([facility]) Class 3 severe obesity due to excess calories with serious comorbidity and body mass index (BMI) of 50.0 to 59.9 in adult ([facility]) Other hyperlipidemia ([facility]) Diabetic gastroparesis associated with type 2 diabetes mellitus ([facility]) Chronic heart failure with preserved ejection fraction (HFpEF) ([facility]) Migraine without aura and without status migrainosus, not intractable ([facility]) Seasonal allergic rhinitis due to pollen GERD without esophagitis Lymphedema Moderate recurrent major depression ([facility]) Nonalcoholic hepatosteatosis NOEMI (obstructive sleep apnea) DDD (degenerative disc disease), lumbar Leg weakness, bilateral Diabetic polyneuropathy associated with type 2 diabetes mellitus ([facility]) Vitamin A deficiency Vitamin D deficiency Cellulitis of left leg without foot Mild intermittent asthma without complication ([facility]) Cervical lymphadenopathy Acute bronchitis Social History Tobacco Use Smoking status: Former Current packs/day: 0.00 Average packs/day: 1 pack/day for 13.0 years (13.0 ttl pk-yrs) Types: Cigarettes Start date: 1999 Quit date: 2012 Years since quittin.8 Smokeless tobacco: Never Tobacco comments: Last smoked : 1-5 years Allergies Allergen Reactions Phenytoin Sodium Extended Other reaction(s): Other (See Comments) Rash, edema Sulfa Antibiotics Unknown Sulfamethoxazole Other reaction(s): Other (See Comments) Hydromorphone Rash and Unknown Sulfamethoxazole-Trimethoprim Swelling Synopsis [facility] 05/23/2024 05/15/2024 11:11 02/25/2024 Antidiabetic medications Insulin Regular Human Inject under the skin Per pump setting (500 UNIT/ML SOLN) Inject under the skin Per pump setting Inject under the skin Per pump setting metFORMIN HCl 500 mg Daily with evening meal PO (500 MG TB24) -Discontinued (Reorder) metFORMIN HCl 1,000 mg Daily with evening meal PO 1,000 mg Daily with evening meal PO 1,000 mg Daily with evening meal PO Pioglitazone HCl 45 mg Daily PO -Discontinued Labs MHPT A1C 9.7 Outpatient prescription Medication marked as long-term Patient-reported REVIEW OF SYMPTOMS: Review of Systems Constitutional: Positive for fatigue. Negative for appetite change and unexpected weight change. Eyes: Negative for visual disturbance. Respiratory: Negative for cough, shortness of breath and wheezing. Cardiovascular: Negative for chest pain, palpitations and leg swelling. Neurological: Positive for numbness. Endocrine: Negative for polydipsia, polyphagia and polyuria. OBJECTIVE: 05/23/2024 1:45 PM 05/15/2024 11:10 AM 04/18/2024 9:36 AM Vitals BMI 52.54 kg/m2 52.28 kg/m2 52.13 kg/m2 Systolic 126 118 130 Diastolic 72 64 74 Heart Rate 88 95 86 Temp 97 F 97.5 F 97.3 F Resp 24 20 Height (in) 5' 9 5' 9 5' 9 Weight (lb) 355.8 354 353 Visit Report Report Report Report Physical Exam Constitutional: General: She is not in acute distress. Appearance: Normal appearance. She is obese. Cardiovascular: Rate and Rhythm: Normal rate and regular rhythm. Heart sounds: No murmur heard. No friction rub. No gallop. Pulmonary: Breath sounds: Normal breath sounds. No wheezing, rhonchi or rales. Musculoskeletal: General: No swelling. Neurological: Mental Status: She is alert. ASSESSMENT AND PLAN: Problem List Items Addressed This Visit Hyperglycemia due to type 2 diabetes mellitus ([facility]/HCC) Relevant Orders POCT glycosylated hemoglobin (Hb A1C) docked device (Completed) Class 3 severe obesity due to excess calories with serious comorbidity and body mass index (BMI) of 50.0 to 59.9 in adult ([facility]) Diabetic gastroparesis associated with type 2 diabetes mellitus ([facility]/HCC) - Primary During the appointment today all pertinent labs, imaging, health maintenance, and glucose readings were reviewed. Encouraged to check blood glucose throughout the day with some fasting and some PP readings. They are to bring their glucose meter/cgm in to all appointments. All of the patients questions, treatment options, and current care plan and goals were discussed. A copy of this along with pertinent instructions were given to the patient at the end of the appointment. The patient voices understanding of all of this and is to call in between appointments if they have any problems or questions. Bobby Brink is struggling to gain control of their diabetes. I am very concerned for diabetes related complications. , The patient is wearing their cgm on a daily basis and making decisions in regards to adjusting insulin daily as well for at least the last 60 days , Discussed dietary changes at length. Encouraged to limit simple carbs and focus more on healthy protein/fat with all meals and snacks. They should also avoid any sugary drinks. , Instructed on the importance of taking insulin before eating. If it has been more than 30-45 min since eating they should not give the meal dose but should just give a correction insulin dose. , Instructions given today include: Pump instructions and Dietary education. Will increase her basal rate and tighten carb ratio to try and improve control. Diabetic polyneuropathy associated with type 2 diabetes mellitus ([facility]) Other Visit Diagnoses Immunodeficiency due to conditions classified elsewhere ([facility]) Follow up in about 3 months (around 08/23/2024) for Recheck. Patient's Medications New Prescriptions No medications on file Previous Medications ALBUTEROL (2.5 MG/3ML) 0.083% NEBULIZER SOLUTION Take 3 mL (2.5 mg) by nebulization every 4 (four) hours if needed for shortness of breath or wheezing ALBUTEROL HFA 90 MCG/ACT INHALER Inhale 2 puffs in the morning and 2 puffs in the evening and 2 puffs before bedtime. AMITRIPTYLINE (ELAVIL) 150 MG TABLET TAKE 2 TABLETS AT BEDTIME ATORVASTATIN (LIPITOR) 40 MG TABLET TAKE 1 TABLET AT BEDTIME BD INSULIN SYRINGE U-500 31G X 6MM 0.5 ML MISC CHOLECALCIFEROL (VITAMIN D-3) 50 MCG (2000 UT) TABLET Take 1 tablet (50 mcg) by mouth Daily CONTINUOUS GLUCOSE SENSOR (DEXCOM G7 SENSOR) MISC ESCITALOPRAM (LEXAPRO) 20 MG TABLET Take 1 tablet (20 mg) by mouth Daily FLUTICASONE-SALMETEROL 250-50 MCG/ACT AEROSOL POWDER Inhale 1 puff in the morning and 1 puff before bedtime. FUROSEMIDE (LASIX) 40 MG TABLET Take 40 mg by mouth GABAPENTIN (NEURONTIN) 300 MG CAPSULE 1 PO at bedtime on day #1, then 1 PO BID on day #2, then 1 PO TID INSULIN REGULAR (HUMULIN R U-500) 500 UNIT/ML CONCENTRATED INJECTION Inject under the skin Per pump setting LAMOTRIGINE (LAMICTAL) 25 MG TABLET 1 PO QHS x 2 weeks then 2 PO QHS METFORMIN XR (GLUCOPHAGE-XR) 500 MG 24 HR TABLET Take 2 tablets (1,000 mg) by mouth in the evening. Take with meals OMEPRAZOLE (PRILOSEC) [address] CAPSULE Take 40 mg by mouth in the morning and 40 mg in the evening. ONDANSETRON ODT (ZOFRAN-ODT) 8 MG DISINTEGRATING TABLET Take 1 tablet (8 mg) by mouth every 6 (six) hours if needed for nausea or vomiting POTASSIUM CHLORIDE CR (KLOR-CON M20) 20 MEQ ER TABLET Take 20 mEq by mouth in the morning. PROPRANOLOL LA (INDERAL LA) 80 MG 24 HR CAPSULE TAKE 1 CAPSULE DAILY SPIRONOLACTONE (ALDACTONE) 50 MG TABLET Take 50 mg by mouth in the morning. VITAMIN A (BETA CAROTENE) 3 MG (19498 UT) TABLET Take 3 mg by mouth Daily Modified Medications Modified Medication Previous Medication INSULIN INFUSION PUMP (T:SLIM X2 CONTROL-IQ PUMP) DEVICE Insulin Infusion Pump (T:slim X2 Control-IQ Pump) device 1 Device See administration instructions Basal: 12A 1.6, ICR: 12A 2, ISF: 50, Target: 150 1 Device See administration instructions Basal: 12A 1.2, 11A 1.4, ICR: 12A 3, ISF: 70, Target: 150 Discontinued Medications LEVOFLOXACIN (LEVAQUIN) 750 MG TABLET Take 1 tablet (750 mg) by mouth Daily for 7 days PREDNISONE (DELTASONE) 50 MG TABLET Take 1 tablet (50 mg) by mouth Daily for 6 days I have reviewed and reconciled the history and medication list with the patient today. documented in this encounter [facility] 05-15-2024 History of Present illness Narrative Associated Problem(s): Acute bronchitis Take antibiotics for 7 days. Use prednisone for inflammation. Use sudafed or other decongestants as needed. Use Robitussin or Robitussin-DM for cough. Can use afrin for congestion but no longer than 3 days. Can use Mucinex to bring up phlegm. Use Motrin or Tylenol as needed for fever, aches, or pains. Increase fluid intake and rest. Should improve over next 5-7 days and if no better or worse call for re-evaluation. Images from the original note were not included. Subjective Patient ID: Bobby Brink is a 43 y.o. female who presents for Follow-up (Chest cold). C/o cough, congestion, and rhinorrhea x 2-3 weeks. Afebrile but c/o cold chills. Severe fatigue and no energy. Frequent cough dry and nonproductive. Chest tight and SOB. Pain with cough. RIGGINS and sinus pressure in forehead and cheeks along with postnasal drip. Ears plugged and popping. Sore throat and pain to swallow. Mild nausea. Denies recent sick contacts. Using OTC medication and mild relief. No improvement in symptoms since onset. Review of Systems Respiratory: Negative for cough, shortness of breath and wheezing. Cardiovascular: Negative for chest pain and palpitations. Gastrointestinal: Negative for abdominal pain, diarrhea, nausea and vomiting. Genitourinary: Negative for dysuria. Objective Physical Exam Constitutional: General: She is not in acute distress. Appearance: Normal appearance. HENT: Head: Normocephalic. Right Ear: Tympanic membrane normal. Left Ear: Tympanic membrane normal. Eyes: Extraocular Movements: Extraocular movements intact. Pupils: Pupils are equal, round, and reactive to light. Cardiovascular: Rate and Rhythm: Normal rate and regular rhythm. Heart sounds: No murmur heard. No friction rub. No gallop. Pulmonary: Effort: Pulmonary effort is normal. Breath sounds: Normal breath sounds. No wheezing, rhonchi or rales. Abdominal: General: Bowel sounds are normal. There is no distension. Palpations: Abdomen is soft. Tenderness: There is no abdominal tenderness. There is no guarding or rebound. Musculoskeletal: Cervical back: Neck supple. Right lower leg: No edema. Left lower leg: No edema. Neurological: Mental Status: She is alert. Assessment/Plan Problem List Items Addressed This Visit Acute bronchitis - Primary Take antibiotics for 7 days. Use prednisone for inflammation. Use sudafed or other decongestants as needed. Use Robitussin or Robitussin-DM for cough. Can use afrin for congestion but no longer than 3 days. Can use Mucinex to bring up phlegm. Use Motrin or Tylenol as needed for fever, aches, or pains. Increase fluid intake and rest. Should improve over next 5-7 days and if no better or worse call for re-evaluation. documented in this encounter [facility] 04-18-2024 History of Present illness Narrative Associated Problem(s): Moderate recurrent major depression (CMS/HCC) Symptoms improved with medication change and continue. Associated Problem(s): Hyperglycemia due to type 2 diabetes mellitus (CMS/HCC) Reports BS improved and follow with endo. Associated Problem(s): MIROSLAVA (generalized anxiety disorder) (CMS/HCC) Symptoms improved with medication change and continue. Associated Problem(s): Cervical spondylosis without myelopathy Pain worse and resume percocet PRN. Discussed risks and benefits of opiate therapy. Warned medication is narcotic and risk of addiction. OARRS reviewed. Associated Problem(s): Cervical lymphadenopathy Likely reactive lymph nodes and check US. Associated Problem(s): Cellulitis of left leg without foot Redness improving with doxy and continue. Associated Problem(s): Benign essential hypertension (CMS/HCC) BP controlled and monitor PRN. Images from the original note were not included. Subjective Patient ID: Bobby Brink is a 43 y.o. female who presents for Follow-up (1m/Er f/up cellulitis). Follow up depression, anxiety, HTN, DM, and pain. To ER 10/ for cellulitis of left leg. Developed pain, redness and swelling. ER gave doxy and improved. Not as swollen or tender and redness fading. Mood much improved with addition of lamictal. Not as down or sad and feels happier. Anxiety stable. Not as stressed out or overwhelmed. Not as nervous or worry as much. Not as edwards or irritable. Checking BP PRN and typically controlled. BP normal today. Taking medication daily and tolerating without side effects. Seen by endo and adjusted insulin pump. BS variable but improving. Continues to have lumps on left side neck. Noticed with sinus infection and unchanged. Continued pain and tenderness. No change in size. Neck pain worse. Changed to ultram but not helping. Pain with activity and hard to stay active. Wants to resume percocet. Review of Systems Respiratory: Negative for cough, shortness of breath and wheezing. Cardiovascular: Negative for chest pain and palpitations. Gastrointestinal: Negative for abdominal pain, diarrhea, nausea and vomiting. Genitourinary: Negative for dysuria. Objective Physical Exam Constitutional: General: She is not in acute distress. Appearance: Normal appearance. HENT: Head: Normocephalic. Right Ear: Tympanic membrane normal. Left Ear: Tympanic membrane normal. Eyes: Extraocular Movements: Extraocular movements intact. Pupils: Pupils are equal, round, and reactive to light. Cardiovascular: Rate and Rhythm: Normal rate and regular rhythm. Heart sounds: No murmur heard. No friction rub. No gallop. Pulmonary: Effort: Pulmonary effort is normal. Breath sounds: Normal breath sounds. No wheezing, rhonchi or rales. Abdominal: General: Bowel sounds are normal. There is no distension. Palpations: Abdomen is soft. Tenderness: There is no abdominal tenderness. There is no guarding or rebound. Musculoskeletal: Cervical back: Neck supple. Right lower leg: No edema. Left lower leg: No edema. Neurological: Mental Status: She is alert. Assessment/Plan Problem List Items Addressed This Visit MIROSLAVA (generalized anxiety disorder) (CMS/HCC) Symptoms improved with medication change and continue. Benign essential hypertension (CMS/HCC) BP controlled and monitor PRN. Cervical spondylosis without myelopathy Pain worse and resume percocet PRN. Discussed risks and benefits of opiate therapy. Warned medication is narcotic and risk of addiction. OARRS reviewed. Relevant Medications oxyCODONE-acetaminophen (Percocet) 5-325 MG tablet Hyperglycemia due to type 2 diabetes mellitus (CMS/HCC) Reports BS improved and follow with endo. Moderate recurrent major depression (CMS/HCC) - Primary Symptoms improved with medication change and continue. Cellulitis of left leg without foot Redness improving with doxy and continue. Cervical lymphadenopathy Likely reactive lymph nodes and check US. Relevant Orders US head neck soft tissue documented in this encounter [facility] 03-14-2024 History of Present illness Narrative Associated Problem(s): Cervical spondylosis without myelopathy Pain stable and use ultram PRN. Discussed risks and benefits of opiate therapy. Warned medication is narcotic and risk of addiction. OARRS reviewed. Associated Problem(s): Moderate recurrent major depression (HCC) (CMS/HCC) Symptoms worse and no longer controlled with lexapro. Add lamictal. Associated Problem(s): Lymphedema Symptoms unchanged and use compression. Associated Problem(s): Hyperglycemia due to type 2 diabetes mellitus (CMS/HCC) BS improving and follow with endo. Associated Problem(s): GERD without esophagitis Symptoms controlled with medication and continue. Associated Problem(s): Chronic heart failure with preserved ejection fraction (HFpEF) ([facility]) Symptoms stable and follow up with cardiology. Associated Problem(s): Benign essential hypertension ([facility]) BP controlled and monitor PRN. Associated Problem(s): Acute non-recurrent pansinusitis Take antibiotics for 7 days. Use sudafed or other decongestants as needed. Use robitussin or robittussin-DM for cough. Use afrin for congestion but no longer than 3 days. Use mucinex to bring up phlegm. Use motrin or tylenol for fever, aches or pains. Increase fluid intake and rest. Should improve over next 5-7 days and if no better or worse call office. Associated Problem(s): Class 3 severe obesity due to excess calories with serious comorbidity and body mass index (BMI) of 50.0 to 59.9 in adult ([facility]) Weight loss indicated. Images from the original note were not included. Subjective Patient ID: Bobby Brink is a 43 y.o. female who presents for Follow-up (6m /Lump on left side of neck) and Depression (Medication not working). Follow up HTN, CHF, lymphedema, depression, neck pain, allergies, and GERD. Patient not doing well today. Checking BP PRN and typically controlled. BP ok today. Taking medication daily and tolerating without side effects. CHF stable. No SOB or cough with exertion. No PND. Continues to have lymphedema and swelling in legs. No change with diuretics. No open areas or drainage. Tries to wrap and seems to help. Depression worse over past few weeks. Increased symptoms and down, sad, and no motivation. Not want to do things or be around others. Upset with worsening health. Frequent mood swings and irritable. Taking lexapro and not helping. Neck pain improved. Mild pain in base neck and top hips. No radiation into arms or hands. Using percocet PRN and helps but wants a more mild medication. GERD controlled with omeprazole. Denies epigastric pain or burning and not waking up with symptoms. C/o cough, congestion, and rhinorrhea x several weeks. Increased congestion and rhinorrhea. Mild postnasal drip. Increased fatigue. Notice tender lumps on left side of neck and back of neck. DepressionPatient is not experiencing: palpitations and shortness of breath. Review of Systems Respiratory: Negative for cough, shortness of breath and wheezing. Cardiovascular: Negative for chest pain and palpitations. Gastrointestinal: Negative for abdominal pain, diarrhea, nausea and vomiting. Genitourinary: Negative for dysuria. Psychiatric/Behavioral: Positive for depression. Objective Physical Exam Constitutional: General: She is not in acute distress. Appearance: Normal appearance. HENT: Head: Normocephalic. Right Ear: Tympanic membrane normal. Left Ear: Tympanic membrane normal. Eyes: Extraocular Movements: Extraocular movements intact. Pupils: Pupils are equal, round, and reactive to light. Cardiovascular: Rate and Rhythm: Normal rate and regular rhythm. Heart sounds: No murmur heard. No friction rub. No gallop. Pulmonary: Effort: Pulmonary effort is normal. Breath sounds: Normal breath sounds. No wheezing, rhonchi or rales. Abdominal: General: Bowel sounds are normal. There is no distension. Palpations: Abdomen is soft. Tenderness: There is no abdominal tenderness. There is no guarding or rebound. Musculoskeletal: Cervical back: Neck supple. Right lower leg: No edema. Left lower leg: No edema. Neurological: Mental Status: She is alert. Assessment/Plan Problem List Items Addressed This Visit Benign essential hypertension (CMS/HCC) - Primary BP controlled and monitor PRN. Cervical spondylosis without myelopathy Pain stable and use ultram PRN. Discussed risks and benefits of opiate therapy. Warned medication is narcotic and risk of addiction. OARRS reviewed. Relevant Medications traMADol (Ultram) 50 MG tablet Hyperglycemia due to type 2 diabetes mellitus ([facility]/HCC) BS improving and follow with endo. Class 3 severe obesity due to excess calories with serious comorbidity and body mass index (BMI) of 50.0 to 59.9 in adult ([facility]) Weight loss indicated. Chronic heart failure with preserved ejection fraction (HFpEF) ([facility]) Symptoms stable and follow up with cardiology. GERD without esophagitis Symptoms controlled with medication and continue. Relevant Medications ondansetron ODT (Zofran-ODT) 8 MG disintegrating tablet Lymphedema Symptoms unchanged and use compression. Moderate recurrent major depression (HCC) ([facility]) Symptoms worse and no longer controlled with lexapro. Add lamictal. Relevant Medications escitalopram (Lexapro) 20 MG tablet lamoTRIgine (LaMICtal) 25 MG tablet Acute non-recurrent pansinusitis Take antibiotics for 7 days. Use sudafed or other decongestants as needed. Use robitussin or robittussin-DM for cough. Use afrin for congestion but no longer than 3 days. Use mucinex to bring up phlegm. Use motrin or tylenol for fever, aches or pains. Increase fluid intake and rest. Should improve over next 5-7 days and if no better or worse call office. Relevant Medications levoFLOXacin (Levaquin) 750 MG tablet Mild intermittent asthma without complication ([facility]/HCC) Relevant Medications albuterol (2.5 MG/3ML) 0.083% nebulizer solution albuterol HFA 90 mcg/act inhaler documented in this encounter [facility] 01-25-2024 Procedure note [facility] 01-03-2024 Evaluation note Authored January 03, 2024 1:30 pm 43[facility] Patient has chronic gastroparesis symptoms. She is being evaluated for bariatric surgery. Will arrange for gastric emptying study and refer to Dr. Castro I counseled the patient to change her diet to 6 small meals a day, low in fat and fiber. I also counseled the patient about the importance of optimization of glycemic control. Patient has intermittent hematochezia, she has history of tubulovillous adenoma, will arrange for colonoscopy [facility] Work Phone: [phone] 165-340804-03-2024 History of Present illness Narrative* Lizy Saba PA-C - 10/13/2023 8:30 AM EDT [facility] [address] [place] [address] Patient: Bobby Brink Sex: female : 1980 Age: 42 y.o. PCP: JUAN OGLESBY MD 10/13/2023 Bobby Brink is here for a(n) follow up with increased right sided neck pain. Date of onset of pain: 2017 , pain has lasted greater than 3 months. Chief Complaint Patient presents with Neck Pain HPI: Neck Pain This is a chronic problem. The current episode started more than 1 year ago (@2018). The problem occurs every several days. The problem has been gradually worsening. The pain is associated with nothing. The pain is present in the right side, occipital region and left side. The quality of the pain is described as cramping, shooting, stabbing and aching (aching, spasm). The pain is at a severity of8/10 (Neck pain 3/10, migraines have returned). The pain is severe. Exacerbated by: lifting, turning head (limited rom), sleeping The pain is Worse during the night. Stiffness is present In the morning, all day and at night. Associated symptoms include headaches (migraines 2-3X a week) and weakness(right arm). Pertinent negatives include no chest pain, fever, numbness or tingling. Associated symptoms comments: Migraines . Treatments tried: physical therapy (made it worse) and hep, motrin, baclofen, gapapentin, anitriptyline, icy hot, lidocaine patches, heat/ice with no relief. NSAIDs, Rt C MBB with 75% relief reported, 08/30/2020 Jorge C7/1, T 07/13 MBB w/ 60-75% relief. Improvement on treatment: Right C4-7 MBB on 10-14-18, right C2/3, 3/4 RFA w/50% relief. Right C 4/5, 5/6, 6/7 RFA on 05/24/2020 w/80% relief until recently. The effect of pain on patient's ADLS: Minimal Impairment. Past Medical History: Diagnosis Date Bronchitis Depression Diabetes mellitus ([facility]) Edema Fatty liver disease, nonalcoholic Gastroparesis GERD (gastroesophageal reflux disease) Hyperlipidemia Left foot pain r/t sprain last wednesday Morbid obesity ([facility]) Past Surgical History: Procedure Laterality Date BACK SURGERY SECTION CHOLECYSTECTOMY FOOT SURGERY HYSTERECTOMY INCISION DRAINAGE THIGH/KNEE/CALF Right 05/13/2023 Performed by Dez Massey MD at [facility] INJECTION MEDIAL BRANCH NERVE BLOCK bilateral C 7/T1, 1/2 Bilateral 08/30/2020 Performed by Maxi Cook MD at [facility] INJECTION MEDIAL BRANCH NERVE BLOCK Right C 1/2, 2/3, 3/4 Right 05/29/2019 Performed by Maxi Cook MD at [facility] INJECTION MEDIAL BRANCH NERVE BLOCK Right C 1/2, 2/3, 3/4 Right 04/21/2019 Performed by Maxi Cook MD at [facility] INJECTION MEDIAL BRANCH NERVE BLOCK: right C45 [id number] Right 10/14/2018 Performed by Maxi Cook MD at [facility] OOPHORECTOMY RADIO FREQUENCY ABLATION Right C ,2/3, 3/4 Right 12/11/2019 Performed by Maxi Cook MD at [facility] RADIO FREQUENCY ABLATION Right C 4/5, 5/6, 6/7 Right 05/24/2020 Performed by Maxi Cook MD at [facility] RADIO FREQUENCY ABLATION: right [id number] Right 11/18/2018 Performed by Maxi Cook MD at [facility] Right cervical C4/5, C5/6, C6/7 Medial branch block x1 Right 09/05/2018 Performed by Maxi Cook MD at [facility] Allergies Allergen Reactions Phenytoin Sodium Extended Other (See Comments) Rash, edema Sulfamethoxazole Other (See Comments) Bactrim [Sulfamethoxazole-Trimethoprim] Swelling Dilaudid [Hydromorphone] Rash Family History Problem Relation Age of Onset Diabetes Mother Hypertension Mother Diabetes Father Breast cancer Neg Hx Social History Socioeconomic History Marital status: Single Spouse name: Not on file Number of children: Not on file Years of education: Not on file Highest education level: Not on file Occupational History Not on file Tobacco Use Smoking status: Former Packs/day: .25 Types: Cigarettes Quit date: 03/13/2017 Years since quittin.5 Smokeless tobacco: Never Vaping Use Vaping Use: Never used Substance and Sexual Activity Alcohol use: No Drug use: No Sexual activity: Defer Other Topics Concern Caffeine Use Yes Social History Narrative Not on file Social Determinants of Health Financial Resource Strain: Low Risk (10/24/2022) Overall Financial Resource Strain (CARDIA) Difficulty of Paying Living Expenses: Not hard at all Food Insecurity: No Food Insecurity (10/13/2023) Hunger Screening Food Insecurity - Worry: Never True Food Insecurity - Inability: Never True Transportation Needs: No Transportation Needs (10/24/2022) PRAPARE - Transportation Lack of Transportation (Medical): No Lack of Transportation (Non-Medical): No Physical Activity: Insufficiently Active (10/24/2022) Exercise Vital Sign Days of Exercise per Week: 2 days Minutes of Exercise per Session: 10 min Stress: No Stress Concern Present (10/24/2022) [employer] - Occupational Stress Questionnaire Feeling of Stress : Not at all Social Connections: Moderately Isolated (10/24/2022) Social Connection and Isolation Panel [NHANES] Frequency of Communication with Friends and Family: More than three times a week Frequency of Social Gatherings with Friends and Family: More than three times a week Attends Gnosticism Services: More than 4 times per year Active Member of Clubs or Organizations: No Attends Club or Organization Meetings: Never Marital Status: Never Interpersonal Safety: Not At Risk (10/24/2022) Humiliation, Afraid, Rape, and Kick questionnaire Fear of Current or Ex-Partner: No Emotionally Abused: No Physically Abused: No Sexually Abused: No Housing Instability: Low Risk (05/31/2023) Housing Instability Housing Instability: No Review of Systems Constitutional: Negative for chills and fever. HENT: Negative for congestion, rhinorrhea and sore throat. Respiratory: Negative for cough and shortness of breath. Cardiovascular: Negative for chest pain. Gastrointestinal: Negative for abdominal pain, nausea and vomiting. Musculoskeletal: Positive for neck pain. Skin: Negative. Neurological: Positive for weakness (right arm) and headaches (migraines 2-3X a week). Negative fortingling and numbness. Psychiatric/Behavioral: Negative. Vital Signs: BP 156/87 (BP Site: Left Arm, BP Postition: Sitting) Pulse 98 Wt (!) 159.8 kg (352 lb 3.2 oz) SpO2 98% BMI 52.01 kg/m Physical Exam: GENERAL - Healthy patient that appears stated age. HEENT - Normocephalic / Atraumatic, Extraoccular movements intact, trachea midline, thyroid within normal limits. CV - pulse regular, Warm extremities with appropriate color of nailbeds. RESP - No obvious wheezing, No Shortness of Breath, No overexertion response to exam maneuvers. COORDINATION - remains intact. PSYCH - Alert and Oriented x4, Attentive and appropriate, constitutionally normal, displays normal mood and affect per situation, answered questions appropriately during examination, demonstrated appropriate attention during discussion, demonstrated appropriate cognitive reasoning and understandingof the medical condition by asking appropriate questions regarding the diagnosis and risks/benefits/alternatives of treatment modalities. No obvious deficits in memory, reasoning, or intellect. Cervical: SKIN - No rashes or bruising in the area of the patient s pain. LYMPH NODES - demonstrate no obvious enlargement. EXTREMITIES - Upper extremities are warm, with minimal edema and palpable pulses. Tenderness to palpation noted in the right cervical spine and paraspinal musculature. Pain is elicited with flexion, extension, and lateral rotation of the right cervical spine. Range of motion is diminished with these motions due to pain. Facet palpation is noted to be painful and concordant with the patient s normal pain complaints. STRENGTH - noted to be 5 out of 5 all muscle groups bilateral upper extremities including muscles involving shoulder flexion and abduction, elbow flexion and extension, as well as wrist flexion and extension and intrinsic muscles of the hand. No notable atrophy, fasciculations or spasm. SENSORY - No notable sensory deficits in the bilateral upper extremities to touch or pinprick in all dermatomal distributions. Spurlings sign is negative. Assessment/Treatment Plan: Bobby was seen today for neck pain. Diagnoses and all orders for this visit: Cervical spondylosis without myelopathy - Case request operating room: INJECTION BLOCK NERVE MEDIAL BRANCH right C 2/3, 3/4 Right C2/3, 3/4 Facet Injection/Medial Branch Block - under fluoroscopy It is hopeful that the described procedure will provide symptomatic pain relief. It is felt to be medically necessary noting that the patient has tried and failed more conservative modalities of therapy and this is the next most appropriate step. The procedure was described in detail to the patientas well as the potential benefits of pain reduction alongside risks of the procedure and alternatives. Risks were described as including, but not limited to bleeding, infection, nerve damage, spinal cord injury, paralysis, stroke, dural puncture headache, and medication reaction. The patient expressed understanding regarding the risks and benefits and wishes to proceed. Diagnostic facet injections and medial branch blocks should provide information to confirm that thenoted facet arthropathy is the patient s most significant pain generator. If this provides significant but only temporary pain relief, the patient may in the future be a candidate for radiofrequency denervation of the facet joints to provide pain relief for approximately 1 year. Follow up 2 weeks after procedure The medications prescribed have been reviewed for medication interactions/contraindications and/or for upcoming procedures: continue current medication regimen without any changes. DISCUSSION: Treatment options discussed with patient and all questions answered to patient's satisfaction. Discussed the rules and regulations surrounding prescription of opioids and compliance at length. Failure to follow the rules and regulation will result in tapering and discontinuation of medications if applicable. Prescribed medication that requires intensive monitoring for toxicity We do not currently prescribeany controlled substance from this practice. Treatment plans discussed but not opted for at this time: Cervical RFA. Patient would like to proceed with the current outlined treatment plan before moving forward with any other options. The spine model was demonstrated and Xray and MRI was reviewed and used to explain the condition. Chronic conditions not treated during this visit that affected my overall medical decision making: Comorbidity- Obesity The patient does have a comorbid condition of obesity. This will be taken into account in that obesity will contribute to certain pain conditions. It can contribute to pain from degenerative disc disease as well as osteoarthritis of the joints. Many neuropathic symptoms are also amplified due to axial spine loading. Special benefits will also need to be given to procedures. Many procedures are technically more difficult in the light of severe obesity. I will also consider the possibility of undiagnosed obstructive sleep apnea (which often accompanies obesity) when prescribing any narcotic medications. I will weigh the risks and benefits and fully discuss them with the patient for these reasons. Comorbidity- Diabetes The patient has a history of diabetes mellitus currently managed with medications. This will need to be considered prior to any procedure that would require the injection of steroid in that the patient may experience a transient increase in glucose as a result. Additional consideration will need eloise given to timing the procedure early in the morning in that the patient will need to be fasting prior to the administration of anesthesia. Every effort will be made to perform the procedure as a 1st case due to this condition. And the patient will be instructed to hold their diabetic medications on that morning. If necessary, a blood glucose test can also be performed that morning. The risks/ benefits/ and alternatives will be weighed and explained to the patient prior to any procedure. Comorbidity- Anxiety The patient describes a significant issue with anxiety. Although treatment is helpful with this regard, the patient is likely need special accommodation due to this condition. For this reason, necessary procedures will likely need to be performed under sedation to decrease procedural anxiety. Comorbidity- Depression The patient has an ongoing issue with depression and currently feels these symptoms are under control and further feels that appropriate pain management would also help these symptoms. The patient isoptimistic about the treatment plan we have laid out. We will continue to monitor these symptoms and remain cogniscent that they may affect the patients perceived improvement from the treatment and willingness to pursue further treatment. At this time the patient appears to be mentally and emotionally stable to undergo procedural and medical therapy. If any warning signs become present, I may refer the patient to a mental health professional for further evaluation. OARRS: Reviewed. Scribe Statement: Scribed for and in the presence of LIZY SABA PA-C by Victoria Barillas CNA. Provider Statement: I, LIZY SABA PA-C, personally performed the services described in the documentation, as scribed by Victoria Barillas CNA in my presence, and it is both accurate and complete. Victoria Barillas CNA 10/13/23 0913 Lizy Saba PA-C 10/13/23 0928 documented in this encounterRegency Hospital ToledoUbiquisys [id number] Instructions* Patient Instructions* Victoria Barillas CNA - 10/13/2023 8:30 AM EDT Facet Injection / Medial Branch Block (MBB) / Sacroiliac (SI) Joint Injection A facet injection and sacroiliac joint injection are injections of local anesthetic and steroid into a joint in the spine. A medial branch block is similar, but the medication is placed outside the joint space near the nerve that supplies the joint called the medial branch (steroid may or may not be used). You may require multiple injections depending upon how many joints are involved. How Long Will This Procedure Last? The extent and duration of pain relief may depend on the amount of inflammation and how many areas are involved. Other coexisting factors may be responsible for your pain. If your pain goes away for a short time, but then returns, you may be a candidate for radiofrequency ablation (RFA). Activity Be active. Attempt activities and movements that typically cause pain to see if it feels better while doing them. We will give you a pain diary. Please fill this out as directed by your nurse in pre-op. This will help your doctor determine the effectiveness of the injection, and how to proceed. Bring the pain diary with you to your follow-up appointment. Medications You should not take your pain medications for 4-6 hours before or after the injection in order to properly diagnose if the injection provides adequate relief. Resume your routine medications after your procedure. You may resume blood thinners per your regular schedule after the procedure. If you received sedation: If you received sedation for your procedure, you may feel sleepy or not yourself for several hours today. For the next 24 hours avoid activities that requires alertness or coordination. This includes: Driving or operating heavy machinery Using power tools Consuming alcohol Do not make important or complex decisions or sign legal documents in the next 24 hours. Other Instructions: If you feel severe pain at the injection site with swelling and redness, increased leg weakness, a fever of 101 or higher, headache (or worsening headache), changes in vision or urinary retention: Please call the office at , or have someone take you to the nearest emergency room. Tellthe emergency room staff that you recently had a spine injection. A doctor must evaluate you for bleeding and injection complications. If you lose control over bowel, bladder, or legs: Go to the nearest emergency room. documented in this encounterRutland Regional Medical CenterUrban Consign & Design01-07-2024 NoteCT CTA CHEST PROCEDURE: CT CTA CHEST CLINICAL INDICATION: . Pulmonary embolism (PE) suspected, low to intermediate prob, positive D-dimer. COMPARISON: None TECHNIQUE: * CTA was performed of the chest using 100 cc Omnipaque-350 , without complication. * Coronal and sagittal and 3-D volume rendered maximum intensity projection images generated and reviewed under concurrent physician supervision. Automated exposure control utilized * All CT scans at this facility use dose modulation, iterative reconstruction, and/or weight based dosing when appropriate to reduce radiation dose to as low as reasonably achievable. FINDINGS: No large filling defects within the main pulmonary arteries or lobar segments. Contrast bolus is suboptimal for evaluation of the more distal pulmonary arteries. No evidence of right heart strain Extensive mediastinal adenopathy. For example a precarinal lymph node measures up to 1.8 cm in the short axis. Lungs: Left basilar patchy/consolidative opacity possibly related to infectious process in the appropriate clinical setting.. Central Airway: Unremarkable. Pleura: No large pleural effusion. No pneumothorax.. Thoracic Aorta & Great Vessels: Normal in diameter Pulmonary Arteries: Unremarkable. Heart & Pericardium: No coronary arterial calcification. Unremarkable cardiac morphology and pericardium. Visualized Upper Abdomen: No acute abnormalities. Thoracic Spine & Chest Wall: Unremarkable, with normal thoracic vertebral body heights. No destructive lytic or sclerotic lesions. IMPRESSION: * Suboptimal contrast bolus. No filling defect within the main pulmonary arteries and proximal lobar branches. * Left basilar consolidative opacity possibly related to infectious process. * Mediastinal adenopathy is similar to prior. Lymphoproliferative disorder cannot be excluded as these findings were also present on prior from 10/24/2022. Finalized by Chi Mojica on 07/18/2023 6:46 [facility] 07-09-2023 History of Present illness Narrative* Fredy Robles RN - 07/09/2023 8:36 PM EST Pt currently at [facility] ED being seen. Request received from [facility] for pt's ED visit at [facility] on 07/08/23. Received signed copy of release of medical records and requested medical records faxed to [facility] ED documented in this encounterRutland Regional Medical CenterAdmira Cosmetics [id number] Evaluation note* Encounter Date Diagnosis Assessment Notes Treatment Notes Treatment Clinical Notes Apr, Acute viral bronchitis (ICD-10 - J20.8) Declines/refuses COVID/influenza testing today in office. Discussed dx with patient in detail. Will treat as viral today based on physical exam and duration of symptoms, antibiotics are not indicated for viral infections. Advised patient that viral syndromes last 7-10 days, cough may linger for 3 weeks. Take medications as prescribed, reviewed side effects of steroid, take with food and plenty of water. Supportive care as directed, push fluids and rest, may use Tylenol as needed for fever/discomfort, cool mist humidifier. May use Weldon as needed for cough, do not take any other OTCs while using Weldon. Continue inhaler and breathing treatments as directed. Patient to follow up with PCP in 2-3 days. Immediate eval if SOB, difficulty breathing, chest pain, dizziness, or other concerning symptoms. Patient verbalizes understanding and is agreeable to treatment plan [employer] Other 10-01-2023 Evaluation note* Encounter Date Diagnosis Assessment Notes Treatment Notes Treatment Clinical Notes Apr, Right foot pain (ICD-10 - M79.671) Apr, Sprain of right foot, initial encounter (ICD-10 - S93.601A) Foot sprain home care material was printed The Shadi wrap for comfort and compression. Ice and elevate your foot 2-3 times a day. Take Tylenol or Motrin for aches pains or fevers. Follow-up with your family physician if no improvement in 5 to 7-day [employer] Other 04-10-2023 Note10/19/2022 Subjective Patient ID: Bobby Brink is a 41 y.o. female who presents for Pneumonia. HPI: This is a 56-jzaiw-tyz-female patient with a PMH of essential HTN, DM2 admitted to [facility] from [facility] on 09/17/2022 for shortness of breath after testing positive for COVID-19 at home on 09/14/2022. Upon presentation, the patient was found to have an oxygen saturation of 80 % initially on bipap, however, the patient had an emesis and required mechanical ventilation. Workup showed a WBC of 10, initial chest-x-ray showed bilateral infiltrates without pneumonia. Patient was initially on IV Zosyn, Patient was seen by ID who recommended dexamethasone and remdesivir, give one dose of tocilizumab. Sputum cultures on 09/17 grew MSSA, ??? blood cultures grew MRSA on 09/18, Zosyn was discontinued and switched to vancomycin. Repeat chest xray was concerning for bilateral pneumonia of both lungs. TTE was negative for vegetation on 09/21. Central line was removed and cathter tip was negative for any growth. On 09/21. Repeat blood culture on 09/21 NGTD. Patient was extubated on 09/23. Of note, the patient has a spinal cano ,mri was not done due to weight limit. CRP was 4.9 on 09/20. LIDA on 09/28 was negative for vegetation. Patient completed a 11 day course of IV vancomycin and transitioned to linezolid for 18 days EOT 10/17 with total course of 4 weeks course due to spinal hardware. Patient is following up for hospital follow-up visit ambulating in rolling walker. Patient is here with her mother. Patient states she is 11 days of oral Zyvox remaining as she did not start oral antibiotic until 10/08. Patient states she is tolerating Zyvox well without adverse effect. Patient reports pleuritic chest pain which is not new since discharge. Patient states she has an appointment with pulmonology in December and is scheduled for repeat checks x-ray next month. Patient is also reporting bilateral hand tremors since discharge. She was here to see. She recently followed up with a primary care physician however states she did not remember to discuss her concerns with them. Patient denies shortness of breath, chest pain, nausea, vomiting, diarrhea, fever, chills. Review of Systems Constitutional: Negative. Negative for activity change. HENT: Negative. Eyes: Negative. Respiratory: Negative. Cardiovascular: Negative. Gastrointestinal: Negative. Endocrine: Negative. Genitourinary: Negative. Musculoskeletal: Positive for gait problem. Skin: Negative. Hematological: Negative. Psychiatric/Behavioral: Negative. Objective Physical Exam Vitals reviewed. Constitutional: Appearance: She is obese. Cardiovascular: Rate and Rhythm: Tachycardia present. Pulses: Normal pulses. Pulmonary: Effort: Pulmonary effort is normal. Comments: Diminished breath sounds in all lung nickerson. Musculoskeletal: Comments: Ambulates in rolling walker Skin: General: Skin is warm and dry. Neurological: General: No focal deficit present. Mental Status: She is alert. Assessment/Plan Diagnoses and all orders for this visit: Pneumonia due to COVID-19 virus - CBC and differential; Future MRSA bacteremia - CBC and differential; Future Acute hypoxemic respiratory failure (CMS/HCC) - CBC and differential; Future This is a 61-[id number]-sdr female patient admitted to [facility] on 09/17/2022 for shortness of breath found to have acute hypoxic respiratory failure secondary to COVID pneumonia with superimposed MSSA pneumonia status post intubation and mechanical ventilation #MRSA bacteremia ??? blood cultures grew MRSA on 09/18 Central line was removed- cath tip was negative for any growth Repeat blood culture on 09/21- NGTD TTE and LIDA was negative for vegetation. Completed 11 days of vancomycin and transitioned to linezolid 600mg BID for 18 days- she did not package pick up prescriptions from [facility] until 10/08 so she has 7 days left (EOT 10/26/2022). Overall patient is hemodynamically stable today. Thrombocytopenia is noted per recent labs however, patient states this is not new for her. She was to follow up with her PCP for further recommendations. I have ordered a CBC to monitor for neutropenia and thrombocytopenia. Patient is requesting to have labs drawn tomorrow. Patient will follow-up with ID in 4 weeks. #Acute hypoxic respiratory failure secondary to COVID pneumonia with superimposed MSSA pneumonia requiring intubation and mechanical ventilation Lower respiratory cultures grew MSSA (09/17) Completed dexamethasone for 10 days, and remdesivir for 5 days; completed one dose of tocilizumab on 09/18 Completed a course of Decadron. Vitals reviewed. Mild tachycardia . Shortness of breath has resolved. Still complaining of pleuritic chest pain, however has not worsened since discharge. She has repeat chest-Xray for next week, she is scheduled to follow-up with pulmonology in few months (more content not included)...[facility]03-31-2023 Miscellaneous Notes* Telephone Encounter - Janki Yoon - 10/09/2022 10:40 AM EDT Patient will call office back at a later date to schedule. * Telephone Encounter - Janki oYon - 09/22/2022 1:46 PM EDT 2nd attempt to contact patient to schedule. Sent a [employer] message * Telephone Encounter - [facility] - 09/17/2022 1:49 PM EST Received a fax from the referring asking if we had scheduled the patient. I informed them we have tried multiple times to call. Phone number was give for them to call and schedule if they still wanted the appointment. * Telephone Encounter - Janki Yoon - 09/11/2022 11:44 AM EST Left VM for patient to call office to scheduled EGG and apt with Dr. Castro * Telephone Encounter - Janki Yoon - 09/02/2022 11:04 AM EST Left VM for patient to call office to update registration and schedule EGG and New GP consult with Dr. Castro * Telephone Encounter - Chi Castro DO - 08/31/2022 7:22 AM EST Have pt see me, egg is in * Telephone Encounter - Janki Yoon - 08/28/2022 3:16 PM EST Review and advise * Telephone Encounter - [facility] - 08/26/2022 12:14 PM EST Pre- Appointment Assessment GI DX: Abdominal Pain, Gastroparesis, Rectal Bleeding Referring Physician: Records are in: Care everywhere x Epic Scanned Documents x Information received Yes No Percentage Retained Not done or unknown 2 hr GES 4 hr GES x 41% T1/2 90 minute *Notes: Information Received Yes No Date Unknown Insurance Cards x Referral Letter x U/S of Abdomen x CT of Abdomen x EGD/ EGD with Botox x Colonoscopy x Labs x History and Physical Notes x Other Reports x *Notes: Has the patient had ? Yes No Unknown Smart Pill x Lillie/Fundoplication x Gastric By Pass x Gastric Sleeve x Hiatal Hernia Repair x POP/Pyloroplasty x Gastric Pacer x TPN x GJ Tube x *Notes: documented in this encounterMarymount Hospital03-22-2023 NoteHNO ID: [id number] Author: Camilla Gallardo PSYD Service: ? Author Type: Physician Type: Progress Notes Filed: 10/01/2022 2:27 PM Note Text: [facility] Progress Note 10/01/2022 Billing code: Bennett Patient did not attend, cancel, or reschedule this appointment. SpinNote message sent with information for rescheduling. Camilla Gallardo Psy.D. Clinical Health PsychologistClermont County Hospital02-22-2023 Procedure note [facility]09-08-2022 Evaluation note* Encounter Date Diagnosis Assessment Notes Treatment Notes Treatment Clinical Notes Mar, Ringworm (ICD-10 - B35.9) Ringworm home care material was printed Drink plenty fluids, get plenty of rest. Continue home medications as prescribed. Use the cream as prescribed until the rash is gone and then use it for couple more days. Follow-up with your family physician for reevaluation of the swelling of your lower extremities as well as burning pain of your feet. Go to the ER for worsening symptoms or concerns [employer] Other 07-13-2022 Evaluation note* Encounter Date Diagnosis Assessment Notes Treatment Notes Treatment Clinical Notes Jan, Exposure to COVID-19 virus (ICD-10 - Z20.822) Jan, Viral upper respiratory infection (ICD-10 - J06.9) Viral upper respiratory infection: adult home care material was printed Drink plenty fluids, get plenty of rest. Take Tylenol or Motrin for aches pains or fevers. Follow-up with your family physician if no improvement in 2 to 3 days. [employer] Other 06-24-2021 Evaluation note* Author Festus Matamoros [facility] Authored January 03, 2024 1:27 pm 43-[facility]. Patient had multiple episodes of hematochezia she has history of tubulovillous adenoma last colonoscopy was 3 years ago. We will arrange for colonoscopy. Patient has chronic gastroparesis symptoms. I counseled the patient to change her diet to 6 small meals a day, low in fat and fiber. I also counseled the patient about the importance of optimization of glycemic control. We will refer the patient to Dr. Castro/gastroparesis clinic at [facility]. [facility] Work Phone: Evaluation noteNo assessment information available [facility] Work Phone: Evaluation noteNo InformationNortEncompass [facility] [employer] Other Evaluation note* Diagnosis Gastroparesis- [facility] Type 2 diabetes mellitus with hyperglycemia, with long-term current use of insulin ([facility])- Primary Migraine without aura and without status migrainosus, not intractable ([facility]/HCC) Other hyperlipidemia ([facility]/HCC) Mild intermittent asthma without complication ([facility]/HCC) [facility] Diagnosis Onset Date Resolution Status Dysuria noneactive [facility] Work Phone: Evaluation note* Diagnosis Cervical spondylosis without myelopathy- Primary Cervical spondylosis without myelopathy- Primary Cervical spondylosis without myelopathy [facility] Diagnosis Onset Date Resolution Status Dysuria noneactive Contusion of right foot none active [facility] Work Phone: Evaluation note* Diagnosis Moderate recurrent major depression ([facility]/HCC)- Primary Major depressive disorder, recurrent episode, moderate MIROSLAVA (generalized anxiety disorder) ([facility]/HCC) Generalized anxiety disorder Benign essential hypertension ([facility]/HCC) Essential hypertension, benign Type 2 diabetes mellitus with hyperglycemia, with long-term current use of insulin (CMS/HCC) Cervical spondylosis without myelopathy Cervical lymphadenopathy Enlargement of lymph nodes Cellulitis of left leg without foot documented in this encounter [facility]* Diagnosis Pneumonia due to infectious organism, unspecified laterality, unspecified part of lung- Primary Influenza A Influenza with other respiratory manifestations Lymphedema Other noninfectious lymphedema Benign essential hypertension (CMS/HCC)- Primary Essential hypertension, benign Chronic heart failure with preserved ejection fraction (HFpEF) (CMS/HCC) Lymphedema Other noninfectious lymphedema MDD (major depressive disorder), recurrent episode, mild (HCC) (CMS/HCC) Cervical spondylosis without myelopathy GERD without esophagitis Esophageal reflux Seasonal allergic rhinitis due to pollen Breast cancer screening by mammogram Morbid obesity (CMS/HCC) Morbid obesity Body mass index [BMI] 50.0-59.9, adult (Z68.43) Type 2 diabetes mellitus with hyperglycemia, with long-term current use of insulin (CMS/HCC) Type 2 diabetes mellitus with hyperglycemia, with long-term current use of insulin (CMS/HCC)- Primary Diabetic gastroparesis associated with type 2 diabetes mellitus (CMS/HCC) Type II or unspecified type diabetes mellitus with neurological manifestations, not stated as uncontrolled Benign essential hypertension (CMS/HCC) Essential hypertension, benign Morbid obesity due to excess calories (CMS/HCC) Cervical spondylosis without myelopathy Nonalcoholic hepatosteatosis Other chronic nonalcoholic liver disease DDD (degenerative disc disease), lumbar- Primary Degeneration of lumbar or lumbosacral intervertebral disc Leg weakness, bilateral Muscle weakness (generalized) Diabetic polyneuropathy associated with type 2 diabetes mellitus (CMS/HCC) Lymphedema Other noninfectious lymphedema Vitamin A deficiency Vitamin D deficiency Cellulitis of left lower extremity- Primary Type 2 diabetes mellitus with hyperglycemia, with long-term current use of insulin (CMS/HCC) Class 3 severe obesity due to excess calories with serious comorbidity and body mass index (BMI) of 50.0 to 59.9 in adult (CMS/HCC)- Primary Type 2 diabetes mellitus with hyperglycemia, with long-term current use of insulin (CMS/HCC) Diabetic polyneuropathy associated with type 2 diabetes mellitus (CMS/HCC) Benign essential hypertension (CMS/HCC)- Primary Essential hypertension, benign Moderate recurrent major depression (CMS/HCC) Major depressive disorder, recurrent episode, moderate Chronic heart failure with preserved ejection fraction (HFpEF) (CMS/HCC) Lymphedema Other noninfectious lymphedema GERD without esophagitis Esophageal reflux Type 2 diabetes mellitus with hyperglycemia, with long-term current use of insulin ([facility]) Acute non-recurrent pansinusitis Class 3 severe obesity due to excess calories with serious comorbidity and body mass index (BMI) of 50.0 to 59.9 in adult ([facility]) Cervical spondylosis without myelopathy Mild intermittent asthma without complication ([facility]) Immunodeficiency due to conditions classified elsewhere ([facility]) Moderate recurrent major depression ([facility])- Primary Major depressive disorder, recurrent episode, moderate MIROSLAVA (generalized anxiety disorder) ([facility]) Generalized anxiety disorder Benign essential hypertension ([facility]) Essential hypertension, benign Type 2 diabetes mellitus with hyperglycemia, with long-term current use of insulin ([facility]) Cervical spondylosis without myelopathy Cervical lymphadenopathy Enlargement of lymph nodes Cellulitis of left leg without foot Acute bronchitis, unspecified organism- Primary documented in this encounter [facility]* Diagnosis Pneumonia due to infectious organism, unspecified laterality, unspecified part of lung- Primary Influenza A Influenza with other respiratory manifestations Lymphedema Other noninfectious lymphedema Benign essential hypertension ([facility]/HCC)- Primary Essential hypertension, benign Chronic heart failure with preserved ejection fraction (HFpEF) ([facility]) Lymphedema Other noninfectious lymphedema MDD (major depressive disorder), recurrent episode, mild (HCC) ([facility]) Cervical spondylosis without myelopathy GERD without esophagitis Esophageal reflux Seasonal allergic rhinitis due to pollen Breast cancer screening by mammogram Morbid obesity ([facility]) Morbid obesity Body mass index [BMI] 50.0-59.9, adult (Z68.43) Type 2 diabetes mellitus with hyperglycemia, with long-term current use of insulin ([facility]) Type 2 diabetes mellitus with hyperglycemia, with long-term current use of insulin ([facility])- Primary Diabetic gastroparesis associated with type 2 diabetes mellitus ([facility]) Type II or unspecified type diabetes mellitus with neurological manifestations, not stated as uncontrolled Benign essential hypertension ([facility]) Essential hypertension, benign Morbid obesity due to excess calories ([facility]) Cervical spondylosis without myelopathy Nonalcoholic hepatosteatosis Other chronic nonalcoholic liver disease DDD (degenerative disc disease), lumbar- Primary Degeneration of lumbar or lumbosacral intervertebral disc Leg weakness, bilateral Muscle weakness (generalized) Diabetic polyneuropathy associated with type 2 diabetes mellitus (CMS/HCC) Lymphedema Other noninfectious lymphedema Vitamin A deficiency Vitamin D deficiency Cellulitis of left lower extremity- Primary Type 2 diabetes mellitus with hyperglycemia, with long-term current use of insulin ([facility]) Class 3 severe obesity due to excess calories with serious comorbidity and body mass index (BMI) of 50.0 to 59.9 in adult ([facility])- Primary Type 2 diabetes mellitus with hyperglycemia, with long-term current use of insulin ([facility]) Diabetic polyneuropathy associated with type 2 diabetes mellitus ([facility]) Benign essential hypertension ([facility])- Primary Essential hypertension, benign Moderate recurrent major depression ([facility]) Major depressive disorder, recurrent episode, moderate Chronic heart failure with preserved ejection fraction (HFpEF) ([facility]) Lymphedema Other noninfectious lymphedema GERD without esophagitis Esophageal reflux Type 2 diabetes mellitus with hyperglycemia, with long-term current use of insulin ([facility]) Acute non-recurrent pansinusitis Class 3 severe obesity due to excess calories with serious comorbidity and body mass index (BMI) of 50.0 to 59.9 in adult ([facility]) Cervical spondylosis without myelopathy Mild intermittent asthma without complication ([facility]) Immunodeficiency due to conditions classified elsewhere ([facility]) Moderate recurrent major depression ([facility])- Primary Major depressive disorder, recurrent episode, moderate MIROSLAVA (generalized anxiety disorder) ([facility]) Generalized anxiety disorder Benign essential hypertension ([facility]) Essential hypertension, benign Type 2 diabetes mellitus with hyperglycemia, with long-term current use of insulin ([facility]) Cervical spondylosis without myelopathy Cervical lymphadenopathy Enlargement of lymph nodes Cellulitis of left leg without foot Acute bronchitis, unspecified organism- Primary Diabetic gastroparesis associated with type 2 diabetes mellitus ([facility])- Primary Type II or unspecified type diabetes mellitus with neurological manifestations, not stated as uncontrolled Type 2 diabetes mellitus with hyperglycemia, with long-term current use of insulin ([facility]) Diabetic polyneuropathy associated with type 2 diabetes mellitus ([facility]) Class 3 severe obesity due to excess calories with serious comorbidity and body mass index (BMI) of 50.0 to 59.9 in adult ([facility]) Immunodeficiency due to conditions classified elsewhere ([facility]) Cervical lymphadenopathy- Primary Enlargement of lymph nodes documented in this encounter [facility]* Diagnosis Pneumonia due to infectious organism, unspecified laterality, unspecified part of lung- Primary Influenza A Influenza with other respiratory manifestations Lymphedema Other noninfectious lymphedema Benign essential hypertension (CMS/HCC)- Primary Essential hypertension, benign Chronic heart failure with preserved ejection fraction (HFpEF) (CMS/HCC) Lymphedema Other noninfectious lymphedema MDD (major depressive disorder), recurrent episode, mild (HCC) (CMS/HCC) Cervical spondylosis without myelopathy GERD without esophagitis Esophageal reflux Seasonal allergic rhinitis due to pollen Breast cancer screening by mammogram Morbid obesity (CMS/HCC) Morbid obesity Body mass index [BMI] 50.0-59.9, adult (Z68.43) Type 2 diabetes mellitus with hyperglycemia, with long-term current use of insulin (CMS/HCC) Type 2 diabetes mellitus with hyperglycemia, with long-term current use of insulin (CMS/HCC)- Primary Diabetic gastroparesis associated with type 2 diabetes mellitus (CMS/HCC) Type II or unspecified type diabetes mellitus with neurological manifestations, not stated as uncontrolled Benign essential hypertension (CMS/HCC) Essential hypertension, benign Morbid obesity due to excess calories (CMS/HCC) Cervical spondylosis without myelopathy Nonalcoholic hepatosteatosis Other chronic nonalcoholic liver disease DDD (degenerative disc disease), lumbar- Primary Degeneration of lumbar or lumbosacral intervertebral disc Leg weakness, bilateral Muscle weakness (generalized) Diabetic polyneuropathy associated with type 2 diabetes mellitus (CMS/HCC) Lymphedema Other noninfectious lymphedema Vitamin A deficiency Vitamin D deficiency Cellulitis of left lower extremity- Primary Type 2 diabetes mellitus with hyperglycemia, with long-term current use of insulin (CMS/HCC) Class 3 severe obesity due to excess calories with serious comorbidity and body mass index (BMI) of 50.0 to 59.9 in adult (CMS/HCC)- Primary Type 2 diabetes mellitus with hyperglycemia, with long-term current use of insulin (CMS/HCC) Diabetic polyneuropathy associated with type 2 diabetes mellitus (CMS/HCC) Benign essential hypertension (CMS/HCC)- Primary Essential hypertension, benign Moderate recurrent major depression (CMS/HCC) Major depressive disorder, recurrent episode, moderate Chronic heart failure with preserved ejection fraction (HFpEF) (CMS/HCC) Lymphedema Other noninfectious lymphedema GERD without esophagitis Esophageal reflux Type 2 diabetes mellitus with hyperglycemia, with long-term current use of insulin (CMS/HCC) Acute non-recurrent pansinusitis Class 3 severe obesity due to excess calories with serious comorbidity and body mass index (BMI) of 50.0 to 59.9 in adult ([facility]) Cervical spondylosis without myelopathy Mild intermittent asthma without complication ([facility]) Immunodeficiency due to conditions classified elsewhere ([facility]) Moderate recurrent major depression ([facility])- Primary Major depressive disorder, recurrent episode, moderate MIROSLAVA (generalized anxiety disorder) ([facility]) Generalized anxiety disorder Benign essential hypertension ([facility]) Essential hypertension, benign Type 2 diabetes mellitus with hyperglycemia, with long-term current use of insulin ([facility]) Cervical spondylosis without myelopathy Cervical lymphadenopathy Enlargement of lymph nodes Cellulitis of left leg without foot Acute bronchitis, unspecified organism- Primary Diabetic gastroparesis associated with type 2 diabetes mellitus ([facility])- Primary Type II or unspecified type diabetes mellitus with neurological manifestations, not stated as uncontrolled Type 2 diabetes mellitus with hyperglycemia, with long-term current use of insulin ([facility]) Diabetic polyneuropathy associated with type 2 diabetes mellitus ([facility]) Class 3 severe obesity due to excess calories with serious comorbidity and body mass index (BMI) of 50.0 to 59.9 in adult ([facility]) Immunodeficiency due to conditions classified elsewhere ([facility]) documented in this encounter [facility]* Diagnosis Pneumonia due to infectious organism, unspecified laterality, unspecified part of lung- Primary Influenza A Influenza with other respiratory manifestations Lymphedema Other noninfectious lymphedema Benign essential hypertension ([facility])- Primary Essential hypertension, benign Chronic heart failure with preserved ejection fraction (HFpEF) ([facility]) Lymphedema Other noninfectious lymphedema MDD (major depressive disorder), recurrent episode, mild (HCC) ([facility]) Cervical spondylosis without myelopathy GERD without esophagitis Esophageal reflux Seasonal allergic rhinitis due to pollen Breast cancer screening by mammogram Morbid obesity ([facility]) Morbid obesity Body mass index [BMI] 50.0-59.9, adult (Z68.43) Type 2 diabetes mellitus with hyperglycemia, with long-term current use of insulin ([facility]) Type 2 diabetes mellitus with hyperglycemia, with long-term current use of insulin ([facility])- Primary Diabetic gastroparesis associated with type 2 diabetes mellitus ([facility]) Type II or unspecified type diabetes mellitus with neurological manifestations, not stated as uncontrolled Benign essential hypertension ([facility]) Essential hypertension, benign Morbid obesity due to excess calories ([facility]) Cervical spondylosis without myelopathy Nonalcoholic hepatosteatosis Other chronic nonalcoholic liver disease DDD (degenerative disc disease), lumbar- Primary Degeneration of lumbar or lumbosacral intervertebral disc Leg weakness, bilateral Muscle weakness (generalized) Diabetic polyneuropathy associated with type 2 diabetes mellitus ([facility]) Lymphedema Other noninfectious lymphedema Vitamin A deficiency Vitamin D deficiency Cellulitis of left lower extremity- Primary Type 2 diabetes mellitus with hyperglycemia, with long-term current use of insulin ([facility]) Class 3 severe obesity due to excess calories with serious comorbidity and body mass index (BMI) of 50.0 to 59.9 in adult ([facility])- Primary Type 2 diabetes mellitus with hyperglycemia, with long-term current use of insulin ([facility]) Diabetic polyneuropathy associated with type 2 diabetes mellitus ([facility]) Benign essential hypertension ([facility])- Primary Essential hypertension, benign Moderate recurrent major depression ([facility]) Major depressive disorder, recurrent episode, moderate Chronic heart failure with preserved ejection fraction (HFpEF) ([facility]) Lymphedema Other noninfectious lymphedema GERD without esophagitis Esophageal reflux Type 2 diabetes mellitus with hyperglycemia, with long-term current use of insulin ([facility]) Acute non-recurrent pansinusitis Class 3 severe obesity due to excess calories with serious comorbidity and body mass index (BMI) of 50.0 to 59.9 in adult ([facility]) Cervical spondylosis without myelopathy Mild intermittent asthma without complication ([facility]) Immunodeficiency due to conditions classified elsewhere ([facility]) Moderate recurrent major depression ([facility])- Primary Major depressive disorder, recurrent episode, moderate MIROSLAVA (generalized anxiety disorder) ([facility]) Generalized anxiety disorder Benign essential hypertension ([facility]) Essential hypertension, benign Type 2 diabetes mellitus with hyperglycemia, with long-term current use of insulin ([facility]) Cervical spondylosis without myelopathy Cervical lymphadenopathy Enlargement of lymph nodes Cellulitis of left leg without foot Acute bronchitis, unspecified organism- Primary Diabetic gastroparesis associated with type 2 diabetes mellitus ([facility])- Primary Type II or unspecified type diabetes mellitus with neurological manifestations, not stated as uncontrolled Type 2 diabetes mellitus with hyperglycemia, with long-term current use of insulin ([facility]) Diabetic polyneuropathy associated with type 2 diabetes mellitus ([facility]) Class 3 severe obesity due to excess calories with serious comorbidity and body mass index (BMI) of 50.0 to 59.9 in adult ([facility]/HCC) Immunodeficiency due to conditions classified elsewhere ([facility]) Heart murmur- Primary Undiagnosed cardiac murmurs Cervical lymphadenopathy Enlargement of lymph nodes documented in this encounter [facility]* Diagnosis Pneumonia due to infectious organism, unspecified laterality, unspecified part of lung- Primary Influenza A Influenza with other respiratory manifestations Lymphedema Other noninfectious lymphedema Benign essential hypertension (CMS/HCC)- Primary Essential hypertension, benign Chronic heart failure with preserved ejection fraction (HFpEF) (CMS/HCC) Lymphedema Other noninfectious lymphedema MDD (major depressive disorder), recurrent episode, mild (HCC) (CMS/HCC) Cervical spondylosis without myelopathy GERD without esophagitis Esophageal reflux Seasonal allergic rhinitis due to pollen Breast cancer screening by mammogram Morbid obesity (CMS/HCC) Morbid obesity Body mass index [BMI] 50.0-59.9, adult (Z68.43) Type 2 diabetes mellitus with hyperglycemia, with long-term current use of insulin ([facility]) Type 2 diabetes mellitus with hyperglycemia, with long-term current use of insulin ([facility]/HCC)- Primary Diabetic gastroparesis associated with type 2 diabetes mellitus (CMS/HCC) Type II or unspecified type diabetes mellitus with neurological manifestations, not stated as uncontrolled Benign essential hypertension (CMS/HCC) Essential hypertension, benign Morbid obesity due to excess calories (CMS/HCC) Cervical spondylosis without myelopathy Nonalcoholic hepatosteatosis Other chronic nonalcoholic liver disease DDD (degenerative disc disease), lumbar- Primary Degeneration of lumbar or lumbosacral intervertebral disc Leg weakness, bilateral Muscle weakness (generalized) Diabetic polyneuropathy associated with type 2 diabetes mellitus (CMS/HCC) Lymphedema Other noninfectious lymphedema Vitamin A deficiency Vitamin D deficiency Cellulitis of left lower extremity- Primary Type 2 diabetes mellitus with hyperglycemia, with long-term current use of insulin ([facility]/HCC) Class 3 severe obesity due to excess calories with serious comorbidity and body mass index (BMI) of 50.0 to 59.9 in adult ([facility])- Primary Type 2 diabetes mellitus with hyperglycemia, with long-term current use of insulin (CMS/HCC) Diabetic polyneuropathy associated with type 2 diabetes mellitus (CMS/HCC) Benign essential hypertension (CMS/HCC)- Primary Essential hypertension, benign Moderate recurrent major depression (CMS/HCC) Major depressive disorder, recurrent episode, moderate Chronic heart failure with preserved ejection fraction (HFpEF) ([facility] [place] Lymphedema Other noninfectious lymphedema GERD without esophagitis Esophageal reflux Type 2 diabetes mellitus with hyperglycemia, with long-term current use of insulin ([facility] [place]) Acute non-recurrent pansinusitis Class 3 severe obesity due to excess calories with serious comorbidity and body mass index (BMI) of 50.0 to 59.9 in adult ([facility] [place] Cervical spondylosis without myelopathy Mild intermittent asthma without complication ([facility] [place]) Immunodeficiency due to conditions classified elsewhere ([facility] [place]) Moderate recurrent major depression ([facility] [place])- Primary Major depressive disorder, recurrent episode, moderate MIROSLAVA (generalized anxiety disorder) ([facility] [place]) Generalized anxiety disorder Benign essential hypertension ([facility] [place]) Essential hypertension, benign Type 2 diabetes mellitus with hyperglycemia, with long-term current use of insulin ([facility] [place]) Cervical spondylosis without myelopathy Cervical lymphadenopathy Enlargement of lymph nodes Cellulitis of left leg without foot Acute bronchitis, unspecified organism- Primary Diabetic gastroparesis associated with type 2 diabetes mellitus ([facility] [place])- Primary Type II or unspecified type diabetes mellitus with neurological manifestations, not stated as uncontrolled Type 2 diabetes mellitus with hyperglycemia, with long-term current use of insulin ([facility] [place]) Diabetic polyneuropathy associated with type 2 diabetes mellitus ([facility] [place]) Class 3 severe obesity due to excess calories with serious comorbidity and body mass index (BMI) of 50.0 to 59.9 in adult ([facility] [place]) Immunodeficiency due to conditions classified elsewhere ([facility] [place]) Cervical spondylosis without myelopathy documented in this encounter [facility] HealthcareEvaluation note* Diagnosis Benign essential hypertension ([facility] [place])- Primary Essential hypertension, benign Moderate recurrent major depression (HCC) ([facility] [place]) Major depressive disorder, recurrent episode, moderate Chronic heart failure with preserved ejection fraction (HFpEF) ([facility] [place]) Lymphedema Other noninfectious lymphedema GERD without esophagitis Esophageal reflux Type 2 diabetes mellitus with hyperglycemia, with long-term current use of insulin ([facility] [place]) Acute non-recurrent pansinusitis Class 3 severe obesity due to excess calories with serious comorbidity and body mass index (BMI) of 50.0 to 59.9 in adult ([facility] [place]) Cervical spondylosis without myelopathy Mild intermittent asthma without complication ([facility] [place]) Immunodeficiency due to conditions classified elsewhere ([facility] [place]) documented in this encounter [facility] HealthcareEvaluation note* Diagnosis Pneumonia due to infectious organism, unspecified laterality, unspecified part of lung- Primary Influenza A Influenza with other respiratory manifestations Lymphedema Other noninfectious lymphedema Benign essential hypertension (CMS/HCC)- Primary Essential hypertension, benign Chronic heart failure with preserved ejection fraction (HFpEF) (CMS/HCC) Lymphedema Other noninfectious lymphedema MDD (major depressive disorder), recurrent episode, mild (HCC) (CMS/HCC) Cervical spondylosis without myelopathy GERD without esophagitis Esophageal reflux Seasonal allergic rhinitis due to pollen Breast cancer screening by mammogram Morbid obesity (CMS/HCC) Morbid obesity Body mass index [BMI] 50.0-59.9, adult (Z68.43) Type 2 diabetes mellitus with hyperglycemia, with long-term current use of insulin ([facility]/HCC) Type 2 diabetes mellitus with hyperglycemia, with long-term current use of insulin (CMS/HCC)- Primary Diabetic gastroparesis associated with type 2 diabetes mellitus (CMS/HCC) Type II or unspecified type diabetes mellitus with neurological manifestations, not stated as uncontrolled Benign essential hypertension (CMS/HCC) Essential hypertension, benign Morbid obesity due to excess calories (CMS/HCC) Cervical spondylosis without myelopathy Nonalcoholic hepatosteatosis Other chronic nonalcoholic liver disease DDD (degenerative disc disease), lumbar- Primary Degeneration of lumbar or lumbosacral intervertebral disc Leg weakness, bilateral Muscle weakness (generalized) Diabetic polyneuropathy associated with type 2 diabetes mellitus (CMS/HCC) Lymphedema Other noninfectious lymphedema Vitamin A deficiency Vitamin D deficiency Cellulitis of left lower extremity- Primary Type 2 diabetes mellitus with hyperglycemia, with long-term current use of insulin ([facility]/HCC) Class 3 severe obesity due to excess calories with serious comorbidity and body mass index (BMI) of 50.0 to 59.9 in adult ([facility])- Primary Type 2 diabetes mellitus with hyperglycemia, with long-term current use of insulin ([facility]/HCC) Diabetic polyneuropathy associated with type 2 diabetes mellitus (CMS/HCC) Benign essential hypertension (CMS/HCC)- Primary Essential hypertension, benign Moderate recurrent major depression (CMS/HCC) Major depressive disorder, recurrent episode, moderate Chronic heart failure with preserved ejection fraction (HFpEF) (CMS/HCC) Lymphedema Other noninfectious lymphedema GERD without esophagitis Esophageal reflux Type 2 diabetes mellitus with hyperglycemia, with long-term current use of insulin ([facility]/HCC) Acute non-recurrent pansinusitis Class 3 severe obesity due to excess calories with serious comorbidity and body mass index (BMI) of 50.0 to 59.9 in adult ([facility]) Cervical spondylosis without myelopathy Mild intermittent asthma without complication ([facility]) Immunodeficiency due to conditions classified elsewhere ([facility]) Moderate recurrent major depression ([facility])- Primary Major depressive disorder, recurrent episode, moderate MIROSLAVA (generalized anxiety disorder) ([facility]) Generalized anxiety disorder Benign essential hypertension ([facility]) Essential hypertension, benign Type 2 diabetes mellitus with hyperglycemia, with long-term current use of insulin ([facility]) Cervical spondylosis without myelopathy Cervical lymphadenopathy Enlargement of lymph nodes Cellulitis of left leg without foot Acute bronchitis, unspecified organism- Primary Diabetic gastroparesis associated with type 2 diabetes mellitus ([facility])- Primary Type II or unspecified type diabetes mellitus with neurological manifestations, not stated as uncontrolled Type 2 diabetes mellitus with hyperglycemia, with long-term current use of insulin ([facility]) Diabetic polyneuropathy associated with type 2 diabetes mellitus ([facility]) Class 3 severe obesity due to excess calories with serious comorbidity and body mass index (BMI) of 50.0 to 59.9 in adult ([facility]) Immunodeficiency due to conditions classified elsewhere ([facility]) LAD (lymphadenopathy) of left cervical region- Primary documented in this encounter [facility] HealthcareEvaluation note* Diagnosis Pneumonia due to infectious organism, unspecified laterality, unspecified part of lung- Primary Influenza A Influenza with other respiratory manifestations Lymphedema Other noninfectious lymphedema Benign essential hypertension ([facility])- Primary Essential hypertension, benign Chronic heart failure with preserved ejection fraction (HFpEF) ([facility]) Lymphedema Other noninfectious lymphedema MDD (major depressive disorder), recurrent episode, mild (HCC) ([facility]) Cervical spondylosis without myelopathy GERD without esophagitis Esophageal reflux Seasonal allergic rhinitis due to pollen Breast cancer screening by mammogram Morbid obesity ([facility]) Morbid obesity Body mass index [BMI] 50.0-59.9, adult (Z68.43) Type 2 diabetes mellitus with hyperglycemia, with long-term current use of insulin ([facility]) Type 2 diabetes mellitus with hyperglycemia, with long-term current use of insulin ([facility])- Primary Diabetic gastroparesis associated with type 2 diabetes mellitus ([facility]) Type II or unspecified type diabetes mellitus with neurological manifestations, not stated as uncontrolled Benign essential hypertension ([facility]/HCC) Essential hypertension, benign Morbid obesity due to excess calories ([facility]) Cervical spondylosis without myelopathy Nonalcoholic hepatosteatosis Other chronic nonalcoholic liver disease DDD (degenerative disc disease), lumbar- Primary Degeneration of lumbar or lumbosacral intervertebral disc Leg weakness, bilateral Muscle weakness (generalized) Diabetic polyneuropathy associated with type 2 diabetes mellitus ([facility]) Lymphedema Other noninfectious lymphedema Vitamin A deficiency Vitamin D deficiency Cellulitis of left lower extremity- Primary Type 2 diabetes mellitus with hyperglycemia, with long-term current use of insulin ([facility]) Class 3 severe obesity due to excess calories with serious comorbidity and body mass index (BMI) of 50.0 to 59.9 in adult ([facility])- Primary Type 2 diabetes mellitus with hyperglycemia, with long-term current use of insulin ([facility]) Diabetic polyneuropathy associated with type 2 diabetes mellitus ([facility]) Benign essential hypertension ([facility])- Primary Essential hypertension, benign Moderate recurrent major depression ([facility]) Major depressive disorder, recurrent episode, moderate Chronic heart failure with preserved ejection fraction (HFpEF) ([facility]) Lymphedema Other noninfectious lymphedema GERD without esophagitis Esophageal reflux Type 2 diabetes mellitus with hyperglycemia, with long-term current use of insulin ([facility]) Acute non-recurrent pansinusitis Class 3 severe obesity due to excess calories with serious comorbidity and body mass index (BMI) of 50.0 to 59.9 in adult ([facility]) Cervical spondylosis without myelopathy Mild intermittent asthma without complication ([facility]) Immunodeficiency due to conditions classified elsewhere ([facility]) Moderate recurrent major depression ([facility])- Primary Major depressive disorder, recurrent episode, moderate MIROSLAVA (generalized anxiety disorder) ([facility]) Generalized anxiety disorder Benign essential hypertension ([facility]) Essential hypertension, benign Type 2 diabetes mellitus with hyperglycemia, with long-term current use of insulin ([facility]) Cervical spondylosis without myelopathy Cervical lymphadenopathy Enlargement of lymph nodes Cellulitis of left leg without foot Acute bronchitis, unspecified organism- Primary Diabetic gastroparesis associated with type 2 diabetes mellitus ([facility])- Primary Type II or unspecified type diabetes mellitus with neurological manifestations, not stated as uncontrolled Type 2 diabetes mellitus with hyperglycemia, with long-term current use of insulin ([facility]) Diabetic polyneuropathy associated with type 2 diabetes mellitus (CMS/HCC) Class 3 severe obesity due to excess calories with serious comorbidity and body mass index (BMI) of 50.0 to 59.9 in adult (CMS/HCC) Immunodeficiency due to conditions classified elsewhere (CMS/HCC) LAD (lymphadenopathy) of left cervical region- Primary Nontoxic multinodular goiter (CMS/HCC) Nontoxic multinodular goiter Parathyroid abnormality (CMS/HCC) documented in this encounter [facility] HealthcareEvaluation note* Diagnosis Pneumonia due to infectious organism, unspecified laterality, unspecified part of lung- Primary Influenza A Influenza with other respiratory manifestations Lymphedema Other noninfectious lymphedema Benign essential hypertension (CMS/HCC)- Primary Essential hypertension, benign Chronic heart failure with preserved ejection fraction (HFpEF) (CMS/HCC) Lymphedema Other noninfectious lymphedema MDD (major depressive disorder), recurrent episode, mild (HCC) (CMS/HCC) Cervical spondylosis without myelopathy GERD without esophagitis Esophageal reflux Seasonal allergic rhinitis due to pollen Breast cancer screening by mammogram Morbid obesity (CMS/HCC) Morbid obesity Body mass index [BMI] 50.0-59.9, adult (Z68.43) Type 2 diabetes mellitus with hyperglycemia, with long-term current use of insulin (CMS/HCC) Type 2 diabetes mellitus with hyperglycemia, with long-term current use of insulin (CMS/HCC)- Primary Diabetic gastroparesis associated with type 2 diabetes mellitus (CMS/HCC) Type II or unspecified type diabetes mellitus with neurological manifestations, not stated as uncontrolled Benign essential hypertension (CMS/HCC) Essential hypertension, benign Morbid obesity due to excess calories (CMS/HCC) Cervical spondylosis without myelopathy Nonalcoholic hepatosteatosis Other chronic nonalcoholic liver disease DDD (degenerative disc disease), lumbar- Primary Degeneration of lumbar or lumbosacral intervertebral disc Leg weakness, bilateral Muscle weakness (generalized) Diabetic polyneuropathy associated with type 2 diabetes mellitus (CMS/HCC) Lymphedema Other noninfectious lymphedema Vitamin A deficiency Vitamin D deficiency Cellulitis of left lower extremity- Primary Type 2 diabetes mellitus with hyperglycemia, with long-term current use of insulin (CMS/HCC) Class 3 severe obesity due to excess calories with serious comorbidity and body mass index (BMI) of 50.0 to 59.9 in adult (CMS/HCC)- Primary Type 2 diabetes mellitus with hyperglycemia, with long-term current use of insulin (CMS/HCC) Diabetic polyneuropathy associated with type 2 diabetes mellitus (CMS/HCC) Benign essential hypertension ([facility])- Primary Essential hypertension, benign Moderate recurrent major depression ([facility]) Major depressive disorder, recurrent episode, moderate Chronic heart failure with preserved ejection fraction (HFpEF) ([facility]) Lymphedema Other noninfectious lymphedema GERD without esophagitis Esophageal reflux Type 2 diabetes mellitus with hyperglycemia, with long-term current use of insulin ([facility]) Acute non-recurrent pansinusitis Class 3 severe obesity due to excess calories with serious comorbidity and body mass index (BMI) of 50.0 to 59.9 in adult ([facility]) Cervical spondylosis without myelopathy Mild intermittent asthma without complication ([facility]) Immunodeficiency due to conditions classified elsewhere ([facility]) Moderate recurrent major depression ([facility])- Primary Major depressive disorder, recurrent episode, moderate MIROSLAVA (generalized anxiety disorder) ([facility]) Generalized anxiety disorder Benign essential hypertension ([facility]) Essential hypertension, benign Type 2 diabetes mellitus with hyperglycemia, with long-term current use of insulin ([facility]) Cervical spondylosis without myelopathy Cervical lymphadenopathy Enlargement of lymph nodes Cellulitis of left leg without foot Acute bronchitis, unspecified organism- Primary Diabetic gastroparesis associated with type 2 diabetes mellitus ([facility])- Primary Type II or unspecified type diabetes mellitus with neurological manifestations, not stated as uncontrolled Type 2 diabetes mellitus with hyperglycemia, with long-term current use of insulin ([facility]) Diabetic polyneuropathy associated with type 2 diabetes mellitus ([facility]) Class 3 severe obesity due to excess calories with serious comorbidity and body mass index (BMI) of 50.0 to 59.9 in adult ([facility]) Immunodeficiency due to conditions classified elsewhere ([facility]) Cervical spondylosis without myelopathy documented in this encounter [facility] HealthcareHistory and physical note Author Estefania Solorzano [facility] January 25, 2024 12:14pm Note Date/Time January 25, 2024 12:1 4pm [facility] [address] [place] [address] Gastroenterology H&P Signed Patient: Bobby Brink MR#: [id number] : 1980 Acct:[id number] Age/Sex: 43 / F Adm Date: 4 Loc: Room: Type: [facility] Attending Dr: Estefania Solorzano DO Copies to: DO Juan De Souza MD~ Date of Service: 01/25/2024 HISTORY & PHYSICAL: Patient's history with special attention to the cardiovascular, pulmonary systems and the current problem was reviewed with the patient immediately prior to the procedure. Present medications and doses reviewed in the EMR. Allergies and pertinent laboratory tests were also reviewedat this time in the EMR. The physical examination, as below, was then performed. Indication, assessment and HPI: 43-year-old female who presents for screening colonoscopy. Colonoscopy was attempted 1 year ago but was aborted secondary to poor. Family history of GI malignancy? No PHYSICAL EXAMINATION General appearance: cooperative, NAD Skin: No jaundice, no rash or lesions Head: NCAT Eyes: Anicteric Neck: Supple Lungs: Normal respiratory effort, no use of accessory muscles Abdomen: Soft, nondistended Neuro: No focal deficits, Ox3. REVIEW OF SYSTEMS Constitutional: Denies malaise, fevers Cardiovascular: Denies chest pain, palpitations Respiratory: Denies shortness of breath, wheezing Gastrointestinal: As per HPI Genitourinary: Denies dysuria, polyuria Musculoskeletal: Denies joint swelling, joint stiffness Neurological: Denies confusion, numbness, tingling Endocrine: Denies fatigue Written informed consent obtained from the patient. Risks (including but not limited to perforation, infection, bloating, bleeding, need for emergent surgeryand loss of life), benefits and alternatives explained and questions answered. The patient verbalized understanding. Based on history patient is an appropriate candidate for the procedure. Estefania Solorzano DO Documented By: Estefania Solorzano DO 01/25/24 1213 Signed By: <Electronically signed by Estefania Solorzano DO> 01/25/24 1214 [facility] Work Phone: [facility] general Narrative - Reported* Type Description Date Medical History GERD Medical History gastroparesis Medical History morbid obesity Medical History DM II Medical History anxiety/depression Medical History Fatty liver Medical History hyperlipidemia Medical History diabetic nephropathy Surgical History CHOLECYSTECTOMY Surgical History BACK SURGERY Surgical History Surgical History HYSTERECTOMY Hospitalization History No Hospitalization histo [facility] Other History general Narrative - Reported* Type Description Date Medical History GERD Medical History gastroparesis Medical History morbid obesity Medical History DM II Medical History anxiety/depression Medical History Fatty liver Medical History hyperlipidemia Medical History diabetic nephropathy Surgical History CHOLECYSTECTOMY Surgical History BACK SURGERY Surgical History Surgical History HYSTERECTOMY Hospitalization History see surgical hx [facility] Other Hospital Discharge instructions Additional Instructions DISCHARGE INSTRUCTIONS FOR COLONOSCOPY WHAT TO EXPECT: - You may feel full, gassy or cramping after your procedure. In some cases, this may be from a few hours to a day. Walking may help relieve the discomfort. - If you have polyp(s) removed you may note some minor bloody discharge after your first bowel movements. - You should begin to recover from anesthesia within 1 hour of the procedure, however may feel groggy for the next 24 hours. DO's AND DON'Ts: - Call your doctor right away if you have a hard abdomen, severe pain, are passing lots of bright red blood or clots. - Call your doctor if you develop any rashes, hives or difficulty breathing. - Let your doctor know if you have not had a bowel movement by 3 days after your procedure. - If you take 81 mg aspirin for your heart it is safe to resume this medication. - If you take other blood thinner medications your doctor will instruct you when these can safely be resumed. - Do NOT drive for 24 hours. - Do NOT operate machinery such as power tools, GeoOPn mowers, snow blowers, sewing machines, etc. for 24 hours. - Avoid alcoholic beverages and drugs for allergies, nerves, or sleep. - Do NOT stay alone. Do NOT leave your child unattended. - Do NOT make important personal or business decisions or sign any legal documents. - Eat solid foods and drink liquids in smaller amounts than usual until normal appetite returns. If you should experience an upset stomach, liquids high in sugar content (soda, Zachary-Aid, non-acid juices) are recommended. - You can resume normal activities tomorrow. FOLLOW UP & RECOMMENDATIONS: -Repeat colonoscopy next available was 2-day prep using GoLytely and 4 days of clear liquid diet -Follow up with PCP. -Office number [phone]. [facility] Work Phone: InstructionsNot on filedocumented in this encounter S[employer] SystemInstructionsNot on filedocumented in this encounter [facility] System[facility]ructionsNot on filedocumented in this encounter [facility] Summary Purpose Family History Relationship Condition Age at Onset Recorded Date/T juan pablo Not Specified Diabetes mellitus Unknown Relationship Condition Age at Onset Recorded Date/T juan pablo father Diabetes mellitus Unknown family member Unknown Not Specified Diabetes mellitus Unknown Relationship Condition Age at Onset Recorded Date/T juan pablo father Diabetes mellitus Unknown family member Unknown mother Diabetes mellitus Unknown Advance Directives Advance Directive Response Recorded Date/ Time Advance Directives No May 12:45pm Latest Code Status on File Code Status Date Activated Date Inactivated Comments Full Code 05/31/2023 2:07 AM 06/05/2023 4:28 PM Code Status History Code Status Date Activated Date Inactivated Comments Full Code 05/12/2023 10:46 AM 05/14/2023 6:38 PM Full Code 05/08/2023 6:30 PM 05/12/2023 10:17 AM Full Code 11/17/2022 8:52 AM 11/19/2022 1:41 PM Full Code 10/24/2022 5:28 AM 10/26/2022 5:54 PM Latest Code Status on File Code Status Date Activated Date Inactivated Comments Full Code 07/21/2023 2:11 AM 07/24/2023 2:37 PM Code Status History Code Status Date Activated Date Inactivated Comments Full Code 05/31/2023 2:07 AM 06/05/2023 4:28 PM Full Code 05/12/2023 10:46 AM 05/14/2023 6:38 PM Full Code 05/08/2023 6:30 PM 05/12/2023 10:17 AM Full Code 11/17/2022 8:52 AM 11/19/2022 1:41 PM Advance Directive Response Recorded Date/ Time Advance Directives No May 1:45pm Latest Code Status on File Code Status Date Activated Date Inactivated Comments Full Code 07/21/2023 2:11 AM 07/24/2023 2:37 PM Code Status History Code Status Date Activated Date Inactivated Comments Full Code 05/31/2023 2:07 AM 06/05/2023 4:28 PM Full Code 05/12/2023 10:46 AM 05/14/2023 6:38 PM Full Code 05/08/2023 6:30 PM 05/12/2023 10:17 AM Full Code 11/17/2022 8:52 AM 11/19/2022 1:41 PM Date Activated Date Inactivated Comments 01/28/2024 4:14 PM 01/30/2024 4:03 PM Date Activated Date Inactivated Comments 07/21/2023 2:11 AM 07/24/2023 2:37 PM Date Activated Date Inactivated Comments 05/31/2023 2:07 AM 06/05/2023 4:28 PM Date Activated Date Inactivated Comments 05/12/2023 10:46 AM 05/14/2023 6:38 PM Date Activated Date Inactivated Comments 05/08/2023 6:30 PM 05/12/2023 10:17 AM Chief Complaint and Reason for Visit Chief Complaint Rectal Bleeding. Chief Complaint possible uti, troubl es urinating Reason for Visit Dysuria Chief Complaint possible uti, troubl es urinating Right foot injury Reason for Visit Dysuria Contusion of right foot Chief Complaint possible uti, troubl es urinating Right foot injury M79.671 Reason for Visit Dysuria Contusion of right foot Chief Complaint Right foot injury M79.671 abdominal pain, gastroparesis Reason for Visit Contusion of right f oot Abdominal pain Blood in stool Gastroparesis Nausea Chief Complaint abdominal pain, jean paul roparesis Screening Screening Reason for Visit Abdominal pain Blood in stool Gastroparesis Nausea Chief Complaint Admit Date Unknown July 18, 2024 2: 50pm Reason for Referral Specialty Diagnoses / Procedures Referred By Dayanara t Referred To Contact Diagnoses Cervical spondylosis without myelopathy Procedures Case request operating room: INJECTION BLOCK NERVE MEDIAL BRANCH right C 08/14, 3 Lizy Saba, PARuslan [address], [address] [place] [address] Referral ID Status Reason Start Date Expiration Date V isits Requested Visits Authorized [id number] Pending Review 10/13/2023 10/12/2024 1 1 Additional Source Comments INFORMATION SOURCE (unrecogn ized section and content) DATE CREATED AUTHOR 01/04/2018 [facility] DATE CREATED AUTHOR AUTHOR'S ORGANIZ ATION 07/31/2020 [facility] DATE CREATED AUTHOR AUTHOR'S ORGANIZ ATION 01/08/2021 [facility] DATE CREATED AUTHOR AUTHOR'S ORGANIZ ATION 03/14/2021 Shayan Patel [facility] DATE CREATED AUTHOR AUTHOR'S ORGANIZ ATION 11/03/2022 [facility] DATE CREATED AUTHOR AUTHOR'S ORGANIZ ATION 11/04/2022 [facility] DATE CREATED AUTHOR AUTHOR'S ORGANIZ ATION 12/18/2022 [facility] DATE CREATED AUTHOR AUTHOR'S ORGANIZ ATION 07/09/2024 [facility] DATE CREATED AUTHOR AUTHOR'S ORGANIZ ATION 07/28/2024 [facility] DATE CREATED AUTHOR AUTHOR'S ORGANIZ ATION 08/02/2024 [facility] EPIC REASON FOR VISIT (unrecogniz ed section and content) Reason Comments pre appointment assessment Reason Comments Med Refill Reason Comments Neck Pain Reason Comments Follow-up 1mEr f/up cellulitis Reason Comments Follow-up Chest cold Reason Comments Diabetes Reason Comments Cervical lymphadenopathy Specialty Diagnoses / Procedures Referred By Contac t Referred To Contact Otolaryngology Diagnoses Cervical lymphadenopathy Procedures CT OFFICE/OUTPATIENT [facility] Juan Oglesby MD [address] [place] [address] Phone: tel: fax: Page Bobo MD [address] [address] Phone: tel: fax: Referral ID Status Reason Start Date Expiration Date V isits Requested Visits Authorized [id number] Closed Specialty Services Required 05/29/2024 11/25/2024 1 1 Reason Onset Date Comments Med Refill 06/13/2024 Reason Comments Follow-up 6m Lump on left side of neck Depression Medication not worki ng Reason Comments Swollen Glands Follow up Reason Comments Swollen Glands Follow up CT [facility] 07/17/24. [facility] 07/18/24 Reason Onset Date Comments Med Refill 08/01/2024 Care Teams (unrecognized sec tion and content) Team Status: Active Member Role Status Dates Juan Oglesby MD Primary Care Provider Active Team Status: Inactive Member Role Status Dates Juan Oglesby MD Primary Care Provider Active S tart: October 03, 2023 End: October 03, 2023 Elizabeth Velasco APRN Attending Provider Active Start: October 03, 2023 End: October 03, 2023 Team Status: Inactive Member Role Status Dates Juan Oglesby MD Primary Care Provider Active Festus Matamoros MD Attending Provider Active Bag Printer Relationship Specialty Start Date End Date Juan Oglesby PCP - General Family Medicine 05/01/16 Bag Printer Relationship Specialty Start Date End Date Juan Oglesby MD [address] [place] [address] PCP - General 05/30/23 Bag Printer Relationship Specialty Start Date End Date Juan Oglesby MD [address] [place] [address] PCP - General 05/30/23 Bag Printer Relationship Specialty Start Date End Date Juan Oglesby MD PCP - General Family Medicine 01/06/23 Bag Printer Relationship Specialty Start Date End Date Juan Oglesby MD [address] [place] [address] PCP - General 05/30/23 Team Status: Inactive Member Role Status Dates Juan Oglesby MD Primary Care Provider Active S tart: October 20, 2023 End: October 20, 2023 HARRISON Meraz Attending Provider Active S tart: October 20, 2023 End: October 20, 2023 Team Status: Active Member Role Status Dates Juan Oglesby MD Primary Care Provider Active S tart: October 20, 2023 HARRISON Meraz Attending Provider Active S tart: October 20, 2023 Team Status: Inactive Member Role Status Dates Juan Oglebsy MD Primary Care Provider Active S tart: January 03, 2024 End: January 03, 2024 Festus Matamoros MD Attending Provider Active Start: January 03, 2024 End: January 03, 2024 Bag Printer Relationship Specialty Start Date End Date Juan Oglesby MD [address] [place] [phone] PCP - General Family Medicine 09/13/23 Bag Printer Relationship Specialty Start Date End Date Juan Oglesby MD [address] [place] [address] PCP - General Family Medicine 09/13/23 Bag Printer Relationship Specialty Start Date End Date Juan Oglesby MD [address] [place] [phone] PCP - General Family Medicine 09/13/23 Bag Printer Relationship Specialty Start Date End Date Juan Oglesby MD [address] [place] [address] PCP - General Family Medicine 09/13/23 Bag Printer Relationship Specialty Start Date End Date Juan Oglesby MD [address] [place] [address] PCP - General Family Medicine 09/13/23 Bag Printer Relationship Specialty Start Date End Date Juan Oglesby MD [address] [place] [address] PCP - General Family Medicine 09/13/23 Bag Printer Relationship Specialty Start Date End Date Juan Oglesby MD [address] [place] [address] PCP - General Family Medicine 09/13/23 Bag Printer Relationship Specialty Start Date End Date Juan Oglesby MD PCP - General 05/30/23 Bag Printer Relationship Specialty Start Date End Date Juan Oglesby MD [address] [place] [phone] PCP - General Family Medicine 09/13/23 Bag Printer Relationship Specialty Start Date End Date Juan Oglesby MD [address] [place] [phone] PCP - General Family Medicine 09/13/23 Bag Printer Relationship Specialty Start Date End Date Juan Oglesby MD [address] [place] [phone] PCP - General Family Medicine 09/13/23 Team Status: Inactive Member Role Status Dates Juan Oglesby MD Primary Care Provider Active S tart: January 25, 2024 End: January 25, 2024 Estefania Solorzano DO Attending Provider Active St art: January 25, 2024 End: January 25, 2024 Team Status: Active Member Role Status Dates Juan Oglesby MD Primary Care Provider Active S tart: January 25, 2024 Estefania Solorzano DO Attending Provider, Other Provider Active Start: January 25, 2024 Bag Printer Relationship Specialty Start Date End Date Juan Oglesby MD [address] [place] [phone] PCP - General Family Medicine 09/13/23 Bag Printer Relationship Specialty Start Date End Date Juan Oglesby MD [address] [place] [phone] PCP - General Family Medicine 09/13/23 Team Status: Inactive Member Role Status Dates Page Bobo Jr, MD Attending Provider Active Start: July 18, 2024 End: July 18, 2024 Bag Printer Relationship Specialty Start Date End Date Juan Oglesby MD [address] [place] [phone] PCP - [facility] 09/13/23 Bag Printer Relationship Specialty Start Date End Date Juan Oglesby MD [address] [place] [phone] PCP - [facility] 09/13/23 Bag Printer Relationship Specialty Start Date End Date Juan Oglesby MD [address] [place] [address] PCP - [facility] 09/13/23 Bag Printer Relationship Specialty Start Date End Date Juan Oglesby MD [address] [place] [phone] PCP - [facility] 09/13/23 Source Comments (unrecognize d section and content) In the event this informatio n is protected by the Federal Confidentiality of Alcohol and Drug Abuse Patient Records regulations: The Federal rules restrict any use of the information to criminally investigate or prosecute any alcohol or drug abuse patient.[facility] Goals (unrecognized section and content) Goals may be documented in a n alternate section FOR RECORDS PERTAINING TO PATIENTS WHO ARE OR HAVE BEEN ENROLLED IN A CHEMICAL DEPENDENCY/SUBSTANCEABUSE PROGRAM, SOME INFORMATION MAY BE OMITTED. This clinical summary was aggregated from multiple sources. Caution should be exercised in using it in the provision of clinical care. This summary normalizes information from multiple sources, and as a consequence, information in this document may materially change the coding, format and clinical context of patient data. In addition, data may be omitted in some cases. CLINICAL DECISIONS SHOULD BE BASED ON THE PRIMARY CLINICAL RECORDS. [employer] [facility]. provides no warranty or guarantee of the accuracy or completeness of information in this document.
[2024-08-07 12:05] LABS: Influenza Virus A Antigen Negative; Influenza Virus B Antigen Negative; Internal Control Within Normal Limits; SARS-CoV-2 Ag NEGATIVE (NEGATIVE)
--- NOTE | 2024-08-07 12:23 | ED_ITS ---
HPI HPI - General Adult General Chief complaint: Weakness Stated complaint: WEAKNESS Time Seen by Provider: 08/07/24 12:05 Source: patient Mode of arrival: walk-in Limitations: no limitations History of Present Illness HPI narrative: 43-year-old female presents for feeling weak and having a cough. The cough started within the last several days and has been mostly nonproductive. 2 weeks ago she had biopsy in her left neck and was put on an antibiotic, she believes it is Zithromax. She does not have pain in the neck and has not had hemoptysis or known fever. She feels weak. Related Data Home Medications ?Medication ?Instructions ?Recorded ?Confirmed amitriptyline 150 mg tablet 300 mg PO BEDTIME 02/13/23 02/13/23 atorvastatin 40 mg tablet 40 mg PO BEDTIME 02/13/23 02/13/23 dicyclomine 20 mg tablet 20 mg PO QID 02/13/23 02/13/23 fluticasone 250 mcg-salmeterol 50 1 inh inhalation Q12H 02/13/23 02/13/23 mcg/dose blistr powdr for inhalation insulin regular hum U-500 conc 500 500 unit subcut ACHS 02/13/23 02/13/23 unit/mL subcutaneous soln (Humulin R U-500 (Concentrated) Insulin) metformin 500 mg tablet 500 mg PO BID 02/13/23 02/13/23 omeprazole 40 mg capsule,delayed 40 mg PO BID 02/13/23 02/13/23 release ondansetron 8 mg disintegrating 8 mg PO Q8H PRN nausea 02/13/23 02/13/23 tablet oxycodone-acetaminophen 5 mg-325 1 tab PO QID PRN pain 02/13/23 02/13/23 mg tablet pioglitazone 45 mg tablet 45 mg PO QDAY 02/13/23 02/13/23 propranolol 80 mg capsule,24 80 mg PO Q24H 02/13/23 02/13/23 hr,extended release sertraline 50 mg tablet 50 mg PO DAILY 02/13/23 02/13/23 spironolactone 50 mg tablet 50 mg PO QDAY 02/13/23 02/13/23 Previous Rx's ?Medication ?Instructions ?Recorded bumetanide 2 mg tablet 2 mg PO DAILY #30 tabs 02/14/23 amoxicillin 875 mg-potassium 1 tab PO BID #20 tabs 07/09/23 clavulanate 125 mg tablet Allergies Allergy/AdvReac Type Severity Reaction Status Date / Time hydromorphone (From Dilaudid) Allergy Intermediate Verified 07/09/23 18:38 Sulfa (Sulfonamide Allergy Intermediate Verified 07/09/23 18:38 Antibiotics) Opioid HPI Opioid Management Most Recent Opioid Data: Last Pain Scale 0 02/14/23 09:45 02/14/23 Review of Systems ROS Narrative A ten point review of systems is negative except as noted above. [facility] Medical History (Updated 08/07/24 @ 12:37 by Wing Santiago MD) Nonalcoholic fatty liver disease ?K76.0 - Fatty (change of) liver, not elsewhere classified (ICD-10) Morbid obesity ?E66.01 - Morbid (severe) obesity due to excess calories (ICD-10) Diabetic gastroparesis associated with type 2 diabetes mellitus ?E11.43 - Type 2 diabetes mellitus with diabetic autonomic (poly)neuropathy (ICD-10) ?K31.84 - Gastroparesis (ICD-10) Type 2 diabetes mellitus with hyperglycemia ?E11.65 - Type 2 diabetes mellitus with hyperglycemia (ICD-10) Chronic heart failure with preserved ejection fraction (HFpEF) ?I50.32 - Chronic diastolic (congestive) heart failure (ICD-10) Acute on chronic heart failure with preserved ejection fraction ?I50.33 - Acute on chronic diastolic (congestive) heart failure (ICD-10) Cervical spondylosis ?M47.812 - Spondylosis without myelopathy or radiculopathy, cervical region (ICD-10) Benign essential hypertension ?I10 - Essential (primary) hypertension (ICD-10) Gastroparesis ?K31.84 - Gastroparesis (ICD-10) Oral yeast infection ?B37.0 - Candidal stomatitis (ICD-10) Lymph edema ?I89.0 - Lymphedema, not elsewhere classified (ICD-10) Asthma ?J45.909 - Unspecified asthma, uncomplicated (ICD-10) TIA (transient ischemic attack) ?G45.9 - Transient cerebral ischemic attack, unspecified (ICD-10) COVID ?U07.1 - COVID-19 (ICD-10) Lower extremity edema ?R60.0 - Localized edema (ICD-10) Surgical History (Updated 02/13/23 @ 16:54 by Elana Dumont) History of back surgery ?Z98.890 - Other specified postprocedural states (ICD-10) Hx of cholecystectomy ?Z90.49 - Acquired absence of other specified parts of digestive tract (ICD- 10) History of hysterectomy ?Z90.710 - Acquired absence of both cervix and uterus (ICD-10) Social History Smoking status: Never smoker Exam Narrative Exam Narrative: Nurses note and vital signs reviewed and patient is not hypoxic. General: The patient appears in no apparent distress. Patient is resting comfortably on cart. Skin: Warm, dry, no pallor noted. There is no rash noted. Head: Normocephalic, atraumatic Eye: Normal conjunctiva, no drainage Ears, Nose, Mouth, and Throat: oral mucosa is moist. Nares patent. Her neck is examined and there is no erythema or swelling or bruising or rash Cardiovascular: Regular Rate and Rhythm Respiratory: Patient is in no distress, no accessory muscle use, lungs are clear to auscultation, no wheezing, rales or rhonchi Back: non-tender, no CVA tenderness bilaterally to percussion. GI: Soft and nontender Musculoskeletal: The patient has no evidence of calf tenderness, no pitting edema, symmetrical pulses noted bilaterally Neurological: A&O normal speech Psychiatric: Cooperative Constitutional Vital Signs, click to edit/add: Last Vital Signs Temp 98.5 F 08/07/24 11:38 Pulse 85 08/07/24 11:38 Resp 18 08/07/24 11:38 BP 136/87 08/07/24 11:38 Pulse Ox 99 08/07/24 11:38 O2 Del Method Room Air 08/07/24 11:38 Course Vital Signs Vital signs: Vital Signs Temperature 98.5 F 08/07/24 11:38 Pulse Rate 85 08/07/24 11:38 Respiratory Rate 18 08/07/24 11:38 Blood Pressure 136/87 08/07/24 11:38 Pulse Oximetry 99 08/07/24 11:38 Oxygen Delivery Method Room Air 08/07/24 11:38 Temperature 98.5 F 08/07/24 11:38 Pulse Rate 85 08/07/24 11:38 Respiratory Rate 18 08/07/24 11:38 Blood Pressure 136/87 08/07/24 11:38 Pulse Oximetry 99 08/07/24 11:38 Oxygen Delivery Method Room Air 08/07/24 11:38 Medical Decision Making MDM Narrative Medical decision making narrative: Work is essentially normal. WBC is 4.0. COVID and influenza tests are negative and chest x-ray suggest a viral type pattern. This fits her clinical picture. Antibiotic not indicated. Treatment diagnosis and follow-up were discussed with the patient Differential Diagnosis Differential Diagnosis: COVID, influenza, pneumonia, viral illness Lab Data Lab results reviewed: Yes I reviewed the patient's lab results Labs: Lab Results 08/07/24 08/07/24 Range/Units 11:45 12:18 WBC 4.0 (4.0-11.0) 10^3/uL RBC 4.38 (4.20-5.40) 10^6/uL Hgb 14.2 (12.0-16.0) g/dL Hct 42.4 (36.0-48.0) % MCV 96.8 (81.0-99.0) fL MCH 32.4 (26.7-34.0) pg MCHC 33.5 (29.9-35.2) g/dL RDW 14.1 (11.0-15.0) % Plt Count 91 L (150-450) 10^3/uL MPV 10.6 (9.5-13.5) fL Neut % (Auto) 57.1 (43.0-75.0) % Lymph % (Auto) 30.3 (20.5-60.0) % [place] % (Auto) 7.5 (1.7-12.0) % Eos % (Auto) 2.8 (0.9-7.0) % Baso % (Auto) 0.8 (0.2-2.0) % Neut # (Auto) 2.3 (1.4-6.5) 10^3/uL Lymph # (Auto) 1.2 (1.2-3.8) 10^3/uL [place] # (Auto) 0.3 (0.3-0.8) 10^3/uL Eos # (Auto) 0.1 (0.0-0.7) 10^3/uL Baso # (Auto) 0.0 (0.0-0.1) 10^3/uL Abs Immat Gran (auto) 0.06 H (0.00-0.03) 10^3/uL Imm/Tot Granulo (auto) 1.5 H (0.0-0.5) % Sodium 142 (136-145) mmol/L Potassium 3.8 (3.5-5.1) mmol/L Chloride 106 (98-107) mmol/L Carbon Dioxide 30.0 (21.0-32.0) mmol/L Anion Gap 9.8 BUN 6.0 L (7.0-18.0) mg/dL Creatinine 0.63 (0.55-1.02) mg/dL Est GFR ( Amer) >60 (>=60 mL/min/1.73m^2) Est GFR (Non-Af Amer) >60 (>=60 mL/min/1.73m^2) BUN/Creatinine Ratio 9.5 Glucose 165 H (74-106) mg/dL Calcium 8.7 (8.5-10.1) mg/dL Influenza Type A Ag Negative Influenza Type B Ag Negative SARS-CoV-2 Ag (CV2AG) Negative (NEGATIVE) Imaging Data Chest x-ray: Radiologist's impression: ITS Impressions Chest X-Ray 08/07/24 11:43 IMPRESSION: 1. Possible mild bronchiolitis. 2. No peripheral infiltrates to suggest pneumonia. Electronically authenticated by: WILL ZACARIAS Date: 08/07/2024 12:08 Discharge Plan Discharge Chief Complaint: Weakness Clinical Impression: Viral URI Patient Disposition: Home, Self-Care Time of Disposition Decision: 12:37 Condition: Good Mode of Transportation: Private Vehicle Prescriptions / Home Meds: No Action amoxicillin-pot clavulanate 875-125 mg tablet 1 tab PO BID Qty: 20 0RF amitriptyline 150 mg tablet 300 mg PO BEDTIME sertraline 50 mg tablet 50 mg PO DAILY atorvastatin 40 mg tablet 40 mg PO BEDTIME fluticasone propion-salmeterol 250-50 mcg/dose blister with device 1 inh INHALATION Q12H pioglitazone 45 mg tablet 45 mg PO QDAY Humulin R U-500 (Conc) Insulin 500 unit/mL solution 500 unit subcut ACHS ondansetron 8 mg tablet,disintegrating 8 mg PO Q8H PRN (Reason: nausea) oxycodone-acetaminophen 5-325 mg tablet 1 tab PO QID PRN (Reason: pain) dicyclomine 20 mg tablet 20 mg PO QID propranolol 80 mg capsule,extended release 24 hr 80 mg PO Q24H omeprazole 40 mg capsule,delayed release(DR/EC) 40 mg PO BID spironolactone 50 mg tablet 50 mg PO QDAY metformin 500 mg tablet 500 mg PO BID bumetanide 2 mg tablet 2 mg PO DAILY Qty: 30 3RF Print Language: Somali Instructions: Upper Respiratory Infection (ED) Referrals: Juan Bonilla MD [Primary Care Provider] - 1 week
[2024-08-07 12:26] LABS: Basophils Percent Auto 0.8 % (0.2-2.0); Eosinophils Absolute Auto 0.1 10^3/uL (0.0-0.7); Eosinophils Percent Auto 2.8 % (0.9-7.0); Hematocrit 42.4 % (36.0-48.0); Hemoglobin 14.2 g/dL (12.0-16.0); Immature Granulocytes Abs Auto 0.06 10^3/uL (0.00-0.03); Immature Granulocytes Pct Auto 1.5 % (0.0-0.5); Lymphocytes Absolute Auto 1.2 10^3/uL (1.2-3.8); Lymphocytes Percent Auto 30.3 % (20.5-60.0); Mean Corpuscular HGB Conc 33.5 g/dL (29.9-35.2); Mean Corpuscular Hemoglobin 32.4 pg (26.7-34.0); Mean Corpuscular Volume 96.8 fL (81.0-99.0); Mean Platelet Volume 10.6 fL (9.5-13.5); Monocytes Absolute Auto 0.3 10^3/uL (0.3-0.8); Monocytes Percent Auto 7.5 % (1.7-12.0); Neutrophils Absolute Auto 2.3 10^3/uL (1.4-6.5); Neutrophils Percent Auto 57.1 % (43.0-75.0); Platelet Count 91 10^3/uL (150-450); Red Blood Count 4.38 10^6/uL (4.20-5.40); Red Cell Distribution Width 14.1 % (11.0-15.0)
[2024-08-07 12:32] LABS: Anion Gap 9.8; BUN Creatinine Ratio 9.5; Calcium 8.7 mg/dL (8.5-10.1); Chloride 106 mmol/L (98-107); Estimated GFR (African America >60 (>=60 mL/min/1.73m^2); Estimated GFR (Non-African Ame >60 (>=60 mL/min/1.73m^2); Glucose 165 mg/dL (74-106); Potassium 3.8 mmol/L (3.5-5.1); Sodium 142 mmol/L (136-145)
== END 2024-08-07 12:39 | disposition home or self-care (01) ==
PROVIDERS: Emergency Provider Emergency Medicine; PCP Family Medicine
DX: J06.9 Acute upper respiratory infection, unspecified (principal); Z90.49 Acquired absence of other specified parts of digestive tract; Z90.710 Acquired absence of both cervix and uterus; Z98.890 Other specified postprocedural states
CPT/HCPCS: 36415; 71046; 80048; 85025; 87804; 87811; 99284